=== PATIENT | male | born 1935 | race Caucasian/White ===

== ENCOUNTER 2016-06-04 17:20 | Inpatient (IN) ==
[2016-06-04] MEDS ORDERED: POTASSIUM CHLORIDE 40 MEQ in DEXTROSE 5% IN WATER 500 ML IV PRN (19:14)
[2016-06-04] MEDS ORDERED: MAGNESIUM SULFATE 2 GM/50 ML BAG IV PRN (19:14)
[2016-06-04] MEDS ORDERED: ONDANSETRON 4 MG/2 ML VIAL IV PRN (19:14)
[2016-06-04] MEDS ORDERED: POTASSIUM CHLORIDE 20 MEQ PACKET PO PRN (19:14)
[2016-06-04] MEDS ORDERED: NOREPINEPHRINE BITARTRATE 16 MG in 0.9 % SODIUM CHLORIDE 234 ML IV SCH (19:15)
[2016-06-04] MEDS ORDERED: 0.9 % SODIUM CHLORIDE 1,000 ML IV SCH ×5 (19:15→21:49)
[2016-06-04] MEDS ORDERED: PIPERACILLIN SODIUM/TAZOBACTAM 3.375 GM in DEXTROSE 5% IN WATER 50 ML IV SCH (19:15)
[2016-06-04] MEDS ORDERED: LEVOFLOXACIN 750 MG/150 ML BAG IV SCH (19:15)
[2016-06-04] MEDS ORDERED: METOPROLOL TARTRATE 5 MG/5 ML VIAL IV ONE (20:07)
[2016-06-04] MEDS ORDERED: PIPERACILLIN SODIUM/TAZOBACTAM 2.25 GM in DEXTROSE 5% IN WATER 50 ML IV SCH (20:15)
[2016-06-04] MEDS ORDERED: PIPERACILLIN SODIUM/TAZOBACTAM 2.25 GM VIAL IV ONE (21:00)
[2016-06-04] MEDS ORDERED: LEVOFLOXACIN 750 MG/150 ML BAG IV ONE (21:00)
[2016-06-04] MEDS ORDERED: FUROSEMIDE 100 MG/10 ML VIAL IV ONE ×2 (21:08→21:27)
[2016-06-04] MEDS ORDERED: WATER IV SCH ×2 (21:15→21:50)
[2016-06-04] MEDS ORDERED: DEXTROSE 5% IV SCH ×2 (21:15→21:50)
[2016-06-04] MEDS ORDERED: SODIUM BICARBONATE ADULT IV SCH ×2 (21:15→21:50)
[2016-06-04 21:16] LABS: Mean Cell Volume 87.6 fL (80.0-100.0); Mean Corpuscular HGB Conc 33.4 g/dL (31.0-36.0); Mean Corpuscular Hemoglobin 29.3 pg (26.0-34.0); Platelet Count 128 K/mcL (140-440); RBC 3.59 M/mcL (4.50-5.90); Red Cell Distribution Width 15.9 % (11.5-14.5)
[2016-06-04] MEDS ORDERED: PHYTONADIONE 10 MG/ML AMPUL ONE (21:18)
[2016-06-04] MEDS ORDERED: PHYTONADIONE 10 MG/ML AMPUL SQ ONE (21:19)
[2016-06-04] MEDS: SENNOSIDES/DOCUSATE SODIUM 1 TAB TABLET PO SCH (21:21)
[2016-06-04] MEDS: METOPROLOL TARTRATE 5 MG/5 ML VIAL IV SCH (21:21)
[2016-06-04 21:32] LABS: Appearance,Urine TURBID; Bacteria,Urine MANY /hpf (0); Bilirubin,Urine NEG (NEG); Color,Urine BROWN; Glucose,Urine (UA) 50 mg/dL (NEG); Leukocyte Esterase,Urine NEG /uL (NEG); Mucus,Urine MANY /hpf (0); Nitrate,Urine NEG (NEG); Protein,Urine 100 mg/dL (NEG); Specific Gravity,Urine 1.018 (1.000-1.035); Urine Amorphous Crystals MANY /hpf (0); Urine Blood >=1.0 mg/dL (<0.03); Urine RBC 125 /hpf (0-1); Urine Squamous Epithelial Cell 0 /hpf (0-4); Urine WBC 0 /hpf (0-4); Urobilinogen,Urine NEG (NEG)
--- NOTE | 2016-06-04 21:32 | Nephrology Consult Note ---
History of Present Illness - Reason for Consult Patient information: Note initiated : 06/04/16 at 9:26 pm Service Date, if different from initiated Date: [] Patient: Angel Garrett a 80 y/o M admitted on 06/04/16 for Sepsis, EDWIN. Chief Complaint: [] Consult date: 06/04/16 acute renal failure Requesting physician: Valdemar Peterson - Chief Complaint RHABDOMYOLYSIS - History of Present Illness Mr Garrett is a 80 y/o white male with PMH of Afib who is transferred here from [facility] in [place] for management of pneumonia, rhabdomyolysis and acute renal failure Patient was apparently found lying on the floor by his cousin who then called 911 Patient does not recollect what happened He last talked to his daughter Tuesday of this week, patient states that he was out playing golf, came back home, was feeling weak, does not remember what happened next, patient was likely on the floor for 2 days or more in the ED in [place] he was found to have left UL pneumonia, his CK was elevated to 35,000 and his BUN was 55 and s.creatinine was 6.0 and hence he was transferred to us for further management Patient is not able to provide much details he c/o SOB denies CP c/o LE swelling denies fever, chills denies nausea, vomiting was not taking any NSAIDS at home recently, yolanda marsh on and off Review of Systems All systems PM: reviewed and no additional remarkable complaints except as stated (as in HPI) Past History Past medical history: Afib on anticoagulation, recently diagnosed no h/o [place] Denies h/o HTN, DM type 2, states has chronically low BP Past surgical history: NOT OBTAINABLE Past family history: Not pertinent Past social history: lives alone, has a daughter and son who live in [place] and [place] quit drinking in Feb 2016 Exam - General Appearance General appearance: appears started age, obese EENT: mucous membranes dry Neck: no JVD Respiratory: wheezing, rales Cardiology: no rub, edema, irregular rhythm Gastrointestinal: no tenderness, no guarding Integumentary: no rash, warm and dry Neurologic: alert and oriented x3 Musculoskeletal: no erythema, no cyanosis Psychiatric: mood/affect appropriate Results - Lab Results 06/04/16 20:25 06/04/16 20:25 Assessment and Plan (1) Acute renal failure anuric renal failure from ATN from rhabdomyolysis Patient has received 3L IVF with no improvement in urine output, he clinically seems to be getting volume overloaded hence will cut back on sodium chloride at 50cc/hour will give lasix 60mg IV, and repeat the dose if needed will obtain CXR to ensure no pulmonary edema will also start him on bicarb gtt at 50cc/hour will monitor i/o, daily weights no emergent need for dialysis but if urine output does not improve will need to initiate dialysis PNA: ASPIRATION, on antibiotics Rhabdomyolysis on IVF Will follow along Thank you for giving me an opportunity to participate in Mr Garrett's medical care , appreciate it Status: Acute (2) Rhabdomyolysis Status: Acute (3) Pneumonia Status: Acute
[2016-06-04] MEDS: 0.9 % SODIUM CHLORIDE 10 ML SYRINGE IV SCH (21:34)
[2016-06-04] MEDS: DOCUSATE SODIUM 100 MG CAPSULE PO SCH (21:38)
[2016-06-04 21:44] LABS: ALT/SGPT 138 U/l (0-40); Albumin 2.7 gm/dL (3.2-5.2); Albumin/Globulin Ratio 0.8 (1.0-2.3); Alkaline Phosphatase 48 U/L (39-117); Bilirubin,Direct 0.5 mg/dL (0.0-0.3); Blood Urea Nitrogen 60 mg/dl (8-23); Gamma Glutamyl Transpeptidase 13 U/L (8-61); Magnesium 1.9 mg/dL (1.6-2.5); Uric Acid 12.6 mg/dL (2.5-8.0)
[2016-06-04] MEDS ORDERED: LEVOFLOXACIN 500 MG/100 ML BAG IV SCH (22:00)
[2016-06-04] MEDS ORDERED: SODIUM BICARBONATE 50 MEQ/50 ML VIAL ONE (22:05)
[2016-06-04 22:09] LABS: Band Neutrophils % 16 % (0-10); Dohle Bodies 1+ (NONE SEEN); Lymphocytes % 7 % (15-49); Monocytes % (Manual) 6 % (1-9); Ovalocytes FEW (NONE SEEN); Platelet Estimate DECREASED (NORMAL); RBC Morphology ABNORM (NORMAL); Segmented Neutrophils % 71 % (38-78)
[2016-06-04 22:11] LABS: Myoglobin 27762 ng/ml (28-72)
[2016-06-04 22:41] LABS: Creatine Kinase 32450 IU/L (24-195); Creatine Kinase MB 43.1 ng/ml (0-4.9)
--- NOTE | 2016-06-04 22:48 | History and Physical Report ---
DATE OF ADMISSION: 06/04/2016 DATE OF ADMISSION: 06/04/2016 PRIMARY CARE PHYSICIAN: Glo Kessler DO HISTORY OF CHIEF COMPLAINT: Mr. Garrett is an 80-year-old who was evaluated at [facility] after he was found down for unknown period of time likely since Tuesday. He was discovered by his cousin in the bathroom after he failed to respond to phone calls from family. Initial workup was significant for afib with RVR, low blood pressures in the 80s left upper lobe pneumonia and severe rhabdomyolysis with acute renal failure, creatinine 6. Patient was started on diltiazem drip. However, due to his dropping blood pressures, diltiazem was stopped. The patient received 1900 mL of crystalloids. ABG 7.42/36/71 on 5 liters of oxygen. The patient received first dose of antibiotics after blood cultures were drawn. The patient was critically ill, requiring transfer to intensive care unit for further management. Subsequently, [facility] hospitalist service was called by Dr. Tejada, ER physician in [place]. After verbal discussion on phone, the patient was accepted to [facility] with diagnosis of acute renal failure, rhabdomyolysis, afib with RVR, and right upper lobe pneumonia. On arrival, the patient is significantly dyspneic, requiring 5 liters of oxygen. His heart rate is around 120. Blood pressure is 110. The patient is confused and gibberish, unable to talk or provide any detailed history. Most of the history was obtained from review of medical records and from ER physician. A 10-point review of system was attempted. The patient denies diarrhea, dysuria, headache. He endorses generalized ache but appears fairly confused and disoriented. REVIEW OF SYSTEMS: Ten-point review of system was performed and negative except the ones discussed above. PAST MEDICAL HISTORY: No medical history could be obtained from review of medical records. SOCIAL AND FAMILY HISTORY: Again, unobtainable due to patient's mental status change. PHYSICAL EXAMINATION: GENERAL: The patient is disoriented, confused, gibberish and anxious. VITAL SIGNS: Blood pressure 123/90, respiration rate 22, temperature 98.6, pulse 122 irregular, sat is 96 percent on 4-5 liters of oxygen. HEENT: Pupils symmetric. Oral cavity is dry. No ear or nose discharge. Significant bruising and ecchymosis around the left side of forehead. . NECK: No lymphadenopathy. HEART: S1, S2, irregular rhythm. ESM, grade 1. LUNGS: Late inspiratory crackles along with bronchial breath sounds right posterior chest. Basilar crackles. ABDOMEN: Soft. SKIN: Significant necrotic skin lesion around the left chest surrounding the nipple along with skin necrosis. Also, extensive bruising and ecchymosis involving the left lower extremity around the thigh and knee and abrasion on the dorsum of the 1st, 2nd, and 3rd third toes. Skin cold, clammy. EXTREMITIES: No cyanosis or clubbing. No joint swelling. PSYCH: Disoriented, confused, gibberish speech. Higher function could not be performed. No agitation. NEURO: Could not be performed. The patient has obvious weakness, left upper and lower extremity. LABS AND IMAGING: CT head: No acute process except for scalp hematoma. X-ray chest: Left upper lobe infiltrate consistent with pneumonia. CT abdomen: No acute process. White count 7.9, hemoglobin 10.5, platelets 128. INR 12, APTT 84. Lactic acid 1.5, potassium 4, creatinine 6, BUN 60, bicarbonate 18. UA: Hematuria but no pyuria. ASSESSMENT AND PLAN: An 80-year-old found down, admitted with hypoxic respiratory failure, severe sepsis, atrial fibrillation with rapid ventricular response, and upper lobe pneumonia along with renal failure. 1. Left upper lobe pneumonia: Broad antibiotic coverage. Likely aspiration. Continue aspiration precautions. 2. Hypoxic respiratory failure: Continue supplemental oxygen. 3. Acute renal failure: Nephrology consulted secondary to rhabdomyolysis. 4. Rhabdomyolysis: Continue crystalloids and management per nephrology. The patient will be started on bicarbonate drip. 5. Atrial fibrillation with rapid ventricular response: Continue rate control measures using amiodarone/digoxin. Echocardiogram. Supratherapeutic INR. Five milligrams of vitamin K. The patient will require likely hemodialysis, and hence, dialysis catheter placement. Target INR less than 2. PLAN FOR TODAY: 1. Admit in ICU in light of SOBOBA score 22. High risk mortality. 2. Nephrology consultation. 3. Broad antibiotic coverage. 4. Hypoxic respiratory failure management. Intubate if indicated. Overall, a very high complexity admit requiring intensive care unit management with multiorgan dysfunction/rhabdomyolysis. The patient may require transfer to tertiary center if continues to deteriorate. Time spent over 85 minutes including 35 minutes critical care time on reviewing ABG, imaging, labs and stabilizing patient, management of hypoxic respiratory failure and discussions with multiple care provider. AA: Job ID: [id number] Doc ID: [id number] Valdemar Kessler DO [facility]
[2016-06-05] MEDS: VASOPRESSIN 20 UNIT in DEXTROSE 5% IN WATER 99 ML IV SCH ×2 (00:20→03:55)
[2016-06-05] MEDS ORDERED: METOPROLOL TARTRATE 5 MG/5 ML VIAL IV ONE (01:20)
[2016-06-05] MEDS: METOPROLOL TARTRATE 5 MG/5 ML VIAL IV SCH ×5 (01:22→16:30)
[2016-06-05 01:58] LABS: ALT/SGPT 128 U/l (0-40); Albumin 2.5 gm/dL (3.2-5.2); Albumin/Globulin Ratio 0.8 (1.0-2.3); Alkaline Phosphatase 44 U/L (39-117); Bilirubin,Direct 0.5 mg/dL (0.0-0.3); Blood Urea Nitrogen 61 mg/dl (8-23); Gamma Glutamyl Transpeptidase 11 U/L (8-61); Uric Acid 11.9 mg/dL (2.5-8.0)
[2016-06-05] MEDS ORDERED: FUROSEMIDE 100 MG/10 ML VIAL IV ONE ×2 (02:33→04:00)
[2016-06-05] MEDS: 0.9 % SODIUM CHLORIDE 10 ML SYRINGE IV SCH ×3 (06:00→21:24)
[2016-06-05 06:39] LABS: Mean Cell Volume 87.1 fL (80.0-100.0); Mean Corpuscular HGB Conc 33.5 g/dL (31.0-36.0); Mean Corpuscular Hemoglobin 29.2 pg (26.0-34.0); Platelet Count 121 K/mcL (140-440); RBC 3.38 M/mcL (4.50-5.90); Red Cell Distribution Width 15.8 % (11.5-14.5)
[2016-06-05 07:02] LABS: Creatine Kinase MB 29.2 ng/ml (0-4.9)
[2016-06-05] MEDS: DOCUSATE SODIUM 100 MG CAPSULE PO SCH ×2 (07:15→20:41)
[2016-06-05 07:20] LABS: ALT/SGPT 128 U/l (0-40); Albumin 2.4 gm/dL (3.2-5.2); Albumin/Globulin Ratio 0.8 (1.0-2.3); Alkaline Phosphatase 45 U/L (39-117); Bilirubin,Direct 0.5 mg/dL (0.0-0.3); Blood Urea Nitrogen 64 mg/dl (8-23); Gamma Glutamyl Transpeptidase 13 U/L (8-61); Magnesium 1.9 mg/dL (1.6-2.5); Uric Acid 12.2 mg/dL (2.5-8.0)
[2016-06-05] MEDS ORDERED: VASOPRESSIN 20 UNIT in DEXTROSE 5% IN WATER 99 ML IV PRN (07:26)
[2016-06-05] MEDS ORDERED: NOREPINEPHRINE BITARTRATE 16 MG in 0.9 % SODIUM CHLORIDE 234 ML IV PRN (07:26)
--- NOTE | 2016-06-05 07:29 | XRay Report ---
CLINICAL INFORMATION: Shortness of breath COMPARISON: None. FINDINGS: The heart is moderate enlarged. Mediastinum is unremarkable. Moderate sized consolidated infiltrate is seen in the left upper lobe. Small infiltrate noted in the right infrahilar region - likely the right lower lobe. Small bilateral pleural effusions are noted. IMPRESSION: 1. Moderate sized consolidated infiltrate left upper lobe - likely pneumonia. 2. Small infiltrate right infrahilar region. 3. Moderate cardiomegaly - no evidence of CHF Interpreted and Authenticated by: Santy Zelaya 06/05/16
--- NOTE | 2016-06-05 07:41 | Ultrasound Report ---
CLINICAL INFORMATION: Acute renal failure COMPARISON: None. FINDINGS: Both kidneys are normal in size, position and configuration: The right is 11 x 6.2 cm and the left is 13 x 6 cm. Echotexture in both kidneys is normal. A 3.5 cm, well-circumscribed hypoechoic solid mass in the superior pole of the left kidney. There are two cysts in the right kidney: 3.7 cm medially and 2.2 cm the superior pole. No hydronephrosis or stone. Arterial blood flow is grossly normal on color and spectral Doppler Mckeon catheter is in place bladder is decompressed - no gross bladder abnormality. No free fluid IMPRESSION: 3.5 cm centimeter well-circumscribed solid mass - superior pole of the left kidney. Suggest CT IVP to evaluate for renal cell carcinoma. If patient cannot tolerate iodinated contrast, an abdominal MRI may be performed as a substitute test. If the creatinine clearance exceeds 30 - gadolinium could be utilized safely. If creatinine clearance is under 30 in the MRI will have to be performed without gadolinium Interpreted and Authenticated by: Santy Zelaya 06/05/16
[2016-06-05 07:49] LABS: Band Neutrophils % 32 % (0-10); Basophils % (Manual) 1 % (0-2); Dohle Bodies 1+ (NONE SEEN); Lymphocytes % 4 % (15-49); Monocytes % (Manual) 2 % (1-9); Platelet Estimate DECREASED (NORMAL); RBC Morphology NORMAL (NORMAL); Segmented Neutrophils % 61 % (38-78)
[2016-06-05] MEDS: PIPERACILLIN SODIUM/TAZOBACTAM 2.25 GM in DEXTROSE 5% IN WATER 50 ML IV SCH ×2 (09:00→21:24)
[2016-06-05] MEDS ORDERED: METOPROLOL TARTRATE 25 MG TABLET PO SCH ×2 (09:00→21:00)
[2016-06-05] MEDS ORDERED: DIGOXIN 500 MCG/2 ML AMPUL IV ONE (09:06)
[2016-06-05] MEDS ORDERED: PHYTONADIONE 5 MG TABLET PO ONE (09:13)
--- NOTE | 2016-06-05 09:18 | XRay Report ---
CLINICAL INFORMATION: Follow left upper lobe pneumonia COMPARISON: 06/04/2016 FINDINGS: Large densely consolidated infiltrate in the left mid/upper lung has worsened slightly. Smaller infiltrate in the posterior medial right lower lobe also show slight progression. There appears to be a new small infiltrate developing in the left base. The heart is mildly enlarged, but unchanged. Mediastinum is accentuated by right lateral rotation with the normal limits. Pulmonary vessels are unremarkable IMPRESSION: 1. Large infiltrate in the left mid and upper lung has worsened from yesterday. Small infiltrate posterior medial right lower lobe also progressing. Probable new small left basilar infiltrate developing Interpreted and Authenticated by: Santy Zelaya 06/05/16
[2016-06-05] MEDS: PANTOPRAZOLE 40 MG VIAL IV SCH (09:26)
[2016-06-05] MEDS ORDERED: 0.9 % SODIUM CHLORIDE 250 ML IV SCH (09:45)
--- NOTE | 2016-06-05 10:02 | Internal Med Progress Note ---
Medical - PN: Subj Patient information: Note initiated : 06/05/16 at 9:57 am Service Date, if different from initiated Date: [] Patient: Angel Garrett 80 y/o M admitted on 06/04/16 for Sepsis, EDWIN. Chief Complaint: [] Interval history: 06[id number]-old admitted with severe rhabdomyolysis resulting inacute renal failure, left upper lobe aspiration pneumonia with hypoxic respiratory failure and A. fib with RVR. Admitted to ICU. Nephrology consulted. INR 12.3 status post 5 mg vitamin K and 1 unit FFP. on aggressive crystalloids/bicarbonate drip per nephrology. broad antibiotic coverage for aspiration pneumonia. Admitted to ICU. Critically ill. Mcalister score 22. Patient is full code. Intubate if worsening respiratory status. Imaging and blood gas reviewed. Patient however clinically responding to treatment and from Tuesday obtunded state on admission was able to provide some answers after initial crystalloids and improvement in blood pressures. CK 32,000. Myoglobin 27,000. 06/05-creatinine at 6.8. INR 7 receiving additional 5 mg vitamin K/2 units FFP. Surgery consulted for temporary dialysis catheter placement. Bandemia 32%. Worsening left-sided chest infiltrates. On 3 L oxygen with sats 97% however tachypneic. Start noninvasive ventilation to improve work of breathing. Anuric overnight. A. fib with RVR around 140s. Digoxin load 500 g IV. Use amiodarone if persistent RVR. cardiac enzymes down from 0.2-0.5. Elevated PTT at 100. CK 32,000. continues to be critically ill/ - Constitutional Vitals: Vital Signs Temp Pulse Resp BP Pulse Ox 99.3 F 110 H 27 H 110/79 97 06/05/16 08:00 06/05/16 09:00 06/05/16 09:00 06/05/16 09:00 06/05/16 09:00 Period Temp Pulse Resp BP Sys/Hinds Pulse Ox Last 24 Hr 98.9 F-99.8 F 109-119 22-36 98-145/63-119 93-97 Intake and Output 06/04/16 06/05/16 06/05/16 21:59 05:59 13:59 Intake Total 1018 / 1018 150 / 150 50 / 50 Output Total 75 / 75 Balance 1018 / 1018 75 / 75 50 / 50 Weight 214 lb 8 oz Intake & Output: Intake & Output 06/04/16 06/05/16 06/05/16 21:59 05:59 13:59 Intake Total 1018 / 1018 150 / 150 50 / 50 Output Total 75 / 75 Balance 1018 / 1018 75 / 75 50 / 50 Weight 214 lb 8 oz Intake: IV 1018 / 1018 150 / 150 50 / 50 Sodium Chloride 0.9% 1, 1018 / 1018 000 ml @ 50 mls/hr IV . Q20H [facility] Rx#:[id number] LEVAQUIN 750 mg In 150 ml 150 / 150 As IV .STK-[facility] ONE Rx#: [id number] Zosyn 2.25 gm In Dextrose 50 / 50 5% in Water 50 ml @ 100 mls/hr IV Q12H [facility] Rx#: [id number] Output: Urine Catheter Amount 75 / 75 General appearance: moderate distress, obese Exam: n 3 L oxygen nondistended abdomen Multiple bruises /macerated skin lesions involving right side of the body including chest upper and lower extremity minimal anxiety no urine output on Foleys catheter overnight Medical - PN: Obj Da - Labs CBC & Chem 7: 06/05/16 05:46 06/05/16 05:46 Labs: Abnormal Lab Results 06/05/16 06/05/16 06/05/16 07:55 05:46 05:46 RBC 3.38 L Hgb 9.9 L Hct 29.5 L RDW 15.8 H Plt Count 121 L Band Neutrophils % 32 H Lymphocytes % 4 L WBC Morphology Abnorm A Dohle Bodies 1+ A Platelet Estimate Decreased A RBC Morphology Ovalocytes ESR PT 63.6 H INR 7.0 H* APTT 100 H Carbon Dioxide 18 L Anion Gap 21.0 H BUN 64 H Creatinine 6.8 H* Glucose Uric Acid 12.2 H Calcium 6.4 L Phosphorus 6.6 H* Direct Bilirubin 0.5 H AST 675 H ALT 128 H Lactate Dehydrogenase 976 H Total Creatine Kinase CK-MB (CK-2) Myoglobin Troponin T C-Reactive Protein Total Protein 5.6 L Albumin 2.4 L Albumin/Globulin Ratio 0.8 L Triglycerides Urine Protein Urine Glucose (UA) Urine Occult Blood Urine RBC Amorphous Crystals Urine Bacteria Urine Mucus 06/05/16 06/05/16 06/05/16 05:25 05:25 01:03 RBC Hgb Hct RDW Plt Count Band Neutrophils % Lymphocytes % WBC Morphology Dohle Bodies Platelet Estimate RBC Morphology Ovalocytes ESR PT INR APTT Carbon Dioxide 21 L Anion Gap 18.0 H BUN 61 H Creatinine 6.1 H* Glucose 142 H Uric Acid 11.9 H Calcium 6.5 L Phosphorus 6.6 H* Direct Bilirubin 0.5 H AST 709 H ALT 128 H Lactate Dehydrogenase 971 H Total Creatine Kinase 90607 H CK-MB (CK-2) 29.2 H Myoglobin Troponin T 0.05 H* C-Reactive Protein Total Protein 5.7 L Albumin 2.5 L Albumin/Globulin Ratio 0.8 L Triglycerides Urine Protein Urine Glucose (UA) Urine Occult Blood Urine RBC Amorphous Crystals Urine Bacteria Urine Mucus 06/04/16 06/04/16 06/04/16 22:08 22:08 20:41 RBC Hgb Hct RDW Plt Count Band Neutrophils % Lymphocytes % WBC Morphology Dohle Bodies Platelet Estimate RBC Morphology Ovalocytes ESR PT INR APTT Carbon Dioxide Anion Gap BUN Creatinine Glucose Uric Acid Calcium Phosphorus Direct Bilirubin AST ALT Lactate Dehydrogenase Total Creatine Kinase 86422 H CK-MB (CK-2) 43.1 H Myoglobin Troponin T 0.05 H* C-Reactive Protein Total Protein Albumin Albumin/Globulin Ratio Triglycerides Urine Protein 100 A Urine Glucose (UA) 50 A Urine Occult Blood >=1.0 A Urine RBC 125 H Amorphous Crystals Many A Urine Bacteria Many A Urine Mucus Many A 06/04/16 06/04/16 06/04/16 20:25 20:25 20:25 RBC 3.59 L Hgb 10.5 L Hct 31.5 L RDW 15.9 H Plt Count 128 L Band Neutrophils % 16 H Lymphocytes % 7 L WBC Morphology Abnorm A Dohle Bodies 1+ A Platelet Estimate Decreased A RBC Morphology Abnorm A Ovalocytes Few A ESR PT INR APTT Carbon Dioxide 17 L Anion Gap 24.0 H BUN 60 H Creatinine 6.1 H* Glucose Uric Acid 12.6 H Calcium 6.8 L Phosphorus 6.6 H* Direct Bilirubin 0.5 H AST 755 H ALT 138 H Lactate Dehydrogenase 997 H Total Creatine Kinase 72754 H CK-MB (CK-2) Myoglobin 66726 H Troponin T C-Reactive Protein Total Protein Albumin 2.7 L Albumin/Globulin Ratio 0.8 L Triglycerides 155 H Urine Protein Urine Glucose (UA) Urine Occult Blood Urine RBC Amorphous Crystals Urine Bacteria Urine Mucus 06/04/16 06/04/16 20:25 20:25 RBC Hgb Hct RDW Plt Count Band Neutrophils % Lymphocytes % WBC Morphology Dohle Bodies Platelet Estimate RBC Morphology Ovalocytes ESR 101 H PT INR APTT Carbon Dioxide Anion Gap BUN Creatinine Glucose Uric Acid Calcium Phosphorus Direct Bilirubin AST ALT Lactate Dehydrogenase Total Creatine Kinase CK-MB (CK-2) Myoglobin Troponin T C-Reactive Protein 34.8 H Total Protein Albumin Albumin/Globulin Ratio Triglycerides Urine Protein Urine Glucose (UA) Urine Occult Blood Urine RBC Amorphous Crystals Urine Bacteria Urine Mucus Meds: Medications Acetaminophen (Tylenol) 650 mg PO Q4-6HP PRN PRN Reason: PAIN/FEVER > 101 Docusate Sodium (Colace) 100 mg PO BID [facility] Last Admin: 06/05/16 07:15 Dose: Not Given Potassium Chloride 40 meq/ (Dextrose) 520 mls @ 130 mls/hr IV UD PRN PRN Reason: K+ = or < 3.5 Magnesium Sulfate (Magnesium Sulfate) 2 gm in 50 mls @ 50 mls/hr IV UD PRN PRN Reason: MG = or < 1.7 Sodium Chloride (Sodium Chloride 0.9%) 1,000 mls @ 0 mls/hr IV BOLUS [facility] PRN Reason: Wide Open Last Infusion: 06/04/16 21:34 Dose: Infused Sodium Chloride (Sodium Chloride 0.9%) 1,000 mls @ 75 mls/hr IV .[id number] [facility] Stop: 06/07/16 03:08 Last Admin: 06/04/16 21:59 Dose: 75 mls/hr Sodium Bicarbonate 154 meq/ (Dextrose) 1,154 mls @ 25 mls/hr IV .Q24H [facility] Last Admin: 06/04/16 22:13 Dose: Not Given Piperacillin Sod/Tazobactam (Sod 2.25 gm/ Dextrose) 50 mls @ 100 mls/hr IV Q12H [facility] Last Infusion: 06/05/16 09:30 Dose: Infused Levofloxacin (Levaquin) 500 mg in 100 mls @ 100 mls/hr IV Q48H [facility] Norepinephrine Bitartrate 16 (mg/ Sodium Chloride) 250 mls @ 9.37 mls/hr IV Q24HP PRN; Protocol; 10 MCG/MIN PRN Reason: Hypotension Vasopressin 20 unit/ Dextrose 100 mls @ 12 mls/hr IV Q8HP PRN; Protocol; 0.04 UNIT/MIN PRN Reason: Hypotension Sodium Chloride (Sodium Chloride 0.9%) 250 mls @ 20 mls/hr IV .[id number] [facility] Stop: 06/05/16 22:14 Ondansetron HCl (Zofran) 4 mg IV Q4-6HP PRN PRN Reason: Nausea And Vomiting Pantoprazole Sodium (Protonix) 40 mg IV QAMAC [facility] Last Admin: 06/05/16 09:26 Dose: 40 mg Potassium Chloride (Klor-Con) 40 meq PO DAILYP PRN PRN Reason: K+ < 3.5 Senna/Docusate Sodium (Senna Plus Tablet) 1 tab PO HS [facility] Last Admin: 06/04/16 21:21 Dose: Not Given Sodium Chloride (Saline Flush) 10 ml IV Q8 [facility] Last Admin: 06/05/16 06:00 Dose: 10 ml Medical - PN: A/P - Time Spent With Patient Total time spent is greater than 50% in coordination of care (as documented) at patient's floor/unit and/or counseling patient: Greater than 35 minutes (critical care time) (1) Rhabdomyolysis Status: Acute Assessment and plan: * Rhabdomyolysis-on bicarbonate drip/crystalloids. Managed by nephrology. Myoglobin 27,000 CK 32,000 * Acute renal failure-anuric. Creatinine 6.8. Nephrology on board. Would require hemodialysis * Left upper lobe pneumonia-aspiration. Continue Zosynfor empiric coverage of gram-negative/anaerobes. High risk developing lung abscess * Hypoxic respiratory failure secondary to above-start noninvasive ventilation. Serial blood gas/chest imaging to evaluate for ALI/ARDS. Mechanical ventilation if continues to deteriorate * A. fib RVR-digoxin load. Use amiodarone if low systolics preclude use of beta ben/CCB. * Eevated INR/PTT-Status post 10 mg vitamin K. FFP to target INR around 2. Hemodialysis catheter placement today plan * [facility]CU care. Patient critically ill. Mcalister score 22 * Surgery nephrology consult * Digoxin load, FFP vitamin K * serial chest imaging/blood gas * Tertiary Center transfer if patient clinically deteriorates Current Visit: Yes Medical - PN: Qual - Stroke Symptom Onset Unknown: Yes - VTE Deep Vein Thrombosis/Pulmonary Embolism Present on Admission: No
--- NOTE | 2016-06-05 10:05 | Nephrology Progress Note ---
Subjective Patient information: Note initiated : 06/05/16 at 10:02 am Service Date, if different from initiated Date: [] Patient: Angel Garrett 80 y/o M admitted on 06/04/16 for Sepsis, [facility]WIN. Chief Complaint: [] Principal diagnosis: PNA, acute renal failure, rhabdomyolysis Interval history: Patient remains tachypneic, infiltrate in left upperlobe, developing infitrate in left lower lobe and infiltrate in right middle lobe no s/o CHF on CXR patient received more than 4L of fluid yesterday with no improvement in urine output concern of him getting fluid overloaded as he is anuric he also has coagulopathy INR still 7, aptt is elevated to 100 his BP is stable, no need of pressors he denies CP, any pain at all c/o LE edema he denies nausea, vomiting he has no other concerns Pertinent ROS: as above Objective - Vital Signs Vital signs: Vital Signs Temp Pulse Resp BP BP Pulse Ox 06/05/16 09:00 110 H 27 H 110/79 97 06/05/16 08:00 99.3 F 109 H 36 H 109/77 95 06/05/16 07:00 119 H 29 H 114/67 96 06/05/16 05:58 24 98/73 97 06/05/16 05:00 30 H 111/64 95 06/05/16 04:00 98.9 F 25 H 106/63 96 06/05/16 03:00 24 107/72 97 06/05/16 02:00 114 H 25 H 107/72 95 06/05/16 01:00 25 H 115/89 06/05/16 00:00 99.5 F 22 111/81 97 06/04/16 23:00 22 115/73 93 06/04/16 22:00 23 123/77 97 06/04/16 21:00 26 H 111/68 93 06/04/16 20:00 29 H 127/85 95 06/04/16 19:45 22 145/119 94 06/04/16 19:31 99.8 F H 24 127/85 95 Intake and Output 06/04/16 06/05/16 06/05/16 21:59 05:59 13:59 Intake Total 1018 / 1018 150 / 150 50 / 50 Output Total 75 / 75 Balance 1018 / 1018 75 / 75 50 / 50 Intake: IV 1018 / 1018 150 / 150 50 / 50 Sodium Chloride 0.9% 1, 1018 / 1018 000 ml @ 50 mls/hr IV . Q20H [facility] Rx#:[id number] LEVAQUIN 750 mg In 150 ml 150 / 150 As IV .[facility] ONE Rx#: [id number] Zosyn 2.25 gm In Dextrose 50 / 50 5% in Water 50 ml @ 100 mls/hr IV Q12H [facility] Rx#: [id number] Output: Urine Catheter Amount 75 / 75 Other: Weight 214 lb 8 oz Intake & Output: Intake & Output 06/04/16 06/05/16 06/05/16 21:59 05:59 13:59 Intake Total 1018 / 1018 150 / 150 50 / 50 Output Total 75 / 75 Balance 1018 / 1018 75 / 75 50 / 50 Weight 214 lb 8 oz Intake: IV 1018 / 1018 150 / 150 50 / 50 Sodium Chloride 0.9% 1, 1018 / 1018 000 ml @ 50 mls/hr IV . Q20H [facility] Rx#:[id number] LEVAQUIN 750 mg In 150 ml 150 / 150 As IV .[facility] ONE Rx#: [id number] Zosyn 2.25 gm In Dextrose 50 / 50 5% in Water 50 ml @ 100 mls/hr IV Q12H [facility] Rx#: [id number] Output: Urine Catheter Amount 75 / 75 - General Appearance General appearance: appears started age, obese EENT: mucous membranes moist Neck: JVD Respiratory: rales Cardiology: no rub, edema, irregular rhythm Gastrointestinal: no tenderness, no guarding Integumentary: warm and dry Neurologic: alert and oriented x3 Musculoskeletal: no cyanosis, no clubbing Psychiatric: mood/affect appropriate - Lab 06/05/16 05:46 06/05/16 05:46 Most recent lab results Calcium 6.4 mg/dl (8.6-10.4) L 06/05/16 05:46 Phosphorus 6.6 mg/dL (2.7-4.5) H* 06/05/16 05:46 Magnesium 1.9 mg/dL (1.6-2.5) 06/05/16 05:46 Assessment and Plan (1) Acute renal failure Patient with oligoanuric renal failure from pre renal state and rhabodmyolysis on IVF, fluid resuscitated with no improvement in renal function, also received IV lasix CKD still more than 30,000 no hyperkalemia, mild acidosis elevated phosphorus and mild hypocalcemia from rhabdomyolysis stable concern of anuric renal failure, doubt patient will turn around soon given persistently elevated CKD given this will initiate dialysis Dr Soto helping with placement of temp IJ dialysis cathetor Will do dialysis for 3 hrs using revaclear 300 dialyser, 3K/2.5 ca dialysate, UF goal 0.5-1L as tolerated as patient will get FFP for line placement will continue with IVF today, change to normal saline will monitor I/O, recheck labs later in evening today Pneumonia bilateral, more extensive in left upper lobe patient persistently tacypneic consider ABG, consider atleast bipap support as patient ia awake and oriented on antibiotics dose to dialysis please repeat zosyn after HD Rhabdomyolysis: persistently elevated to more than [id number] no urine output phos elevated will initiate HD will continue with cautious fluid resuscitation Abnormal liver enzymes with coagulopathy overall poor prognosis given patient;s age with multiorgan involvement Patient's niece Yvonne was updated about patient;'s medical condition High mortality Thank you for giving me an opportunity to participate in Mr Garrett's medical care , appreciate it Status: Acute (2) Rhabdomyolysis Status: Acute (3) Pneumonia Status: Acute
[2016-06-05] MEDS ORDERED: 0.9 % SODIUM CHLORIDE 1,000 ML IV SCH (10:15)
--- NOTE | 2016-06-05 10:46 | XRay Report ---
CLINICAL INFORMATION: Dialysis catheter placement COMPARISON: 06/05/2016 0800 hours FINDINGS: Right IJ dialysis catheter tip overlies the SVC/ right atrial junction. Mild cardiomegaly is stable. Mediastinum is unremarkable. Large infiltrate left upper lobe is unchanged. Small infiltrate in the right lower lobe also unchanged. IMPRESSION: No change in large left upper lobe and smaller right lower lobe infiltrate. Right IJ dialysis catheter tip overlies the SVC azygos junction. No complication from catheter placement. Interpreted and Authenticated by: Santy Zelaya 06/05/16
--- NOTE | 2016-06-05 12:21 | Echocardiogram Report ---
ECHOCARDIOGRAM: 2-D and M-mode echocardiography with cardiac Doppler and color flow imaging were performed with a [employer] MX. Indication is hypoxic respiratory failure. Both atria appeared moderately enlarged. The RV appeared mildly enlarged. LV cavity size appeared normal. Wall thickness appeared high normal. Systolic performance appeared normal to vigorous. Estimated ejection fraction is 65-70%. Aortic root diameter appeared normal. The aortic valve appeared trileaflet and normal. There was no evidence for aortic stenosis or aortic regurgitation by Doppler interrogation. The mitral and tricuspid valves appeared unremarkable. Doppler interrogation of LV inflow disclosed a monophasic spectral dispersion pattern related to absent AV synchrony. Mitral regurgitation, probably moderate (2+), was demonstrated. Color flow imaging disclosed the regurgitant jet to be directed anteriorly. Pulmonary venous interrogation disclosed ''D'' wave dominance indicating elevated pulmonary wedge pressure. The pulmonic valve was not visualized. Pulmonary artery acceleration time appeared normal. There was no evidence for pulmonic stenosis or pulmonic regurgitation. Tricuspid regurgitation, probably mild (1+), was noted. No intracardiac shunting was appreciated. There was no evidence of pericardial effusion. The IVC was dilated and did not vary with respiratory cycle indicating raise CVP. Calculated estimated of PA systolic pressure is mildly elevated at 45 mmHg. Atrial fibrillation with a moderate to rapid response was present. CONCLUSION: Normal to vigorous LV systolic performance. Mitral regurgitation, probably moderate (2+) with moderate LA enlargement and elevated pulmonary wedge pressure. Mild pulmonary hypertension with mild RV enlargement, moderate RA enlargement, and raised CVP. (See accompanying M-mode and Doppler reports for quantitation.) ECHOCARDIOGRAPHY M-MODE CALCULATIONS: HT: 65'' WT: 214 BSA: 2.04 m2 NORMALS AORTA: AORTIC ROOT 3.6 2.0-3.7 cm LEFT ATRIUM 3.4 1.9-4.0 cm MITRAL VALVE: EXCURSION 2.1 1.9-2.7 cm EPSS -- <0.5 cm LT VENTRICLE: LVID (ED) 4.3 3.5-5.7 cm LVID (ES) 3.0 SEPTAL THICKNESS 1.1 0.6-1.1 cm SEPTAL EXCURSION 0.4 0.3-0.8 cm LVPW THICKNESS 1.1 0.6-1.1 cm LVPW EXCURSION 1.0 0.9-1.4 cm MINOR AXIS FS 30 25%-40% RT VENTRICLE: RVID (ED) 1.2 0.9-2.6 cm(up to 3cm if LLD) QUALITATIVE DOPPLER FLOW STUDIES MITRAL VALVE MR, probably moderate (2+). AORTIC VALVE -- TRICUSPID VALVE TR, probably mild (1+). PULMONIC VALVE -- QUANTITATIVE DOPPLER FLOW STUDIES SAMPLE SITES VELOCITIES PEAK PRESSURE VALVE AREA and/or VALVE WINDOW (PEAK,M/SEC) DROP (GRADIENT) PRESSURE HALF-TIME MV (Diastole) 1.2 (E) - (A) MV (Systole) 3.5 AO (Diastole) -- AO (Systole) 1.4 TV (Systole) 2.5 PV (Systole) 1.5 PV (Diastole) -- LWG:cali Job ID: [id number] Doc ID: [id number] Nicolas Corea MD
--- NOTE | 2016-06-05 13:19 | General Surgery Progress Note ---
Surgical - Auxillary Note - Subjective Patient Information: Note initiated : 06/05/16 at 1:17 pm Service Date, if different from initiated Date: [] Patient: Angel Garrett 80 y/o M admitted on 06/04/16 for Sepsis, [facility]WIN. Chief Complaint: Post procedure visit Patient sitting up in bed receiving dialysis. Dialysis nurse reports good flows through catheter. Examination of catheter site shows catheter secure in place w/ suture. Some sanguinous drainage on dressing but no hematoma at site or active bleeding from insertion site noted.
[2016-06-05] MEDS ORDERED: IPRATROPIUM/ALBUTEROL 3 ML AMPUL.NEB NEB SCH (15:30)
[2016-06-05 16:09] LABS: Mean Cell Volume 87.4 fL (80.0-100.0); Mean Corpuscular HGB Conc 33.3 g/dL (31.0-36.0); Mean Corpuscular Hemoglobin 29.1 pg (26.0-34.0); Platelet Count 121 K/mcL (140-440); RBC 3.54 M/mcL (4.50-5.90); Red Cell Distribution Width 15.7 % (11.5-14.5)
[2016-06-05] MEDS: IPRATROPIUM/ALBUTEROL 3 ML AMPUL.NEB NEB SCH ×3 (16:10→23:08)
[2016-06-05] MEDS: ACETAMINOPHEN 325 MG TABLET PO PRN ×2 (16:16→20:12)
[2016-06-05 16:32] LABS: ALT/SGPT 134 U/l (0-40); Albumin 2.9 gm/dL (3.2-5.2); Albumin/Globulin Ratio 0.8 (1.0-2.3); Alkaline Phosphatase 58 U/L (39-117); Bilirubin,Direct 0.7 mg/dL (0.0-0.3); Blood Urea Nitrogen 35 mg/dl (8-23); Gamma Glutamyl Transpeptidase 19 U/L (8-61); Magnesium 1.8 mg/dL (1.6-2.5); Uric Acid 5.3 mg/dL (2.5-8.0)
[2016-06-05 17:18] LABS: Creatine Kinase 28360 IU/L (24-195)
[2016-06-05] MEDS ORDERED: METOPROLOL TARTRATE 25 MG TABLET PO ONE (18:56)
[2016-06-05] MEDS: SENNOSIDES/DOCUSATE SODIUM 1 TAB TABLET PO SCH (20:42)
[2016-06-06] MEDS: METOPROLOL TARTRATE 50 MG TABLET PO SCH ×3 (00:24→20:42)
[2016-06-06 05:08] LABS: Mean Cell Volume 87.5 fL (80.0-100.0); Mean Corpuscular HGB Conc 33.4 g/dL (31.0-36.0); Mean Corpuscular Hemoglobin 29.2 pg (26.0-34.0); Platelet Count 112 K/mcL (140-440); RBC 3.26 M/mcL (4.50-5.90); Red Cell Distribution Width 15.1 % (11.5-14.5)
[2016-06-06 05:32] LABS: ALT/SGPT 126 U/l (0-40); Albumin 2.5 gm/dL (3.2-5.2); Albumin/Globulin Ratio 0.8 (1.0-2.3); Alkaline Phosphatase 57 U/L (39-117); Bilirubin,Direct 1.1 mg/dL (0.0-0.3); Blood Urea Nitrogen 51 mg/dl (8-23); Gamma Glutamyl Transpeptidase 17 U/L (8-61); Magnesium 1.9 mg/dL (1.6-2.5); Uric Acid 7.4 mg/dL (2.5-8.0)
[2016-06-06] MEDS: 0.9 % SODIUM CHLORIDE 10 ML SYRINGE IV SCH ×3 (05:40→22:04)
[2016-06-06 07:18] LABS: Band Neutrophils % 16 % (0-10); Dohle Bodies 1+ (NONE SEEN); Lymphocytes % 8 % (15-49); Monocytes % (Manual) 2 % (1-9); Platelet Estimate DECREASED (NORMAL); RBC Morphology NORMAL (NORMAL); Segmented Neutrophils % 74 % (38-78)
[2016-06-06] MEDS: IPRATROPIUM/ALBUTEROL 3 ML AMPUL.NEB NEB SCH ×5 (07:38→22:12)
[2016-06-06] MEDS: DOCUSATE SODIUM 100 MG CAPSULE PO SCH ×2 (07:54→19:27)
[2016-06-06] MEDS: PANTOPRAZOLE 40 MG VIAL IV SCH (07:54)
[2016-06-06] MEDS: ACETAMINOPHEN 325 MG TABLET PO PRN ×2 (08:40→15:07)
[2016-06-06 08:48] LABS: Creatine Kinase 19324 IU/L (24-195)
[2016-06-06] MEDS ORDERED: LEVOFLOXACIN 500 MG/100 ML BAG IV SCH (10:00)
--- NOTE | 2016-06-06 10:31 | Nephrology Progress Note ---
Subjective Patient information: Note initiated : 06/06/16 at 10:26 am Service Date, if different from initiated Date: [] Patient: Angel Garrett 80 y/o M admitted on 06/04/16 for Sepsis, EDWIN. Chief Complaint: [] Principal diagnosis: PNA, acute renal failure, rhabdomyolysis Interval history: Patient started on dialysis yesterday, tolerated the procedure with no issues feeling much better today no SOB, CP, dizziness no edema no GI symptoms still anuric CK trending down Pertinent ROS: as above Objective - Vital Signs Vital signs: Vital Signs Temp Pulse Pulse Resp BP BP BP 06/06/16 08:00 99.4 F 109 H 29 H 124/74 06/06/16 07:00 99.5 F 110 H 28 H 107/76 06/06/16 06:00 28 H 120/65 06/06/16 05:00 22 102/59 06/06/16 04:00 98.7 F 23 96/78 06/06/16 03:00 21 100/65 06/06/16 02:00 120 H 28 H 111/67 06/06/16 01:00 19 97/50 06/06/16 00:00 98.7 F 26 H 93/59 06/05/16 23:17 100 H 21 06/05/16 23:00 22 99/53 06/05/16 22:00 99.3 F 22 95/55 06/05/16 21:00 27 H 88/45 06/05/16 20:00 100.9 F H 125 H 24 94/61 06/05/16 19:29 108 H 24 06/05/16 19:24 06/05/16 19:00 102.0 F H 30 H 90/55 06/05/16 18:32 102.2 F H 27 H 99/51 06/05/16 18:00 106 H 24 107/73 06/05/16 17:00 100.9 F H 110 H 24 115/68 06/05/16 16:11 118 H 26 H 06/05/16 16:00 99.9 F H 120 H 23 107/70 06/05/16 15:00 97.4 F L 135 H 129 H 22 133/88 133/88 06/05/16 14:29 115 H 124/84 06/05/16 14:00 121 H 126 H 24 140/93 140/93 06/05/16 13:33 133 H 132/77 06/05/16 13:00 120 H 24 119/87 06/05/16 12:59 128 H 119/87 06/05/16 12:30 123 H 128/94 06/05/16 12:00 100.0 F H 109 H 21 107/77 128/99 06/05/16 11:00 31 H 139/62 Pulse Ox 06/06/16 08:00 96 06/06/16 07:00 95 06/06/16 06:00 95 06/06/16 05:00 96 06/06/16 04:00 97 06/06/16 03:00 96 06/06/16 02:00 96 06/06/16 01:00 95 06/06/16 00:00 95 06/05/16 23:17 06/05/16 23:00 95 06/05/16 22:00 94 06/05/16 21:00 95 06/05/16 20:00 95 06/05/16 19:29 06/05/16 19:24 93 06/05/16 19:00 96 06/05/16 18:32 92 06/05/16 18:00 94 06/05/16 17:00 96 06/05/16 16:11 06/05/16 16:00 96 06/05/16 15:00 95 06/05/16 14:29 06/05/16 14:00 95 06/05/16 13:33 06/05/16 13:00 95 06/05/16 12:59 06/05/16 12:30 06/05/16 12:00 96 06/05/16 11:00 96 Intake and Output 06/05/16 06/06/16 06/06/16 21:59 05:59 13:59 Intake Total 390 / 390 150 / 150 Output Total 5766 / 5766 Balance -5376 / -5376 135 / 135 Intake: IV 50 / 50 Zosyn 2.25 gm In Dextrose 50 / 50 5% in Water 50 ml @ 100 mls/hr IV Q12H [facility] Rx#: [id number] Oral 390 / 390 100 / 100 Output: Urine Catheter Amount 15 Hemodialysis UF 5756 / 5756 Other: # of times incontinent of 1 1 Bowels Weight 218 lb 1 oz Intake & Output: Intake & Output 06/05/16 06/06/16 06/06/16 21:59 05:59 13:59 Intake Total 390 / 390 150 / 150 Output Total 5766 / 5766 Balance -5376 / -5376 135 / 135 Weight 218 lb 1 oz Intake: IV 50 / 50 Zosyn 2.25 gm In Dextrose 50 / 50 5% in Water 50 ml @ 100 mls/hr IV Q12H [facility] Rx#: [id number] Oral 390 / 390 100 / 100 Output: Urine Catheter Amount Hemodialysis UF 5756 / 5756 Other: # of times incontinent of 1 1 Bowels - General Appearance General appearance: appears started age, obese EENT: mucous membranes moist Neck: no JVD Respiratory: rales (much improved ) Cardiology: no rub, no edema, irregular rhythm Gastrointestinal: no tenderness, no guarding Integumentary: warm and dry Neurologic: alert and oriented x3 Musculoskeletal: no erythema, no cyanosis Psychiatric: mood/affect appropriate - Lab 06/06/16 03:40 06/06/16 03:40 Most recent lab results Calcium 6.9 mg/dl (8.6-10.4) L 06/06/16 03:40 Phosphorus 6.2 mg/dL (2.7-4.5) H* 06/06/16 03:40 Magnesium 1.9 mg/dL (1.6-2.5) 06/06/16 03:40 Assessment and Plan (1) Acute renal failure Patient with oligoanuric renal failure from pre renal state and rhabodmyolysis Patient remains anuric CKD trending down calcium low and phos elevated due to renal issues and rhabdomyolysis no hyperkalemia acidosis resolved after initiating dialysis Will continue HD today for 3.5hrs using revaclear 300 dialyser, [id number]/MIN , QD 700ML/MIN, 3K/2.5Ca dialysate, UF goal of 0.5L NO S/O FLUID OVERLOAD AND PATIENT NOT GETTING MUCH FLUID Please dose meds to HD follow I/O. vital signs [facility] to see if any underlying CKD pna: ASPIRATION an antibiotics slowly improving [place] [id number] will monitor Status: Acute (2) Rhabdomyolysis Status: Acute (3) Pneumonia Status: Acute
--- NOTE | 2016-06-06 12:11 | Internal Med Progress Note ---
Medical - PN: Subj Patient information: Note initiated : 06/06/16 at 12:10 pm Service Date, if different from initiated Date: [] Patient: Angel Garrett 80 y/o M admitted on 06/04/16 for Sepsis, EDWIN. Chief Complaint: [] Interval history: [id number]-old admitted with severe rhabdomyolysis resulting inacute renal failure, left upper lobe aspiration pneumonia with hypoxic respiratory failure and A. fib with RVR. Admitted to ICU. Nephrology consulted. INR 12.3 status post 5 mg vitamin K and 1 unit FFP. on aggressive crystalloids/bicarbonate drip per nephrology. broad antibiotic coverage for aspiration pneumonia. Admitted to ICU. Critically ill. Luce score 22. Patient is full code. Intubate if worsening respiratory status. Imaging and blood gas reviewed. Patient however clinically responding to treatment and from Tuesday obtunded state on admission was able to provide some answers after initial crystalloids and improvement in blood pressures. CK 32,000. Myoglobin 27,000. 06/05-creatinine at 6.8. INR 7 receiving additional 5 mg vitamin K/2 units FFP. Surgery consulted for temporary dialysis catheter placement. Bandemia 32%. Worsening left-sided chest infiltrates. On 3 L oxygen with sats 97% however tachypneic. Start noninvasive ventilation to improve work of breathing. Anuric overnight. A. fib with RVR around 140s. Digoxin load 500 g IV. Use amiodarone if persistent RVR. cardiac enzymes down from 0.2-0.5. Elevated PTT at 100. CK 32,000. continues to be critically ill/ 4/2 Pt doing much better after HD, breathing better. 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 Pt had high grade fever, repeat cultures sent, no fever this AM. Rhabdo improving.PT still not having any urine output. He denies any acute concerns. He was wheezing yesterday and was started on duonebs q 4 hrs. This am no wheeze. still needs oxygen, Pertinent ROS: Denies headache, dizziness Denies chest pain, palpitations Denies cough or shortness of breath Denies abdominal pain, nausea or vomiting. - Constitutional Vitals: Vital Signs Temp Pulse Resp BP Pulse Ox 99.4 F 109 H 29 H 124/74 96 06/06/16 08:00 06/06/16 08:00 06/06/16 08:00 06/06/16 08:00 06/06/16 08:00 Period Temp Pulse Resp BP Sys/Hinds Pulse Ox Last 24 Hr 97.4 F-102.2 F 100-135 19-30 88-140/45-94 92-97 Intake and Output 06/05/16 06/06/16 06/06/16 21:59 05:59 13:59 Intake Total 390 / 390 150 / 150 Output Total 5766 / 5766 Balance -5376 / -5376 135 / 135 Weight 218 lb 1 oz Intake & Output: Intake & Output 06/05/16 06/06/16 06/06/16 21:59 05:59 13:59 Intake Total 390 / 390 150 / 150 Output Total 5766 / 5766 Balance -5376 / -5376 135 / 135 Weight 218 lb 1 oz Intake: IV 50 / 50 Zosyn 2.25 gm In Dextrose 50 / 50 5% in Water 50 ml @ 100 mls/hr IV Q12H [facility] Rx#: [id number] Oral 390 / 390 100 / 100 Output: Urine Catheter Amount Hemodialysis UF 5756 / 5756 Other: # of times incontinent of 1 1 Bowels Exam: Constitutional; Afebrile, cooperative, alert, not in distress. Eyes- No icterus, Pupils equal, reactive, No periorbital swelling Ears- Ext ear normal, hearing normal to conversation. Neck- Midline trachea, supple Respiratory system: Air Entry equal on both sides,No or wheezing, conducted breath sounds left upper and mid lobe. CVS- Rate rhythm regular, S1,S2 heard, no gallop, no rub. Abdomen- Soft nontender abdomen, no organomegaly, no tenderness, no guarding or rigidity, [employer]IST- AOOx3, moving all extremities, no focal deficit noted. Medical - PN: Obj Da - Labs CBC & Chem 7: 06/06/16 03:40 06/06/16 03:40 Labs: Abnormal Lab Results 06/06/16 06/06/16 06/06/16 03:40 03:40 03:40 RBC Hgb Hct RDW Plt Count Band Neutrophils % Lymphocytes % WBC Morphology Dohle Bodies Platelet Estimate RBC Morphology Ovalocytes ESR PT 19.3 H INR 1.6 H APTT Carbon Dioxide 21 L Anion Gap 20.0 H BUN 51 H Creatinine 6.2 H* Glucose Uric Acid Calcium 6.9 L Phosphorus 6.2 H* Total Bilirubin 1.7 H Direct Bilirubin 1.1 H AST 619 H ALT 126 H Lactate Dehydrogenase 933 H Total Creatine Kinase 22137 H CK-MB (CK-2) Myoglobin Troponin T C-Reactive Protein Total Protein 5.7 L Albumin 2.5 L Albumin/Globulin Ratio 0.8 L Triglycerides 158 H Urine Protein Urine Glucose (UA) Urine Occult Blood Urine RBC Amorphous Crystals Urine Bacteria Urine Mucus 06/06/16 06/05/16 06/05/16 03:40 15:35 15:35 RBC 3.26 L Hgb 9.5 L Hct 28.5 L RDW 15.1 H Plt Count 112 L Band Neutrophils % 16 H Lymphocytes % 8 L WBC Morphology Abnorm A Dohle Bodies 1+ A Platelet Estimate Decreased A RBC Morphology Ovalocytes ESR PT INR APTT Carbon Dioxide 21 L Anion Gap 22.0 H BUN 35 H Creatinine 4.0 H Glucose 68 L Uric Acid Calcium 7.5 L Phosphorus Total Bilirubin 1.4 H Direct Bilirubin 0.7 H AST 687 H ALT 134 H Lactate Dehydrogenase 1057 H Total Creatine Kinase 78606 H CK-MB (CK-2) Myoglobin Troponin T C-Reactive Protein Total Protein Albumin 2.9 L Albumin/Globulin Ratio 0.8 L Triglycerides 170 H Urine Protein Urine Glucose (UA) Urine Occult Blood Urine RBC Amorphous Crystals Urine Bacteria Urine Mucus 06/05/16 06/05/16 06/05/16 15:35 07:55 05:46 RBC 3.54 L Hgb 10.3 L Hct 30.9 L RDW 15.7 H Plt Count 121 L Band Neutrophils % Lymphocytes % WBC Morphology Dohle Bodies Platelet Estimate RBC Morphology Ovalocytes ESR PT 63.6 H INR 7.0 H* APTT 100 H Carbon Dioxide 18 L Anion Gap 21.0 H BUN 64 H Creatinine 6.8 H* Glucose Uric Acid 12.2 H Calcium 6.4 L Phosphorus 6.6 H* Total Bilirubin Direct Bilirubin 0.5 H AST 675 H ALT 128 H Lactate Dehydrogenase 976 H Total Creatine Kinase CK-MB (CK-2) Myoglobin Troponin T C-Reactive Protein Total Protein 5.6 L Albumin 2.4 L Albumin/Globulin Ratio 0.8 L Triglycerides Urine Protein Urine Glucose (UA) Urine Occult Blood Urine RBC Amorphous Crystals Urine Bacteria Urine Mucus 06/05/16 06/05/16 06/05/16 05:46 05:25 05:25 RBC 3.38 L Hgb 9.9 L Hct 29.5 L RDW 15.8 H Plt Count 121 L Band Neutrophils % 32 H Lymphocytes % 4 L WBC Morphology Abnorm A Dohle Bodies 1+ A Platelet Estimate Decreased A RBC Morphology Ovalocytes ESR PT INR APTT Carbon Dioxide Anion Gap BUN Creatinine Glucose Uric Acid Calcium Phosphorus Total Bilirubin Direct Bilirubin AST ALT Lactate Dehydrogenase Total Creatine Kinase 49757 H CK-MB (CK-2) 29.2 H Myoglobin Troponin T 0.05 H* C-Reactive Protein Total Protein Albumin Albumin/Globulin Ratio Triglycerides Urine Protein Urine Glucose (UA) Urine Occult Blood Urine RBC Amorphous Crystals Urine Bacteria Urine Mucus 06/05/16 06/04/16 06/04/16 01:03 22:08 22:08 RBC Hgb Hct RDW Plt Count Band Neutrophils % Lymphocytes % WBC Morphology Dohle Bodies Platelet Estimate RBC Morphology Ovalocytes ESR PT INR APTT Carbon Dioxide 21 L Anion Gap 18.0 H BUN 61 H Creatinine 6.1 H* Glucose 142 H Uric Acid 11.9 H Calcium 6.5 L Phosphorus 6.6 H* Total Bilirubin Direct Bilirubin 0.5 H AST 709 H ALT 128 H Lactate Dehydrogenase 971 H Total Creatine Kinase 70050 H CK-MB (CK-2) 43.1 H Myoglobin Troponin T 0.05 H* C-Reactive Protein Total Protein 5.7 L Albumin 2.5 L Albumin/Globulin Ratio 0.8 L Triglycerides Urine Protein Urine Glucose (UA) Urine Occult Blood Urine RBC Amorphous Crystals Urine Bacteria Urine Mucus 06/04/16 06/04/16 06/04/16 20:41 20:25 20:25 RBC Hgb Hct RDW Plt Count Band Neutrophils % Lymphocytes % WBC Morphology Dohle Bodies Platelet Estimate RBC Morphology Ovalocytes ESR PT INR APTT Carbon Dioxide 17 L Anion Gap 24.0 H BUN 60 H Creatinine 6.1 H* Glucose Uric Acid 12.6 H Calcium 6.8 L Phosphorus 6.6 H* Total Bilirubin Direct Bilirubin 0.5 H AST 755 H ALT 138 H Lactate Dehydrogenase 997 H Total Creatine Kinase 54629 H CK-MB (CK-2) Myoglobin 86865 H Troponin T C-Reactive Protein Total Protein Albumin 2.7 L Albumin/Globulin Ratio 0.8 L Triglycerides 155 H Urine Protein 100 A Urine Glucose (UA) 50 A Urine Occult Blood >=1.0 A Urine RBC 125 H Amorphous Crystals Many A Urine Bacteria Many A Urine Mucus Many A 06/04/16 06/04/16 06/04/16 20:25 20:25 20:25 RBC 3.59 L Hgb 10.5 L Hct 31.5 L RDW 15.9 H Plt Count 128 L Band Neutrophils % 16 H Lymphocytes % 7 L WBC Morphology Abnorm A Dohle Bodies 1+ A Platelet Estimate Decreased A RBC Morphology Abnorm A Ovalocytes Few A ESR 101 H PT INR APTT Carbon Dioxide Anion Gap BUN Creatinine Glucose Uric Acid Calcium Phosphorus Total Bilirubin Direct Bilirubin AST ALT Lactate Dehydrogenase Total Creatine Kinase CK-MB (CK-2) Myoglobin Troponin T C-Reactive Protein 34.8 H Total Protein Albumin Albumin/Globulin Ratio Triglycerides Urine Protein Urine Glucose (UA) Urine Occult Blood Urine RBC Amorphous Crystals Urine Bacteria Urine Mucus Meds: Medications Acetaminophen (Tylenol) 650 mg PO Q4-6HP PRN PRN Reason: PAIN/FEVER > 101 Last Admin: 06/06/16 08:40 Dose: 650 mg Albuterol/Ipratropium (Duoneb) 3 ml NEB [id number] [facility] Last Admin: 06/06/16 11:15 Dose: Not Given Docusate Sodium (Colace) 100 mg PO BID [facility] Last Admin: 06/06/16 07:54 Dose: Not Given Magnesium Sulfate (Magnesium Sulfate) 2 gm in 50 mls @ 50 mls/hr IV UD PRN PRN Reason: MG = or < 1.7 Piperacillin Sod/Tazobactam (Sod 2.25 gm/ Dextrose) 50 mls @ 100 mls/hr IV Q12H [facility] Last Infusion: 06/05/16 22:00 Dose: Infused Levofloxacin (Levaquin) 500 mg in 100 mls @ 100 mls/hr IV Q48H [facility] Norepinephrine Bitartrate 16 (mg/ Sodium Chloride) 250 mls @ 9.37 mls/hr IV Q24HP PRN; Protocol; 10 MCG/MIN PRN Reason: Hypotension Vasopressin 20 unit/ Dextrose 100 mls @ 12 mls/hr IV Q8HP PRN; Protocol; 0.04 UNIT/MIN PRN Reason: Hypotension Metoprolol Tartrate (Lopressor) 50 mg PO BID [facility] Last Admin: 06/06/16 08:39 Dose: 50 mg Ondansetron HCl (Zofran) 4 mg IV Q4-6HP PRN PRN Reason: Nausea And Vomiting Pantoprazole Sodium (Protonix) 40 mg IV QAMAC [facility] Last Admin: 06/06/16 07:54 Dose: 40 mg Potassium Chloride (Klor-Con) 40 meq PO DAILYP PRN PRN Reason: K+ < 3.5 Senna/Docusate Sodium (Senna Plus Tablet) 1 tab PO HS [facility] Last Admin: 06/05/16 20:42 Dose: Not Given Sodium Chloride (Saline Flush) 10 ml IV Q8 [facility] Last Admin: 06/06/16 05:40 Dose: 10 ml Medical - PN: A/P - Time Spent With Patient Total time spent is greater than 50% in coordination of care (as documented) at patient's floor/unit and/or counseling patient: - Narrative A/P Narrative: Rhabdomyolysis-CK trending down, patient still anuric, On HD. Acute renal failure-still anuric Nephrology on board. started on HD yesterday, will likely repeat session today. Left upper lobe pneumonia-aspiration. Continue Zosyn for empiric coverage of gram-negative/anaerobes. d/c levofloxacin. cultures neg so far sepsis improving. Hypoxic respiratory failure secondary to above- Improved breathing, on oxygen via nasal canula A. fib RVR-digoxin load, but pt still tachycardic, after HD, pt bp was stable , home dose of metoprolol resumed with good response. Will continue same. Consider amiodarone if become hypotensive. Elevated INR/PTT-INR back to baseline. Resume dose of coumadin as per pharmacy. Pt doing better today, ok to transfer to [facility] status Resume diet if able to pass bed side swallow eval, with renal diet Full Code. Medical - PN: Qual - Stroke Symptom Onset Unknown: Yes - VTE Deep Vein Thrombosis/Pulmonary Embolism Present on Admission: No
[2016-06-06] MEDS ORDERED: VASOPRESSIN 20 UNIT in DEXTROSE 5% IN WATER 99 ML IV PRN (13:15)
[2016-06-06] MEDS ORDERED: MAGNESIUM SULFATE 2 GM/50 ML BAG IV PRN (13:15)
[2016-06-06] MEDS ORDERED: NOREPINEPHRINE BITARTRATE 16 MG in 0.9 % SODIUM CHLORIDE 234 ML IV PRN (13:15)
[2016-06-06] MEDS ORDERED: ONDANSETRON 4 MG/2 ML VIAL IV PRN (13:15)
[2016-06-06] MEDS ORDERED: POTASSIUM CHLORIDE 20 MEQ PACKET PO PRN (13:15)
[2016-06-06] MEDS: PIPERACILLIN SODIUM/TAZOBACTAM 2.25 GM in DEXTROSE 5% IN WATER 50 ML IV SCH ×2 (15:08→17:31)
[2016-06-06] MEDS: LEVOFLOXACIN 500 MG/100 ML BAG IV SCH (17:31)
[2016-06-06] MEDS: SENNOSIDES/DOCUSATE SODIUM 1 TAB TABLET PO SCH (19:27)
[2016-06-07] MEDS: 0.9 % SODIUM CHLORIDE 10 ML SYRINGE IV SCH ×3 (04:06→23:04)
[2016-06-07 05:30] LABS: Mean Cell Volume 88.1 fL (80.0-100.0); Mean Corpuscular HGB Conc 33.2 g/dL (31.0-36.0); Mean Corpuscular Hemoglobin 29.3 pg (26.0-34.0); Platelet Count 125 K/mcL (140-440); RBC 3.43 M/mcL (4.50-5.90); Red Cell Distribution Width 15.9 % (11.5-14.5)
[2016-06-07 05:53] LABS: ALT/SGPT 157 U/l (0-40); Albumin 2.4 gm/dL (3.2-5.2); Albumin/Globulin Ratio 0.7 (1.0-2.3); Alkaline Phosphatase 97 U/L (39-117); Bilirubin,Direct 1.3 mg/dL (0.0-0.3); Blood Urea Nitrogen 48 mg/dl (8-23); Gamma Glutamyl Transpeptidase 35 U/L (8-61); Magnesium 1.8 mg/dL (1.6-2.5); Uric Acid 5.5 mg/dL (2.5-8.0)
[2016-06-07 06:49] LABS: Anisocytosis 1+ (NONE SEEN); Band Neutrophils % 6 % (0-10); Lymphocytes % 9 % (15-49); Monocytes % (Manual) 6 % (1-9); Platelet Estimate DECREASED (NORMAL); RBC Morphology ABNORM (NORMAL); Rouleaux PRESENT (NONE SEEN); Segmented Neutrophils % 79 % (38-78); Toxic Granulation 1+ (NONE SEEN)
[2016-06-07] MEDS: PANTOPRAZOLE 40 MG VIAL IV SCH (07:05)
--- NOTE | 2016-06-07 07:05 | Operative Note ---
DATE OF OPERATION: 06/05/2016 PREOPERATIVE DIAGNOSIS: Acute renal failure in the setting of rhabdomyolysis with need for hemodialysis. POSTOPERATIVE DIAGNOSIS: Acute renal failure in the setting of rhabdomyolysis with need for hemodialysis. PROCEDURE PERFORMED: Temporary hemodialysis catheter placement into the right IJ. SURGEON: Andreia Soto MD ANESTHETIC: Local anesthesia. INDICATIONS FOR PROCEDURE: The patient is an 80-year-old man who was admitted last night to the hospital after being found down for 4 days. Admit diagnoses include rhabdomyolysis and acute renal failure as well as left upper lobe pneumonia and atrial fibrillation with rapid ventricular response. The patient is in need of hemodialysis and has no access for this. The catheter is to be placed for hemodialysis access. DESCRIPTION OF PROCEDURE: After obtaining informed consent, the patient was placed in the supine position. The neck and chest were prepped and draped in a sterile fashion. The ultrasound probe was sterilely draped and the ultrasound was used to visualize the right internal jugular vein. A local injection of 1% lidocaine was instilled into the skin and subcutaneous tissues overlying the area with the needle was to be inserted. Next, using the ultrasound for visualization, the right internal jugular vein was cannulated with a large bore needle with the kit. The guidewire was inserted into the right internal jugular vein. With advancement of the wire, some ectopy was stimulated and the wire was withdrawn until ectopy stopped. The wire was left in place while removing the needle from the insertion site at the neck. An incision was made at the guidewire insertion site in the neck using a scalpel. Next, using the dilators provided with the kit of the opening through the soft tissues into the vein was dilated sequentially. The preflushed dialysis catheter was then inserted over the guidewire into the vein. The guidewire was removed. The catheter was sutured in place with a silk suture. Sterile dressing was placed after confirming functioning ports by flushing and withdrawal. The ports were flushed finally with sterile saline. Post-procedure chest x-ray was obtained showing no evidence of pneumo or hemothorax with catheter tip in the distal SVC. RC:[email or web address] Job ID: [id number] Doc ID: [id number] Andreia Soto MD
[2016-06-07] MEDS: IPRATROPIUM/ALBUTEROL 3 ML AMPUL.NEB NEB SCH ×5 (07:17→22:57)
[2016-06-07] MEDS ORDERED: 0.9 % SODIUM CHLORIDE 250 ML IV ONE (08:25)
[2016-06-07] MEDS: METOPROLOL TARTRATE 50 MG TABLET PO SCH ×2 (09:57→20:04)
[2016-06-07] MEDS: DOCUSATE SODIUM 100 MG CAPSULE PO SCH ×2 (09:57→22:21)
[2016-06-07] MEDS ORDERED: POTASSIUM CHLORIDE 10 MEQ TABLET PO ONE (10:07)
[2016-06-07] MEDS: PIPERACILLIN SODIUM/TAZOBACTAM 2.25 GM in DEXTROSE 5% IN WATER 50 ML IV SCH (10:52)
--- NOTE | 2016-06-07 12:51 | Internal Med Progress Note ---
Medical - PN: Subj Patient information: Note initiated : 06/07/16 at 12:45 pm Service Date, if different from initiated Date: [] Patient: Angel Garrett 80 y/o M admitted on 06/04/16 for Sepsis, EDWIN. Chief Complaint: [] Interval history: [id number] admitted with severe rhabdomyolysis resulting inacute renal failure, left upper lobe aspiration pneumonia with hypoxic respiratory failure and A. fib with RVR. Admitted to ICU. Nephrology consulted. INR 12.3 status post 5 mg vitamin K and 1 unit FFP. on aggressive crystalloids/bicarbonate drip per nephrology. broad antibiotic coverage for aspiration pneumonia. Admitted to ICU. Critically ill. [place] score 22. Patient is full code. Intubate if worsening respiratory status. Imaging and blood gas reviewed. Patient however clinically responding to treatment and from Tuesday obtunded state on admission was able to provide some answers after initial crystalloids and improvement in blood pressures. CK 32,000. Myoglobin 27,000. 06/05-creatinine at 6.8. INR 7 receiving additional 5 mg vitamin K/2 units FFP. Surgery consulted for temporary dialysis catheter placement. Bandemia 32%. Worsening left-sided chest infiltrates. On 3 L oxygen with sats 97% however tachypneic. Start noninvasive ventilation to improve work of breathing. Anuric overnight. A. fib with RVR around 140s. Digoxin load 500 g IV. Use amiodarone if persistent RVR. cardiac enzymes down from 0.2-0.5. Elevated PTT at 100. CK 32,000. continues to be critically ill/ /2 Pt doing much better after HD, breathing better. labs reviewed, case reviewed with the deaf and hard of hearing teacher. Pt had high grade fever, repeat cultures sent, no fever this AM. Rhabdo improving.PT still not having any urine output. He denies any acute concerns. He was wheezing yesterday and was started on duonebs q 4 hrs. This am no wheeze. still needs oxygen, 06/06: Pt seen examined, doing well, no acute overnight events. His labs reviewed with him, Family updated on his condition and plan of care Microbiology from outside hospital reviewed, blood culture positive for mssa. On levofloxacin which the patient is sensitive to. Pt ck is trending down, he will not get HD today, but he has no urine output yet , will give trial of 250cc IV bolus to see if this helps with urine output. Pertinent ROS: Denies headache, dizziness Denies chest pain, palpitations Denies cough or shortness of breath Denies abdominal pain, nausea or vomiting. - Constitutional Vitals: Vital Signs Temp Pulse Resp BP Pulse Ox 98.1 F 111 H 20 108/79 97 06/07/16 11:24 06/07/16 08:49 06/07/16 11:24 06/07/16 11:24 06/07/16 11:24 Period Temp Pulse Resp BP Sys/Hinds Pulse Ox Last 24 Hr 97.2 F-99.3 F 92-118 16-27 107-135/63-107 90-97 Intake and Output 06/06/16 06/07/16 06/07/16 21:59 05:59 13:59 Intake Total 510 / 510 760 / 760 250 / 250 Output Total 3557 / 3557 5 / 5 Balance -3047 / -3047 755 / 755 250 / 250 Weight 217 lb 2 oz Intake & Output: Intake & Output 06/06/16 06/07/16 06/07/16 21:59 05:59 13:59 Intake Total 510 / 510 760 / 760 250 / 250 Output Total 3557 / 3557 5 / 5 Balance -3047 / -3047 755 / 755 250 / 250 Weight 217 lb 2 oz Intake: IV 150 / 150 250 / 250 Sodium Chloride 0.9% 250 250 / 250 ml @ Wide Open IV [facility] Rx#:[id number] Zosyn 2.25 gm In Dextrose 50 / 50 5% in Water 50 ml @ 100 mls/hr IV Q12H [facility] Rx#: [id number] Oral 360 / 360 760 / 760 Output: Urine Catheter Amount 0 / 0 5 / 5 Hemodialysis UF 3557 / 3557 Other: Meal Dinner Percent of Meal Consumed 50% Feeding Ability Assist with Tray Set Up # Bowel Movements 1 # of times incontinent of 1 1 Bowels Exam: Constitutional; Afebrile, cooperative, alert, not in distress. Eyes- No icterus, Pupils equal, reactive, No periorbital swelling Ears- Ext ear normal, hearing hard to conversation. Neck- Midline trachea, supple Respiratory system: Air Entry equal on both sides, No crackles or wheezing, no rhonchi. CVS- Rate rhythm regular, S1,S2 heard, no gallop, no rub. Abdomen- Soft nontender abdomen, no organomegaly, no tenderness, no guarding or rigidity, BARREL RAISER- AOOx3, moving all extremities, no focal deficit noted. Medical - PN: Obj Da - Labs CBC & Chem 7: 06/07/16 03:50 06/07/16 03:50 Labs: Abnormal Lab Results 06/07/16 06/07/16 06/07/16 03:50 03:50 03:50 RBC Hgb Hct RDW Plt Count Seg Neutrophils % Band Neutrophils % Lymphocytes % WBC Morphology Toxic Granulation Dohle Bodies Platelet Estimate RBC Morphology Anisocytosis Ovalocytes Rouleaux RBC Fragments ESR PT 17.5 H INR 1.4 H APTT Potassium 3.2 L Chloride 94 L Carbon Dioxide Anion Gap 19.0 H BUN 48 H Creatinine 5.9 H* Glucose Uric Acid Calcium 7.2 L Phosphorus 4.7 H Total Bilirubin 1.7 H Direct Bilirubin 1.3 H AST 657 H ALT 157 H Lactate Dehydrogenase 951 H Total Creatine Kinase 54418 H CK-MB (CK-2) Myoglobin Troponin T C-Reactive Protein Total Protein 5.8 L Albumin 2.4 L Albumin/Globulin Ratio 0.7 L Triglycerides 161 H Urine Protein Urine Glucose (UA) Urine Occult Blood Urine RBC Amorphous Crystals Urine Bacteria Urine Mucus 06/07/16 06/06/16 06/06/16 03:50 03:40 03:40 RBC 3.43 L Hgb 10.1 L Hct 30.2 L RDW 15.9 H Plt Count 125 L Seg Neutrophils % 79 H Band Neutrophils % Lymphocytes % 9 L WBC Morphology Abnorm A Toxic Granulation 1+ A Dohle Bodies Platelet Estimate Decreased A RBC Morphology Abnorm A Anisocytosis 1+ A Ovalocytes Rouleaux Present A RBC Fragments Few A ESR PT 19.3 H INR 1.6 H APTT Potassium Chloride Carbon Dioxide Anion Gap BUN Creatinine Glucose Uric Acid Calcium Phosphorus Total Bilirubin Direct Bilirubin AST ALT Lactate Dehydrogenase Total Creatine Kinase 73020 H CK-MB (CK-2) Myoglobin Troponin T C-Reactive Protein Total Protein Albumin Albumin/Globulin Ratio Triglycerides Urine Protein Urine Glucose (UA) Urine Occult Blood Urine RBC Amorphous Crystals Urine Bacteria Urine Mucus 06/06/16 06/06/16 06/05/16 03:40 03:40 15:35 RBC 3.26 L Hgb 9.5 L Hct 28.5 L RDW 15.1 H Plt Count 112 L Seg Neutrophils % Band Neutrophils % 16 H Lymphocytes % 8 L WBC Morphology Abnorm A Toxic Granulation Dohle Bodies 1+ A Platelet Estimate Decreased A RBC Morphology Anisocytosis Ovalocytes Rouleaux RBC Fragments ESR PT INR APTT Potassium Chloride Carbon Dioxide 21 L Anion Gap 20.0 H BUN 51 H Creatinine 6.2 H* Glucose Uric Acid Calcium 6.9 L Phosphorus 6.2 H* Total Bilirubin 1.7 H Direct Bilirubin 1.1 H AST 619 H ALT 126 H Lactate Dehydrogenase 933 H Total Creatine Kinase 94203 H CK-MB (CK-2) Myoglobin Troponin T C-Reactive Protein Total Protein 5.7 L Albumin 2.5 L Albumin/Globulin Ratio 0.8 L Triglycerides 158 H Urine Protein Urine Glucose (UA) Urine Occult Blood Urine RBC Amorphous Crystals Urine Bacteria Urine Mucus 06/05/16 06/05/16 06/05/16 15:35 15:35 07:55 RBC 3.54 L Hgb 10.3 L Hct 30.9 L RDW 15.7 H Plt Count 121 L Seg Neutrophils % Band Neutrophils % Lymphocytes % WBC Morphology Toxic Granulation Dohle Bodies Platelet Estimate RBC Morphology Anisocytosis Ovalocytes Rouleaux RBC Fragments ESR PT 63.6 H INR 7.0 H* APTT 100 H Potassium Chloride Carbon Dioxide 21 L Anion Gap 22.0 H BUN 35 H Creatinine 4.0 H Glucose 68 L Uric Acid Calcium 7.5 L Phosphorus Total Bilirubin 1.4 H Direct Bilirubin 0.7 H AST 687 H ALT 134 H Lactate Dehydrogenase 1057 H Total Creatine Kinase CK-MB (CK-2) Myoglobin Troponin T C-Reactive Protein Total Protein Albumin 2.9 L Albumin/Globulin Ratio 0.8 L Triglycerides 170 H Urine Protein Urine Glucose (UA) Urine Occult Blood Urine RBC Amorphous Crystals Urine Bacteria Urine Mucus 06/05/16 06/05/16 06/05/16 05:46 05:46 05:25 RBC 3.38 L Hgb 9.9 L Hct 29.5 L RDW 15.8 H Plt Count 121 L Seg Neutrophils % Band Neutrophils % 32 H Lymphocytes % 4 L WBC Morphology Abnorm A Toxic Granulation Dohle Bodies 1+ A Platelet Estimate Decreased A RBC Morphology Anisocytosis Ovalocytes Rouleaux RBC Fragments ESR PT INR APTT Potassium Chloride Carbon Dioxide 18 L Anion Gap 21.0 H BUN 64 H Creatinine 6.8 H* Glucose Uric Acid 12.2 H Calcium 6.4 L Phosphorus 6.6 H* Total Bilirubin Direct Bilirubin 0.5 H AST 675 H ALT 128 H Lactate Dehydrogenase 976 H Total Creatine Kinase CK-MB (CK-2) Myoglobin Troponin T 0.05 H* C-Reactive Protein Total Protein 5.6 L Albumin 2.4 L Albumin/Globulin Ratio 0.8 L Triglycerides Urine Protein Urine Glucose (UA) Urine Occult Blood Urine RBC Amorphous Crystals Urine Bacteria Urine Mucus 06/05/16 06/05/16 06/04/16 05:25 01:03 22:08 RBC Hgb Hct RDW Plt Count Seg Neutrophils % Band Neutrophils % Lymphocytes % WBC Morphology Toxic Granulation Dohle Bodies Platelet Estimate RBC Morphology Anisocytosis Ovalocytes Rouleaux RBC Fragments ESR PT INR APTT Potassium Chloride Carbon Dioxide 21 L Anion Gap 18.0 H BUN 61 H Creatinine 6.1 H* Glucose 142 H Uric Acid 11.9 H Calcium 6.5 L Phosphorus 6.6 H* Total Bilirubin Direct Bilirubin 0.5 H AST 709 H ALT 128 H Lactate Dehydrogenase 971 H Total Creatine Kinase 48865 H CK-MB (CK-2) 29.2 H Myoglobin Troponin T 0.05 H* C-Reactive Protein Total Protein 5.7 L Albumin 2.5 L Albumin/Globulin Ratio 0.8 L Triglycerides Urine Protein Urine Glucose (UA) Urine Occult Blood Urine RBC Amorphous Crystals Urine Bacteria Urine Mucus 06/04/16 06/04/16 06/04/16 22:08 20:41 20:25 RBC Hgb Hct RDW Plt Count Seg Neutrophils % Band Neutrophils % Lymphocytes % WBC Morphology Toxic Granulation Dohle Bodies Platelet Estimate RBC Morphology Anisocytosis Ovalocytes Rouleaux RBC Fragments ESR PT INR APTT Potassium Chloride Carbon Dioxide Anion Gap BUN Creatinine Glucose Uric Acid Calcium Phosphorus Total Bilirubin Direct Bilirubin AST ALT Lactate Dehydrogenase Total Creatine Kinase 16774 H 69554 H CK-MB (CK-2) 43.1 H Myoglobin Troponin T C-Reactive Protein Total Protein Albumin Albumin/Globulin Ratio Triglycerides Urine Protein 100 A Urine Glucose (UA) 50 A Urine Occult Blood >=1.0 A Urine RBC 125 H Amorphous Crystals Many A Urine Bacteria Many A Urine Mucus Many A 06/04/16 06/04/16 06/04/16 20:25 20:25 20:25 RBC 3.59 L Hgb 10.5 L Hct 31.5 L RDW 15.9 H Plt Count 128 L Seg Neutrophils % Band Neutrophils % 16 H Lymphocytes % 7 L WBC Morphology Abnorm A Toxic Granulation Dohle Bodies 1+ A Platelet Estimate Decreased A RBC Morphology Abnorm A Anisocytosis Ovalocytes Few A Rouleaux RBC Fragments ESR PT INR APTT Potassium Chloride Carbon Dioxide 17 L Anion Gap 24.0 H BUN 60 H Creatinine 6.1 H* Glucose Uric Acid 12.6 H Calcium 6.8 L Phosphorus 6.6 H* Total Bilirubin Direct Bilirubin 0.5 H AST 755 H ALT 138 H Lactate Dehydrogenase 997 H Total Creatine Kinase CK-MB (CK-2) Myoglobin 17225 H Troponin T C-Reactive Protein 34.8 H Total Protein Albumin 2.7 L Albumin/Globulin Ratio 0.8 L Triglycerides 155 H Urine Protein Urine Glucose (UA) Urine Occult Blood Urine RBC Amorphous Crystals Urine Bacteria Urine Mucus 06/04/16 20:25 RBC Hgb Hct RDW Plt Count Seg Neutrophils % Band Neutrophils % Lymphocytes % WBC Morphology Toxic Granulation Dohle Bodies Platelet Estimate RBC Morphology Anisocytosis Ovalocytes Rouleaux RBC Fragments ESR 101 H PT INR APTT Potassium Chloride Carbon Dioxide Anion Gap BUN Creatinine Glucose Uric Acid Calcium Phosphorus Total Bilirubin Direct Bilirubin AST ALT Lactate Dehydrogenase Total Creatine Kinase CK-MB (CK-2) Myoglobin Troponin T C-Reactive Protein Total Protein Albumin Albumin/Globulin Ratio Triglycerides Urine Protein Urine Glucose (UA) Urine Occult Blood Urine RBC Amorphous Crystals Urine Bacteria Urine Mucus Meds: Medications Acetaminophen (Tylenol) 650 mg PO Q4-6HP PRN PRN Reason: PAIN/FEVER > 101 Last Admin: 06/06/16 15:07 Dose: 650 mg Albuterol/Ipratropium (Duoneb) 3 ml NEB [id number] [facility] Last Admin: 06/07/16 11:04 Dose: Not Given Docusate Sodium (Colace) 100 mg PO BID [facility] Last Admin: 06/07/16 09:57 Dose: Not Given Levofloxacin (Levaquin) 500 mg in 100 mls @ 100 mls/hr IV Q48H [facility] Last Infusion: 06/06/16 19:29 Dose: Infused Magnesium Sulfate (Magnesium Sulfate) 2 gm in 50 mls @ 50 mls/hr IV UD PRN PRN Reason: MG = or < 1.7 Norepinephrine Bitartrate 16 (mg/ Sodium Chloride) 250 mls @ 9.37 mls/hr IV Q24HP PRN; Protocol; 10 MCG/MIN PRN Reason: Hypotension Vasopressin 20 unit/ Dextrose 100 mls @ 12 mls/hr IV Q8HP PRN; Protocol; 0.04 UNIT/MIN PRN Reason: Hypotension Metoprolol Tartrate (Lopressor) 50 mg PO BID [facility] Last Admin: 06/07/16 09:57 Dose: 50 mg Ondansetron HCl (Zofran) 4 mg IV Q4-6HP PRN PRN Reason: Nausea And Vomiting Pantoprazole Sodium (Protonix) 40 mg IV QAMAC [facility] Last Admin: 06/07/16 07:05 Dose: 40 mg Potassium Chloride (Klor-Con) 40 meq PO DAILYP PRN PRN Reason: K+ < 3.5 Senna/Docusate Sodium (Senna Plus Tablet) 1 tab PO HS [facility] Last Admin: 06/06/16 19:27 Dose: Not Given Sodium Chloride (Saline Flush) 10 ml IV Q8 [facility] Last Admin: 06/07/16 04:06 Dose: 10 ml Warfarin Sodium (Coumadin) 5 mg PO DAILY@1400 [facility] Medical - PN: A/P - Time Spent With Patient Total time spent is greater than 50% in coordination of care (as documented) at patient's floor/unit and/or counseling patient: - Narrative A/P Narrative: Rhabdomyolysis-CK trending down, patient still anuric, On HD. Abnl LFt Due to rhabdo, monitor for now. Acute renal failure-still anuric Nephrology on board. HD yesterday, no need for HD today, IV bolus today to see if pt makes any urine. Left upper lobe pneumonia-aspiration. Pt blood cultures is positive for MSSA , echo neg, repeat blood cultures neg, pt has mssa pneumonia? On levofloxacin, will continue same, d/c zosyn sepsis improving. Hypoxic respiratory failure secondary to above- Improved breathing, on oxygen via nasal canula 2 L A. fib RVR-digoxin load, but pt still tachycardic, after HD, pt bp was stable , home dose of metoprolol resumed with good response. Will continue same. Consider amiodarone if become hypotensive. Elevated INR/PTT-INR back to baseline. Resume dose of coumadin as per pharmacy. Resume diet if able to pass bed side swallow eval, with renal diet Full Code. Medical - PN: Qual - Stroke Symptom Onset Unknown: Yes - VTE Deep Vein Thrombosis/Pulmonary Embolism Present on Admission: No
--- NOTE | 2016-06-07 13:59 | Nephrology Progress Note ---
Subjective Patient information: Note initiated : 06/07/16 at 1:57 pm Service Date, if different from initiated Date: [] Patient: Angel Garrett 80 y/o M admitted on 06/04/16 for Sepsis, EDWIN. Chief Complaint: [] Principal diagnosis: PNA, acute renal failure, rhabdomyolysis Interval history: no overnight events patient tolerated dialysis well last night, no concerns he is awake and oriented but seems to forget what his current medical issues are family, son and daughter here today, discussed medical issues, including renal issues at length Patient denies pain, SOB, CP Pertinent ROS: as above Objective - Vital Signs Vital signs: Vital Signs Temp Pulse Pulse Resp BP BP BP 06/07/16 11:24 98.1 F 20 108/79 06/07/16 08:49 111 H 20 06/07/16 08:00 98.4 F 104 H 16 112/78 06/07/16 03:59 98.4 F 20 107/69 06/07/16 00:00 99.3 F 27 H 117/72 06/06/16 21:06 94 H 21 06/06/16 21:01 06/06/16 20:00 98.9 F 25 H 109/63 06/06/16 19:09 103 H 22 06/06/16 17:00 98 F 109 H 133/105 06/06/16 16:28 112 H 113/94 06/06/16 16:01 100 H 118/68 06/06/16 16:00 99.0 F 110 H 24 125/71 06/06/16 15:28 118 H 135/96 06/06/16 15:12 118 H 21 06/06/16 15:00 97.3 F L 116 H 117/107 06/06/16 14:29 97 H 123/88 06/06/16 14:11 96 H 22 06/06/16 14:00 92 H 130/76 Pulse Ox 06/07/16 11:24 97 06/07/16 08:49 95 06/07/16 08:00 94 06/07/16 03:59 95 06/07/16 00:00 95 06/06/16 21:06 06/06/16 21:01 90 06/06/16 20:00 96 06/06/16 19:09 96 06/06/16 17:00 06/06/16 16:28 06/06/16 16:01 06/06/16 16:00 95 06/06/16 15:28 06/06/16 15:12 06/06/16 15:00 06/06/16 14:29 06/06/16 14:11 93 06/06/16 14:00 Intake and Output 06/06/16 06/07/16 06/07/16 21:59 05:59 13:59 Intake Total 510 / 510 760 / 760 250 / 250 Output Total 3557 / 3557 5 / 5 Balance -3047 / -3047 755 / 755 250 / 250 Intake: IV 150 / 150 250 / 250 Sodium Chloride 0.9% 250 250 / 250 ml @ Wide Open IV BOLUS ONE Rx#:[id number] Zosyn 2.25 gm In Dextrose 50 / 50 5% in Water 50 ml @ 100 mls/hr IV Q12H [facility] Rx#: [id number] Oral 360 / 360 760 / 760 Output: Urine Catheter Amount 0 / 0 5 / 5 Hemodialysis UF 3557 / 3557 Other: Meal Dinner Percent of Meal Consumed 50% Feeding Ability Assist with Tray Set Up # Bowel Movements 1 # of times incontinent of 1 1 Bowels Weight 217 lb 2 oz Intake & Output: Intake & Output 06/06/16 06/07/16 06/07/16 21:59 05:59 13:59 Intake Total 510 / 510 760 / 760 250 / 250 Output Total 3557 / 3557 5 / 5 Balance -3047 / -3047 755 / 755 250 / 250 Weight 217 lb 2 oz Intake: IV 150 / 150 250 / 250 Sodium Chloride 0.9% 250 250 / 250 ml @ Wide Open IV [facility] Rx#:[id number] Zosyn 2.25 gm In Dextrose 50 / 50 5% in Water 50 ml @ 100 mls/hr IV Q12H [facility] Rx#: [id number] Oral 360 / 360 760 / 760 Output: Urine Catheter Amount 0 / 0 5 / 5 Hemodialysis UF 3557 / 3557 Other: Meal Dinner Percent of Meal Consumed 50% Feeding Ability Assist with Tray Set Up # Bowel Movements 1 # of times incontinent of 1 1 Bowels - General Appearance General appearance: appears started age, obese EENT: mucous membranes moist Neck: no JVD Respiratory: rales Cardiology: no edema, irregular rhythm Gastrointestinal: no tenderness, no guarding Integumentary: no rash, warm and dry Neurologic: alert and oriented x3 Musculoskeletal: no erythema, no cyanosis Psychiatric: mood/affect appropriate - Lab 06/07/16 03:50 06/07/16 03:50 Most recent lab results Calcium 7.2 mg/dl (8.6-10.4) L 06/07/16 03:50 Phosphorus 4.7 mg/dL (2.7-4.5) H 06/07/16 03:50 Magnesium 1.8 mg/dL (1.6-2.5) 06/07/16 03:50 Assessment and Plan (1) Acute renal failure patient remains anuric CK down to 13,000 mild hypokalemia phos and calcium stable no s/o fluid excess will hold off on HD advised to drink plenty of fluids orally, also received 250cc bolus will monitor for renal recovery will plan dialysis based on his labs and fluid status PNA: blood culture positive for MSSA at outside hospital blood culture negative here, pending final result on levofloxacin, please dose to dialysis rhabdomyolysis: CK trending down will monitor coagulopathy: improved malnutrition: restarted on diet/food, stable will follow along Thank you for giving me an opportunity to participate in Mr Garrett's medical care , appreciate it Status: Acute (2) Rhabdomyolysis Status: Acute (3) Pneumonia Status: Acute
[2016-06-07] MEDS: WARFARIN 5 MG TABLET PO SCH (14:00)
--- NOTE | 2016-06-07 17:26 | General Surgery Consult Note ---
History of Present Illness Patient information: Note initiated : 06/07/16 at 5:23 pm Service Date, if different from initiated Date: [] Patient: Angel Garrett 80 y/o M admitted on 06/04/16 for Sepsis, EDWIN. Chief Complaint: [] Consult date: 06/07/16 (Wound care consult) Requesting physician: Sheldon Barclay History of present illness: I saw this patient along with JESSICA GOMEZ Inpatient Wound Care Nurse for evaluation and management of wounds of scalp, skin and sub cutaneous tissues of Left torso, LLE and UE. I reviewed the EHR notes from Hospitalist Physicians and Dr. Cordero form maker plaster. 80/WM. H/O PNA, AF with RVR, Fall and down time of over 2 days with subsequent rhabdomyolysis. H e was noted to have bruising of scap and skin and sub cutaneous contusions LEFT UE/ LE and torso chest wall. Medications and Allergies Home Medications Medication Instructions Recorded Confirmed Type Acetaminophen [Tylenol] 1,000 mg PO Q4HP PRN 06/05/16 06/05/16 History Aspirin [Aspirin EC] 81 mg PO DAILY 06/05/16 06/05/16 History Atorvastatin [Lipitor] 40 mg PO HS 06/05/16 06/05/16 History Furosemide [Lasix] 20 mg PO DAILY PRN 06/05/16 06/05/16 History Gluc Floyd/Chondro Floyd A/Vit C/Mn 1 each PO DAILY 06/05/16 06/05/16 History [Glucosamine 1,500 Complex Cp] Ibuprofen [Advil] 200 mg PO BIDP PRN 06/05/16 06/05/16 History Lisinopril [Zestril] 40 mg PO DAILY 06/05/16 06/05/16 History Melatonin [Melatin] 3 mg PO HS 06/05/16 06/05/16 History Metoprolol Tartrate [Lopressor] 50 mg PO BID 06/05/16 06/05/16 History Multivitamin [Multi-Day Vitamins] 1 each PO DAILY 06/05/16 06/05/16 History [place]-3 Fatty Acids/Fish Oil 1 cap PO DAILY 06/05/16 06/05/16 History [[place] 3 Fish Oil Softgel] Omeprazole 20 mg PO BID 06/05/16 06/05/16 History Sennosides [Ex-Lax] 15 mg PO DAILY 06/05/16 06/05/16 History Terazosin [Hytrin] 1 cap PO HS 06/05/16 06/05/16 History Triamterene/Hydrochlorothiazid 0.5 each PO DAILY 06/05/16 06/05/16 History [Triamterene-Hctz 75-50 mg Tab] Warfarin [Coumadin] 5 mg PO DAILY 06/05/16 06/05/16 History Allergies Allergy/AdvReac Type Severity Reaction Status Date / Time codeine Allergy Verified 06/07/16 17:06 codeine Allergy Unknown Uncoded 06/07/16 17:06 Exam Temp Pulse Resp BP Pulse Ox 97.3 F L 80 14 109/78 94 06/07/16 16:00 06/07/16 16:00 06/07/16 16:00 06/07/16 16:00 06/07/16 16:00 - General physical appearance well developed, well nourished, no distress, no pain - Eyes PERRL, normal ocular movement - ENT normal pinna, normal nares, normal mucosa - Head Head exam IM: Present: atraumatic, normal inspection, normocephalic - Neck no masses, no bruits, trachea midline, no lymphadectomy, no venous distension - Cardiovascular Cardiovascular exam IM: Present: irregular rhythm - Respiratory normal expansion, normal respiratory effort, other (TERESO pneumonia.Resolving changes. EKG shows NSR , sinus tach 112 . O2 sats > 90 %) - Abdomen Abdomen: Present: soft, non tender, bowel sounds - Genitourinary Present: normal penis with no external lesions, other (Mckeon Catheter draining clear urine. ) - Integumentary Present: other (Bruises Left anteriior forhead Resolving. Superficial bruise and purulence left posterior occipital scalp. Other scattered bruises / ecchymoses Left torso, UE LE) - Neurologic Present: normal coordination, normal sensation, other (Confused at times with retrograde amnesia. ) - Musculoskeletal Present: other (BOWLING. No tendernes of calves) - Psychiatric Present: speech is normal, other (Variable attention span. But answers simple questions, Moves all extremities, NO neck tenderness. ) Results - Labs 06/08/16 04:05 06/08/16 04:05 Abnormal lab results 06/07/16 06/07/16 06/07/16 Range/Units 03:50 03:50 03:50 RBC 3.43 L (4.50-5.90) M/mcL Hgb 10.1 L (13.5-16.5) g/dL Hct 30.2 L (41.0-55.0) % RDW 15.9 H (11.5-14.5) % Plt Count 125 L (140-440) K/mcL Seg Neutrophils % 79 H (38-78) % Lymphocytes % 9 L (15-49) % WBC Morphology Abnorm A (NORMAL) Toxic Granulation 1+ A (NONE SEEN) Platelet Estimate Decreased A (NORMAL) RBC Morphology Abnorm A (NORMAL) Anisocytosis 1+ A (NONE SEEN) Rouleaux Present A (NONE SEEN) RBC Fragments Few A (NONE SEEN) PT 17.5 H (11.9-14.5) sec INR 1.4 H (0.9-1.1) Potassium 3.2 L (3.3-5.1) mmol/L Chloride 94 L (96-108) mmol/L Anion Gap 19.0 H (8-16) BUN 48 H (8-23) mg/dl Creatinine 5.9 H* (0.7-1.2) mg/dl Calcium 7.2 L (8.6-10.4) mg/dl Phosphorus 4.7 H (2.7-4.5) mg/dL Total Bilirubin 1.7 H (0.0-1.0) mg/dL Direct Bilirubin 1.3 H (0.0-0.3) mg/dL AST 657 H (0-37) U/l ALT 157 H (0-40) U/l Lactate Dehydrogenase 951 H (94-250) U/L Total Creatine Kinase (24-195) IU/L Total Protein 5.8 L (5.9-8.4) gm/dL Albumin 2.4 L (3.2-5.2) gm/dL Albumin/Globulin Ratio 0.7 L (1.0-2.3) Triglycerides 161 H (<150) mg/dl 06/07/16 Range/Units 03:50 RBC (4.50-5.90) M/mcL Hgb (13.5-16.5) g/dL Hct (41.0-55.0) % RDW (11.5-14.5) % Plt Count (140-440) K/mcL Seg Neutrophils % (38-78) % Lymphocytes % (15-49) % WBC Morphology (NORMAL) Toxic Granulation (NONE SEEN) Platelet Estimate (NORMAL) RBC Morphology (NORMAL) Anisocytosis (NONE SEEN) Rouleaux (NONE SEEN) RBC Fragments (NONE SEEN) PT (11.9-14.5) sec INR (0.9-1.1) Potassium (3.3-5.1) mmol/L Chloride (96-108) mmol/L Anion Gap (8-16) BUN (8-23) mg/dl Creatinine (0.7-1.2) mg/dl Calcium (8.6-10.4) mg/dl Phosphorus (2.7-4.5) mg/dL Total Bilirubin (0.0-1.0) mg/dL Direct Bilirubin (0.0-0.3) mg/dL AST (0-37) U/l ALT (0-40) U/l Lactate Dehydrogenase (94-250) U/L Total Creatine Kinase 76201 H (24-195) IU/L Total Protein (5.9-8.4) gm/dL Albumin (3.2-5.2) gm/dL Albumin/Globulin Ratio (1.0-2.3) Triglycerides (<150) mg/dl Diabetes panel 06/07/16 Range/Units 03:50 Sodium 136 (133-145) mmol/L Potassium 3.2 L (3.3-5.1) mmol/L Chloride 94 L (96-108) mmol/L Carbon Dioxide 23 (22-30) mmol/L BUN 48 H (8-23) mg/dl Creatinine 5.9 H* (0.7-1.2) mg/dl Glucose 98 (70-105) mg/dL Calcium 7.2 L (8.6-10.4) mg/dl AST 657 H (0-37) U/l ALT 157 H (0-40) U/l Alkaline Phosphatase 97 (39-117) U/L Total Protein 5.8 L (5.9-8.4) gm/dL Albumin 2.4 L (3.2-5.2) gm/dL Triglycerides 161 H (<150) mg/dl Calcium panel 06/07/16 Range/Units 03:50 Calcium 7.2 L (8.6-10.4) mg/dl Phosphorus 4.7 H (2.7-4.5) mg/dL Albumin 2.4 L (3.2-5.2) gm/dL Pituitary panel 06/07/16 Range/Units 03:50 Sodium 136 (133-145) mmol/L Potassium 3.2 L (3.3-5.1) mmol/L Chloride 94 L (96-108) mmol/L Carbon Dioxide 23 (22-30) mmol/L BUN 48 H (8-23) mg/dl Creatinine 5.9 H* (0.7-1.2) mg/dl Glucose 98 (70-105) mg/dL Calcium 7.2 L (8.6-10.4) mg/dl Adrenal panel 06/07/16 Range/Units 03:50 Sodium 136 (133-145) mmol/L Potassium 3.2 L (3.3-5.1) mmol/L Chloride 94 L (96-108) mmol/L Carbon Dioxide 23 (22-30) mmol/L BUN 48 H (8-23) mg/dl Creatinine 5.9 H* (0.7-1.2) mg/dl Glucose 98 (70-105) mg/dL Calcium 7.2 L (8.6-10.4) mg/dl Total Bilirubin 1.7 H (0.0-1.0) mg/dL AST 657 H (0-37) U/l ALT 157 H (0-40) U/l Alkaline Phosphatase 97 (39-117) U/L Total Protein 5.8 L (5.9-8.4) gm/dL Albumin 2.4 L (3.2-5.2) gm/dL All other labs normal. Assessment and Plan (1) Multiple bruises Skin lesion of occipital scalp. Wound swab Enterococcus. CONTAINMENT. No active inflammatory changes. Other skin lesions are stable and improving. PLAN : Conservative wound care and dressing changes as ordered by Loren LOPEZresident care supervisor RN. NO Debridement needed at this time. Will follow this patient whilst he is in hospital. Status: Acute Priority: Low
[2016-06-07] MEDS: SENNOSIDES/DOCUSATE SODIUM 1 TAB TABLET PO SCH (22:21)
[2016-06-08] MEDS: 0.9 % SODIUM CHLORIDE 10 ML SYRINGE IV SCH ×5 (05:32→22:03)
[2016-06-08 05:39] LABS: Mean Cell Volume 87.3 fL (80.0-100.0); Mean Corpuscular HGB Conc 33.5 g/dL (31.0-36.0); Mean Corpuscular Hemoglobin 29.3 pg (26.0-34.0); Platelet Count 156 K/mcL (140-440); RBC 3.53 M/mcL (4.50-5.90); Red Cell Distribution Width 15.6 % (11.5-14.5)
[2016-06-08 06:39] LABS: Anisocytosis 1+ (NONE SEEN); Band Neutrophils % 6 % (0-10); Lymphocytes % 15 % (15-49); Monocytes % (Manual) 4 % (1-12); Ovalocytes 1+ (NONE SEEN); Platelet Estimate NORMAL (NORMAL); RBC Morphology ABNORM (NORMAL); Segmented Neutrophils % 75 % (38-78)
[2016-06-08 06:47] LABS: ALT/SGPT 140 U/l (0-40); Albumin 2.1 gm/dL (3.2-5.2); Albumin/Globulin Ratio 0.6 (1.0-2.3); Alkaline Phosphatase 90 U/L (39-117); Bilirubin,Direct 0.6 mg/dL (0.0-0.3); Blood Urea Nitrogen 77 mg/dl (8-23); Gamma Glutamyl Transpeptidase 32 U/L (8-61); Uric Acid 7.2 mg/dL (2.5-8.0)
[2016-06-08] MEDS: IPRATROPIUM/ALBUTEROL 3 ML AMPUL.NEB NEB SCH ×5 (07:06→23:08)
[2016-06-08] MEDS: PANTOPRAZOLE 40 MG VIAL IV SCH (07:31)
[2016-06-08] MEDS: ACETAMINOPHEN 325 MG TABLET PO PRN (07:32)
[2016-06-08] MEDS ORDERED: POTASSIUM CHLORIDE 20 MEQ/15 ML ML PO ONE (07:34)
[2016-06-08] MEDS ORDERED: 0.9 % SODIUM CHLORIDE 250 ML IV ONE ×2 (08:18→13:36)
[2016-06-08] MEDS: DOCUSATE SODIUM 100 MG CAPSULE PO SCH ×2 (09:19→20:42)
[2016-06-08] MEDS: METOPROLOL TARTRATE 50 MG TABLET PO SCH ×2 (09:19→20:42)
[2016-06-08] MEDS: LEVOFLOXACIN 500 MG/100 ML BAG IV SCH (09:58)
--- NOTE | 2016-06-08 10:48 | Cat Scan Report ---
History: Difficulty controlling the left arm Findings: The brain was imaged without contrast at 2.5 mm intervals. Age-related degenerative changes are present with mild generalized cerebral atrophy. There is moderate generalized white matter disease with confluent areas of decreased attenuation in the centrum semiovale throughout the frontal and parietal lobes. This has no mass effect. There is no evidence of an infarct, hemorrhage or mass effect. The ventricles are prominent but proportionate to the atrophy. No abnormal extra-axial fluid collection is present. Impression: Moderate generalized white matter ischemia or degeneration above the tentorium with mild cerebral atrophy. No acute abnormality is identified. Interpreted and Authenticated by: Lazaro Barroso 06/08/16
[2016-06-08] MEDS: BACITRACIN TOPICAL OINT 15 GM TUBE TOPICAL SCH ×2 (12:04→20:45)
--- NOTE | 2016-06-08 13:34 | Internal Med Progress Note ---
Medical - PN: Subj Patient information: Note initiated : 06/08/16 at 1:20 pm Service Date, if different from initiated Date: [] Patient: Angel Garrett 80 y/o M admitted on 06/04/16 for Sepsis, EDWIN. Chief Complaint: [] Interval history: [id number] admitted with severe rhabdomyolysis resulting inacute renal failure, left upper lobe aspiration pneumonia with hypoxic respiratory failure and A. fib with RVR. Admitted to ICU. Nephrology consulted. INR 12.3 status post 5 mg vitamin K and 1 unit FFP. on aggressive crystalloids/bicarbonate drip per nephrology. broad antibiotic coverage for aspiration pneumonia. Admitted to ICU. Critically ill. Juab score 22. Patient is full code. Intubate if worsening respiratory status. Imaging and blood gas reviewed. Patient however clinically responding to treatment and from Tuesday obtunded state on admission was able to provide some answers after initial crystalloids and improvement in blood pressures. CK 32,000. Myoglobin 27,000. 06/05-creatinine at 6.8. INR 7 receiving additional 5 mg vitamin K/2 units FFP. Surgery consulted for temporary dialysis catheter placement. Bandemia 32%. Worsening left-sided chest infiltrates. On 3 L oxygen with sats 97% however tachypneic. Start noninvasive ventilation to improve work of breathing. Anuric overnight. A. fib with RVR around 140s. Digoxin load 500 g IV. Use amiodarone if persistent RVR. cardiac enzymes down from 0.2-0.5. Elevated PTT at 100. CK 32,000. continues to be critically ill/ /2 Pt doing much better after HD, breathing better. labs reviewed, case reviewed with the loan funder. Pt had high grade fever, repeat cultures sent, no fever this AM. Rhabdo improving.PT still not having any urine output. He denies any acute concerns. He was wheezing yesterday and was started on duonebs q 4 hrs. This am no wheeze. still needs oxygen, 06/06: Pt seen examined, doing well, no acute overnight events. His labs reviewed with him, Family updated on his condition and plan of care Microbiology from outside hospital reviewed, blood culture positive for mssa. On levofloxacin which the patient is sensitive to. Pt ck is trending down, he will not get HD today, but he has no urine output yet , will give trial of 250cc IV bolus to see if this helps with urine output. 4/3 Pt seen examined, no acute overnight events, pt doing well, notes numbness in the left leg, and weakness on the left side. No other complaints. On exam he does not have any sensory deficit, but his left arm does seem to be internally rotated and wrist flexed, Brachial plexus injury? Strength is grossly normal and CN was intact, CT head obtained which is negative for CVA. Pt CK is trending down, and he is still not making urine Bed side USG to evaluate for IVC volume showed IVC diameter of 1.4 cms along with near complete collapse with inspiration. Plan to give 500cc bolus to see if he is able to make some urine. Continue IV abx, Microbiolgoy outside [place] sensitive mssa Wound culture positive staph aures Pertinent ROS: Denies headache, dizziness Denies chest pain, palpitations Denies cough or shortness of breath Denies abdominal pain, nausea or vomiting. - Constitutional Vitals: Vital Signs Temp Pulse Resp BP Pulse Ox 97.8 F 102 H 20 119/77 96 06/08/16 11:25 06/08/16 11:16 06/08/16 11:25 06/08/16 11:25 06/08/16 11:25 Period Temp Pulse Resp BP Sys/Hinds Pulse Ox Last 24 Hr 97.3 F-98.7 F 80-105 14-22 109-159/71-99 92-96 Intake and Output 06/07/16 06/08/16 06/08/16 21:59 05:59 13:59 Intake Total 1100 / 1100 360 / 360 590 / 590 Output Total 60 / 60 Balance 1040 / 1040 347 / 347 575 / 575 Weight 217 lb 4.8 oz Intake & Output: Intake & Output 06/07/16 06/08/16 06/08/16 21:59 05:59 13:59 Intake Total 1100 / 1100 360 / 360 590 / 590 Output Total 60 / 60 Balance 1040 / 1040 347 / 347 575 / 575 Weight 217 lb 4.8 oz Intake: IV 350 / 350 Sodium Chloride 0.9% 250 250 / 250 ml @ Wide Open IV BOLUS ONE Rx#:[id number] Oral 1100 / 1100 360 / 360 240 / 240 Output: Urine Catheter Amount 60 / 60 Other: Meal Nourishment/Supplement Breakfast Percent of Meal Consumed 50% 0% Feeding Ability Assist with Tray Set Up # of times incontinent of 1 2 1 Bowels Exam: Constitutional; Afebrile, cooperative, alert, not in distress. Eyes- No icterus, Pupils equal, reactive, No periorbital swelling Ears- Ext ear normal, hearing normal to conversation. Neck- Midline trachea, supple Respiratory system: Air Entry equal on both sides, left base, mid lobe crackles , no wheezing noted. CVS- Rate rhythm regular, S1,S2 heard, no gallop, no rub. Abdomen- Soft nontender abdomen, no organomegaly, no tenderness, no guarding or rigidity, INSURANCE UNDERWRITING ASSISTANT- AOOx3, moving all extremities, no focal deficit noted. Right upper extremity int rotated mildly iwth wrist flexion. Pt overall motor strength 4/5, sensory system yemi same, and no CN deficits noted. Medical - PN: Obj Da - Labs CBC & Chem 7: 06/08/16 04:05 06/08/16 04:05 Labs: Abnormal Lab Results 06/08/16 06/08/16 06/08/16 04:05 04:05 04:05 RBC Hgb Hct RDW Plt Count Seg Neutrophils % Band Neutrophils % Lymphocytes % WBC Morphology Toxic Granulation Dohle Bodies Platelet Estimate RBC Morphology Anisocytosis Ovalocytes Rouleaux RBC Fragments PT 16.0 H INR 1.2 H Potassium 3.1 L Chloride 92 L Carbon Dioxide 19 L Anion Gap 24.0 H BUN 77 H Creatinine 8.1 H* Glucose Calcium 7.0 L Phosphorus 7.1 H* Total Bilirubin Direct Bilirubin 0.6 H AST 468 H ALT 140 H Lactate Dehydrogenase 799 H Total Creatine Kinase 7799 H Total Protein 5.8 L Albumin 2.1 L Albumin/Globulin Ratio 0.6 L Triglycerides 218 H 06/08/16 06/07/16 06/07/16 04:05 03:50 03:50 RBC 3.53 L Hgb 10.3 L Hct 30.8 L RDW 15.6 H Plt Count Seg Neutrophils % Band Neutrophils % Lymphocytes % WBC Morphology Toxic Granulation Dohle Bodies Platelet Estimate RBC Morphology Abnorm A Anisocytosis 1+ A Ovalocytes 1+ A Rouleaux RBC Fragments PT 17.5 H INR 1.4 H Potassium Chloride Carbon Dioxide Anion Gap BUN Creatinine Glucose Calcium Phosphorus Total Bilirubin Direct Bilirubin AST ALT Lactate Dehydrogenase Total Creatine Kinase 58937 H Total Protein Albumin Albumin/Globulin Ratio Triglycerides 06/07/16 06/07/16 06/06/16 03:50 03:50 03:40 RBC 3.43 L Hgb 10.1 L Hct 30.2 L RDW 15.9 H Plt Count 125 L Seg Neutrophils % 79 H Band Neutrophils % Lymphocytes % 9 L WBC Morphology Abnorm A Toxic Granulation 1+ A Dohle Bodies Platelet Estimate Decreased A RBC Morphology Abnorm A Anisocytosis 1+ A Ovalocytes Rouleaux Present A RBC Fragments Few A PT INR Potassium 3.2 L Chloride 94 L Carbon Dioxide Anion Gap 19.0 H BUN 48 H Creatinine 5.9 H* Glucose Calcium 7.2 L Phosphorus 4.7 H Total Bilirubin 1.7 H Direct Bilirubin 1.3 H AST 657 H ALT 157 H Lactate Dehydrogenase 951 H Total Creatine Kinase 80245 H Total Protein 5.8 L Albumin 2.4 L Albumin/Globulin Ratio 0.7 L Triglycerides 161 H 06/06/16 06/06/16 06/06/16 03:40 03:40 03:40 RBC 3.26 L Hgb 9.5 L Hct 28.5 L RDW 15.1 H Plt Count 112 L Seg Neutrophils % Band Neutrophils % 16 H Lymphocytes % 8 L WBC Morphology Abnorm A Toxic Granulation Dohle Bodies 1+ A Platelet Estimate Decreased A RBC Morphology Anisocytosis Ovalocytes Rouleaux RBC Fragments PT 19.3 H INR 1.6 H Potassium Chloride Carbon Dioxide 21 L Anion Gap 20.0 H BUN 51 H Creatinine 6.2 H* Glucose Calcium 6.9 L Phosphorus 6.2 H* Total Bilirubin 1.7 H Direct Bilirubin 1.1 H AST 619 H ALT 126 H Lactate Dehydrogenase 933 H Total Creatine Kinase Total Protein 5.7 L Albumin 2.5 L Albumin/Globulin Ratio 0.8 L Triglycerides 158 H 06/05/16 06/05/16 06/05/16 15:35 15:35 15:35 RBC 3.54 L Hgb 10.3 L Hct 30.9 L RDW 15.7 H Plt Count 121 L Seg Neutrophils % Band Neutrophils % Lymphocytes % WBC Morphology Toxic Granulation Dohle Bodies Platelet Estimate RBC Morphology Anisocytosis Ovalocytes Rouleaux RBC Fragments PT INR Potassium Chloride Carbon Dioxide 21 L Anion Gap 22.0 H BUN 35 H Creatinine 4.0 H Glucose 68 L Calcium 7.5 L Phosphorus Total Bilirubin 1.4 H Direct Bilirubin 0.7 H AST 687 H ALT 134 H Lactate Dehydrogenase 1057 H Total Creatine Kinase 84737 H Total Protein Albumin 2.9 L Albumin/Globulin Ratio 0.8 L Triglycerides 170 H Meds: Medications Acetaminophen (Tylenol) 650 mg PO Q4-6HP PRN PRN Reason: PAIN/FEVER > 101 Last Admin: 06/08/16 07:32 Dose: 650 mg Albuterol/Ipratropium (Duoneb) 3 ml NEB [id number] [facility] Last Admin: 06/08/16 11:13 Dose: 3 ml Bacitracin (Bacitracin Topical Oint) 1 dose TOPICAL BID [facility] Last Admin: 06/08/16 12:04 Dose: 1 dose Docusate Sodium (Colace) 100 mg PO BID [facility] Last Admin: 06/08/16 09:19 Dose: Not Given Levofloxacin (Levaquin) 500 mg in 100 mls @ 100 mls/hr IV Q48H [facility] Last Infusion: 06/08/16 11:00 Dose: Infused Magnesium Sulfate (Magnesium Sulfate) 2 gm in 50 mls @ 50 mls/hr IV UD PRN PRN Reason: MG = or < 1.7 Norepinephrine Bitartrate 16 (mg/ Sodium Chloride) 250 mls @ 9.37 mls/hr IV Q24HP PRN; Protocol; 10 MCG/MIN PRN Reason: Hypotension Vasopressin 20 unit/ Dextrose 100 mls @ 12 mls/hr IV Q8HP PRN; Protocol; 0.04 UNIT/MIN PRN Reason: Hypotension Metoprolol Tartrate (Lopressor) 50 mg PO BID [facility] Last Admin: 06/08/16 09:19 Dose: 50 mg Ondansetron HCl (Zofran) 4 mg IV Q4-6HP PRN PRN Reason: Nausea And Vomiting Pantoprazole Sodium (Protonix) 40 mg IV QAMAC [facility] Last Admin: 06/08/16 07:31 Dose: 40 mg Potassium Chloride (Klor-Con) 40 meq PO DAILYP PRN PRN Reason: K+ < 3.5 Last Admin: 06/08/16 07:30 Dose: 40 meq Senna/Docusate Sodium (Senna Plus Tablet) 1 tab PO HS [facility] Last Admin: 06/07/16 22:21 Dose: Not Given Sodium Chloride (Saline Flush) 10 ml IV Q8 [facility] Last Admin: 06/08/16 11:00 Dose: 10 ml Warfarin Sodium (Coumadin) 5 mg PO DAILY@1400 [facility] Last Admin: 06/07/16 14:00 Dose: 5 mg Medical - PN: A/P - Time Spent With Patient Total time spent is greater than 50% in coordination of care (as documented) at patient's floor/unit and/or counseling patient: - Narrative A/P Narrative: Rhabdomyolysis-CK trending down, patient still anuric, On HD. give 500cc IV bolus. Abnl LFt Due to rhabdo, monitor for now. Improving. Acute renal failure-still anuric Nephrology on board. HD yesterday, no need for HD today, IV fluids today, HD likely tomorrow. Left upper lobe pneumonia-aspiration. Pt blood cultures is positive for MSSA , echo neg, repeat blood cultures neg, pt has mssa pneumonia? On levofloxacin, will continue same, sepsis resolved. Hypoxic respiratory failure secondary to above- Improved breathing, on oxygen via nasal canula 2 L A. fib RVR-digoxin load, but pt still tachycardic, after HD, pt bp was stable , home dose of metoprolol resumed with good response. Will continue same. Consider amiodarone if become hypotensive.IV fluids will help. Elevated INR/PTT-INR back to baseline. Resume dose of coumadin as per pharmacy. Resume diet if able to pass bed side swallow eval, with renal diet Full Code. Medical - PN: Qual - Stroke Symptom Onset Unknown: Yes - VTE Deep Vein Thrombosis/Pulmonary Embolism Present on Admission: No
[2016-06-08] MEDS: WARFARIN 5 MG TABLET PO SCH (14:03)
--- NOTE | 2016-06-08 16:51 | XRay Report ---
HISTORY: Reason for Exam:Diminished chest rise L side and no breath sounds and follow-up pulmonary infiltrates FINDINGS: There is dense consolidation of the left lower lobe with moderate opacification of the lingula. There is also mild consolidation in the left upper lobe. There is been significant improvement in the left upper lobe but deterioration in the lingula and left lower lobe since 06/05/16. There is a small infiltrate at the right lung base which has improved. Tiny right-sided pleural effusion is present. The heart is mildly enlarged. Right internal jugular catheter is well-positioned. IMPRESSION: Worsening consolidation in the lingula and left lower lobe which may be a combination of atelectasis and pneumonia Interpreted and Authenticated by: Lazaro Barroso 06/08/16
--- NOTE | 2016-06-08 17:54 | Nephrology Progress Note ---
Subjective Patient information: Note initiated : 06/08/16 at 5:51 pm Service Date, if different from initiated Date: [] Patient: Angel Garrett 80 y/o M admitted on 06/04/16 for Sepsis, EDWIN. Chief Complaint: [] Principal diagnosis: PNA, acute renal failure, rhabdomyolysis Interval history: remains anuric poor po intake also very weak,started on PT today no worsening SOB, CP, dizziness no significant events reported Pertinent ROS: as above Objective - Vital Signs Vital signs: Vital Signs Temp Pulse Pulse Resp BP BP Pulse Ox 06/08/16 16:00 96.9 F L 20 126/89 93 06/08/16 14:57 84 16 06/08/16 11:25 97.8 F 20 119/77 96 06/08/16 11:16 102 H 16 06/08/16 07:30 97.8 F 16 159/99 93 06/08/16 07:09 104 H 19 06/08/16 07:08 104 H 19 94 06/08/16 07:00 93 06/08/16 04:00 97.7 F 95 H 22 129/79 95 06/08/16 00:00 98.1 F 95 H 18 128/82 95 06/07/16 20:00 98.7 F 105 H 14 119/71 92 06/07/16 19:13 96 H 22 06/07/16 19:05 94 Intake and Output 06/08/16 06/08/16 06/08/16 05:59 13:59 21:59 Intake Total 360 / 360 710 / 710 200 / 200 Output Total Balance 347 / 347 690 / 690 192 / 192 Intake: IV 350 / 350 Sodium Chloride 0.9% 250 250 / 250 ml @ Wide Open IV BOLUS ONE Rx#:[id number] Oral 360 / 360 360 / 360 200 / 200 Output: Urine Catheter Amount Other: Meal Lunch Percent of Meal Consumed 0% Feeding Ability Assist with Tray Set Up # of times incontinent of 2 1 Bowels Intake & Output: Intake & Output 06/08/16 06/08/16 06/08/16 05:59 13:59 21:59 Intake Total 360 / 360 710 / 710 200 / 200 Output Total Balance 347 / 347 690 / 690 192 / 192 Intake: IV 350 / 350 Sodium Chloride 0.9% 250 250 / 250 ml @ Wide Open IV BOLUS ONE Rx#:[id number] Oral 360 / 360 360 / 360 200 / 200 Output: Urine Catheter Amount Other: Meal Lunch Percent of Meal Consumed 0% Feeding Ability Assist with Tray Set Up # of times incontinent of 2 1 Bowels - General Appearance General appearance: appears started age, obese EENT: mucous membranes moist Neck: no JVD Respiratory: rales Cardiology: no rub, no edema, irregular rhythm Gastrointestinal: no tenderness, no guarding Integumentary: no rash Neurologic: alert and oriented x3 Musculoskeletal: no cyanosis, no clubbing Psychiatric: mood/affect appropriate - Lab 06/08/16 04:05 06/08/16 04:05 Most recent lab results Calcium 7.0 mg/dl (8.6-10.4) L 06/08/16 04:05 Phosphorus 7.1 mg/dL (2.7-4.5) H* 06/08/16 04:05 Magnesium 2.0 mg/dL (1.6-2.5) 06/08/16 04:05 Assessment and Plan (1) Acute renal failure patient remains anuric CK trending down no s/o fluid excess or hyperkalemia will hold off on dialysis today if no improvement in renal function will need to dialyse tomorrow patient will receive small fluid boluses today to see if this helps CK trending down please dose meds to dialysis monitor I/O daily weights PNA: on antibiotics, stable rhabdomyolysis:CK trending down Anemia etiology multifactorial, stable labs coagulopathy: improved malnutrition: poor po intake not helping on protein supplements, nepro will follow along Thank you for giving me an opportunity to participate in Mr Garrett's medical care , appreciate it Status: Acute (2) Rhabdomyolysis Status: Acute (3) Pneumonia Status: Acute
--- NOTE | 2016-06-08 19:35 | General Surgery Progress Note ---
Subjective Patient reports: no new complaints Narrative: Note initiated : 06/08/16 at 7:32 pm Service Date, if different from initiated Date: [] Patient: Angel Garrett 80 y/o M admitted on 06/04/16 for Sepsis, EDWIN. Chief Complaint: [] Overall slow progress. OOB to chair today. BOWLING. CT scan of head today Negative. US abdomen performed. Report pending. Objective Temp Pulse Resp BP Pulse Ox 96.9 F L 84 20 126/89 93 06/08/16 16:00 06/08/16 14:57 06/08/16 16:00 06/08/16 16:00 06/08/16 19:23 AVSS. NSR. No acute changes BRYON. Progress reviewed with [facility]. CK levels trending down. K is normal Creatinine elevated .> 8. Reviewed Dr. Cordero's note and possible HD plans for tomorrow. Agree with current management. - Additional Data Intake & Output - Last 24 hours: Intake & Output 06/06/16 06/07/16 06/08/16 06/09/16 05:59 05:59 05:59 05:59 Intake Total 3007 / 3007 1510 / 1510 1710 / 1710 1010 / 1010 Output Total 7767 / 7767 3562 / 3562 73 / 73 / Balance -4760 / -4760 -2051 / -2051 1637 / 1637 982 / 982 Weight 218 lb 1 oz 217 lb 2 oz 217 lb 4.8 oz - Labs 06/08/16 04:05 06/08/16 04:05 Diabetes panel 06/08/16 Range/Units 04:05 Sodium 135 (133-145) mmol/L Potassium 3.1 L (3.3-5.1) mmol/L Chloride 92 L (96-108) mmol/L Carbon Dioxide 19 L (22-30) mmol/L BUN 77 H (8-23) mg/dl Creatinine 8.1 H* (0.7-1.2) mg/dl Glucose 92 (70-105) mg/dL Calcium 7.0 L (8.6-10.4) mg/dl AST 468 H (0-37) U/l ALT 140 H (0-40) U/l Alkaline Phosphatase 90 (39-117) U/L Total Protein 5.8 L (5.9-8.4) gm/dL Albumin 2.1 L (3.2-5.2) gm/dL Triglycerides 218 H (<150) mg/dl Calcium panel 06/08/16 Range/Units 04:05 Calcium 7.0 L (8.6-10.4) mg/dl Phosphorus 7.1 H* (2.7-4.5) mg/dL Albumin 2.1 L (3.2-5.2) gm/dL Pituitary panel 06/08/16 Range/Units 04:05 Sodium 135 (133-145) mmol/L Potassium 3.1 L (3.3-5.1) mmol/L Chloride 92 L (96-108) mmol/L Carbon Dioxide 19 L (22-30) mmol/L BUN 77 H (8-23) mg/dl Creatinine 8.1 H* (0.7-1.2) mg/dl Glucose 92 (70-105) mg/dL Calcium 7.0 L (8.6-10.4) mg/dl Adrenal panel 06/08/16 Range/Units 04:05 Sodium 135 (133-145) mmol/L Potassium 3.1 L (3.3-5.1) mmol/L Chloride 92 L (96-108) mmol/L Carbon Dioxide 19 L (22-30) mmol/L BUN 77 H (8-23) mg/dl Creatinine 8.1 H* (0.7-1.2) mg/dl Glucose 92 (70-105) mg/dL Calcium 7.0 L (8.6-10.4) mg/dl Total Bilirubin 1.0 (0.0-1.0) mg/dL AST 468 H (0-37) U/l ALT 140 H (0-40) U/l Alkaline Phosphatase 90 (39-117) U/L Total Protein 5.8 L (5.9-8.4) gm/dL Albumin 2.1 L (3.2-5.2) gm/dL Medical - PN: A/P - Time Spent With Patient Total time spent is greater than 50% in coordination of care (as documented) at patient's floor/unit and/or counseling patient: (1) Multiple bruises Status: Acute Current Visit: Yes
[2016-06-08] MEDS: SENNOSIDES/DOCUSATE SODIUM 1 TAB TABLET PO SCH (20:42)
[2016-06-08] MEDS ORDERED: ZOLPIDEM 5 MG TABLET PO ONE (22:27)
[2016-06-08] MEDS ORDERED: ZOLPIDEM 5 MG TABLET ONE (22:31)
[2016-06-09] MEDS: 0.9 % SODIUM CHLORIDE 10 ML SYRINGE IV SCH ×4 (05:37→21:22)
[2016-06-09 05:47] LABS: Mean Cell Volume 87.9 fL (80.0-100.0); Mean Corpuscular HGB Conc 32.9 g/dL (31.0-36.0); Mean Corpuscular Hemoglobin 28.9 pg (26.0-34.0); Platelet Count 202 K/mcL (140-440); RBC 3.64 M/mcL (4.50-5.90)
[2016-06-09 06:01] LABS: ALT/SGPT 122 U/l (0-40); Albumin 2.3 gm/dL (3.2-5.2); Albumin/Globulin Ratio 0.7 (1.0-2.3); Alkaline Phosphatase 90 U/L (39-117); Bilirubin,Direct 0.5 mg/dL (0.0-0.3); Blood Urea Nitrogen 100 mg/dl (8-23); Gamma Glutamyl Transpeptidase 31 U/L (8-61); Magnesium 2.1 mg/dL (1.6-2.5); Uric Acid 8.3 mg/dL (2.5-8.0)
[2016-06-09] MEDS: IPRATROPIUM/ALBUTEROL 3 ML AMPUL.NEB NEB SCH ×5 (07:04→23:27)
[2016-06-09] MEDS: PANTOPRAZOLE 40 MG PACKET PO SCH (07:22)
[2016-06-09 07:24] LABS: Band Neutrophils % 6 % (0-10); Burr Cells 2+ (NONE SEEN); Eosinophils % (Manual) 2 % (0-7); Lymphocytes % 11 % (15-49); Monocytes % (Manual) 3 % (1-12); Platelet Estimate NORMAL (NORMAL); RBC Morphology ABNORM (NORMAL); Segmented Neutrophils % 77 % (38-78)
--- NOTE | 2016-06-09 08:26 | Internal Med Progress Note ---
Medical - PN: Subj Patient information: Note initiated : 06/09/16 at 8:23 am Service Date, if different from initiated Date: [] Patient: Angel Garrett 80 y/o M admitted on 06/04/16 for Sepsis, EDWIN. Chief Complaint: [] Interval history: 06[id number]-old admitted with severe rhabdomyolysis resulting inacute renal failure, left upper lobe aspiration pneumonia with hypoxic respiratory failure and A. fib with RVR. Admitted to ICU. Nephrology consulted. INR 12.3 status post 5 mg vitamin K and 1 unit FFP. on aggressive crystalloids/bicarbonate drip per nephrology. broad antibiotic coverage for aspiration pneumonia. Admitted to ICU. Critically ill. Sheridan score 22. Patient is full code. Intubate if worsening respiratory status. Imaging and blood gas reviewed. Patient however clinically responding to treatment and from Tuesday obtunded state on admission was able to provide some answers after initial crystalloids and improvement in blood pressures. CK 32,000. Myoglobin 27,000. 06/05-creatinine at 6.8. INR 7 receiving additional 5 mg vitamin K/2 units FFP. Surgery consulted for temporary dialysis catheter placement. Bandemia 32%. Worsening left-sided chest infiltrates. On 3 L oxygen with sats 97% however tachypneic. Start noninvasive ventilation to improve work of breathing. Anuric overnight. A. fib with RVR around 140s. Digoxin load 500 g IV. Use amiodarone if persistent RVR. cardiac enzymes down from 0.2-0.5. Elevated PTT at 100. CK 32,000. continues to be critically ill/ /2 Pt doing much better after HD, breathing better. labs reviewed, case reviewed with the legal counsel. Pt had high grade fever, repeat cultures sent, no fever this AM. Rhabdo improving.PT still not having any urine output. He denies any acute concerns. He was wheezing yesterday and was started on duonebs q 4 hrs. This am no wheeze. still needs oxygen, 06/07: Pt seen examined, doing well, no acute overnight events. His labs reviewed with him, Family updated on his condition and plan of care Microbiology from outside hospital reviewed, blood culture positive for mssa. On levofloxacin which the patient is sensitive to. Pt ck is trending down, he will not get HD today, but he has no urine output yet , will give trial of 250cc IV bolus to see if this helps with urine output. 4/4 Pt seen examined, no acute overnight events, pt doing well, notes numbness in the left leg, and weakness on the left side. No other complaints. On exam he does not have any sensory deficit, but his left arm does seem to be internally rotated and wrist flexed, Brachial plexus injury? Strength is grossly normal and CN was intact, CT head obtained which is negative for CVA. Pt CK is trending down, and he is still not making urine Bed side USG to evaluate for IVC volume showed IVC diameter of 1.4 cms along with near complete collapse with inspiration. Plan to give 500cc bolus to see if he is able to make some urine. Continue IV abx, Microbiolgoy outside [place] sensitive mssa Wound culture positive staph aures 4/ Pt seen examined, no acute overnight events. CT head is negative for CVA, pt doing well, but notes distention of the abdomen in the ruq and epigastric region, tympanic sounds. had diarrhea, cdiff is negative. Hyperactive bs, Will get X ray abdomen. Pt on rhabdo is improving, his renal function worsened, but he is today making urine, since this AM 4, he is making around 25 cc / hr His HR is still elevated on Telemetery He denies any acute complaints. Wound care consult appreciated, Renal consult appreciated. Pertinent ROS: Denies headache, dizziness Denies chest pain, palpitations Denies cough or shortness of breath Denies abdominal pain, nausea or vomiting. abdomen distended. - Constitutional Vitals: Vital Signs Temp Pulse Resp BP Pulse Ox 97.8 F 102 H 18 142/96 94 06/09/16 03:18 06/09/16 07:07 06/09/16 07:07 06/09/16 03:18 06/09/16 07:07 Period Temp Pulse Resp BP Sys/Hinds Pulse Ox Last 24 Hr 96.9 F-98.2 F 84-113 16-22 119-142/77-96 93-96 Intake and Output 06/08/16 06/09/16 06/09/16 21:59 05:59 13:59 Intake Total 300 / 300 100 / 100 Output Total 8 / 8 45 / 45 Balance 292 / 292 55 / 55 Weight 219 lb 8 oz Intake & Output: Intake & Output 06/08/16 06/09/16 06/09/16 21:59 05:59 13:59 Intake Total 300 / 300 100 / 100 Output Total Balance 292 / 292 55 / 55 Weight 219 lb 8 oz Intake: Oral 300 / 300 100 / 100 Output: Urine Catheter Amount Other: Meal Dinner Percent of Meal Consumed 50% Feeding Ability Assist with Tray Set Up # of times incontinent of 1 Bowels Exam: Constitutional; Afebrile, cooperative, alert, not in distress. Eyes- No icterus, , No periorbital swelling Ears- Ext ear normal, hearing normal to conversation. Neck- Midline trachea, supple Respiratory system: Air Entry decreased on the left base, conducted breath sounds, no wheezing this AM, CVS- rate rhythm irregular, tachycardic, s1,s2 heard, no gallop Abdomen- Soft nontender abdomen, no organomegaly, no tenderness, no guarding or rigidity, distention noted on the epigastric ruq region, tympanic node to percussion. PARTY HOST- AOOx3, moving all extremities, no gross focal deficit noted. Medical - PN: Obj Da - Labs CBC & Chem 7: 06/09/16 04:18 06/09/16 04:18 Labs: Abnormal Lab Results 06/09/16 06/09/16 06/09/16 05:54 04:18 04:18 RBC 3.64 L Hgb 10.5 L Hct 31.9 L RDW 16.0 H Plt Count Seg Neutrophils % Lymphocytes % 11 L WBC Morphology Toxic Granulation Platelet Estimate RBC Morphology Abnorm A Anisocytosis Ovalocytes [place] Cells 2+ A Rouleaux RBC Fragments PT 22.5 H INR 1.9 H Potassium Chloride 90 L Carbon Dioxide 18 L Anion Gap 25.0 H BUN 100 H Creatinine 9.8 H* Uric Acid 8.3 H Calcium 7.0 L Phosphorus 7.6 H* Total Bilirubin Direct Bilirubin 0.5 H AST 318 H ALT 122 H Lactate Dehydrogenase 609 H Total Creatine Kinase Total Protein 5.6 L Albumin 2.3 L Albumin/Globulin Ratio 0.7 L Triglycerides 257 H 06/09/16 06/08/16 06/08/16 04:17 04:05 04:05 RBC Hgb Hct RDW Plt Count Seg Neutrophils % Lymphocytes % WBC Morphology Toxic Granulation Platelet Estimate RBC Morphology Anisocytosis Ovalocytes [place] Cells Rouleaux RBC Fragments PT 16.0 H INR 1.2 H Potassium Chloride Carbon Dioxide Anion Gap BUN Creatinine Uric Acid Calcium Phosphorus Total Bilirubin Direct Bilirubin AST ALT Lactate Dehydrogenase Total Creatine Kinase 4637 H 7799 H Total Protein Albumin Albumin/Globulin Ratio Triglycerides 06/08/16 06/08/16 06/07/16 04:05 04:05 03:50 RBC 3.53 L Hgb 10.3 L Hct 30.8 L RDW 15.6 H Plt Count Seg Neutrophils % Lymphocytes % WBC Morphology Toxic Granulation Platelet Estimate RBC Morphology Abnorm A Anisocytosis 1+ A Ovalocytes 1+ A [place] Cells Rouleaux RBC Fragments PT INR Potassium 3.1 L Chloride 92 L Carbon Dioxide 19 L Anion Gap 24.0 H BUN 77 H Creatinine 8.1 H* Uric Acid Calcium 7.0 L Phosphorus 7.1 H* Total Bilirubin Direct Bilirubin 0.6 H AST 468 H ALT 140 H Lactate Dehydrogenase 799 H Total Creatine Kinase 11558 H Total Protein 5.8 L Albumin 2.1 L Albumin/Globulin Ratio 0.6 L Triglycerides 218 H 06/07/16 06/07/16 06/07/16 03:50 03:50 03:50 RBC 3.43 L Hgb 10.1 L Hct 30.2 L RDW 15.9 H Plt Count 125 L Seg Neutrophils % 79 H Lymphocytes % 9 L WBC Morphology Abnorm A Toxic Granulation 1+ A Platelet Estimate Decreased A RBC Morphology Abnorm A Anisocytosis 1+ A Ovalocytes [place] Cells Rouleaux Present A RBC Fragments Few A PT 17.5 H INR 1.4 H Potassium 3.2 L Chloride 94 L Carbon Dioxide Anion Gap 19.0 H BUN 48 H Creatinine 5.9 H* Uric Acid Calcium 7.2 L Phosphorus 4.7 H Total Bilirubin 1.7 H Direct Bilirubin 1.3 H AST 657 H ALT 157 H Lactate Dehydrogenase 951 H Total Creatine Kinase Total Protein 5.8 L Albumin 2.4 L Albumin/Globulin Ratio 0.7 L Triglycerides 161 H 06/06/16 03:40 RBC Hgb Hct RDW Plt Count Seg Neutrophils % Lymphocytes % WBC Morphology Toxic Granulation Platelet Estimate RBC Morphology Anisocytosis Ovalocytes [place] Cells Rouleaux RBC Fragments PT INR Potassium Chloride Carbon Dioxide Anion Gap BUN Creatinine Uric Acid Calcium Phosphorus Total Bilirubin Direct Bilirubin AST ALT Lactate Dehydrogenase Total Creatine Kinase 71334 H Total Protein Albumin Albumin/Globulin Ratio Triglycerides Meds: Medications Acetaminophen (Tylenol) 650 mg PO Q4-6HP PRN PRN Reason: PAIN/FEVER > 101 Last Admin: 06/08/16 07:32 Dose: 650 mg Albuterol/Ipratropium (Duoneb) 3 ml NEB [id number] COUNTS INCLUDE 234 BEDS AT THE [facility] Last Admin: 06/09/16 07:04 Dose: 3 ml Bacitracin (Bacitracin Topical Oint) 1 dose TOPICAL BID COUNTS INCLUDE 234 BEDS AT THE [facility] Last Admin: 06/08/16 20:45 Dose: 1 dose Docusate Sodium (Colace) 100 mg PO BID COUNTS INCLUDE 234 BEDS AT THE [facility] Last Admin: 06/08/16 20:42 Dose: Not Given Levofloxacin (Levaquin) 500 mg in 100 mls @ 100 mls/hr IV Q48H COUNTS INCLUDE 234 BEDS AT THE [facility] Last Infusion: 06/08/16 11:00 Dose: Infused Norepinephrine Bitartrate 16 (mg/ Sodium Chloride) 250 mls @ 9.37 mls/hr IV Q24HP PRN; Protocol; 10 MCG/MIN PRN Reason: Hypotension Vasopressin 20 unit/ Dextrose 100 mls @ 12 mls/hr IV Q8HP PRN; Protocol; 0.04 UNIT/MIN PRN Reason: Hypotension Metoprolol Tartrate (Lopressor) 75 mg PO BID COUNTS INCLUDE 234 BEDS AT THE [facility] Ondansetron HCl (Zofran) 4 mg IV Q4-6HP PRN PRN Reason: Nausea And Vomiting Pantoprazole Sodium (Protonix) 40 mg PO QAMAC COUNTS INCLUDE 234 BEDS AT THE [facility] Last Admin: 06/09/16 07:22 Dose: 40 mg Senna/Docusate Sodium (Senna Plus Tablet) 1 tab PO HS COUNTS INCLUDE 234 BEDS AT THE [facility] Last Admin: 06/08/16 20:42 Dose: Not Given Sodium Chloride (Saline Flush) 10 ml IV Q8 COUNTS INCLUDE 234 BEDS AT THE [facility] Last Admin: 06/09/16 05:37 Dose: 10 ml Warfarin Sodium (Coumadin) 5 mg PO DAILY@1400 COUNTS INCLUDE 234 BEDS AT THE [facility] Last Admin: 06/08/16 14:03 Dose: 5 mg Medical - PN: A/P - Time Spent With Patient Total time spent is greater than 50% in coordination of care (as documented) at patient's floor/unit and/or counseling patient: - Narrative A/P Narrative: Rhabdomyolysis-CK trending down, < 10K now. Abnl LFt Due to rhabdo, monitor for now. Improving. Acute renal failure-Pt started to make urine, however renal function worsened , with BUN 100's, HD session planned for today by nephrology, plan to likely not remove much fluid given that he is making urine. Left upper lobe pneumonia-aspiration. Pt blood cultures is positive for MSSA , echo neg, repeat blood cultures neg, pt has mssa pneumonia? On levofloxacin, will continue same, Hypoxic respiratory failure secondary to above- Improved breathing, on oxygen via nasal canula 2 L A. fib RVR-On metoprolol 50mg bid home dose, increase to 75mg bid and monitor. Elevated INR/PTT-INR back to baseline. Resume dose of coumadin as per pharmacy. Abdominal Distention.: G et X ray, hold stool softners, monitor, likely gas in colon. Resume diet if able to pass bed side swallow eval, with renal diet Full Code. Medical - PN: Qual - Stroke Symptom Onset Unknown: Yes - VTE Deep Vein Thrombosis/Pulmonary Embolism Present on Admission: No
[2016-06-09] MEDS: METOPROLOL TARTRATE 50 MG TABLET PO SCH ×2 (08:57→21:22)
[2016-06-09] MEDS: DOCUSATE SODIUM 100 MG CAPSULE PO SCH ×2 (09:00→21:22)
--- NOTE | 2016-06-09 09:09 | XRay Report ---
HISTORY: Reason for Exam:distended abdomen. , Sepsis and acute kidney injury FINDINGS: There is a moderate amount of gas in the colon. There is a mobile cecum which is oriented transversely in the mid abdomen. Is also air in a few loops of nondilated small intestine. All of the images were acquired in a portable supine position. Without upright films I cannot detect free intra-abdominal air or air-fluid levels. There is consolidation left lower lobe behind left heart border. The right lung bases clear. There are degenerative changes in the thoracic and lumbar spine. No abnormal soft tissue calcification is seen. IMPRESSION: Mildly distended colon. This is a nonspecific finding. Pneumonia or atelectasis in left lower lobe Interpreted and Authenticated by: Lazaro Barroso 06/09/16
[2016-06-09] MEDS: BACITRACIN TOPICAL OINT 15 GM TUBE TOPICAL SCH ×2 (09:40→21:23)
--- NOTE | 2016-06-09 14:18 | Nephrology Progress Note ---
Subjective Patient information: Note initiated : 06/09/16 at 2:16 pm Service Date, if different from initiated Date: [] Patient: Angel Garrett 80 y/o M admitted on 06/04/16 for Sepsis, EDWIN. Chief Complaint: [] Principal diagnosis: PNA, acute renal failure, rhabdomyolysis Interval history: Patient has no new issues He is making a little more urine today, 20-30 cc hour no worsening SOB, CP still poor appetite also has abdominal distension with loose stools (very low volume) no nausea, vomiting remains very weak Pertinent ROS: as above Objective - Vital Signs Vital signs: Vital Signs Temp Pulse Pulse Resp BP BP Pulse Ox 06/09/16 13:56 108 H 114/82 06/09/16 13:28 95 H 104/79 06/09/16 12:58 100 H 108/74 06/09/16 12:28 95 H 108/77 06/09/16 12:00 96.1 F L 93 H 97/80 06/09/16 11:40 96.1 F L 92 H 106/81 06/09/16 11:32 97.7 F 20 100/68 97 06/09/16 11:19 79 18 06/09/16 08:00 97.7 F 117 H 16 146/97 95 06/09/16 07:07 102 H 18 94 06/09/16 03:18 97.8 F 113 H 16 142/96 94 06/09/16 00:00 98.2 F 84 16 127/87 95 06/08/16 20:00 96 06/08/16 19:35 97.8 F 20 124/86 93 06/08/16 19:32 102 H 22 06/08/16 19:23 93 06/08/16 16:00 96.9 F L 20 126/89 93 06/08/16 14:57 84 16 Intake and Output 06/09/16 06/09/16 06/09/16 05:59 13:59 21:59 Intake Total 100 / 100 Output Total 45 / 45 481 / 481 Balance 55 / 55 -481 / -481 Intake: Oral 100 / 100 Output: Urine Catheter Amount 45 / 45 Hemodialysis UF 481 / 481 Other: # of times incontinent of 1 Bowels Intake & Output: Intake & Output 06/09/16 06/09/16 06/09/16 05:59 13:59 21:59 Intake Total 100 / 100 Output Total 45 / 45 481 / 481 Balance 55 / 55 -481 / -481 Intake: Oral 100 / 100 Output: Urine Catheter Amount 45 / 45 Hemodialysis UF 481 / 481 Other: # of times incontinent of 1 Bowels - General Appearance General appearance: appears started age, frail EENT: mucous membranes moist Neck: no JVD Respiratory: rales Cardiology: no rub, no edema, irregular rhythm Gastrointestinal: no tenderness (distended), no guarding Integumentary: warm and dry Neurologic: alert and oriented x3 Musculoskeletal: no erythema, no cyanosis Psychiatric: mood/affect appropriate - Lab 06/09/16 04:18 06/09/16 04:18 Most recent lab results Calcium 7.0 mg/dl (8.6-10.4) L 06/09/16 04:18 Phosphorus 7.6 mg/dL (2.7-4.5) H* 06/09/16 04:18 Magnesium 2.1 mg/dL (1.6-2.5) 06/09/16 04:18 Assessment and Plan (1) Acute renal failure urine output remains poor BUN is 100, S.Creatinine is 9.8, mild acidosis no hyperkalemia urine output still poor though somewhat better today will do HD today for 4 hrs using revaclear 300 dialyser, 3K/2.5 CA DIALYSATE, no UF removal will continue to monitor for renal recovery PNA with blood culture positive for MSSA at outside hospital on levofloxacin rhabdomyolysis CK now below 5000, will ct to monitor coagulopathy resolved deconditioning on PT Anemia: Hb is stable, etiology multifactorial given sepsis.infection, renal failure will follow along Thank you for giving me an opportunity to participate in Mr Garrett's medical care , appreciate it Status: Acute (2) Rhabdomyolysis Status: Acute (3) Pneumonia Status: Acute
[2016-06-09] MEDS: WARFARIN 2 MG TABLET PO SCH (17:04)
--- NOTE | 2016-06-09 18:55 | General Surgery Progress Note ---
Subjective Patient reports: other (Wound Care follow up) Narrative: Note initiated : 06/09/16 at 6:52 pm Service Date, if different from initiated Date: [] Patient: Angel Garrett 80 y/o M admitted on 06/04/16 for Sepsis, EDWIN. Chief Complaint: []Wound care f/u . Patient seen and progress reviewed with RN. Objective Temp Pulse Resp BP Pulse Ox 97.1 F L 108 H 18 122/90 90 06/09/16 16:00 06/09/16 16:37 06/09/16 16:37 06/09/16 16:00 06/09/16 16:37 - Additional Data Intake & Output - Last 24 hours: Intake & Output 06/07/16 06/08/16 06/09/16 06/10/16 05:59 05:59 05:59 05:59 Intake Total 1510 / 1510 1710 / 1710 1110 / 1110 Output Total 3562 / 3562 73 / 73 73 / 73 1311 / 1311 Balance -2051 / -2051 1637 / 1637 1037 / 1037 -1311 / -1311 Weight 217 lb 2 oz 217 lb 4.8 oz 219 lb 8 oz 06/09/16 18:55 AVSS. HD stable. Completed HD today for elevated creatinine of 9.8 Labs reviewed K 3.3 CK is trending down. Skin wounds are healing well. Dressings are clean and dry . To continue current wound care. - Integumentary other (Scap skin wound is dry and healing well. Other skin and subcutneous wounds LEFT side are clean, dry and covered with soft foam dressings. ) - Labs 06/09/16 04:18 06/09/16 04:18 Diabetes panel 06/09/16 Range/Units 04:18 Sodium 133 (133-145) mmol/L Potassium 3.3 (3.3-5.1) mmol/L Chloride 90 L (96-108) mmol/L Carbon Dioxide 18 L (22-30) mmol/L BUN 100 H (8-23) mg/dl Creatinine 9.8 H* (0.7-1.2) mg/dl Glucose 95 (70-105) mg/dL Calcium 7.0 L (8.6-10.4) mg/dl AST 318 H (0-37) U/l ALT 122 H (0-40) U/l Alkaline Phosphatase 90 (39-117) U/L Total Protein 5.6 L (5.9-8.4) gm/dL Albumin 2.3 L (3.2-5.2) gm/dL Triglycerides 257 H (<150) mg/dl Calcium panel 06/09/16 Range/Units 04:18 Calcium 7.0 L (8.6-10.4) mg/dl Phosphorus 7.6 H* (2.7-4.5) mg/dL Albumin 2.3 L (3.2-5.2) gm/dL Pituitary panel 06/09/16 Range/Units 04:18 Sodium 133 (133-145) mmol/L Potassium 3.3 (3.3-5.1) mmol/L Chloride 90 L (96-108) mmol/L Carbon Dioxide 18 L (22-30) mmol/L BUN 100 H (8-23) mg/dl Creatinine 9.8 H* (0.7-1.2) mg/dl Glucose 95 (70-105) mg/dL Calcium 7.0 L (8.6-10.4) mg/dl Adrenal panel 06/09/16 Range/Units 04:18 Sodium 133 (133-145) mmol/L Potassium 3.3 (3.3-5.1) mmol/L Chloride 90 L (96-108) mmol/L Carbon Dioxide 18 L (22-30) mmol/L BUN 100 H (8-23) mg/dl Creatinine 9.8 H* (0.7-1.2) mg/dl Glucose 95 (70-105) mg/dL Calcium 7.0 L (8.6-10.4) mg/dl Total Bilirubin 0.9 (0.0-1.0) mg/dL AST 318 H (0-37) U/l ALT 122 H (0-40) U/l Alkaline Phosphatase 90 (39-117) U/L Total Protein 5.6 L (5.9-8.4) gm/dL Albumin 2.3 L (3.2-5.2) gm/dL Medical - PN: A/P - Time Spent With Patient Total time spent is greater than 50% in coordination of care (as documented) at patient's floor/unit and/or counseling patient: less than 15 minutes (1) Multiple bruises Status: Acute Current Visit: Yes - Narrative A/P Narrative: Satisfactory progress. Pneumonia improving. ARF Tolerated HD uneventfully. Repeat labs awaited. Skin wounds are clean and dry .Dressings CDI. Plan: Continue current treatment.
[2016-06-09] MEDS: SENNOSIDES/DOCUSATE SODIUM 1 TAB TABLET PO SCH (21:22)
[2016-06-10] MEDS: 0.9 % SODIUM CHLORIDE 10 ML SYRINGE IV SCH ×3 (05:28→21:00)
[2016-06-10] MEDS: IPRATROPIUM/ALBUTEROL 3 ML AMPUL.NEB NEB SCH ×6 (07:06→23:56)
[2016-06-10] MEDS: PANTOPRAZOLE 40 MG PACKET PO SCH (07:13)
[2016-06-10] MEDS: DOCUSATE SODIUM 100 MG CAPSULE PO SCH ×2 (08:11→20:55)
[2016-06-10 08:25] LABS: Basophils # (Auto) 0 K/mcL (0.0-0.3); Basophils % (Auto) 0.1 % (0.0-2.0); Eosinophils # (Auto) 0.1 K/mcL (0.0-0.7); Eosinophils % (Auto) 1.9 % (0.0-7.0); Granulocytes % (Auto) 85.2 % (38.0-78.0); Lymphocytes # (Auto) 0.4 K/mcL (1.5-4.8); Lymphocytes % (Auto) 7.4 % (15.5-49.0); Mean Cell Volume 86.7 fL (80.0-100.0); Mean Corpuscular HGB Conc 33.3 g/dL (31.0-36.0); Mean Corpuscular Hemoglobin 28.9 pg (26.0-34.0); Monocytes # (Auto) 0.3 K/mcL (0.1-0.9); Monocytes % (Auto) 5.4 % (1.0-12.0); Platelet Count 236 K/mcL (140-440); RBC 3.43 M/mcL (4.50-5.90); Red Cell Distribution Width 15.7 % (11.5-14.5)
--- NOTE | 2016-06-10 08:31 | Internal Med Progress Note ---
Medical - PN: Subj Patient information: Note initiated : 06/10/16 at 8:27 am Service Date, if different from initiated Date: [] Patient: Angel Garrett 80 y/o M admitted on 06/04/16 for Sepsis, EDWIN. Chief Complaint: [] Interval history: [id number]-old admitted with severe rhabdomyolysis resulting inacute renal failure, left upper lobe aspiration pneumonia with hypoxic respiratory failure and A. fib with RVR. Admitted to ICU. Nephrology consulted. INR 12.3 status post 5 mg vitamin K and 1 unit FFP. on aggressive crystalloids/bicarbonate drip per nephrology. broad antibiotic coverage for aspiration pneumonia. Admitted to ICU. Critically ill. Dauphin score 22. Patient is full code. Intubate if worsening respiratory status. Imaging and blood gas reviewed. Patient however clinically responding to treatment and from Tuesday obtunded state on admission was able to provide some answers after initial crystalloids and improvement in blood pressures. CK 32,000. Myoglobin 27,000. 06/05-creatinine at 6.8. INR 7 receiving additional 5 mg vitamin K/2 units FFP. Surgery consulted for temporary dialysis catheter placement. Bandemia 32%. Worsening left-sided chest infiltrates. On 3 L oxygen with sats 97% however tachypneic. Start noninvasive ventilation to improve work of breathing. Anuric overnight. A. fib with RVR around 140s. Digoxin load 500 g IV. Use amiodarone if persistent RVR. cardiac enzymes down from 0.2-0.5. Elevated PTT at 100. CK 32,000. continues to be critically ill/ /2 Pt doing much better after HD, breathing better. labs reviewed, case reviewed with the associate professor of sociology. Pt had high grade fever, repeat cultures sent, no fever this AM. Rhabdo improving.PT still not having any urine output. He denies any acute concerns. He was wheezing yesterday and was started on duonebs q 4 hrs. This am no wheeze. still needs oxygen, 06/07: Pt seen examined, doing well, no acute overnight events. His labs reviewed with him, Family updated on his condition and plan of care Microbiology from outside hospital reviewed, blood culture positive for mssa. On levofloxacin which the patient is sensitive to. Pt ck is trending down, he will not get HD today, but he has no urine output yet , will give trial of 250cc IV bolus to see if this helps with urine output. 4/4 Pt seen examined, no acute overnight events, pt doing well, notes numbness in the left leg, and weakness on the left side. No other complaints. On exam he does not have any sensory deficit, but his left arm does seem to be internally rotated and wrist flexed, Brachial plexus injury? Strength is grossly normal and CN was intact, CT head obtained which is negative for CVA. Pt CK is trending down, and he is still not making urine Bed side USG to evaluate for IVC volume showed IVC diameter of 1.4 cms along with near complete collapse with inspiration. Plan to give 500cc bolus to see if he is able to make some urine. Continue IV abx, Microbiolgoy outside [place] sensitive mssa Wound culture positive staph aures 4/ Pt seen examined, no acute overnight events. CT head is negative for CVA, pt doing well, but notes distention of the abdomen in the ruq and epigastric region, tympanic sounds. had diarrhea, cdiff is negative. Hyperactive bs, Will get X ray abdomen. Pt on rhabdo is improving, his renal function worsened, but he is today making urine, since this AM 4, he is making around 25 cc / hr His HR is still elevated on Telemetery He denies any acute complaints. Wound care consult appreciated, Renal consult appreciated. /6 Pt seen examined, no acute overnight events tolerated HD ok unable to do much activity due to severe weakness. Continue PT overnight not much urine today, he had HD yesterday approx 1100cc neg. will discuss with nephrology on IV fluids to see if this helps. CK much better, Pertinent ROS: Denies headache, dizziness Denies chest pain, palpitations Denies cough or shortness of breath Denies abdominal pain, nausea or vomiting. - Constitutional Vitals: Vital Signs Temp Pulse Resp BP Pulse Ox 97.7 F 102 H 20 118/80 93 06/10/16 07:46 06/10/16 07:46 06/10/16 07:46 06/10/16 07:46 06/10/16 07:46 Period Temp Pulse Resp BP Sys/Hinds Pulse Ox Last 24 Hr 96.1 F-97.7 F 79-118 11-20 95-132/58-98 90-97 Intake and Output 06/09/16 06/10/16 06/10/16 21:59 05:59 13:59 Intake Total 250 / 250 Output Total 830 / 830 Balance -830 / -830 230 / 230 Weight 217 lb 8 oz Intake & Output: Intake & Output 06/09/16 06/10/16 06/10/16 21:59 05:59 13:59 Intake Total 250 / 250 Output Total 830 / 830 Balance -830 / -830 230 / 230 Weight 217 lb 8 oz Intake: Oral 250 / 250 Output: Urine Catheter Amount 125 / 125 Hemodialysis UF 705 / 705 Other: # of times incontinent of 1 1 Bowels Exam: Constitutional; Afebrile, cooperative, alert, not in distress. Eyes- No icterus, , No periorbital swelling Ears- Ext ear normal, hearing normal to conversation. Neck- Midline trachea, supple Respiratory system: Air Entry dimished on left base, yemi exp mild wheezing noted , prolonged exp phase, CVS- Rate rhythm irregular, S1,S2 heard, no gallop, no rub. Abdomen- Soft nontender abdomen, no organomegaly, no tenderness, no guarding or rigidity, SCANNING CLERK- AOOx3, moving all extremities, no gross focal deficit noted. Medical - PN: Obj Da - Labs CBC & Chem 7: 06/10/16 07:41 06/09/16 04:18 Labs: Abnormal Lab Results 06/10/16 06/10/16 06/10/16 07:41 04:09 04:09 RBC 3.43 L Hgb 9.9 L Hct 29.7 L RDW 15.7 H Gran % 85.2 H Lymph % (Auto) 7.4 L Lymph # 0.4 L Lymphocytes % RBC Morphology Anisocytosis Ovalocytes [place] Cells PT 22.4 H INR 1.9 H Potassium Chloride Carbon Dioxide Anion Gap BUN Creatinine Uric Acid Calcium Phosphorus Direct Bilirubin AST ALT Lactate Dehydrogenase Total Creatine Kinase 2201 H Total Protein Albumin Albumin/Globulin Ratio Triglycerides 06/09/16 06/09/16 06/09/16 05:54 04:18 04:18 RBC 3.64 L Hgb 10.5 L Hct 31.9 L RDW 16.0 H Gran % Lymph % (Auto) Lymph # Lymphocytes % 11 L RBC Morphology Abnorm A Anisocytosis Ovalocytes Carole Cells 2+ A PT 22.5 H INR 1.9 H Potassium Chloride 90 L Carbon Dioxide 18 L Anion Gap 25.0 H BUN 100 H Creatinine 9.8 H* Uric Acid 8.3 H Calcium 7.0 L Phosphorus 7.6 H* Direct Bilirubin 0.5 H AST 318 H ALT 122 H Lactate Dehydrogenase 609 H Total Creatine Kinase Total Protein 5.6 L Albumin 2.3 L Albumin/Globulin Ratio 0.7 L Triglycerides 257 H 06/09/16 06/08/16 06/08/16 04:17 04:05 04:05 RBC Hgb Hct RDW Gran % Lymph % (Auto) Lymph # Lymphocytes % RBC Morphology Anisocytosis Ovalocytes [place] Cells PT 16.0 H INR 1.2 H Potassium Chloride Carbon Dioxide Anion Gap BUN Creatinine Uric Acid Calcium Phosphorus Direct Bilirubin AST ALT Lactate Dehydrogenase Total Creatine Kinase 4637 H 7799 H Total Protein Albumin Albumin/Globulin Ratio Triglycerides 06/08/16 06/08/16 04:05 04:05 RBC 3.53 L Hgb 10.3 L Hct 30.8 L RDW 15.6 H Gran % Lymph % (Auto) Lymph # Lymphocytes % RBC Morphology Abnorm A Anisocytosis 1+ A Ovalocytes 1+ A [place] Cells PT INR Potassium 3.1 L Chloride 92 L Carbon Dioxide 19 L Anion Gap 24.0 H BUN 77 H Creatinine 8.1 H* Uric Acid Calcium 7.0 L Phosphorus 7.1 H* Direct Bilirubin 0.6 H AST 468 H ALT 140 H Lactate Dehydrogenase 799 H Total Creatine Kinase Total Protein 5.8 L Albumin 2.1 L Albumin/Globulin Ratio 0.6 L Triglycerides 218 H Meds: Medications Acetaminophen (Tylenol) 650 mg PO Q4-6HP PRN PRN Reason: PAIN/FEVER > 101 Last Admin: 06/08/16 07:32 Dose: 650 mg Albuterol/Ipratropium (Duoneb) 3 ml NEB [id number] [facility] Last Admin: 06/10/16 07:06 Dose: 3 ml Bacitracin (Bacitracin Topical Oint) 1 dose TOPICAL BID [facility] Last Admin: 06/09/16 21:23 Dose: 1 dose Docusate Sodium (Colace) 100 mg PO BID [facility] Last Admin: 06/10/16 08:11 Dose: Not Given Levofloxacin (Levaquin) 500 mg in 100 mls @ 100 mls/hr IV Q48H [facility] Last Infusion: 06/08/16 11:00 Dose: Infused Norepinephrine Bitartrate 16 (mg/ Sodium Chloride) 250 mls @ 9.37 mls/hr IV Q24HP PRN; Protocol; 10 MCG/MIN PRN Reason: Hypotension Vasopressin 20 unit/ Dextrose 100 mls @ 12 mls/hr IV Q8HP PRN; Protocol; 0.04 UNIT/MIN PRN Reason: Hypotension Metoprolol Tartrate (Lopressor) 100 mg PO BID [facility] Ondansetron HCl (Zofran) 4 mg IV Q4-6HP PRN PRN Reason: Nausea And Vomiting Last Admin: 06/09/16 09:09 Dose: 4 mg Pantoprazole Sodium (Protonix) 40 mg PO [facility] Last Admin: 06/10/16 07:13 Dose: 40 mg Prednisone (Prednisone) 40 mg PO [facility] Stop: 06/15/16 07:59 Senna/Docusate Sodium (Senna Plus Tablet) 1 tab PO HS [facility] Last Admin: 06/09/16 21:22 Dose: 1 tab Sodium Chloride (Saline Flush) 10 ml IV Q8 [facility] Last Admin: 06/10/16 05:28 Dose: 10 ml Warfarin Sodium (Coumadin) 2 mg PO DAILY@1400 [facility] Last Admin: 06/09/16 17:04 Dose: 2 mg Zolpidem Tartrate (Ambien) 5 mg PO HSP PRN PRN Reason: Insomnia Medical - PN: A/P - Time Spent With Patient Total time spent is greater than 50% in coordination of care (as documented) at patient's floor/unit and/or counseling patient: - Narrative A/P Narrative: Rhabdomyolysis-CK trending down, < 10K now. Abnl LFt Due to rhabdo, monitor for now. Improving. CK 2200 Acute renal failure-Urine output dropped again, discuss with nephrology regarding IV fluids vs lasix use may be both to help increase urine output. Encourage good hydration. Left upper lobe pneumonia-aspiration. Pt blood cultures is positive for MSSA, echo neg, repeat blood cultures neg, pt has mssa pneumonia? On levofloxacin, will continue same, Hypoxic respiratory failure secondary to above- Improved breathing, on oxygen via nasal canula 2 L A. fib RVR-On metoprolol 50mg bid home dose, increase to 100mg bid. Reactive airway disease: Yemi exp wheezing noted, on duonebs, but the patients wheezing is persistant, add prednisone for now. Elevated INR/PTT-INR back to baseline. Resume dose of coumadin as per pharmacy. Abdominal Distention.: xray shows non specific bowel distention due to gas. Diet : Renal diet. Wound care as per Wound care consult. Full Code. Medical - PN: Qual - Stroke Symptom Onset Unknown: Yes - VTE Deep Vein Thrombosis/Pulmonary Embolism Present on Admission: No
[2016-06-10] MEDS: METOPROLOL TARTRATE 50 MG TABLET PO SCH ×2 (08:45→20:55)
[2016-06-10] MEDS: predniSONE 20 MG TABLET PO SCH (08:45)
[2016-06-10] MEDS: LEVOFLOXACIN 500 MG/100 ML BAG IV SCH (08:46)
[2016-06-10 08:48] LABS: ALT/SGPT 97 U/l (0-40); Albumin 2.1 gm/dL (3.2-5.2); Albumin/Globulin Ratio 0.6 (1.0-2.3); Alkaline Phosphatase 78 U/L (39-117); Bilirubin,Direct 0.5 mg/dL (0.0-0.3); Blood Urea Nitrogen 56 mg/dl (8-23); Gamma Glutamyl Transpeptidase 33 U/L (8-61); Magnesium 2.1 mg/dL (1.6-2.5); Uric Acid 5.4 mg/dL (2.5-8.0)
[2016-06-10] MEDS ORDERED: FUROSEMIDE 100 MG/10 ML VIAL IV ONE (08:54)
[2016-06-10] MEDS ORDERED: 0.9 % SODIUM CHLORIDE 250 ML IV ONE (08:54)
[2016-06-10] MEDS: BACITRACIN TOPICAL OINT 15 GM TUBE TOPICAL SCH ×2 (10:16→20:56)
[2016-06-10] MEDS: WARFARIN 2 MG TABLET PO SCH (14:00)
[2016-06-10] MEDS: SENNOSIDES/DOCUSATE SODIUM 1 TAB TABLET PO SCH (20:55)
[2016-06-10] MEDS ORDERED: ZOLPIDEM 5 MG TABLET PO PRN (21:00)
[2016-06-11] MEDS: 0.9 % SODIUM CHLORIDE 10 ML SYRINGE IV SCH ×3 (05:06→21:36)
[2016-06-11 05:51] LABS: Basophils # (Auto) 0 K/mcL (0.0-0.3); Basophils % (Auto) 0 % (0.0-2.0); Eosinophils # (Auto) 0.1 K/mcL (0.0-0.7); Eosinophils % (Auto) 1.1 % (0.0-7.0); Granulocytes % (Auto) 85.4 % (38.0-78.0); Lymphocytes # (Auto) 0.4 K/mcL (1.5-4.8); Lymphocytes % (Auto) 5.9 % (15.5-49.0); Mean Cell Volume 87.2 fL (80.0-100.0); Mean Corpuscular HGB Conc 33.3 g/dL (31.0-36.0); Monocytes # (Auto) 0.5 K/mcL (0.1-0.9); Monocytes % (Auto) 7.6 % (1.0-12.0); Platelet Count 265 K/mcL (140-440); RBC 3.17 M/mcL (4.50-5.90); Red Cell Distribution Width 15.4 % (11.5-14.5)
[2016-06-11 06:22] LABS: ALT/SGPT 93 U/l (0-40); Albumin 2.2 gm/dL (3.2-5.2); Albumin/Globulin Ratio 0.7 (1.0-2.3); Alkaline Phosphatase 84 U/L (39-117); Bilirubin,Direct 0.4 mg/dL (0.0-0.3); Blood Urea Nitrogen 79 mg/dl (8-23); Creatine Kinase 1414 IU/L (24-195); Gamma Glutamyl Transpeptidase 32 U/L (8-61); Uric Acid 7.3 mg/dL (2.5-8.0)
[2016-06-11] MEDS: IPRATROPIUM/ALBUTEROL 3 ML AMPUL.NEB NEB SCH ×5 (07:10→22:51)
[2016-06-11] MEDS ORDERED: FUROSEMIDE 100 MG/10 ML VIAL IV ONE ×2 (08:02→08:22)
[2016-06-11] MEDS ORDERED: ACETAMINOPHEN 325 MG TABLET PO PRN (08:22)
[2016-06-11] MEDS ORDERED: VASOPRESSIN 20 UNIT in DEXTROSE 5% IN WATER 99 ML IV PRN (08:22)
[2016-06-11] MEDS ORDERED: ONDANSETRON 4 MG/2 ML VIAL IV PRN (08:22)
[2016-06-11] MEDS: PANTOPRAZOLE 40 MG PACKET PO SCH (08:22)
[2016-06-11] MEDS ORDERED: ZOLPIDEM 5 MG TABLET PO PRN (08:22)
[2016-06-11] MEDS ORDERED: NOREPINEPHRINE BITARTRATE 16 MG in 0.9 % SODIUM CHLORIDE 234 ML IV PRN (08:22)
[2016-06-11] MEDS: METOPROLOL TARTRATE 50 MG TABLET PO SCH ×2 (09:02→21:35)
[2016-06-11] MEDS: DOCUSATE SODIUM 100 MG CAPSULE PO SCH ×2 (09:02→21:35)
[2016-06-11] MEDS: BACITRACIN TOPICAL OINT 15 GM TUBE TOPICAL SCH ×2 (09:02→21:40)
--- NOTE | 2016-06-11 09:03 | General Surgery Progress Note ---
Subjective Narrative: Note initiated : 06/11/16 at 9:00 am Service Date, if different from initiated Date: [] Patient: Angel Garrett 80 y/o M admitted on 06/04/16 for Sepsis, EDWIN. Chief Complaint: [] Wound Care f/u. Patient seen on rounds with Loren LOPEZproperty manager nurse. Progress reviewed. No specific wound care related symptoms. Scalp wound has dried and improved significantly. Other wounds are responding to MIST treatments. Will continue same at this time. Was hemodialyzed . Creatinine still elevated. Nephrology notes reviewed. Objective Temp Pulse Resp BP Pulse Ox 97.3 F L 84 16 128/84 95 06/11/16 08:00 06/11/16 08:00 06/11/16 08:00 06/11/16 08:00 06/11/16 08:00 VSS. NSR. Hemodynamically stable. Scalp wound dry and clean. Epithelializing well. Other wounds to be treated with MIST and protective FOAM dressing. - Additional Data Intake & Output - Last 24 hours: Intake & Output 06/09/16 06/10/16 06/11/16 06/12/16 05:59 05:59 05:59 05:59 Intake Total 1110 / 1110 250 / 250 1348 / 1348 Output Total 73 / 73 1331 / 1331 292 / 292 Balance 1037 / 1037 -1081 / -1081 1056 / 1056 Weight 219 lb 8 oz 217 lb 8 oz 221 lb 1.6 oz - Labs 06/11/16 04:15 06/11/16 04:15 Diabetes panel 06/11/16 Range/Units 04:15 Sodium 131 L (133-145) mmol/L Potassium 3.3 (3.3-5.1) mmol/L Chloride 89 L (96-108) mmol/L Carbon Dioxide 22 (22-30) mmol/L BUN 79 H (8-23) mg/dl Creatinine 7.8 H* (0.7-1.2) mg/dl Glucose 114 H (70-105) mg/dL Calcium 7.0 L (8.6-10.4) mg/dl AST 144 H (0-37) U/l ALT 93 H (0-40) U/l Alkaline Phosphatase 84 (39-117) U/L Total Protein 5.5 L (5.9-8.4) gm/dL Albumin 2.2 L (3.2-5.2) gm/dL Triglycerides 162 H (<150) mg/dl Calcium panel 06/11/16 Range/Units 04:15 Calcium 7.0 L (8.6-10.4) mg/dl Phosphorus 6.3 H* (2.7-4.5) mg/dL Albumin 2.2 L (3.2-5.2) gm/dL Pituitary panel 06/11/16 Range/Units 04:15 Sodium 131 L (133-145) mmol/L Potassium 3.3 (3.3-5.1) mmol/L Chloride 89 L (96-108) mmol/L Carbon Dioxide 22 (22-30) mmol/L BUN 79 H (8-23) mg/dl Creatinine 7.8 H* (0.7-1.2) mg/dl Glucose 114 H (70-105) mg/dL Calcium 7.0 L (8.6-10.4) mg/dl Adrenal panel 06/11/16 Range/Units 04:15 Sodium 131 L (133-145) mmol/L Potassium 3.3 (3.3-5.1) mmol/L Chloride 89 L (96-108) mmol/L Carbon Dioxide 22 (22-30) mmol/L BUN 79 H (8-23) mg/dl Creatinine 7.8 H* (0.7-1.2) mg/dl Glucose 114 H (70-105) mg/dL Calcium 7.0 L (8.6-10.4) mg/dl Total Bilirubin 0.9 (0.0-1.0) mg/dL AST 144 H (0-37) U/l ALT 93 H (0-40) U/l Alkaline Phosphatase 84 (39-117) U/L Total Protein 5.5 L (5.9-8.4) gm/dL Albumin 2.2 L (3.2-5.2) gm/dL Assessment and Plan (1) Multiple bruises Status: Acute Assessment and plan: Satisfactory progress from wound care point of view. Continue present treatment. IF discharged, F/U at the wound clinic in ONE week. Current Visit: Yes - Time Spent With Patient Total time spent is greater than 50% in coordination of care (as documented) at patient's floor/unit and/or counseling patient: less than 15 minutes
--- NOTE | 2016-06-11 11:55 | Internal Med Progress Note ---
Medical - PN: Subj Patient information: Note initiated : 06/11/16 at 11:53 am Service Date, if different from initiated Date: [] Patient: Angel Garrett 80 y/o M admitted on 06/04/16 for Sepsis, EDWIN. Chief Complaint: [] Interval history: 06/0417-40-jjol-old admitted with severe rhabdomyolysis resulting inacute renal failure, left upper lobe aspiration pneumonia with hypoxic respiratory failure and A. fib with RVR. Admitted to ICU. Nephrology consulted. INR 12.3 status post 5 mg vitamin K and 1 unit FFP. on aggressive crystalloids/bicarbonate drip per nephrology. broad antibiotic coverage for aspiration pneumonia. Admitted to ICU. Critically ill. Kidder score 22. Patient is full code. Intubate if worsening respiratory status. Imaging and blood gas reviewed. Patient however clinically responding to treatment and from Tuesday obtunded state on admission was able to provide some answers after initial crystalloids and improvement in blood pressures. CK 32,000. Myoglobin 27,000. 06/05-creatinine at 6.8. INR 7 receiving additional 5 mg vitamin K/2 units FFP. Surgery consulted for temporary dialysis catheter placement. Bandemia 32%. Worsening left-sided chest infiltrates. On 3 L oxygen with sats 97% however tachypneic. Start noninvasive ventilation to improve work of breathing. Anuric overnight. A. fib with RVR around 140s. Digoxin load 500 g IV. Use amiodarone if persistent RVR. cardiac enzymes down from 0.2-0.5. Elevated PTT at 100. CK 32,000. continues to be critically ill/ /2 Pt doing much better after HD, breathing better. labs reviewed, case reviewed with the plaster die maker. Pt had high grade fever, repeat cultures sent, no fever this AM. Rhabdo improving.PT still not having any urine output. He denies any acute concerns. He was wheezing yesterday and was started on duonebs q 4 hrs. This am no wheeze. still needs oxygen, /: Pt seen examined, doing well, no acute overnight events. His labs reviewed with him, Family updated on his condition and plan of care Microbiology from outside hospital reviewed, blood culture positive for mssa. On levofloxacin which the patient is sensitive to. Pt ck is trending down, he will not get HD today, but he has no urine output yet , will give trial of 250cc IV bolus to see if this helps with urine output. 4/ Pt seen examined, no acute overnight events, pt doing well, notes numbness in the left leg, and weakness on the left side. No other complaints. On exam he does not have any sensory deficit, but his left arm does seem to be internally rotated and wrist flexed, Brachial plexus injury? Strength is grossly normal and CN was intact, CT head obtained which is negative for CVA. Pt CK is trending down, and he is still not making urine Bed side USG to evaluate for IVC volume showed IVC diameter of 1.4 cms along with near complete collapse with inspiration. Plan to give 500cc bolus to see if he is able to make some urine. Continue IV abx, Microbiolgoy outside [place] sensitive mssa Wound culture positive staph aures 4/ Pt seen examined, no acute overnight events. CT head is negative for CVA, pt doing well, but notes distention of the abdomen in the ruq and epigastric region, tympanic sounds. had diarrhea, cdiff is negative. Hyperactive bs, Will get X ray abdomen. Pt on rhabdo is improving, his renal function worsened, but he is today making urine, since this AM 4, he is making around 25 cc / hr His HR is still elevated on Telemetery He denies any acute complaints. Wound care consult appreciated, Renal consult appreciated. 06/10 Pt seen examined, no acute overnight events tolerated HD ok unable to do much activity due to severe weakness. Continue PT overnight not much urine today, he had HD yesterday approx 1100cc neg. will discuss with nephrology on IV fluids to see if this helps. CK much better, / Pt seen examined, doing much better, strengh improving, CK in 1000's. Pt mental status much better. He did respond to lasix yesterday, Plan to give another dose today and monitor response. Pt likely to have HD today, UF only. conitue levofloxacin for mssa pna. continue wound care Initial plan to get tunneled cath today will be kept on hold and we will monitor pts reponse to lasix and see if his kidney function recovers. May need to change him to swing bed status next week. Pertinent ROS: Denies headache, dizziness Denies chest pain, palpitations Denies cough or shortness of breath Denies abdominal pain, nausea or vomiting. - Constitutional Vitals: Vital Signs Temp Pulse Resp BP Pulse Ox 96.5 F L 98 H 16 113/79 95 06/11/16 10:22 06/11/16 11:17 06/11/16 08:00 06/11/16 11:17 06/11/16 08:00 Period Temp Pulse Resp BP Sys/Hinds Pulse Ox Last 24 Hr 96.5 F-97.6 F 78-110 10-22 96-134/59-87 90-95 Intake and Output 06/10/16 06/11/16 06/11/16 21:59 05:59 13:59 Intake Total 950 / 950 Output Total 100 / 100 176 / 176 152 / 152 Balance 850 / 850 -176 / -176 -152 / -152 Weight 221 lb 1.6 oz Intake & Output: Intake & Output 06/10/16 06/11/16 06/11/16 21:59 05:59 13:59 Intake Total 950 / 950 Output Total 100 / 100 176 / 176 152 / 152 Balance 850 / 850 -176 / -176 -152 / -152 Weight 221 lb 1.6 oz Intake: IV 100 / 100 Oral 850 / 850 Output: Urine Catheter Amount 100 / 100 175 / 175 # of times incontinent of 1 / 1 urine Hemodialysis UF 152 / 152 Other: Meal Dinner Percent of Meal Consumed 75% # Bowel Movements 1 # of times incontinent of 1 1 Bowels Exam: Constitutional; Afebrile, cooperative, alert, not in distress. Eyes- No icterus, , No periorbital swelling Ears- Ext ear normal, hearing normal to conversation. Neck- Midline trachea, supple Respiratory system: Air Entry equal on both sides, No crackles or wheezing, no rhonchi. conducted sounds left base. CVS- Rate intermittently tachycardic, rhythm irregular, S1,S2 heard, no gallop , no rub. Abdomen- Soft nontender abdomen, no organomegaly, no tenderness, no guarding or rigidity, MAINTENANCE PLANNING CLERK- AOOx3, moving all extremities, no gross focal deficit noted. Medical - PN: Obj Da - Labs CBC & Chem 7: 06/11/16 04:15 06/11/16 04:15 Labs: Abnormal Lab Results 06/11/16 06/11/16 06/11/16 04:15 04:15 04:15 RBC 3.17 L Hgb 9.2 L Hct 27.6 L RDW 15.4 H Gran % 85.4 H Lymph % (Auto) 5.9 L Lymph # 0.4 L Lymphocytes % RBC Morphology [place] Cells PT 24.6 H INR 2.1 H Sodium 131 L Chloride 89 L Carbon Dioxide Anion Gap 20.0 H BUN 79 H Creatinine 7.8 H* Glucose 114 H Uric Acid Calcium 7.0 L Phosphorus 6.3 H* Total Bilirubin Direct Bilirubin 0.4 H AST 144 H ALT 93 H Lactate Dehydrogenase 556 H Total Creatine Kinase 1414 H Total Protein 5.5 L Albumin 2.2 L Albumin/Globulin Ratio 0.7 L Triglycerides 162 H 06/10/16 06/10/16 06/10/16 07:41 07:41 04:09 RBC 3.43 L Hgb 9.9 L Hct 29.7 L RDW 15.7 H Gran % 85.2 H Lymph % (Auto) 7.4 L Lymph # 0.4 L Lymphocytes % RBC Morphology Carole Cells PT INR Sodium Chloride 91 L Carbon Dioxide Anion Gap 19.0 H BUN 56 H Creatinine 6.5 H* Glucose Uric Acid Calcium 7.0 L Phosphorus 5.2 H Total Bilirubin 1.1 H Direct Bilirubin 0.5 H AST 194 H ALT 97 H Lactate Dehydrogenase 497 H Total Creatine Kinase 2201 H Total Protein 5.4 L Albumin 2.1 L Albumin/Globulin Ratio 0.6 L Triglycerides 241 H 06/10/16 06/09/16 06/09/16 04:09 05:54 04:18 RBC Hgb Hct RDW Gran % Lymph % (Auto) Lymph # Lymphocytes % RBC Morphology [place] Cells PT 22.4 H 22.5 H INR 1.9 H 1.9 H Sodium Chloride 90 L Carbon Dioxide 18 L Anion Gap 25.0 H BUN 100 H Creatinine 9.8 H* Glucose Uric Acid 8.3 H Calcium 7.0 L Phosphorus 7.6 H* Total Bilirubin Direct Bilirubin 0.5 H AST 318 H ALT 122 H Lactate Dehydrogenase 609 H Total Creatine Kinase Total Protein 5.6 L Albumin 2.3 L Albumin/Globulin Ratio 0.7 L Triglycerides 257 H 06/09/16 06/09/16 04:18 04:17 RBC 3.64 L Hgb 10.5 L Hct 31.9 L RDW 16.0 H Gran % Lymph % (Auto) Lymph # Lymphocytes % 11 L RBC Morphology Abnorm A [place] Cells 2+ A PT INR Sodium Chloride Carbon Dioxide Anion Gap BUN Creatinine Glucose Uric Acid Calcium Phosphorus Total Bilirubin Direct Bilirubin AST ALT Lactate Dehydrogenase Total Creatine Kinase 4637 H Total Protein Albumin Albumin/Globulin Ratio Triglycerides Meds: Medications Acetaminophen (Tylenol) 650 mg PO Q4-6HP PRN PRN Reason: PAIN/FEVER > 101 Albuterol/Ipratropium (Duoneb) 3 ml NEB [id number] [facility] Last Admin: 06/11/16 11:13 Dose: Not Given Bacitracin (Bacitracin Topical Oint) 1 dose TOPICAL BID [facility] Last Admin: 06/11/16 09:02 Dose: 1 dose Docusate Sodium (Colace) 100 mg PO BID [facility] Last Admin: 06/11/16 09:02 Dose: Not Given Levofloxacin (Levaquin) 500 mg in 100 mls @ 100 mls/hr IV Q48H [facility] Norepinephrine Bitartrate 16 (mg/ Sodium Chloride) 250 mls @ 9.37 mls/hr IV Q24HP PRN; Protocol; 10 MCG/MIN PRN Reason: Hypotension Vasopressin 20 unit/ Dextrose 100 mls @ 12 mls/hr IV Q8HP PRN; Protocol; 0.04 UNIT/MIN PRN Reason: Hypotension Metoprolol Tartrate (Lopressor) 100 mg PO BID [facility] Last Admin: 06/11/16 09:02 Dose: 100 mg Ondansetron HCl (Zofran) 4 mg IV Q4-6HP PRN PRN Reason: Nausea And Vomiting Pantoprazole Sodium (Protonix) 40 mg PO [facility] Prednisone (Prednisone) 40 mg PO [facility] Stop: 06/15/16 07:59 Senna/Docusate Sodium (Senna Plus Tablet) 1 tab PO HS [facility] Sodium Chloride (Saline Flush) 10 ml IV Q8 [facility] Warfarin Sodium (Coumadin) 2 mg PO DAILY@1400 [facility] Zolpidem Tartrate (Ambien) 5 mg PO HSP PRN PRN Reason: Insomnia Medical - PN: A/P - Time Spent With Patient Total time spent is greater than 50% in coordination of care (as documented) at patient's floor/unit and/or counseling patient: - Narrative A/P Narrative: Rhabdomyolysis-CK trending down, much improved since admission. Abnl LFt Due to rhabdo,improving. Acute renal failure- on HD, but now making some urine in response to diuresis. additional dose of lasix and monitor output. HD likely today. Left upper lobe pneumonia-aspiration. Pt blood cultures is positive for MSSA, echo neg, repeat blood cultures neg, pt has mssa pneumonia? On levofloxacin, will continue same, Hypoxic respiratory failure secondary to above- Improved breathing, on oxygen via nasal canula 2 L A. fib RVR-On metoprolol 50mg bid home dose, increase to 100mg bid. Reactive airway disease: Raciel exp wheezing noted, on duonebs, but the patients wheezing is persistant, add prednisone for now. no wheezing today. Elevated INR/PTT-INR back to baseline. Resume dose of coumadin as per pharmacy. Abdominal Distention.: xray shows non specific bowel distention due to gas. Diet : Renal diet. Wound care as per Wound care consult. Full Code. Pt stable to be xfer to med surg status. Medical - PN: Qual - Stroke Symptom Onset Unknown: Yes - VTE Deep Vein Thrombosis/Pulmonary Embolism Present on Admission: No
--- NOTE | 2016-06-11 13:39 | Nephrology Progress Note ---
Subjective Patient information: Note initiated : 06/11/16 at 1:38 pm Service Date, if different from initiated Date: [] Patient: Angel Garrett 80 y/o M admitted on 06/04/16 for Sepsis, EDWIN. Chief Complaint: [] Principal diagnosis: PNA, acute renal failure, rhabdomyolysis Interval history: no significant overnight events U/O around 200cc, still oliguric no SOB, CP, dizziness No edema renal function continues to trend up, s.creatinine more than 7 today Pertinent ROS: as above Objective - Vital Signs Vital signs: Vital Signs Temp Pulse Pulse Pulse Pulse Pulse Resp 06/11/16 13:17 86 06/11/16 12:48 96 H 06/11/16 12:19 90 06/11/16 11:53 90 06/11/16 11:17 98 H 06/11/16 10:47 80 06/11/16 10:22 96.5 F L 78 06/11/16 08:00 97.3 F L 84 16 06/11/16 07:11 91 H 10 L 06/11/16 07:10 90 06/11/16 04:00 97.2 F L 83 16 06/10/16 23:56 88 18 06/10/16 23:48 97.1 F L 91 H 18 06/10/16 19:50 97.5 F L 105 H 18 06/10/16 19:35 99 H 18 06/10/16 19:18 100 H 110 H 100 H 106 H 20 06/10/16 16:00 97.4 F L 101 H 16 06/10/16 15:34 99 H 16 BP BP BP Pulse Ox 06/11/16 13:17 136/86 06/11/16 12:48 135/85 06/11/16 12:19 132/94 06/11/16 11:53 126/88 06/11/16 11:17 113/79 06/11/16 10:47 102/70 06/11/16 10:22 106/62 06/11/16 08:00 128/84 95 06/11/16 07:11 06/11/16 07:10 06/11/16 04:00 134/82 92 06/10/16 23:56 06/10/16 23:48 117/87 93 06/10/16 19:50 133/80 92 06/10/16 19:35 04/06/17 19:18 94 06/10/16 16:00 96/59 90 06/10/16 15:34 Intake and Output 06/10/16 06/11/16 06/11/16 21:59 05:59 13:59 Intake Total 950 / 950 Output Total 100 / 100 176 / 176 1046 / 1046 Balance 850 / 850 -176 / -176 -1046 / -1046 Intake: IV 100 / 100 Oral 850 / 850 Output: Urine Catheter Amount 100 / 100 175 / 175 # of times incontinent of 1 / 1 urine Hemodialysis UF 1046 / 1046 Other: Meal Dinner Percent of Meal Consumed 75% # Bowel Movements 1 # of times incontinent of 1 1 Bowels Weight 221 lb 1.6 oz Intake & Output: Intake & Output 06/10/16 06/11/16 06/11/16 21:59 05:59 13:59 Intake Total 950 / 950 Output Total 100 / 100 176 / 176 1046 / 1046 Balance 850 / 850 -176 / -176 -1046 / -1046 Weight 221 lb 1.6 oz Intake: IV 100 / 100 Oral 850 / 850 Output: Urine Catheter Amount 100 / 100 175 / 175 # of times incontinent of 1 / 1 urine Hemodialysis UF 1046 / 1046 Other: Meal Dinner Percent of Meal Consumed 75% # Bowel Movements 1 # of times incontinent of 1 1 Bowels - General Appearance General appearance: appears started age, frail EENT: mucous membranes moist Neck: no JVD Respiratory: clear Cardiology: no rub, no edema, irregular rhythm Gastrointestinal: no tenderness, no guarding Integumentary: warm and dry Neurologic: alert and oriented x3 Musculoskeletal: no erythema, no cyanosis Psychiatric: mood/affect appropriate - Lab 06/11/16 04:15 06/11/16 04:15 Most recent lab results Calcium 7.0 mg/dl (8.6-10.4) L 06/11/16 04:15 Phosphorus 6.3 mg/dL (2.7-4.5) H* 06/11/16 04:15 Magnesium 2.0 mg/dL (1.6-2.5) 06/11/16 04:15 Assessment and Plan (1) Acute renal failure urine output remains poor will do HD today for 4 hrs using revaclear 300 dialyser, 3K/2.5 CA DIALYSATE, no UF removal will continue to monitor for renal recovery agree with using lasix dose meds to HD Will follow along PNA with blood culture positive for MSSA at outside hospital on levofloxacin rhabdomyolysis CK now below 5000, will ct to monitor coagulopathy resolved deconditioning on PT Anemia: Hb is stable, etiology multifactorial given sepsis.infection, renal failure will follow along Thank you for giving me an opportunity to participate in Mr Garrett's medical care , appreciate it Status: Acute (2) Rhabdomyolysis Status: Acute (3) Pneumonia Status: Acute
[2016-06-11] MEDS: WARFARIN 2 MG TABLET PO SCH (14:44)
[2016-06-11] MEDS: predniSONE 20 MG TABLET PO SCH (15:08)
--- NOTE | 2016-06-11 18:37 | Internal Med Progress Note ---
Medical - PN: Subj Patient information: Note initiated : 06/11/16 at 6:28 pm Service Date, if different from initiated Date: [] Patient: Angel Garrett 80 y/o M admitted on 06/04/16 for Sepsis, EDWIN. Chief Complaint: [] Interval history: [id number] admitted with severe rhabdomyolysis resulting inacute renal failure, left upper lobe aspiration pneumonia with hypoxic respiratory failure and A. fib with RVR. Admitted to ICU. Nephrology consulted. INR 12.3 status post 5 mg vitamin K and 1 unit FFP. on aggressive crystalloids/bicarbonate drip per nephrology. broad antibiotic coverage for aspiration pneumonia. Admitted to ICU. Critically ill. [place] score 22. Patient is full code. Intubate if worsening respiratory status. Imaging and blood gas reviewed. Patient however clinically responding to treatment and from Tuesday obtunded state on admission was able to provide some answers after initial crystalloids and improvement in blood pressures. CK 32,000. Myoglobin 27,000. 06/05-creatinine at 6.8. INR 7 receiving additional 5 mg vitamin K/2 units FFP. Surgery consulted for temporary dialysis catheter placement. Bandemia 32%. Worsening left-sided chest infiltrates. On 3 L oxygen with sats 97% however tachypneic. Start noninvasive ventilation to improve work of breathing. Anuric overnight. A. fib with RVR around 140s. Digoxin load 500 g IV. Use amiodarone if persistent RVR. cardiac enzymes down from 0.2-0.5. Elevated PTT at 100. CK 32,000. continues to be critically ill/ critical care note: on service note: This patient was transferred here on June 04, 2016, after being found down at home. He presented to the hospital with atrial fibrillation with RVR, hypotension, left upper lobe pneumonia, severe rhabdomyolysis and acute renal failure, as well as altered mental status. Over the last 6 days, the patient has responded to IV fluids hemodialysis, IV antibiotics. Mental status has improved. He has continued to have weakness of the left arm, which is thought to be a possible brachial plexus injury. He is working with physical therapy, and this seems to be slowly improving. He has continued to require oxygen to maintain oxygen saturations. history from earlier today: 4/7 Pt seen examined, doing much better, strengh improving, CK in 1000's. Pt mental status much better. He did respond to lasix yesterday, Plan to give another dose today and monitor response. Pt likely to have HD today, UF only. conitue levofloxacin for mssa pna. continue wound care Initial plan to get tunneled cath today will be kept on hold and we will monitor pts reponse to lasix and see if his kidney function recovers. May need to change him to swing bed status next week. Urgent care:I was called to the bedside today, to see this patient, for a rapid response call. The patient was in the middle of being transferred from the intensive care unit out to [facility]. The aide noted that when she got into his room, his head rolled back in his eyes seem to roll back, he lost consciousness , and she felt that his hands were shaking consistent with possible seizure activity. The symptoms resolved quickly, and he aroused without us doing much. He does report thathe seemed like he was seeing different colors in his vision just prior to the event. He denies any fever or chills, headaches or dizziness. He does not report blurry vision, sore throat, chest pain or palpitations, changes in his breathing or significant abdominal pain. He did report that his right upper quadrant area is a bit sore at times, since his fall. of note, the patient has chronic atrial fibrillation, for which she is maintained on Coumadin. When he was admitted about one week ago, his INR was quite elevated, and he was found down at home. He did have a hematoma on his forehead, from his fall. Head CT at that time did not show signs of bleeding. initial workup at an outside hospital did show pneumonia, and blood cultures grew MSSA, which was pansensitive. He was originally treated with Levaquin and Zosyn, but the Zosyn was discontinued after the cultures were back. also of note, the patient recently returned back from a road trip to [place]. He believes he had a fall sometime during his trip, landing on his knee, and says the left leg has been swollen since then. However he is quite fuzzy on the details, and it is not clear if he fell while he was on history, or if he is just recalling the fall he had at home, that landed him up here, about one week ago. His Coumadin was initially held, and his INR did drop down to a level of 1.1, prior to his tunneled catheter placement. Today is therapeutic at 2.2. past [facility]:Include [facility] fibrillation, chronic anticoagulation treatment, prostate cancerand BPH, cervical arthritis GERD and colon polyps, heart murmur, obesity hyperlipidemia, hypertension, past tobacco use. - Constitutional Vitals: Vital Signs Temp Pulse Resp BP Pulse Ox 96.5 F L 82 24 116/72 92 06/11/16 17:40 06/11/16 17:40 06/11/16 17:40 06/11/16 17:40 06/11/16 17:40 Period Temp Pulse Resp BP Sys/Hinds Pulse Ox Last 24 Hr 96.5 F-97.5 F 66-110 10-24 102-141/62-94 92-95 Intake and Output 06/11/16 06/11/16 06/11/16 05:59 13:59 21:59 Intake Total 120 / 120 Output Total 176 / 176 1387 / 1387 400 / 400 Balance -176 / -176 -1387 / -1387 -280 / -280 Intake & Output: Intake & Output 06/11/16 06/11/16 06/11/16 05:59 13:59 21:59 Intake Total 120 / 120 Output Total 176 / 176 1387 / 1387 400 / 400 Balance -176 / -176 -1387 / -1387 -280 / -280 Intake: Oral 120 / 120 Output: Urine Catheter Amount 175 / 175 # of times incontinent of 1 / 1 urine Hemodialysis UF 1387 / 1387 400 / 400 Other: Meal Lunch Percent of Meal Consumed 75% # of times incontinent of 1 Bowels Exam: on exam, the patient appears a bit hard of hearing, but is able to give a reasonably good history. After it was clear thathe was back to his recent baseline, the nurses were able to stand him up from his wheelchair, and pivot him, he could lie down in bed. He did not seem to have much difficulty with back, other than generalized weakness.Head is normocephalic and atraumatic. Neck appears supple. Cardiac exam shows an irregularly irregular rhythm with controlled response. Lungs are fairly clear to auscultation. Abdomen is a bit protuberant, but appears soft and nontender, without obvious bruits. Extremities: He has 1+ pitting edema of the right lower leg, and about 3+ pitting edema of the left lower leg. neurologic exam: The patient appears alert and oriented, although he may be a bit forgetful about recent medical events. cranial nerves appear grossly intact He is moving all extremities grossly symmetrically, although there is reported ongoing mild left upper extremity weakness. Medical - PN: Obj Da - Labs CBC & Chem 7: 06/12/16 04:57 06/12/16 04:57 Labs: Abnormal Lab Results 06/11/16 06/11/16 06/11/16 04:15 04:15 04:15 RBC 3.17 L Hgb 9.2 L Hct 27.6 L RDW 15.4 H Gran % 85.4 H Lymph % (Auto) 5.9 L Lymph # 0.4 L Lymphocytes % RBC Morphology [place] Cells PT 24.6 H INR 2.1 H Sodium 131 L Chloride 89 L Carbon Dioxide Anion Gap 20.0 H BUN 79 H Creatinine 7.8 H* Glucose 114 H Uric Acid Calcium 7.0 L Phosphorus 6.3 H* Total Bilirubin Direct Bilirubin 0.4 H AST 144 H ALT 93 H Lactate Dehydrogenase 556 H Total Creatine Kinase 1414 H Total Protein 5.5 L Albumin 2.2 L Albumin/Globulin Ratio 0.7 L Triglycerides 162 H 06/10/16 06/10/16 06/10/16 07:41 07:41 04:09 RBC 3.43 L Hgb 9.9 L Hct 29.7 L RDW 15.7 H Gran % 85.2 H Lymph % (Auto) 7.4 L Lymph # 0.4 L Lymphocytes % RBC Morphology [place] Cells PT INR Sodium Chloride 91 L Carbon Dioxide Anion Gap 19.0 H BUN 56 H Creatinine 6.5 H* Glucose Uric Acid Calcium 7.0 L Phosphorus 5.2 H Total Bilirubin 1.1 H Direct Bilirubin 0.5 H AST 194 H ALT 97 H Lactate Dehydrogenase 497 H Total Creatine Kinase 2201 H Total Protein 5.4 L Albumin 2.1 L Albumin/Globulin Ratio 0.6 L Triglycerides 241 H 06/10/16 06/09/16 06/09/16 04:09 05:54 04:18 RBC Hgb Hct RDW Gran % Lymph % (Auto) Lymph # Lymphocytes % RBC Morphology [place] Cells PT 22.4 H 22.5 H INR 1.9 H 1.9 H Sodium Chloride 90 L Carbon Dioxide 18 L Anion Gap 25.0 H BUN 100 H Creatinine 9.8 H* Glucose Uric Acid 8.3 H Calcium 7.0 L Phosphorus 7.6 H* Total Bilirubin Direct Bilirubin 0.5 H AST 318 H ALT 122 H Lactate Dehydrogenase 609 H Total Creatine Kinase Total Protein 5.6 L Albumin 2.3 L Albumin/Globulin Ratio 0.7 L Triglycerides 257 H 06/09/16 06/09/16 04:18 04:17 RBC 3.64 L Hgb 10.5 L Hct 31.9 L RDW 16.0 H Gran % Lymph % (Auto) Lymph # Lymphocytes % 11 L RBC Morphology Abnorm A [place] Cells 2+ A PT INR Sodium Chloride Carbon Dioxide Anion Gap BUN Creatinine Glucose Uric Acid Calcium Phosphorus Total Bilirubin Direct Bilirubin AST ALT Lactate Dehydrogenase Total Creatine Kinase 4637 H Total Protein Albumin Albumin/Globulin Ratio Triglycerides Meds: Medications Acetaminophen (Tylenol) 650 mg PO Q4-6HP PRN PRN Reason: PAIN/FEVER > 101 Albuterol/Ipratropium (Duoneb) 3 ml NEB [id number] [facility] Last Admin: 06/11/16 16:30 Dose: 3 ml Bacitracin (Bacitracin Topical Oint) 1 dose TOPICAL BID [facility] Last Admin: 06/11/16 09:02 Dose: 1 dose Docusate Sodium (Colace) 100 mg PO BID [facility] Last Admin: 06/11/16 09:02 Dose: Not Given Levofloxacin (Levaquin) 500 mg in 100 mls @ 100 mls/hr IV Q48H [facility] Norepinephrine Bitartrate 16 (mg/ Sodium Chloride) 250 mls @ 9.37 mls/hr IV Q24HP PRN; Protocol; 10 MCG/MIN PRN Reason: Hypotension Vasopressin 20 unit/ Dextrose 100 mls @ 12 mls/hr IV Q8HP PRN; Protocol; 0.04 UNIT/MIN PRN Reason: Hypotension Metoprolol Tartrate (Lopressor) 100 mg PO BID [facility] Last Admin: 06/11/16 09:02 Dose: 100 mg Ondansetron HCl (Zofran) 4 mg IV Q4-6HP PRN PRN Reason: Nausea And Vomiting Pantoprazole Sodium (Protonix) 40 mg PO [facility] Prednisone (Prednisone) 40 mg PO [facility] Stop: 06/15/16 07:59 Senna/Docusate Sodium (Senna Plus Tablet) 1 tab PO HS [facility] Sodium Chloride (Saline Flush) 10 ml IV Q8 [facility] Last Admin: 06/11/16 14:45 Dose: 10 ml Warfarin Sodium (Coumadin) 2 mg PO DAILY@1400 [facility] Last Admin: 06/11/16 14:44 Dose: 2 mg Zolpidem Tartrate (Ambien) 5 mg PO HSP PRN PRN Reason: Insomnia Medical - PN: A/P - Time Spent With Patient Total time spent is greater than 50% in coordination of care (as documented) at patient's floor/unit and/or counseling patient: 25 - 35 minutes - Narrative A/P Narrative: #1. Rapid response. his patient had some type of event, which involved impaired level of consciousness, versus loss of consciousness. The aide reports that his eyes rolled to the right and stayed there, and that he had some shaking. He could therefore certainly have had a small seizure He also had dialysis earlier today , with electrolyte shifts, and may be a bit on the dry side. Nursing staff has reported that his by mouth intake has been poor. Vital signs at the time look reasonable, but he also recently had a bowel movement, and could also have had some vasovagal component to his symptoms. He also recently had a fall with head trauma, and had an elevated INR at that time. He also is on Levaquin recently, which can also cause seizures and other neurologic sequelae. EKG today also suggest mildly prolonged QT interval. The patient is also at risk for acute cardiopulmonary events, given numerous cardiac risk factors, as well as recent road trip which increases his risk for PE and has had a variable INR lately. -At this point, I'm most concerned about possible reaction to Levaquin as his symptoms sound most consistent with a seizure. We will discontinue Levaquin at this time. We will continue to do neuro checks. If he has any more neurologic symptoms, he should have a follow-up head CTor MRI. If we do this, I would like to do it with contrast, which might require scheduling it just prior to dialysis , given his current acute renal failure. -He is no longer on digoxin, so don't think he has dig toxicity. He does have cardiac risk factors,but EKG does not show signs of acute cardiac ischemia. Troponin has been ordered. -He should be low risk, but not zero risk, for PE. I will order a lower extremity Doppler of his swollen left leg at this time. D-dimer was also ordered. he will continue on Coumadin for now He may well be a bit on the dry side volume sullivan, but vital signs are otherwise stable at this time. -for his pneumonia with bacteremia,I will change him over to Rocephin. further workup and treatment will depend on his response to these initial measures. approximately 40 minutes has been spent so far this evening,interviewing and examining the patient, ordering test and reviewing results,and reviewing his chart including [facility]. this visit was separate from the routine visit done earlier today by Dr. Barclay , as this situation was urgent, and required immediate attention, regarding the patient's acute change in neurologic status.. Medical - PN: Qual - Stroke Symptom Onset Unknown: Yes - VTE Deep Vein Thrombosis/Pulmonary Embolism Present on Admission: No
[2016-06-11] MEDS ORDERED: cefTRIAXone 1 GM VIAL ONE (19:37)
[2016-06-11] MEDS: cefTRIAXone 1 GM in DEXTROSE 5% IN WATER 50 ML IV SCH (19:40)
[2016-06-11] MEDS: SENNOSIDES/DOCUSATE SODIUM 1 TAB TABLET PO SCH (21:35)
[2016-06-12] MEDS: 0.9 % SODIUM CHLORIDE 10 ML SYRINGE IV SCH ×3 (05:42→20:51)
[2016-06-12 06:34] LABS: Basophils # (Auto) 0 K/mcL (0.0-0.3); Basophils % (Auto) 0 % (0.0-2.0); Eosinophils # (Auto) 0.1 K/mcL (0.0-0.7); Eosinophils % (Auto) 1.5 % (0.0-7.0); Granulocytes % (Auto) 82.7 % (38.0-78.0); Lymphocytes # (Auto) 0.7 K/mcL (1.5-4.8); Lymphocytes % (Auto) 8.2 % (15.5-49.0); Mean Cell Volume 87.3 fL (80.0-100.0); Mean Corpuscular HGB Conc 33.4 g/dL (31.0-36.0); Mean Corpuscular Hemoglobin 29.2 pg (26.0-34.0); Monocytes # (Auto) 0.6 K/mcL (0.1-0.9); Monocytes % (Auto) 7.6 % (1.0-12.0); Platelet Count 313 K/mcL (140-440); RBC 3.47 M/mcL (4.50-5.90); Red Cell Distribution Width 15.4 % (11.5-14.5)
[2016-06-12 06:54] LABS: ALT/SGPT 116 U/l (0-40); Albumin 2.2 gm/dL (3.2-5.2); Albumin/Globulin Ratio 0.6 (1.0-2.3); Alkaline Phosphatase 71 U/L (39-117); Bilirubin,Direct 0.4 mg/dL (0.0-0.3); Blood Urea Nitrogen 43 mg/dl (8-23); Creatine Kinase 1039 IU/L (24-195); Gamma Glutamyl Transpeptidase 37 U/L (8-61); Magnesium 1.8 mg/dL (1.6-2.5); Uric Acid 4.7 mg/dL (2.5-8.0)
[2016-06-12] MEDS: IPRATROPIUM/ALBUTEROL 3 ML AMPUL.NEB NEB SCH ×5 (07:03→22:09)
--- NOTE | 2016-06-12 08:00 | Ultrasound Report ---
History: Left leg edema and syncopal episode There is normal augmentation and compressibility of the deep veins in left leg from the groin through the calf. Doppler shows normal waveform patterns. Impression: Normal exam without evidence of deep venous thrombosis Interpreted and Authenticated by: Lazaro Barroso 06/12/16
[2016-06-12] MEDS ORDERED: LEVOFLOXACIN 500 MG/100 ML BAG IV SCH (09:00)
--- NOTE | 2016-06-12 10:21 | Internal Med Progress Note ---
Medical - PN: Subj Patient information: Note initiated : 06/12/16 at 10:21 am Service Date, if different from initiated Date: [] Patient: Angel Garrett 80 y/o M admitted on 06/04/16 for Sepsis, EDWIN. Chief Complaint: [] Interval history: June 11, 2016: on service note: This patient was transferred here on June 04, 2016, after being found down at home. He presented to the hospital with atrial fibrillation with RVR, hypotension, left upper lobe pneumonia, severe rhabdomyolysis and acute renal failure, as well as altered mental status. Over the last 6 days, the patient has responded to IV fluids hemodialysis, IV antibiotics. Mental status has improved. He has continued to have weakness of the left arm, which is thought to be a possible brachial plexus injury. He is working with physical therapy, and this seems to be slowly improving. He has continued to require oxygen to maintain oxygen saturations. June 11, 2016: Urgent care:I was called to the bedside today, to see this patient, for a rapid response call. The patient was in the middle of being transferred from the intensive care unit out to [facility]. The aide noted that when she got into his room, his head rolled back in his eyes seem to roll back, he lost consciousness, and she felt that his hands were shaking consistent with possible seizure activity. The symptoms resolved quickly, and he aroused without us doing much. He does report thathe seemed like he was seeing different colors in his vision just prior to the event. He denies any fever or chills, headaches or dizziness. He does not report blurry vision, sore throat, chest pain or palpitations, changes in his breathing or significant abdominal pain. He did report that his right upper quadrant area is a bit sore at times, since his fall. of note, the patient has chronic atrial fibrillation, for which she is maintained on Coumadin. When he was admitted about one week ago, his INR was quite elevated, and he was found down at home. He did have a hematoma on his forehead, from his fall. Head CT at that time did not show signs of bleeding. initial workup at an outside hospital did show pneumonia, and blood cultures grew MSSA, which was pansensitive. He was originally treated with Levaquin and Zosyn, but the Zosyn was discontinued after the cultures were back. also of note, the patient recently returned back from a road trip to [place]. He believes he had a fall sometime during his trip, landing on his knee, and says the left leg has been swollen since then. However he is quite fuzzy on the details, and it is not clear if he fell while he was on history, or if he is just recalling the fall he had at home, that landed him up here, about one week ago. His Coumadin was initially held, and his INR did drop down to a level of 1.1, prior to his tunneled catheter placement. Today is therapeutic at 2.2. June 12, 2016: today,patient says he is feeling reasonably well. He is having some mild dyspnea upon return from [facility]. Physical therapy says the patient said he was just too tired to work on physical therapy today. He does continue to have some left upper extremity weakness, although he thinks it's better since admission. He also has a foot drop noted on the left foot since admission. It is thought that these symptoms were due to his fall and prolonged stay on the bathroom floor at home. Otherwise, the patient says she has not had any syncopal or near syncopal episodes today. nursing staff also has not noted recurrent symptoms. The patient denies fever or chills, sore throat. He has occasional cough. He continues to have mild dyspnea with exertion. He denies chest pain or palpitations abdominal pain, nausea or vomiting, diarrhea dysuria. [facility]:Include [facility] fibrillation, chronic anticoagulation treatment, prostate cancer and BPH, cervical arthritis GERD and colon polyps, heart murmur, obesity hyperlipidemia, hypertension, past tobacco use. - Constitutional Vitals: Vital Signs Temp Pulse Resp BP Pulse Ox 97.4 F L 92 H 20 152/90 93 06/12/16 07:21 06/12/16 07:06 06/12/16 07:21 06/12/16 07:21 06/12/16 07:21 Period Temp Pulse Resp BP Sys/Hinds Pulse Ox Last 24 Hr 96.5 F-98.2 F 66-101 18-24 102-152/62-94 92-94 Intake and Output 06/11/16 06/12/16 06/12/16 21:59 05:59 13:59 Intake Total 120 / 120 240 / 240 Output Total 600 / 600 200 / 200 Balance -480 / -480 40 / 40 Weight 224 lb 1.6 oz Intake & Output: Intake & Output 06/11/16 06/12/16 06/12/16 21:59 05:59 13:59 Intake Total 120 / 120 240 / 240 Output Total 600 / 600 200 / 200 Balance -480 / -480 40 / 40 Weight 224 lb 1.6 oz Intake: Oral 120 / 120 240 / 240 Output: Urine Catheter Amount 200 / 200 200 / 200 Hemodialysis UF 400 / 400 Other: Meal Lunch Percent of Meal Consumed 75% # Bowel Movements 1 1 Exam: on exam, he is lying in bed. He appears mildly dyspneic, but otherwise is in no acute distress. He does not recall meeting me last night. Neck is supple without obvious lymphadenopathy or JVD. Cardiac exam shows an irregularly irregular rhythm. Lungsare clear to auscultation. Abdomen is soft and nontender. Extremities:He continues have mild pitting edema of the lower extremities, more noticeable on the left side Neurologic exam: The patient is awake and alert, but does seem forgetful. cranial nerves are grossly intact. on motor exam he continues to exhibit weakness of his left arm and hand, and mild foot drop of the left foot. Medical - PN: Obj Da - Labs CBC & Chem 7: 06/12/16 04:57 06/12/16 04:57 Labs: Abnormal Lab Results 06/12/16 06/12/16 06/12/16 04:57 04:57 04:57 RBC 3.47 L Hgb 10.1 L Hct 30.3 L RDW 15.4 H MPV 7.3 L Gran % 82.7 H Lymph % (Auto) 8.2 L Lymph # 0.7 L PT 23.6 H INR 2.0 H D-Dimer Sodium 131 L Chloride 89 L Anion Gap BUN 43 H Creatinine 5.1 H* Glucose Calcium 7.3 L Phosphorus Total Bilirubin Direct Bilirubin 0.4 H AST 178 H ALT 116 H Lactate Dehydrogenase 515 H Total Creatine Kinase 1039 H Total Protein 5.7 L Albumin 2.2 L Albumin/Globulin Ratio 0.6 L Triglycerides 213 H 06/11/16 06/11/16 06/11/16 18:37 04:15 04:15 RBC 3.17 L Hgb 9.2 L Hct 27.6 L RDW 15.4 H MPV Gran % 85.4 H Lymph % (Auto) 5.9 L Lymph # 0.4 L PT 24.6 H INR 2.1 H D-Dimer 2.87 H Sodium Chloride Anion Gap BUN Creatinine Glucose Calcium Phosphorus Total Bilirubin Direct Bilirubin AST ALT Lactate Dehydrogenase Total Creatine Kinase Total Protein Albumin Albumin/Globulin Ratio Triglycerides 06/11/16 06/10/16 06/10/16 04:15 07:41 07:41 RBC 3.43 L Hgb 9.9 L Hct 29.7 L RDW 15.7 H MPV Gran % 85.2 H Lymph % (Auto) 7.4 L Lymph # 0.4 L PT INR D-Dimer Sodium 131 L Chloride 89 L 91 L Anion Gap 20.0 H 19.0 H BUN 79 H 56 H Creatinine 7.8 H* 6.5 H* Glucose 114 H Calcium 7.0 L 7.0 L Phosphorus 6.3 H* 5.2 H Total Bilirubin 1.1 H Direct Bilirubin 0.4 H 0.5 H AST 144 H 194 H ALT 93 H 97 H Lactate Dehydrogenase 556 H 497 H Total Creatine Kinase 1414 H Total Protein 5.5 L 5.4 L Albumin 2.2 L 2.1 L Albumin/Globulin Ratio 0.7 L 0.6 L Triglycerides 162 H 241 H 06/10/16 06/10/16 04:09 04:09 RBC Hgb Hct RDW MPV Gran % Lymph % (Auto) Lymph # PT 22.4 H INR 1.9 H D-Dimer Sodium Chloride Anion Gap BUN Creatinine Glucose Calcium Phosphorus Total Bilirubin Direct Bilirubin AST ALT Lactate Dehydrogenase Total Creatine Kinase 2201 H Total Protein Albumin Albumin/Globulin Ratio Triglycerides June 12: MRI of the abdomen: Shows some stranding of the renal fat along the lateral border which may be scar tissue. No masses are seen in the kidney. There are 3 simple cysts noted in the right kidney. Liver and gallbladder appeared normal. ultrasound of the left lower extremity showed no evidence of DVT. june 11: Wound culture from his scalp wound is growing a pansensitive staph aureus. c. difficile screen was negative. Blood cultures are negative so far. Urine cultures were negative. MRSA screen is negative. Meds: Medications Acetaminophen (Tylenol) 650 mg PO Q4-6HP PRN PRN Reason: PAIN/FEVER > 101 Albuterol/Ipratropium (Duoneb) 3 ml NEB [id number] KAYLEE Last Admin: 06/12/16 07:03 Dose: 3 ml Bacitracin (Bacitracin Topical Oint) 1 dose TOPICAL BID [facility] Last Admin: 06/11/16 21:40 Dose: 1 dose Docusate Sodium (Colace) 100 mg PO BID [facility] Last Admin: 06/11/16 21:35 Dose: 100 mg Norepinephrine Bitartrate 16 (mg/ Sodium Chloride) 250 mls @ 9.37 mls/hr IV Q24HP PRN; Protocol; 10 MCG/MIN PRN Reason: Hypotension Vasopressin 20 unit/ Dextrose 100 mls @ 12 mls/hr IV Q8HP PRN; Protocol; 0.04 UNIT/MIN PRN Reason: Hypotension Ceftriaxone Sodium 1 gm/ (Dextrose) 50 mls @ 100 mls/hr IV DAILY [facility] Last Admin: 06/11/16 19:40 Dose: 100 mls/hr Metoprolol Tartrate (Lopressor) 100 mg PO BID [facility] Last Admin: 06/11/16 21:35 Dose: 100 mg Ondansetron HCl (Zofran) 4 mg IV Q4-6HP PRN PRN Reason: Nausea And Vomiting Pantoprazole Sodium (Protonix) 40 mg PO [facility] Prednisone (Prednisone) 40 mg PO [facility] Stop: 06/15/16 07:59 Senna/Docusate Sodium (Senna Plus Tablet) 1 tab PO HS [facility] Last Admin: 06/11/16 21:35 Dose: 1 tab Sodium Chloride (Saline Flush) 10 ml IV Q8 [facility] Last Admin: 06/12/16 05:42 Dose: 10 ml Warfarin Sodium (Coumadin) 2 mg PO DAILY@1400 [facility] Last Admin: 06/11/16 14:44 Dose: 2 mg Zolpidem Tartrate (Ambien) 5 mg PO [facility] PRN PRN Reason: Insomnia Medical - PN: A/P - Time Spent With Patient Total time spent is greater than 50% in coordination of care (as documented) at patient's floor/unit and/or counseling patient: - Narrative A/P Narrative: #1. Neurologic. -The patient had a brief period of loss of consciousness last night, suspicious for seizure activity. This has not recurred. Levaquin was discontinued in case this was the cause.. the patient continues to be a bit confused, and it sounds like this is probably not his baseline. he may still be suffering from some degree of ICU psychosis. #2. Left lower extremity swelling. Doppler was negative for DVT. The patient is therapeutic on his Coumadin at this time. d-dimer was elevated last night, but that may be more of an acute phase reactant. He has not been hypoxic. #3. infectious disease. Pneumonia , with an MSSA bacteremia. This was pansensitive, so antibiotics were changed over to Rocephin. Continue a full 10-14 days of antibiotics. -Sepsis appears resolved. #4. Renal.acute renal failure. -continue dialysis, per Dr. Cordero. -Rhabdomyolysis is resolving, and CPK is approaching normal. #5. Cardiac. History of chronic atrial fibrillation with controlled rate. He is maintained on Coumadin therapy, and Coumadin is therapeutic today. -roponin was normal last night. #6. GI. -The patient has fluctuating LFTs, of uncertain cause. Continue to monitor. MRI of the abdomen today did not really show any worrisome changes. And there is no evidence of renal mass. approximately 35 minutes was spent today, reviewing the patient's chart and test results, interviewing and examining him, reviewing his case with nursing staff, and writing orders. Medical - PN: Qual - Stroke Symptom Onset Unknown: Yes - VTE Deep Vein Thrombosis/Pulmonary Embolism Present on Admission: No
[2016-06-12] MEDS: cefTRIAXone 1 GM in DEXTROSE 5% IN WATER 50 ML IV SCH (10:45)
[2016-06-12] MEDS: PANTOPRAZOLE 40 MG PACKET PO SCH (11:18)
[2016-06-12] MEDS: DOCUSATE SODIUM 100 MG CAPSULE PO SCH ×2 (11:19→20:42)
[2016-06-12] MEDS: METOPROLOL TARTRATE 50 MG TABLET PO SCH ×2 (11:19→20:42)
[2016-06-12] MEDS: predniSONE 20 MG TABLET PO SCH (11:19)
[2016-06-12] MEDS: BACITRACIN TOPICAL OINT 15 GM TUBE TOPICAL SCH ×2 (11:20→20:41)
--- NOTE | 2016-06-12 14:49 | Magnetic Resonance Report ---
History: 3.5 cm mass in the upper pole of left kidney seen on recent ultrasound Technique: Multiplanar imaging was performed using multiple pulse sequences Findings: The left kidney is normal in size shape and contour. There is stranding of the perirenal fat along the lateral border. This appears to be scar tissue. There is no evidence of a renal mass. The prior ultrasound done on 06/04/16 suggested the presence of a mass located medially in the upper portion of the left kidney. Normal renal tissue is seen at this site on today's MRI. This was probably an artifact seen on the ultrasound related to the patient's large abdominal girth which made penetration by ultrasound difficult. In the right kidney there are three simple cysts. The largest is located laterally in the middle one third and measures 4.4 cm. Centrally in the parapelvic region there is an 11 mm cyst in the upper pole there is 11 mm cyst. The liver, spleen, gallbladder, pancreas and adrenals are normal. The aorta is normal in caliber. There is no ascites or adenopathy. Impression: Normal left kidney, without evidence of a mass Three simple cysts in the right kidney Interpreted and Authenticated by: Lazaro Barroso 06/12/16
[2016-06-12] MEDS: WARFARIN 2 MG TABLET PO SCH (16:46)
[2016-06-12] MEDS: FUROSEMIDE 100 MG/10 ML VIAL IV SCH (17:20)
[2016-06-12] MEDS: SENNOSIDES/DOCUSATE SODIUM 1 TAB TABLET PO SCH (20:41)
[2016-06-13] MEDS: 0.9 % SODIUM CHLORIDE 10 ML SYRINGE IV SCH ×3 (05:53→20:28)
[2016-06-13 06:20] LABS: Basophils # (Auto) 0 K/mcL (0.0-0.3); Basophils % (Auto) 0.1 % (0.0-2.0); Eosinophils # (Auto) 0.1 K/mcL (0.0-0.7); Eosinophils % (Auto) 1.1 % (0.0-7.0); Granulocytes % (Auto) 81.6 % (38.0-78.0); Lymphocytes # (Auto) 0.7 K/mcL (1.5-4.8); Lymphocytes % (Auto) 8.1 % (15.5-49.0); Mean Cell Volume 87.3 fL (80.0-100.0); Mean Corpuscular HGB Conc 32.9 g/dL (31.0-36.0); Mean Corpuscular Hemoglobin 28.7 pg (26.0-34.0); Monocytes # (Auto) 0.8 K/mcL (0.1-0.9); Monocytes % (Auto) 9.1 % (1.0-12.0); Platelet Count 303 K/mcL (140-440); RBC 3.19 M/mcL (4.50-5.90); Red Cell Distribution Width 15.4 % (11.5-14.5)
[2016-06-13 06:47] LABS: ALT/SGPT 85 U/l (0-40); Albumin 2.4 gm/dL (3.2-5.2); Albumin/Globulin Ratio 0.9 (1.0-2.3); Alkaline Phosphatase 64 U/L (39-117); Bilirubin,Direct 0.4 mg/dL (0.0-0.3); Blood Urea Nitrogen 62 mg/dl (8-23); Creatine Kinase 764 IU/L (24-195); Gamma Glutamyl Transpeptidase 33 U/L (8-61); Magnesium 1.9 mg/dL (1.6-2.5); Uric Acid 6.9 mg/dL (2.5-8.0)
[2016-06-13] MEDS: IPRATROPIUM/ALBUTEROL 3 ML AMPUL.NEB NEB SCH ×6 (07:47→23:38)
[2016-06-13] MEDS: cefTRIAXone 1 GM in DEXTROSE 5% IN WATER 50 ML IV SCH (09:11)
[2016-06-13] MEDS: FUROSEMIDE 100 MG/10 ML VIAL IV SCH ×2 (09:12→15:44)
[2016-06-13] MEDS: CALCIUM ACETATE 667 MG CAPSULE PO SCH ×3 (09:12→17:30)
[2016-06-13] MEDS: METOPROLOL TARTRATE 50 MG TABLET PO SCH ×2 (09:12→20:27)
[2016-06-13] MEDS: predniSONE 20 MG TABLET PO SCH (09:12)
[2016-06-13] MEDS: DOCUSATE SODIUM 100 MG CAPSULE PO SCH ×2 (09:13→20:27)
[2016-06-13] MEDS: PANTOPRAZOLE 40 MG PACKET PO SCH (09:13)
[2016-06-13] MEDS: BACITRACIN TOPICAL OINT 15 GM TUBE TOPICAL SCH ×2 (09:13→20:27)
--- NOTE | 2016-06-13 10:48 | Internal Med Progress Note ---
Medical - PN: Subj Patient information: Note initiated : 06/13/16 at 10:48 am Service Date, if different from initiated Date: [] Patient: Angel Garrett 80 y/o M admitted on 06/04/16 for Sepsis, EDWIN. Chief Complaint: [] Interval history: June 11, 2016: on service note: This patient was transferred here on June 04, 2016, after being found down at home. He presented to the hospital with atrial fibrillation with RVR, hypotension, left upper lobe pneumonia, severe rhabdomyolysis and acute renal failure, as well as altered mental status. Over the last 6 days, the patient has responded to IV fluids hemodialysis, IV antibiotics. Mental status has improved. He has continued to have weakness of the left arm, which is thought to be a possible brachial plexus injury. He is working with physical therapy, and this seems to be slowly improving. He has continued to require oxygen to maintain oxygen saturations. June 11, 2016: Urgent care:I was called to the bedside today, to see this patient, for a rapid response call. The patient was in the middle of being transferred from the intensive care unit out to [facility]. The aide noted that when she got into his room, his head rolled back in his eyes seem to roll back, he lost consciousness, and she felt that his hands were shaking consistent with possible seizure activity. The symptoms resolved quickly, and he aroused without us doing much. He does report thathe seemed like he was seeing different colors in his vision just prior to the event. He denies any fever or chills, headaches or dizziness. He does not report blurry vision, sore throat, chest pain or palpitations, changes in his breathing or significant abdominal pain. He did report that his right upper quadrant area is a bit sore at times, since his fall. of note, the patient has chronic atrial fibrillation, for which she is maintained on Coumadin. When he was admitted about one week ago, his INR was quite elevated, and he was found down at home. He did have a hematoma on his forehead, from his fall. Head CT at that time did not show signs of bleeding. initial workup at an outside hospital did show pneumonia, and blood cultures grew MSSA, which was pansensitive. He was originally treated with Levaquin and Zosyn, but the Zosyn was discontinued after the cultures were back. also of note, the patient recently returned back from a road trip to [place]. He believes he had a fall sometime during his trip, landing on his knee, and says the left leg has been swollen since then. However he is quite fuzzy on the details, and it is not clear if he fell while he was on history, or if he is just recalling the fall he had at home, that landed him up here, about one week ago. His Coumadin was initially held, and his INR did drop down to a level of 1.1, prior to his tunneled catheter placement. Today is therapeutic at 2.2. June 12, 2016: today,patient says he is feeling reasonably well. He is having some mild dyspnea upon return from [facility]. Physical therapy says the patient said he was just too tired to work on physical therapy today. He does continue to have some left upper extremity weakness, although he thinks it's better since admission. He also has a foot drop noted on the left foot since admission. It is thought that these symptoms were due to his fall and prolonged stay on the bathroom floor at home. Otherwise, the patient says she has not had any syncopal or near syncopal episodes today. nursing staff also has not noted recurrent symptoms. The patient denies fever or chills, sore throat. He has occasional cough. He continues to have mild dyspnea with exertion. He denies chest pain or palpitations abdominal pain, nausea or vomiting, diarrhea dysuria. June 13: the patient does seem more awake and alert today He reports that he did get up with physical therapy and seemed to move his left leg a little bit better today.he continues to have weakness of the left arm. He otherwise denies fever or chills, chest pain or significant cough or shortness of breath. He denies abdominal pain, nausea or vomiting. unfortunately, renal function does look worse today. Phosphorus level is climbing LFTs look a bit better. CPK continues to decline. he argued a bit with respiratory therapy today, not wanting to work on his incentive spirometry He does seem to have episodes of irritability. [facility]:Include [facility] fibrillation, chronic anticoagulation treatment, prostate cancer and BPH, cervical arthritis GERD and colon polyps, heart murmur, obesity hyperlipidemia, hypertension, past tobacco use. - Constitutional Vitals: Vital Signs Temp Pulse Resp BP Pulse Ox 98.5 F 78 16 147/77 94 06/13/16 03:30 06/13/16 07:46 06/13/16 07:46 06/13/16 03:30 06/13/16 07:51 Period Temp Pulse Resp BP Sys/Hinds Pulse Ox Last 24 Hr 96.8 F-98.5 F 78-114 16-24 129-158/77-97 92-95 Intake and Output 06/12/16 06/13/16 06/13/16 21:59 05:59 13:59 Intake Total 920 / 920 0 / 0 Output Total 175 / 175 240 / 240 Balance 745 / 745 -240 / -240 Weight 221 lb 8 oz Intake & Output: Intake & Output 06/12/16 06/13/16 06/13/16 21:59 05:59 13:59 Intake Total 920 / 920 0 / 0 Output Total 175 / 175 240 / 240 Balance 745 / 745 -240 / -240 Weight 221 lb 8 oz Intake: Oral 920 / 920 0 / 0 Output: Urine Catheter Amount 175 / 175 240 / 240 Other: Meal Dinner Percent of Meal Consumed 80 Feeding Ability Independent # Bowel Movements 1 1 1 Exam: on exam, he is lying nearly flat in bed. He is in no acute distress. He tells me that he hopes to never have another MRI again in his life, as that was extremely upsetting yesterday. Neck is supple without obvious JVD. Cardiac exam shows an irregularly irregular rhythm. Lungs are clear to auscultation. Abdomen is protuberant, but otherwise soft and nontender. Extremities: Show minimal edema, worse on the left side. Neurologic exam: The patient is alert and oriented and calm for the most part. 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 Medical - PN: Obj Da - Labs CBC & Chem 7: 06/13/16 05:05 06/13/16 05:05 Labs: Abnormal Lab Results 06/13/16 06/13/16 06/13/16 05:05 05:05 05:05 RBC 3.19 L Hgb 9.2 L Hct 27.8 L RDW 15.4 H MPV 7.1 L Gran % 81.6 H Lymph % (Auto) 8.1 L Lymph # 0.7 L PT 22.8 H INR 1.9 H D-Dimer Sodium 131 L Chloride 88 L Anion Gap 19.0 H BUN 62 H Creatinine 6.8 H* Glucose Calcium 7.2 L Phosphorus 6.7 H* Direct Bilirubin 0.4 H AST 94 H ALT 85 H Lactate Dehydrogenase 457 H Total Creatine Kinase 764 H Total Protein 5.0 L Albumin 2.4 L Albumin/Globulin Ratio 0.9 L Triglycerides 157 H 06/12/16 06/12/16 06/12/16 04:57 04:57 04:57 RBC 3.47 L Hgb 10.1 L Hct 30.3 L RDW 15.4 H MPV 7.3 L Gran % 82.7 H Lymph % (Auto) 8.2 L Lymph # 0.7 L PT 23.6 H INR 2.0 H D-Dimer Sodium 131 L Chloride 89 L Anion Gap BUN 43 H Creatinine 5.1 H* Glucose Calcium 7.3 L Phosphorus Direct Bilirubin 0.4 H AST 178 H ALT 116 H Lactate Dehydrogenase 515 H Total Creatine Kinase 1039 H Total Protein 5.7 L Albumin 2.2 L Albumin/Globulin Ratio 0.6 L Triglycerides 213 H 06/11/16 06/11/16 06/11/16 18:37 04:15 04:15 RBC 3.17 L Hgb 9.2 L Hct 27.6 L RDW 15.4 H MPV Gran % 85.4 H Lymph % (Auto) 5.9 L Lymph # 0.4 L PT 24.6 H INR 2.1 H D-Dimer 2.87 H Sodium Chloride Anion Gap BUN Creatinine Glucose Calcium Phosphorus Direct Bilirubin AST ALT Lactate Dehydrogenase Total Creatine Kinase Total Protein Albumin Albumin/Globulin Ratio Triglycerides 06/11/16 04:15 RBC Hgb Hct RDW MPV Gran % Lymph % (Auto) Lymph # PT INR D-Dimer Sodium 131 L Chloride 89 L Anion Gap 20.0 H BUN 79 H Creatinine 7.8 H* Glucose 114 H Calcium 7.0 L Phosphorus 6.3 H* Direct Bilirubin 0.4 H AST 144 H ALT 93 H Lactate Dehydrogenase 556 H Total Creatine Kinase 1414 H Total Protein 5.5 L Albumin 2.2 L Albumin/Globulin Ratio 0.7 L Triglycerides 162 H June 8: MRI of the abdomen: Shows some stranding of the renal fat along the lateral border which may be scar tissue. No masses are seen in the kidney. There are 3 simple cysts noted in the right kidney. Liver and gallbladder appeared normal. ultrasound of the left lower extremity showed no evidence of DVT. june 11: Wound culture from his scalp wound is growing a pansensitive staph aureus. c. difficile screen was negative. Blood cultures are negative so far. Urine cultures were negative. MRSA screen is negative. Meds: Medications Acetaminophen (Tylenol) 650 mg PO Q4-6HP PRN PRN Reason: PAIN/FEVER > 101 Albuterol/Ipratropium (Duoneb) 3 ml NEB [id number] [facility] Last Admin: 06/13/16 07:47 Dose: 3 ml Bacitracin (Bacitracin Topical Oint) 1 dose TOPICAL BID [facility] Last Admin: 06/13/16 09:13 Dose: 1 dose Calcium Acetate (Phoslo) 667 mg PO TIDCC [facility] Last Admin: 06/13/16 09:12 Dose: 667 mg Docusate Sodium (Colace) 100 mg PO BID [facility] Last Admin: 06/13/16 09:13 Dose: Not Given Furosemide (Lasix) 80 mg IV BIDD [facility] Last Admin: 06/13/16 09:12 Dose: 80 mg Norepinephrine Bitartrate 16 (mg/ Sodium Chloride) 250 mls @ 9.37 mls/hr IV Q24HP PRN; Protocol; 10 MCG/MIN PRN Reason: Hypotension Vasopressin 20 unit/ Dextrose 100 mls @ 12 mls/hr IV Q8HP PRN; Protocol; 0.04 UNIT/MIN PRN Reason: Hypotension Ceftriaxone Sodium 1 gm/ (Dextrose) 50 mls @ 100 mls/hr IV DAILY [facility] Last Admin: 06/13/16 09:11 Dose: 100 mls/hr Metoprolol Tartrate (Lopressor) 100 mg PO BID [facility] Last Admin: 06/13/16 09:12 Dose: 100 mg Ondansetron HCl (Zofran) 4 mg IV Q4-6HP PRN PRN Reason: Nausea And Vomiting Pantoprazole Sodium (Protonix) 40 mg PO QAMAC [facility] Last Admin: 06/13/16 09:13 Dose: 40 mg Prednisone (Prednisone) 40 mg PO QAC [facility] Stop: 06/15/16 07:59 Last Admin: 06/13/16 09:12 Dose: 40 mg Senna/Docusate Sodium (Senna Plus Tablet) 1 tab PO HS [facility] Last Admin: 06/12/16 20:41 Dose: 1 tab Sodium Chloride (Saline Flush) 10 ml IV Q8 [facility] Last Admin: 06/13/16 05:53 Dose: 10 ml Warfarin Sodium (Coumadin) 2 mg PO DAILY@1400 [facility] Last Admin: 06/12/16 16:46 Dose: 2 mg Zolpidem Tartrate (Ambien) 5 mg PO HSP PRN PRN Reason: Insomnia Medical - PN: A/P - Time Spent With Patient Total time spent is greater than 50% in coordination of care (as documented) at patient's floor/unit and/or counseling patient: - Narrative A/P Narrative: #1. Neurologic. -The patient had a brief period of loss of consciousness Tuesday night, suspicious for seizure activity. This has not recurred. Levaquin was discontinued in case this was the cause.. the patient has had some spells of confusion, but does seem clearer today.he continues to have left-sided weakness, and I am concerned that perhaps we missed an early stroke on his initial head CT. I would like to do a follow-up CT or MRI with contrast, but we'll need to check with nephrology to see how risky that would be for the kidneys. #2. Left lower extremity swelling. Doppler was negative for DVT. The patient is therapeutic on his Coumadin at this time. d-dimer was elevated, but that may be more of an acute phase reactant. He has not been hypoxic. #3. infectious disease. Pneumonia , with an MSSA bacteremia. This was pansensitive, so antibiotics were changed over to Rocephin. Continue a full 10-14 days of antibiotics. -Sepsis appears resolved. #4. Renal.acute renal failure. -continue dialysis, per Dr. Cordero. -Rhabdomyolysis is resolving, and CPK is approaching normal. -phosphate binders were added today by Dr. Cordero. He will need dialysis again tomorrow. #5. Cardiac. History of chronic atrial fibrillation with controlled rate. He is maintained on Coumadin therapy, and Coumadin is therapeutic today. -Troponin was normal . #6. GI. -The patient has fluctuating LFTs, of uncertain cause.LFTs are gradually trending down. . MRI of the abdomen did not really show any worrisome changes. And there is no evidence of renal mass. approximately 35 minutes was spent today, reviewing the patient's chart and test results, interviewing and examining him, reviewing his case with nursing staff, and writing orders. Medical - PN: Qual - Stroke Symptom Onset Unknown: Yes - VTE Deep Vein Thrombosis/Pulmonary Embolism Present on Admission: No
[2016-06-13] MEDS: WARFARIN 2 MG TABLET PO SCH (15:44)
[2016-06-13] MEDS: SENNOSIDES/DOCUSATE SODIUM 1 TAB TABLET PO SCH (20:27)
[2016-06-14] MEDS: 0.9 % SODIUM CHLORIDE 10 ML SYRINGE IV SCH ×3 (05:03→20:59)
[2016-06-14 06:12] LABS: Basophils # (Auto) 0 K/mcL (0.0-0.3); Basophils % (Auto) 0 % (0.0-2.0); Eosinophils # (Auto) 0.1 K/mcL (0.0-0.7); Eosinophils % (Auto) 1.3 % (0.0-7.0); Granulocytes % (Auto) 82.6 % (38.0-78.0); Lymphocytes # (Auto) 0.7 K/mcL (1.5-4.8); Lymphocytes % (Auto) 7.9 % (15.5-49.0); Mean Cell Volume 87.1 fL (80.0-100.0); Mean Corpuscular HGB Conc 33.2 g/dL (31.0-36.0); Mean Corpuscular Hemoglobin 28.9 pg (26.0-34.0); Monocytes # (Auto) 0.7 K/mcL (0.1-0.9); Monocytes % (Auto) 8.2 % (1.0-12.0); Platelet Count 299 K/mcL (140-440); RBC 3.11 M/mcL (4.50-5.90); Red Cell Distribution Width 15.4 % (11.5-14.5)
[2016-06-14 06:54] LABS: ALT/SGPT 72 U/l (0-40); Albumin 2.4 gm/dL (3.2-5.2); Albumin/Globulin Ratio 0.8 (1.0-2.3); Alkaline Phosphatase 58 U/L (39-117); Bilirubin,Direct 0.2 mg/dL (0.0-0.3); Blood Urea Nitrogen 87 mg/dl (8-23); Gamma Glutamyl Transpeptidase 31 U/L (8-61); Magnesium 1.8 mg/dL (1.6-2.5); Uric Acid 8.6 mg/dL (2.5-8.0)
[2016-06-14] MEDS: IPRATROPIUM/ALBUTEROL 3 ML AMPUL.NEB NEB SCH ×5 (07:35→23:13)
[2016-06-14] MEDS: predniSONE 20 MG TABLET PO SCH (08:29)
[2016-06-14] MEDS: PANTOPRAZOLE 40 MG PACKET PO SCH (08:29)
[2016-06-14] MEDS: CALCIUM ACETATE 667 MG CAPSULE PO SCH ×3 (08:29→17:14)
[2016-06-14] MEDS: FUROSEMIDE 100 MG/10 ML VIAL IV SCH ×2 (08:30→16:20)
[2016-06-14] MEDS: cefTRIAXone 1 GM in DEXTROSE 5% IN WATER 50 ML IV SCH (08:41)
[2016-06-14] MEDS: METOPROLOL TARTRATE 50 MG TABLET PO SCH ×2 (10:35→20:58)
[2016-06-14] MEDS: BACITRACIN TOPICAL OINT 15 GM TUBE TOPICAL SCH ×2 (10:36→20:59)
[2016-06-14] MEDS: DOCUSATE SODIUM 100 MG CAPSULE PO SCH ×2 (10:36→20:59)
--- NOTE | 2016-06-14 10:58 | Internal Med Progress Note ---
Medical - PN: Subj Patient information: Note initiated : 06/14/16 at 10:58 am Service Date, if different from initiated Date: [] Patient: Angel Garrett 80 y/o M admitted on 06/04/16 for Sepsis, EDWIN. Chief Complaint: [] Interval history: June 11, 2016: on service note: This patient was transferred here on June 04, 2016, after being found down at home. He presented to the hospital with atrial fibrillation with RVR, hypotension, left upper lobe pneumonia, severe rhabdomyolysis and acute renal failure, as well as altered mental status. Over the last 6 days, the patient has responded to IV fluids hemodialysis, IV antibiotics. Mental status has improved. He has continued to have weakness of the left arm, which is thought to be a possible brachial plexus injury. He is working with physical therapy, and this seems to be slowly improving. He has continued to require oxygen to maintain oxygen saturations. June 11, 2016: Urgent care:I was called to the bedside today, to see this patient, for a rapid response call. The patient was in the middle of being transferred from the intensive care unit out to [facility]. The aide noted that when she got into his room, his head rolled back in his eyes seem to roll back, he lost consciousness, and she felt that his hands were shaking consistent with possible seizure activity. The symptoms resolved quickly, and he aroused without us doing much. He does report that he seemed like he was seeing different colors in his vision just prior to the event. He denies any fever or chills, headaches or dizziness. He does not report blurry vision, sore throat, chest pain or palpitations, changes in his breathing or significant abdominal pain. He did report that his right upper quadrant area is a bit sore at times, since his fall. of note, the patient has chronic atrial fibrillation, for which she is maintained on Coumadin. When he was admitted about one week ago, his INR was quite elevated, and he was found down at home. He did have a hematoma on his forehead, from his fall. Head CT at that time did not show signs of bleeding. initial workup at an outside hospital did show pneumonia, and blood cultures grew MSSA, which was pansensitive. He was originally treated with Levaquin and Zosyn, but the Zosyn was discontinued after the cultures were back. also of note, the patient recently returned back from a road trip to [place]. He believes he had a fall sometime during his trip, landing on his knee, and says the left leg has been swollen since then. However he is quite fuzzy on the details, and it is not clear if he fell while he was on history, or if he is just recalling the fall he had at home, that landed him up here, about one week ago. His Coumadin was initially held, and his INR did drop down to a level of 1.1, prior to his tunneled catheter placement. Today is therapeutic at 2.2. June 12, 2016: today,patient says he is feeling reasonably well. He is having some mild dyspnea upon return from MRI. Physical therapy says the patient said he was just too tired to work on physical therapy today. He does continue to have some left upper extremity weakness, although he thinks it's better since admission. He also has a foot drop noted on the left foot since admission. It is thought that these symptoms were due to his fall and prolonged stay on the bathroom floor at home. Otherwise, the patient says she has not had any syncopal or near syncopal episodes today. nursing staff also has not noted recurrent symptoms. The patient denies fever or chills, sore throat. He has occasional cough. He continues to have mild dyspnea with exertion. He denies chest pain or palpitations abdominal pain, nausea or vomiting, diarrhea dysuria. June 13: the patient does seem more awake and alert today He reports that he did get up with physical therapy and seemed to move his left leg a little bit better today.he continues to have weakness of the left arm. He otherwise denies fever or chills, chest pain or significant cough or shortness of breath. He denies abdominal pain, nausea or vomiting. unfortunately, renal function does look worse today. Phosphorus level is climbing LFTs look a bit better. CPK continues to decline. he argued a bit with respiratory therapy today, not wanting to work on his incentive spirometry He does seem to have episodes of irritability. June 14: we did finally convinced the patient to undergo an MRI of his brain today, but he was given Ativan and morphine ahead of time, for complaints of anxiety and back pain from laying on the table. This evening he is calm, but he is a little bit drifting when I interview him. He has no particular complaints. He thinks the left arm weakness is about the same today. He did get up and do some transfers to and from the chair today, according to his nurse. otherwise, he denies fever or chills, headaches or dizziness, sore throat or cough, chest pain or palpitations, shortness of breath, abdominal pain, nausea or vomiting. He continues with a Mckeon catheter to help monitor accurate urine output. He is making more urine today, so Dr. Cordero held off on dialysis, to see if he will keep improving spontaneously. past medical history, per records from the [place]:Include atrial fibrillation, chronic anticoagulation treatment, prostate cancer and BPH, cervical arthritis GERD and colon polyps, heart murmur, obesity hyperlipidemia, hypertension, past tobacco use. - Constitutional Vitals: Vital Signs Temp Pulse Resp BP Pulse Ox 97.3 F L 90 16 135/65 93 06/14/16 07:35 06/14/16 08:33 06/14/16 08:33 06/14/16 07:35 06/14/16 08:33 Period Temp Pulse Resp BP Sys/Hinds Pulse Ox Last 24 Hr 97.2 F-98.0 F 78-104 16-20 135-160/65-97 91-95 Intake and Output 06/13/16 06/14/16 06/14/16 21:59 05:59 13:59 Intake Total 200 / 200 200 / 200 20 / 20 Output Total 275 / 275 525 / 525 Balance -75 / -75 -325 / -325 20 / 20 Weight 222 lb Intake & Output: Intake & Output 06/13/16 06/14/16 06/14/16 21:59 05:59 13:59 Intake Total 200 / 200 200 / 200 20 / 20 Output Total 275 / 275 525 / 525 Balance -75 / -75 -325 / -325 20 / 20 Weight 222 lb Intake: Oral 200 / 200 200 / 200 20 / 20 Output: Urine Catheter Amount 525 / 525 Void Amount 275 / 275 Other: Meal Dinner Breakfast Percent of Meal Consumed 80% 100% Feeding Ability Independent Exam: he patient is awake, but a little bit drifty. Neck is supple without obvious JVD. Cardiac exam shows an irregularly irregular rhythm. Lungs are airly clear to auscultation, with just a few scattered crackles noted.. Abdomen is protuberant, but otherwise soft and nontender. Extremities: Show minimal edema, worse on the left side. Neurologic exam: The patient is alert and oriented and calm for the most part. 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 Medical - PN: Obj Da - Labs CBC & Chem 7: 06/14/16 04:40 06/14/16 04:40 Labs: Abnormal Lab Results 06/14/16 06/14/16 06/14/16 07:05 04:40 04:40 RBC 3.11 L Hgb 9.0 L Hct 27.1 L RDW 15.4 H MPV 7.1 L Gran % 82.6 H Lymph % (Auto) 7.9 L Lymph # 0.7 L PT 22.8 H INR 1.9 H D-Dimer Sodium 130 L Chloride 86 L Anion Gap 22.0 H BUN 87 H Creatinine 8.1 H* Uric Acid 8.6 H Calcium 7.4 L Phosphorus 8.5 H* Direct Bilirubin AST 67 H ALT 72 H Lactate Dehydrogenase 447 H Total Creatine Kinase Total Protein 5.6 L Albumin 2.4 L Albumin/Globulin Ratio 0.8 L Triglycerides 159 H 06/13/16 06/13/16 06/13/16 05:05 05:05 05:05 RBC 3.19 L Hgb 9.2 L Hct 27.8 L RDW 15.4 H MPV 7.1 L Gran % 81.6 H Lymph % (Auto) 8.1 L Lymph # 0.7 L PT 22.8 H INR 1.9 H D-Dimer Sodium 131 L Chloride 88 L Anion Gap 19.0 H BUN 62 H Creatinine 6.8 H* Uric Acid Calcium 7.2 L Phosphorus 6.7 H* Direct Bilirubin 0.4 H AST 94 H ALT 85 H Lactate Dehydrogenase 457 H Total Creatine Kinase 764 H Total Protein 5.0 L Albumin 2.4 L Albumin/Globulin Ratio 0.9 L Triglycerides 157 H 06/12/16 06/12/16 06/12/16 04:57 04:57 04:57 RBC 3.47 L Hgb 10.1 L Hct 30.3 L RDW 15.4 H MPV 7.3 L Gran % 82.7 H Lymph % (Auto) 8.2 L Lymph # 0.7 L PT 23.6 H INR 2.0 H D-Dimer Sodium 131 L Chloride 89 L Anion Gap BUN 43 H Creatinine 5.1 H* Uric Acid Calcium 7.3 L Phosphorus Direct Bilirubin 0.4 H AST 178 H ALT 116 H Lactate Dehydrogenase 515 H Total Creatine Kinase 1039 H Total Protein 5.7 L Albumin 2.2 L Albumin/Globulin Ratio 0.6 L Triglycerides 213 H 06/11/16 18:37 RBC Hgb Hct RDW MPV Gran % Lymph % (Auto) Lymph # PT INR D-Dimer 2.87 H Sodium Chloride Anion Gap BUN Creatinine Uric Acid Calcium Phosphorus Direct Bilirubin AST ALT Lactate Dehydrogenase Total Creatine Kinase Total Protein Albumin Albumin/Globulin Ratio Triglycerides June 14: MRI of the brain shows mild atrophia he and patchy chronic ischemic changes in the deep white matter, but no acute infarct. June 12: MRI of the abdomen: Shows some stranding of the renal fat along the lateral border which may be scar tissue. No masses are seen in the kidney. There are 3 simple cysts noted in the right kidney. Liver and gallbladder appeared normal. ultrasound of the left lower extremity showed no evidence of DVT. june 11: Wound culture from his scalp wound is growing a pansensitive staph aureus. c. difficile screen was negative. Blood cultures are negative so far. Urine cultures were negative. MRSA screen is negative. June 08: chest x-ray: Shows worsening consolidation in the lingula and left lower lobe which may be a combination of atelectasis and pneumonia. Meds: Medications Acetaminophen (Tylenol) 650 mg PO Q4-6HP PRN PRN Reason: PAIN/FEVER > 101 Albuterol/Ipratropium (Duoneb) 3 ml NEB [id number] [facility] Last Admin: 06/14/16 07:35 Dose: 3 ml Bacitracin (Bacitracin Topical Oint) 1 dose TOPICAL BID [facility] Last Admin: 06/14/16 10:36 Dose: 1 dose Calcium Acetate (Phoslo) 667 mg PO TIDCC [facility] Last Admin: 06/14/16 08:29 Dose: 667 mg Docusate Sodium (Colace) 100 mg PO BID [facility] Last Admin: 06/14/16 10:36 Dose: Not Given Furosemide (Lasix) 80 mg IV BIDD [facility] Last Admin: 06/14/16 08:30 Dose: 80 mg Norepinephrine Bitartrate 16 (mg/ Sodium Chloride) 250 mls @ 9.37 mls/hr IV Q24HP PRN; Protocol; 10 MCG/MIN PRN Reason: Hypotension Vasopressin 20 unit/ Dextrose 100 mls @ 12 mls/hr IV Q8HP PRN; Protocol; 0.04 UNIT/MIN PRN Reason: Hypotension Ceftriaxone Sodium 1 gm/ (Dextrose) 50 mls @ 100 mls/hr IV DAILY [facility] Last Admin: 06/14/16 08:41 Dose: 100 mls/hr Metoprolol Tartrate (Lopressor) 100 mg PO BID [facility] Last Admin: 06/14/16 10:35 Dose: 100 mg Ondansetron HCl (Zofran) 4 mg IV Q4-6HP PRN PRN Reason: Nausea And Vomiting Pantoprazole Sodium (Protonix) 40 mg PO [facility] Last Admin: 06/14/16 08:29 Dose: 40 mg Prednisone (Prednisone) 40 mg PO [facility] Stop: 06/15/16 07:59 Last Admin: 06/14/16 08:29 Dose: 40 mg Senna/Docusate Sodium (Senna Plus Tablet) [address] [facility] Last Admin: 06/13/16 20:27 Dose: Not Given Sodium Chloride (Saline Flush) 10 ml IV Q8 [facility] Last Admin: 06/14/16 05:03 Dose: 10 ml Warfarin Sodium (Coumadin) 2 mg PO DAILY@1400 [facility] Last Admin: 06/13/16 15:44 Dose: 2 mg Zolpidem Tartrate (Ambien) 5 mg PO [facility] PRN PRN Reason: Insomnia Medical - PN: A/P - Time Spent With Patient Total time spent is greater than 50% in coordination of care (as documented) at patient's floor/unit and/or counseling patient: - Narrative A/P Narrative: #1. Neurologic. -The patient had a brief period of loss of consciousness Tuesday night, suspicious for seizure activity. This has not recurred. Levaquin was discontinued in case this was the cause.. he continues to have ongoing left- sided weakness, so he did undergo an MRI of his brain today. This did not show evidence of any recent strokes. -continue physical therapy. Our working diagnosis for the left arm is still possible brachial plexus injury, which according to orthopedics, would require several months to resolve. #2. Left lower extremity swelling. Doppler was negative for DVT. The patient is therapeutic on his Coumadin at this time. d-dimer was elevated, but that may be more of an acute phase reactant. He has not been hypoxic. #3. infectious disease. Pneumonia , with an MSSA bacteremia. This was pansensitive, so antibiotics were changed over to Rocephin. Continue a full 10-14 days of antibiotics. -Sepsis appears resolved. -order follow-up chest x-ray. #4. Renal.acute renal failure. -continue management per Dr. Cordero. -Rhabdomyolysis is resolving, and CPK is approaching normal. -phosphate binders were added by Dr. Cordero. urinalysis has been improving, so dialysis was postponed today. #5. Cardiac. History of chronic atrial fibrillation with controlled rate. He is maintained on Coumadin therapy, and Coumadin is therapeutic today. -Troponin was normal . #6. GI. -The patient has fluctuating LFTs, of uncertain cause.LFTs are gradually trending down. . MRI of the abdomen did not really show any worrisome changes. And there is no evidence of renal mass. approximately 30 minutes was spent today, reviewing the patient's chart and test results, interviewing and examining him, reviewing his case with nursing staff, and writing orders. Medical - PN: Qual - Stroke Symptom Onset Unknown: Yes - VTE Deep Vein Thrombosis/Pulmonary Embolism Present on Admission: No
[2016-06-14] MEDS ORDERED: LORazepam 2 MG/ML VIAL IV ONE (11:48)
--- NOTE | 2016-06-14 14:08 | Nephrology Progress Note ---
Subjective Patient information: Note initiated : 06/14/16 at 2:01 pm Service Date, if different from initiated Date: [] Patient: Angel Garrett 80 y/o M admitted on 06/04/16 for Sepsis, EDWIN. Chief Complaint: [] Principal diagnosis: PNA, acute renal failure, rhabdomyolysis Interval history: Patient has had no new issues he denies SOB, CP, dizziness no nausea, vomiting getting evaluated for persistent left UE weakness, ? from local nerve injury as CT scan head x 2 negative MRI abdomen negative for renal tumor urine output improved to 800 cc Pertinent ROS: as above Objective - Vital Signs Vital signs: Vital Signs Temp Pulse Pulse Resp BP BP BP 06/14/16 11:51 94 H 06/14/16 11:48 96 H 16 06/14/16 08:33 90 16 06/14/16 08:31 92 H 16 06/14/16 07:35 97.3 F L 104 H 18 135/65 06/14/16 03:40 97.3 F L 88 16 143/66 06/13/16 23:42 97.4 F L 95 H 20 157/97 06/13/16 19:10 97.5 F L 85 20 152/90 06/13/16 18:52 84 18 06/13/16 15:30 98.0 F 18 156/95 06/13/16 15:22 78 20 Pulse Ox 06/14/16 11:51 98 06/14/16 11:48 06/14/16 08:33 93 06/14/16 08:31 06/14/16 07:35 91 06/14/16 03:40 93 06/13/16 23:42 93 06/13/16 19:10 95 06/13/16 18:52 06/13/16 15:30 94 06/13/16 15:22 Intake and Output 06/14/16 06/14/16 06/14/16 05:59 13:59 21:59 Intake Total 200 / 200 20 / 20 Output Total 525 / 525 Balance -325 / -325 20 / 20 Intake: Oral 200 / 200 20 / 20 Output: Urine Catheter Amount 525 / 525 Other: Meal Breakfast Percent of Meal Consumed 100% Feeding Ability Independent Intake & Output: Intake & Output 06/14/16 06/14/16 06/14/16 05:59 13:59 21:59 Intake Total 200 / 200 20 / 20 Output Total 525 / 525 Balance -325 / -325 Intake: Oral 200 / 200 / 20 Output: Urine Catheter Amount 525 / 525 Other: Meal Breakfast Percent of Meal Consumed 100% Feeding Ability Independent - General Appearance General appearance: appears started age, obese EENT: mucous membranes moist Neck: no JVD Respiratory: rales (much improved ) Cardiology: no rub, no edema, irregular rhythm Gastrointestinal: no tenderness, no guarding Integumentary: no rash, warm and dry Neurologic: no asterixis, alert and oriented x3 Musculoskeletal: no cyanosis, no clubbing Psychiatric: mood/affect appropriate - Lab 06/14/16 04:40 06/14/16 04:40 Most recent lab results Calcium 7.4 mg/dl (8.6-10.4) L 06/14/16 04:40 Phosphorus 8.5 mg/dL (2.7-4.5) H* 06/14/16 04:40 Magnesium 1.8 mg/dL (1.6-2.5) 06/14/16 04:40 Assessment and Plan (1) Acute renal failure urine output remains poor given improving urine output and no urgent/emergent need will hold off on dialysis today will closely monitor and hope for renal recovery given improving urine output please dose meds to egfr less than 10 at present still given his s.creatinine monitor i/o, renal function daily weights renal osteodystrophy: corrected calcium at goal, has hyperphophatemia from EDWIN, will ct phosphate binders Anemia etiology multifactorial including EDWIN Will monitor for now PNA: on ceftriaxone now given concern of seizure Rhabdomyolysis : improving CK Hyponatremia mild, stable for now malnutrition: appetite much improved as compared to last week, also on nepro will follow along Thank you for giving me an opportunity to participate in Mr Garrett's medical care , appreciate it Status: Acute (2) Rhabdomyolysis Status: Acute (3) Pneumonia Status: Acute
[2016-06-14] MEDS: WARFARIN 2 MG TABLET PO SCH (16:20)
--- NOTE | 2016-06-14 16:56 | Magnetic Resonance Report ---
CLINICAL INFORMATION: Acute left-sided weakness evaluate for CVA COMPARISON: None. TECHNIQUE:Sagittal T1 FLAIR, axial T1 FLAIR, T2 FLAIR propeller, T2 propeller, gradient, diffusion, ADC and coronal T2 weighted images were acquired. FINDINGS: Exam is mildly compromised by motion artifact. The ventricles, sulci, fissures and cisterns are symmetrically enlarged compatible with mild age-related atrophy - no extra-axial fluid collections or masses appreciated. Moderate patchy chronic ischemic changes in the cerebral white matter are typical for age. There is no restricted diffusion to suggest acute infarct. There is no intracerebral hemorrhage, edema, mass effect hemorrhage or other acute ASSISTANT CENTER MANAGER finding. Signal void in intracerebral arteries, extra-axial cranial nerves, pituitary, orbits and paranasal sinuses are all normal. IMPRESSION: Mild atrophy and patchy chronic ischemic changes in the deep cerebral white matter - both expected for age. No evidence of acute infarct or other acute ASSISTANT CENTER MANAGER abnormality Interpreted and Authenticated by: Santy Zelaya 06/14/16
[2016-06-14] MEDS: SENNOSIDES/DOCUSATE SODIUM 1 TAB TABLET PO SCH (20:59)
[2016-06-15] MEDS: IPRATROPIUM/ALBUTEROL 3 ML AMPUL.NEB NEB SCH ×6 (00:25→23:19)
[2016-06-15 06:08] LABS: Basophils # (Auto) 0 K/mcL (0.0-0.3); Basophils % (Auto) 0.1 % (0.0-2.0); Eosinophils # (Auto) 0.1 K/mcL (0.0-0.7); Eosinophils % (Auto) 1.4 % (0.0-7.0); Granulocytes % (Auto) 83.7 % (38.0-78.0); Lymphocytes # (Auto) 0.8 K/mcL (1.5-4.8); Lymphocytes % (Auto) 8.1 % (15.5-49.0); Mean Cell Volume 86.7 fL (80.0-100.0); Mean Corpuscular HGB Conc 33.4 g/dL (31.0-36.0); Monocytes # (Auto) 0.7 K/mcL (0.1-0.9); Monocytes % (Auto) 6.7 % (1.0-12.0); Platelet Count 291 K/mcL (140-440); RBC 3.06 M/mcL (4.50-5.90); Red Cell Distribution Width 15.5 % (11.5-14.5)
[2016-06-15 06:48] LABS: ALT/SGPT 60 U/l (0-40); Albumin 2.6 gm/dL (3.2-5.2); Albumin/Globulin Ratio 0.8 (1.0-2.3); Alkaline Phosphatase 59 U/L (39-117); Bilirubin,Direct 0.2 mg/dL (0.0-0.3); Blood Urea Nitrogen 107 mg/dl (8-23); Gamma Glutamyl Transpeptidase 31 U/L (8-61); Magnesium 1.9 mg/dL (1.6-2.5); Uric Acid 10.3 mg/dL (2.5-8.0)
--- NOTE | 2016-06-15 08:01 | XRay Report ---
CLINICAL INFORMATION: Follow-up left lung infiltrate/atelectasis COMPARISON: Portable chest from 06/08/2016. FINDINGS: Moderate cardiomegaly is unchanged. Large hiatal hernia has been stable over many previous studies. Mediastinum is slightly widened, but stable. Pulmonary vessels are normal. Left lung infiltrate is much better aerated since the study one week ago. A moderate size region of consolidated atelectasis or infiltrate remains in the left lower lobe with minimal patchy infiltrate in the left upper lobe/lingula. IMPRESSION: Marked improvement in left lung infiltrate with moderate size residual consolidated atelectasis or less infiltrate left lower lobe and minimal residual infiltrate left upper lobe/lingula Interpreted and Authenticated by: Santy Zelaya 06/15/16
[2016-06-15] MEDS: CALCIUM ACETATE 667 MG CAPSULE PO SCH ×3 (08:39→18:03)
[2016-06-15] MEDS: cefTRIAXone 1 GM in DEXTROSE 5% IN WATER 50 ML IV SCH (08:39)
[2016-06-15] MEDS: PANTOPRAZOLE 40 MG PACKET PO SCH (08:39)
[2016-06-15] MEDS: FUROSEMIDE 100 MG/10 ML VIAL IV SCH ×2 (08:40→18:02)
[2016-06-15] MEDS: 0.9 % SODIUM CHLORIDE 10 ML SYRINGE IV SCH ×3 (08:41→21:48)
[2016-06-15] MEDS: METOPROLOL TARTRATE 50 MG TABLET PO SCH ×2 (08:41→21:48)
[2016-06-15] MEDS: DOCUSATE SODIUM 100 MG CAPSULE PO SCH ×2 (08:42→21:48)
[2016-06-15] MEDS: BACITRACIN TOPICAL OINT 15 GM TUBE TOPICAL SCH ×2 (08:54→21:48)
[2016-06-15] MEDS ORDERED: CALCIUM ACETATE 667 MG CAPSULE PO SCH (09:06)
--- NOTE | 2016-06-15 09:12 | Nephrology Progress Note ---
Subjective Patient information: Note initiated : 06/15/16 at 9:06 am Service Date, if different from initiated Date: [] Patient: Angel Garrett 80 y/o M admitted on 06/04/16 for Sepsis, EDWIN. Chief Complaint: [] Principal diagnosis: PNA, acute renal failure, rhabdomyolysis Pertinent ROS: no significant overnight events reported no SOB, CP, dizziness Denies nausea, vomiting ongoing physical therapy patient's urine output has improved to 800cc but he still has no renal clearance , BUN and S.Creatinine, phos more than 10 also patient upset about dietary restriction Objective - Vital Signs Vital signs: Vital Signs Temp Pulse Pulse Pulse Resp BP BP 06/15/16 07:39 95 H 06/15/16 07:37 92 H 16 06/15/16 03:45 97.4 F L 88 16 146/80 06/15/16 00:00 97.8 F 98 H 16 146/87 06/14/16 20:00 98.2 F 106 H 16 06/14/16 16:00 86 86 16 116/78 06/14/16 15:53 87 06/14/16 15:51 88 12 06/14/16 11:51 94 H 06/14/16 11:48 96 H 16 BP Pulse Ox 06/15/16 07:39 94 06/15/16 07:37 06/15/16 03:45 96 06/15/16 00:00 94 06/14/16 20:00 143/88 97 06/14/16 16:00 94 06/14/16 15:53 97 06/14/16 15:51 06/14/16 11:51 98 06/14/16 11:48 Intake and Output 06/14/16 06/15/16 06/15/16 21:59 05:59 13:59 Intake Total 440 / 440 0 / 0 Output Total 575 / 575 825 / 825 Balance -135 / -135 -825 / -825 Intake: Oral 440 / 440 0 / 0 Output: Urine Catheter Amount 575 / 575 825 / 825 Other: # Bowel Movements 1 Weight 223 lb Intake & Output: Intake & Output 06/14/16 06/15/16 06/15/16 21:59 05:59 13:59 Intake Total 440 / 440 0 / 0 Output Total 575 / 575 825 / 825 Balance -135 / -135 -825 / -825 Weight 223 lb Intake: Oral 440 / 440 0 / 0 Output: Urine Catheter Amount 575 / 575 825 / 825 Other: # Bowel Movements 1 - General Appearance General appearance: appears started age, obese EENT: mucous membranes moist Neck: no JVD Respiratory: rales Cardiology: no rub, no edema, irregular rhythm Gastrointestinal: no tenderness, no guarding Integumentary: warm and dry Neurologic: alert and oriented x3 Musculoskeletal: no erythema, no cyanosis Psychiatric: mood/affect appropriate - Lab 06/15/16 04:45 06/15/16 04:45 Most recent lab results Calcium 7.3 mg/dl (8.6-10.4) L 06/15/16 04:45 Phosphorus 10.1 mg/dL (2.7-4.5) H* 06/15/16 04:45 Magnesium 1.9 mg/dL (1.6-2.5) 06/15/16 04:45 Assessment and Plan (1) Acute renal failure non oliguric with no renal clearance BUN 107, s.creatinine more than 9.0 corrected calcium is normal but phos more than 10 with elevated ca.phos product mild hyponatremia labs discussed with the patient will do dialysis today given worsening labs HD today for 3.5 hrs using revaclear 400 dialyser, QB 300ml/min, QD 700ml/min, 3K/2.5 ca dialysate, no UF removal will ct with IV lasix will continue to monitor for renal recovery avoid nephrotoxic meds dose meds per HD hyperphosphatemia from EDWIN, will increase calcium acetate dose also dialysis will help will monitor Anemia: Hb trending down will obtain anemia work up ensure no iron or b12 deficiency Will follow along Status: Acute (2) Rhabdomyolysis Status: Acute (3) Pneumonia Status: Acute
--- NOTE | 2016-06-15 12:09 | Internal Med Progress Note ---
Medical - PN: Subj Patient information: Note initiated : 06/15/16 at 12:09 pm Patient: Angel Garrett 80 y/o M admitted on 06/04/16 for Sepsis, EDWIN. Interval history: June 11, 2016: on service note: This patient was transferred here on June 04, 2016, after being found down at home. He presented to the hospital with atrial fibrillation with RVR, hypotension, left upper lobe pneumonia, severe rhabdomyolysis and acute renal failure, as well as altered mental status. Over the last 6 days, the patient has responded to IV fluids hemodialysis, IV antibiotics. Mental status has improved. He has continued to have weakness of the left arm, which is thought to be a possible brachial plexus injury. He is working with physical therapy, and this seems to be slowly improving. He has continued to require oxygen to maintain oxygen saturations. June 11, 2016: Urgent care:I was called to the bedside today, to see this patient, for a rapid response call. The patient was in the middle of being transferred from the intensive care unit out to [facility] [place]. The aide noted that when she got into his room, his head rolled back in his eyes seem to roll back, he lost consciousness, and she felt that his hands were shaking consistent with possible seizure activity. The symptoms resolved quickly, and he aroused without us doing much. He does report that he seemed like he was seeing different colors in his vision just prior to the event. He denies any fever or chills, headaches or dizziness. He does not report blurry vision, sore throat, chest pain or palpitations, changes in his breathing or significant abdominal pain. He did report that his right upper quadrant area is a bit sore at times, since his fall. of note, the patient has chronic atrial fibrillation, for which she is maintained on Coumadin. When he was admitted about one week ago, his INR was quite elevated, and he was found down at home. He did have a hematoma on his forehead, from his fall. Head CT at that time did not show signs of bleeding. initial workup at an outside hospital did show pneumonia, and blood cultures grew MSSA, which was pansensitive. He was originally treated with Levaquin and Zosyn, but the Zosyn was discontinued after the cultures were back. also of note, the patient recently returned back from a road trip to [place]. He believes he had a fall sometime during his trip, landing on his knee, and says the left leg has been swollen since then. However he is quite fuzzy on the details, and it is not clear if he fell while he was on history, or if he is just recalling the fall he had at home, that landed him up here, about one week ago. His Coumadin was initially held, and his INR did drop down to a level of 1.1, prior to his tunneled catheter placement. Today is therapeutic at 2.2. June 12, 2016: today,patient says he is feeling reasonably well. He is having some mild dyspnea upon return from MRI. Physical therapy says the patient said he was just too tired to work on physical therapy today. He does continue to have some left upper extremity weakness, although he thinks it's better since admission. He also has a foot drop noted on the left foot since admission. It is thought that these symptoms were due to his fall and prolonged stay on the bathroom floor at home. Otherwise, the patient says she has not had any syncopal or near syncopal episodes today. nursing staff also has not noted recurrent symptoms. The patient denies fever or chills, sore throat. He has occasional cough. He continues to have mild dyspnea with exertion. He denies chest pain or palpitations abdominal pain, nausea or vomiting, diarrhea dysuria. June 13: the patient does seem more awake and alert today He reports that he did get up with physical therapy and seemed to move his left leg a little bit better today.he continues to have weakness of the left arm. He otherwise denies fever or chills, chest pain or significant cough or shortness of breath. He denies abdominal pain, nausea or vomiting. unfortunately, renal function does look worse today. Phosphorus level is climbing LFTs look a bit better. CPK continues to decline. he argued a bit with respiratory therapy today, not wanting to work on his incentive spirometry He does seem to have episodes of irritability. June 14: we did finally convinced the patient to undergo an MRI of his brain today, but he was given Ativan and morphine ahead of time, for complaints of anxiety and back pain from laying on the table. This evening he is calm, but he is a little bit drifting when I interview him. He has no particular complaints. He thinks the left arm weakness is about the same today. He did get up and do some transfers to and from the chair today, according to his nurse. otherwise, he denies fever or chills, headaches or dizziness, sore throat or cough, chest pain or palpitations, shortness of breath, abdominal pain, nausea or vomiting. He continues with a Mckeon catheter to help monitor accurate urine output. He is making more urine today, so Dr. Cordero held off on dialysis, to see if he will keep improving spontaneously. June 15: the patient reports he is feeling better today. He seems in good spirits when I enter the room, but is arguing with the nurse about whether or not he can eat finley. Unfortunately, his renal function looks worse today, with climbing B UN, creatinine, phosphate. He was ableto walk some with physical therapy today, and feels that his left leg is stronger. He denies significant coughing or shortness of breath today, and also denies fever or chills, chest pain or palpitations, abdominal pain, nausea or vomiting. he continues with a Mckeon catheter to help measure accurate I's and O's. [facility]:Include atrial fibrillation, chronic anticoagulation treatment, prostate cancer and BPH, cervical arthritis GERD and colon polyps, heart murmur, obesity hyperlipidemia, hypertension, past tobacco use. - Constitutional Vitals: Vital Signs Temp Pulse Resp BP Pulse Ox 97.3 F L 62 16 149/108 94 06/15/16 10:30 06/15/16 12:01 06/15/16 11:52 06/15/16 12:01 06/15/16 08:00 Period Temp Pulse Resp BP Sys/Hinds Pulse Ox Last 24 Hr 97.2 F-98.2 F 62-106 12-16 116-152/78-108 94-97 Intake and Output 06/14/16 06/15/16 06/15/16 21:59 05:59 13:59 Intake Total 440 / 440 0 / 0 Output Total 575 / 575 825 / 825 339 / 339 Balance -135 / -135 -825 / -825 -339 / -339 Weight 223 lb Intake & Output: Intake & Output 06/14/16 06/15/16 06/15/16 21:59 05:59 13:59 Intake Total 440 / 440 0 / 0 Output Total 575 / 575 825 / 825 339 / 339 Balance -135 / -135 -825 / -825 -339 / -339 Weight 223 lb Intake: Oral 440 / 440 0 / 0 Output: Urine Catheter Amount 575 / 575 825 / 825 Hemodialysis UF 339 / 339 Other: # Bowel Movements 1 Exam: he patient is sitting up in a chair and is awake and alert, and seems in good spirits. Neck is supple without obvious JVD. Cardiac exam shows an irregularly irregular rhythm. Lungs are clear to auscultation, with just a few scattered crackles noted.. Abdomen is protuberant, but otherwise soft and nontender. Extremities: Show increased edema, worse on the left side. Neurologic exam: The patient is alert and oriented and calm for the most part. He continues to exhibit weakness of the left arm and left cna gna but reports that he did better controlling his left leg during physical therapy today. Medical - PN: Obj Da - Labs CBC & Chem 7: 06/15/16 04:45 06/15/16 04:45 Labs: Abnormal Lab Results 06/15/16 06/15/16 06/15/16 06:49 04:45 04:45 RBC 3.06 L Hgb 8.9 L Hct 26.5 L RDW 15.5 H MPV 7.0 L Gran % 83.7 H Lymph % (Auto) 8.1 L Gran # 8.4 H Lymph # 0.8 L PT 23.6 H INR 2.0 H Sodium 130 L Chloride 85 L Anion Gap 23.0 H BUN 107 H* Creatinine 9.3 H* Uric Acid 10.3 H Calcium 7.3 L Phosphorus 10.1 H* Direct Bilirubin AST 48 H ALT 60 H Lactate Dehydrogenase 459 H Total Creatine Kinase Total Protein 5.7 L Albumin 2.6 L Albumin/Globulin Ratio 0.8 L Triglycerides 154 H 06/14/16 06/14/16 06/14/16 07:05 04:40 04:40 RBC 3.11 L Hgb 9.0 L Hct 27.1 L RDW 15.4 H MPV 7.1 L Gran % 82.6 H Lymph % (Auto) 7.9 L Gran # Lymph # 0.7 L PT 22.8 H INR 1.9 H Sodium 130 L Chloride 86 L Anion Gap 22.0 H BUN 87 H Creatinine 8.1 H* Uric Acid 8.6 H Calcium 7.4 L Phosphorus 8.5 H* Direct Bilirubin AST 67 H ALT 72 H Lactate Dehydrogenase 447 H Total Creatine Kinase Total Protein 5.6 L Albumin 2.4 L Albumin/Globulin Ratio 0.8 L Triglycerides 159 H 06/13/16 06/13/16 06/13/16 05:05 05:05 05:05 RBC 3.19 L Hgb 9.2 L Hct 27.8 L RDW 15.4 H MPV 7.1 L Gran % 81.6 H Lymph % (Auto) 8.1 L Gran # Lymph # 0.7 L PT 22.8 H INR 1.9 H Sodium 131 L Chloride 88 L Anion Gap 19.0 H BUN 62 H Creatinine 6.8 H* Uric Acid Calcium 7.2 L Phosphorus 6.7 H* Direct Bilirubin 0.4 H AST 94 H ALT 85 H Lactate Dehydrogenase 457 H Total Creatine Kinase 764 H Total Protein 5.0 L Albumin 2.4 L Albumin/Globulin Ratio 0.9 L Triglycerides 157 H June 15: Chest x-ray shows markedly improvement in the left lung infiltrate with moderate size consolidative atelectasis of the left lower lobe, and minimal residual infiltrate in the left upper lobe. June 14: MRI of the brain shows mild atrophia he and patchy chronic ischemic changes in the deep white matter, but no acute infarct. June 12: MRI of the abdomen: Shows some stranding of the renal fat along the lateral border which may be scar tissue. No masses are seen in the kidney. There are 3 simple cysts noted in the right kidney. Liver and gallbladder appeared normal. ultrasound of the left lower extremity showed no evidence of DVT. june 11: Wound culture from his scalp wound is growing a pansensitive staph aureus. c. difficile screen was negative. Blood cultures are negative so far. Urine cultures were negative. MRSA screen is negative. June 08: chest x-ray: Shows worsening consolidation in the lingula and left lower lobe which may be a combination of atelectasis and pneumonia. Meds: Medications Acetaminophen (Tylenol) 650 mg PO Q4-6HP PRN PRN Reason: PAIN/FEVER > 101 Albuterol/Ipratropium (Duoneb) 3 ml NEB [id number] [facility] Last Admin: 06/15/16 11:51 Dose: 3 ml Bacitracin (Bacitracin Topical Oint) 1 dose TOPICAL BID [facility] Last Admin: 06/15/16 08:54 Dose: 1 dose Calcium Acetate (Phoslo) 1,334 mg PO TIDCC [facility] Docusate Sodium (Colace) 100 mg PO BID [facility] Last Admin: 06/15/16 08:42 Dose: Not Given Furosemide (Lasix) 80 mg IV BIDD [facility] Last Admin: 06/15/16 08:40 Dose: 80 mg Norepinephrine Bitartrate 16 (mg/ Sodium Chloride) 250 mls @ 9.37 mls/hr IV Q24HP PRN; Protocol; 10 MCG/MIN PRN Reason: Hypotension Vasopressin 20 unit/ Dextrose 100 mls @ 12 mls/hr IV Q8HP PRN; Protocol; 0.04 UNIT/MIN PRN Reason: Hypotension Ceftriaxone Sodium 1 gm/ (Dextrose) 50 mls @ 100 mls/hr IV DAILY [facility] Last Admin: 06/15/16 08:39 Dose: 100 mls/hr Metoprolol Tartrate (Lopressor) 100 mg PO BID [facility] Last Admin: 06/15/16 08:41 Dose: 100 mg Ondansetron HCl (Zofran) 4 mg IV Q4-6HP PRN PRN Reason: Nausea And Vomiting Pantoprazole Sodium (Protonix) 40 mg PO QAMAC [facility] Last Admin: 06/15/16 08:39 Dose: 40 mg Senna/Docusate Sodium (Senna Plus Tablet) 1 tab PO HS [facility] Last Admin: 06/14/16 20:59 Dose: Not Given Sodium Chloride (Saline Flush) 10 ml IV Q8 [facility] Last Admin: 06/15/16 08:41 Dose: 10 ml Warfarin Sodium (Coumadin) 2 mg PO DAILY@1400 [facility] Last Admin: 06/14/16 16:20 Dose: 2 mg Zolpidem Tartrate (Ambien) 5 mg PO HSP PRN PRN Reason: Insomnia Medical - PN: A/P - Time Spent With Patient Total time spent is greater than 50% in coordination of care (as documented) at patient's floor/unit and/or counseling patient: - Narrative A/P Narrative: #1. Neurologic. -The patient had a brief period of loss of consciousness Tuesday night, suspicious for seizure activity. This has not recurred. Levaquin was discontinued in case this was the cause.. he continues to have ongoing left- sided weakness, so he did undergo an MRI of his brain . This did not show evidence of any recent strokes. -continue physical therapy. Our working diagnosis for the left arm is still possible brachial plexus injury, which according to orthopedics, would require several months to resolve. #2. Left lower extremity swelling. Doppler was negative for DVT. The patient is therapeutic on his Coumadin at this time. d-dimer was elevated, but that may be more of an acute phase reactant. He has not been hypoxic. #3. infectious disease. Pneumonia , with an MSSA bacteremia. This was pansensitive, so antibiotics were changed over to Rocephin. Continue a full 10-14 days of antibiotics. -Sepsis appears resolved. #4. Renal.acute renal failure. -continue management per Dr. Cordero. -Rhabdomyolysis is resolving, and CPK is approaching normal. -phosphate binders were added by Dr. Cordero. patient will have dialysis again today. Urine output continues to improve. #5. Cardiac. History of chronic atrial fibrillation with controlled rate. He is maintained on Coumadin therapy, and Coumadin is therapeutic today. -Troponin was normal . #6. GI. -The patient has fluctuating LFTs, of uncertain cause.LFTs are gradually trending down. . MRI of the abdomen did not really show any worrisome changes. And there is no evidence of renal mass. approximately 25 minutes was spent today, reviewing the patient's chart and test results, interviewing and examining him, reviewing his case with nursing staff, and writing orders. Medical - PN: Qual - Stroke Symptom Onset Unknown: Yes - VTE Deep Vein Thrombosis/Pulmonary Embolism Present on Admission: No
[2016-06-15] MEDS: WARFARIN 2 MG TABLET PO SCH (15:26)
[2016-06-15] MEDS: SENNOSIDES/DOCUSATE SODIUM 1 TAB TABLET PO SCH (21:48)
[2016-06-16] MEDS: 0.9 % SODIUM CHLORIDE 10 ML SYRINGE IV SCH ×3 (05:27→21:50)
[2016-06-16 05:51] LABS: Basophils # (Auto) 0 K/mcL (0.0-0.3); Basophils % (Auto) 0.2 % (0.0-2.0); Eosinophils # (Auto) 0.2 K/mcL (0.0-0.7); Eosinophils % (Auto) 1.6 % (0.0-7.0); Granulocytes % (Auto) 80.9 % (38.0-78.0); Lymphocytes % (Auto) 9.8 % (15.5-49.0); Mean Cell Volume 88.1 fL (80.0-100.0); Mean Corpuscular HGB Conc 33.2 g/dL (31.0-36.0); Mean Corpuscular Hemoglobin 29.3 pg (26.0-34.0); Monocytes # (Auto) 0.7 K/mcL (0.1-0.9); Monocytes % (Auto) 7.5 % (1.0-12.0); Platelet Count 304 K/mcL (140-440); Red Cell Distribution Width 15.8 % (11.5-14.5)
[2016-06-16 06:28] LABS: Ferritin 600.8 ng/ml (30-400)
[2016-06-16 06:32] LABS: ALT/SGPT 52 U/l (0-40); Albumin 2.7 gm/dL (3.2-5.2); Albumin/Globulin Ratio 0.8 (1.0-2.3); Alkaline Phosphatase 64 U/L (39-117); Bilirubin,Direct 0.3 mg/dL (0.0-0.3); Blood Urea Nitrogen 60 mg/dl (8-23); Gamma Glutamyl Transpeptidase 36 U/L (8-61); Iron 62 mcg/dl (61-157); Magnesium 1.8 mg/dL (1.6-2.5); Transferrin % Saturation 27 % (20-50); Unsaturated Iron Binding 167 mcg/dL (112-346); Uric Acid 6.3 mg/dL (2.5-8.0)
[2016-06-16 06:35] LABS: Vitamin B12 267.8 pg/ml (243-894)
[2016-06-16] MEDS: IPRATROPIUM/ALBUTEROL 3 ML AMPUL.NEB NEB SCH ×4 (06:53→18:58)
[2016-06-16] MEDS: DOCUSATE SODIUM 100 MG CAPSULE PO SCH ×2 (08:56→21:06)
[2016-06-16] MEDS: CALCIUM ACETATE 667 MG CAPSULE PO SCH ×3 (08:56→17:06)
[2016-06-16] MEDS: METOPROLOL TARTRATE 50 MG TABLET PO SCH ×2 (08:56→21:05)
[2016-06-16] MEDS: FUROSEMIDE 100 MG/10 ML VIAL IV SCH ×2 (08:57→17:07)
[2016-06-16] MEDS: PANTOPRAZOLE 40 MG PACKET PO SCH (08:57)
[2016-06-16] MEDS: BACITRACIN TOPICAL OINT 15 GM TUBE TOPICAL SCH ×2 (09:38→21:06)
[2016-06-16] MEDS: cefTRIAXone 1 GM in DEXTROSE 5% IN WATER 50 ML IV SCH (09:38)
--- NOTE | 2016-06-16 10:35 | Internal Med Progress Note ---
Medical - PN: Subj Patient information: Note initiated : 06/16/16 at 10:35 am Service Date, if different from initiated Date: [] Patient: Angel Garrett 80 y/o M admitted on 06/04/16 for Sepsis, EDWIN. Chief Complaint: [] Interval history: June 11, 2016: on service note: This patient was transferred here on June 04, 2016, after being found down at home. He presented to the hospital with atrial fibrillation with RVR, hypotension, left upper lobe pneumonia, severe rhabdomyolysis and acute renal failure, as well as altered mental status. Over the last 6 days, the patient has responded to IV fluids hemodialysis, IV antibiotics. Mental status has improved. He has continued to have weakness of the left arm, which is thought to be a possible brachial plexus injury. He is working with physical therapy, and this seems to be slowly improving. He has continued to require oxygen to maintain oxygen saturations. June 11, 2016: Urgent care:I was called to the bedside today, to see this patient, for a rapid response call. The patient was in the middle of being transferred from the intensive care unit out to [facility]. The aide noted that when she got into his room, his head rolled back in his eyes seem to roll back, he lost consciousness, and she felt that his hands were shaking consistent with possible seizure activity. The symptoms resolved quickly, and he aroused without us doing much. He does report that he seemed like he was seeing different colors in his vision just prior to the event. He denies any fever or chills, headaches or dizziness. He does not report blurry vision, sore throat, chest pain or palpitations, changes in his breathing or significant abdominal pain. He did report that his right upper quadrant area is a bit sore at times, since his fall. of note, the patient has chronic atrial fibrillation, for which she is maintained on Coumadin. When he was admitted about one week ago, his INR was quite elevated, and he was found down at home. He did have a hematoma on his forehead, from his fall. Head CT at that time did not show signs of bleeding. initial workup at an outside hospital did show pneumonia, and blood cultures grew MSSA, which was pansensitive. He was originally treated with Levaquin and Zosyn, but the Zosyn was discontinued after the cultures were back. also of note, the patient recently returned back from a road trip to [place]. He believes he had a fall sometime during his trip, landing on his knee, and says the left leg has been swollen since then. However he is quite fuzzy on the details, and it is not clear if he fell while he was on history, or if he is just recalling the fall he had at home, that landed him up here, about one week ago. His Coumadin was initially held, and his INR did drop down to a level of 1.1, prior to his tunneled catheter placement. Today is therapeutic at 2.2. June 12, 2016: today,patient says he is feeling reasonably well. He is having some mild dyspnea upon return from MRI. Physical therapy says the patient said he was just too tired to work on physical therapy today. He does continue to have some left upper extremity weakness, although he thinks it's better since admission. He also has a foot drop noted on the left foot since admission. It is thought that these symptoms were due to his fall and prolonged stay on the bathroom floor at home. Otherwise, the patient says she has not had any syncopal or near syncopal episodes today. nursing staff also has not noted recurrent symptoms. The patient denies fever or chills, sore throat. He has occasional cough. He continues to have mild dyspnea with exertion. He denies chest pain or palpitations abdominal pain, nausea or vomiting, diarrhea dysuria. June 13: the patient does seem more awake and alert today He reports that he did get up with physical therapy and seemed to move his left leg a little bit better today.he continues to have weakness of the left arm. He otherwise denies fever or chills, chest pain or significant cough or shortness of breath. He denies abdominal pain, nausea or vomiting. unfortunately, renal function does look worse today. Phosphorus level is climbing LFTs look a bit better. CPK continues to decline. he argued a bit with respiratory therapy today, not wanting to work on his incentive spirometry He does seem to have episodes of irritability. June 14: we did finally convinced the patient to undergo an MRI of his brain today, but he was given Ativan and morphine ahead of time, for complaints of anxiety and back pain from laying on the table. This evening he is calm, but he is a little bit drifting when I interview him. He has no particular complaints. He thinks the left arm weakness is about the same today. He did get up and do some transfers to and from the chair today, according to his nurse. otherwise, he denies fever or chills, headaches or dizziness, sore throat or cough, chest pain or palpitations, shortness of breath, abdominal pain, nausea or vomiting. He continues with a Mckeon catheter to help monitor accurate urine output. He is making more urine today, so Dr. Cordero held off on dialysis, to see if he will keep improving spontaneously. June 15: the patient reports he is feeling better today. He seems in good spirits when I enter the room, but is arguing with the nurse about whether or not he can eat finley. Unfortunately, his renal function looks worse today, with climbing B UN, creatinine, phosphate. He was ableto walk some with physical therapy today, and feels that his left leg is stronger. He denies significant coughing or shortness of breath today, and also denies fever or chills, chest pain or palpitations, abdominal pain, nausea or vomiting. he continues with a Mckeon catheter to help measure accurate I's and O's. June 16: -the patient's urine output continues to improve, the BUN/creatinine continued to run very high. He did undergo dialysis yesterday. Dr. Cordero is following and will help us to decide whether or not the patient should have a permanent tunneled catheter placed, or whether he should continue with temporary dialysis , in the hopes that his renal function will recover. This decision needs to be made prior to discharge to [facility] for rehabilitation -The patient continues to have physical therapy for his left-sided weakness, which we suspect are nerve related injuries related to him being down on the floor for 1-2 days prior to arrival. Follow-up MRI of his brain did not show any evidence for recent stroke. -Today, the patient says he is feeling pretty good. He was able to ambulate around the room a few steps, and feels like he has decent strength in his left leg, although has persistent foot drop. The left arm and hand remain weak, but he is continuing to work on that with physical therapy as well. otherwise, he denies fever or chills, chest pain or palpitations, shortness of breath or cough, abdominal pain, nausea or vomiting or diarrhea. He continues with a Mckeon catheter for accurate urine output measurement. [facility]:Include atrial fibrillation, chronic anticoagulation treatment, prostate cancer and BPH, cervical arthritis GERD and colon polyps, heart murmur, obesity hyperlipidemia, hypertension, past tobacco use. - Constitutional Vitals: Vital Signs Temp Pulse Resp BP Pulse Ox 97.6 F 85 18 162/99 96 06/16/16 07:42 06/16/16 08:00 06/16/16 08:00 06/16/16 07:42 06/16/16 08:00 Period Temp Pulse Resp BP Sys/Hinds Pulse Ox Last 24 Hr 97.1 F-98.5 F 62-110 12-20 125-183/75-108 93-96 Intake and Output 06/15/16 06/16/16 06/16/16 21:59 05:59 13:59 Intake Total 620 / 620 50 / 50 410 / 410 Output Total 1300 / 1300 1000 / 1000 Balance -680 / -680 -950 / -950 410 / 410 Weight 217 lb Intake & Output: Intake & Output 06/15/16 06/16/16 06/16/16 21:59 05:59 13:59 Intake Total 620 / 620 50 / 50 410 / 410 Output Total 1300 / 1300 1000 / 1000 Balance -680 / -680 -950 / -950 410 / 410 Weight 217 lb Intake: IV 50 / 50 Rocephin 1 gm In Dextrose 50 / 50 5% in Water 50 ml @ 100 mls/hr IV DAILY [facility] Rx#: [id number] Oral 620 / 620 50 / 50 360 / 360 Output: Urine Catheter Amount 900 / 900 1000 / 1000 Hemodialysis UF 400 / 400 Other: Meal Pudding Breakfast Percent of Meal Consumed 100% 75% Feeding Ability Independent Independent # Bowel Movements 1 1 Exam: he patient is sitting up in a chair and is awake and alert, and seems in good spirits. Neck is supple without obvious JVD. Cardiac exam shows an irregularly irregular rhythm. Lungs are clear to auscultation, with just a few scattered crackles noted.. Abdomen is protuberant, but otherwise soft and nontender. Extremities: Show Somewhat decreased edema, which is worse on the left side. Neurologic exam: The patient is alert and oriented and calm for the most part. 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 Medical - PN: Obj Da - Labs CBC & Chem 7: 06/16/16 04:25 06/16/16 04:25 Labs: Abnormal Lab Results 06/16/16 06/16/16 06/15/16 04:25 04:25 06:49 RBC 3.30 L Hgb 9.7 L Hct 29.1 L RDW 15.8 H MPV 6.7 L Gran % 80.9 H Lymph % (Auto) 9.8 L Gran # Lymph # 1.0 L PT 23.6 H INR 2.0 H Sodium Chloride 91 L Anion Gap BUN 60 H Creatinine 6.6 H* Uric Acid Calcium 7.7 L Phosphorus 6.4 H* Ferritin 600.8 H AST 41 H ALT 52 H Lactate Dehydrogenase 400 H Total Protein Albumin 2.7 L Albumin/Globulin Ratio 0.8 L Triglycerides 06/15/16 06/15/16 06/14/16 04:45 04:45 07:05 RBC 3.06 L Hgb 8.9 L Hct 26.5 L RDW 15.5 H MPV 7.0 L Gran % 83.7 H Lymph % (Auto) 8.1 L Gran # 8.4 H Lymph # 0.8 L PT 22.8 H INR 1.9 H Sodium 130 L Chloride 85 L Anion Gap 23.0 H BUN 107 H* Creatinine 9.3 H* Uric Acid 10.3 H Calcium 7.3 L Phosphorus 10.1 H* Ferritin AST 48 H ALT 60 H Lactate Dehydrogenase 459 H Total Protein 5.7 L Albumin 2.6 L Albumin/Globulin Ratio 0.8 L Triglycerides 154 H 06/14/16 06/14/16 04:40 04:40 RBC 3.11 L Hgb 9.0 L Hct 27.1 L RDW 15.4 H MPV 7.1 L Gran % 82.6 H Lymph % (Auto) 7.9 L Gran # Lymph # 0.7 L PT INR Sodium 130 L Chloride 86 L Anion Gap 22.0 H BUN 87 H Creatinine 8.1 H* Uric Acid 8.6 H Calcium 7.4 L Phosphorus 8.5 H* Ferritin AST 67 H ALT 72 H Lactate Dehydrogenase 447 H Total Protein 5.6 L Albumin 2.4 L Albumin/Globulin Ratio 0.8 L Triglycerides 159 H June 15: Chest x-ray shows markedly improvement in the left lung infiltrate with moderate size consolidative atelectasis of the left lower lobe, and minimal residual infiltrate in the left upper lobe. June 14: MRI of the brain shows mild atrophy and patchy chronic ischemic changes in the deep white matter, but no acute infarct. June 12: MRI of the abdomen: Shows some stranding of the renal fat along the lateral border which may be scar tissue. No masses are seen in the kidney. There are 3 simple cysts noted in the right kidney. Liver and gallbladder appeared normal. ultrasound of the left lower extremity showed no evidence of DVT. june 11: Wound culture from his scalp wound is growing a pansensitive staph aureus. c. difficile screen was negative. Blood cultures are negative so far. Urine cultures were negative. MRSA screen is negative. June 08: chest x-ray: Shows worsening consolidation in the lingula and left lower lobe which may be a combination of atelectasis and pneumonia. Meds: Medications Acetaminophen (Tylenol) 650 mg PO Q4-6HP PRN PRN Reason: PAIN/FEVER > 101 Albuterol/Ipratropium (Duoneb) 3 ml NEB [id number] [facility] Last Admin: 06/16/16 06:53 Dose: 3 ml Bacitracin (Bacitracin Topical Oint) 1 dose TOPICAL BID [facility] Last Admin: 06/16/16 09:38 Dose: 1 dose Calcium Acetate (Phoslo) 1,334 mg PO TIDCC [facility] Last Admin: 06/16/16 08:56 Dose: 1,334 mg Docusate Sodium (Colace) 100 mg PO BID [facility] Last Admin: 06/16/16 08:56 Dose: Not Given Furosemide (Lasix) 80 mg IV BIDD [facility] Last Admin: 06/16/16 08:57 Dose: 80 mg Norepinephrine Bitartrate 16 (mg/ Sodium Chloride) 250 mls @ 9.37 mls/hr IV Q24HP PRN; Protocol; 10 MCG/MIN PRN Reason: Hypotension Vasopressin 20 unit/ Dextrose 100 mls @ 12 mls/hr IV Q8HP PRN; Protocol; 0.04 UNIT/MIN PRN Reason: Hypotension Ceftriaxone Sodium 1 gm/ (Dextrose) 50 mls @ 100 mls/hr IV DAILY [facility] Last Admin: 06/16/16 09:38 Dose: 100 mls/hr Metoprolol Tartrate (Lopressor) 100 mg PO BID [facility] Last Admin: 06/16/16 08:56 Dose: 100 mg Ondansetron HCl (Zofran) 4 mg IV Q4-6HP PRN PRN Reason: Nausea And Vomiting Pantoprazole Sodium (Protonix) 40 mg PO QAMAC [facility] Last Admin: 06/16/16 08:57 Dose: 40 mg Senna/Docusate Sodium (Senna Plus Tablet) 1 tab PO HS [facility] Last Admin: 06/15/16 21:48 Dose: 1 tab Sodium Chloride (Saline Flush) 10 ml IV Q8 [facility] Last Admin: 06/16/16 05:27 Dose: 10 ml Warfarin Sodium (Coumadin) 2 mg PO DAILY@1400 [facility] Last Admin: 06/15/16 15:26 Dose: 2 mg Zolpidem Tartrate (Ambien) 5 mg PO HSP PRN PRN Reason: Insomnia Medical - PN: A/P - Time Spent With Patient Total time spent is greater than 50% in coordination of care (as documented) at patient's floor/unit and/or counseling patient: - Narrative A/P Narrative: #1. Neurologic. -The patient had a brief period of loss of consciousness Tuesday night, suspicious for seizure activity. This has not recurred. Levaquin was discontinued in case this was the cause.. he continues to have ongoing left- sided weakness, so he did undergo an MRI of his brain . This did not show evidence of any recent strokes. -continue physical therapy. Our working diagnosis for the left arm is still possible brachial plexus injury, which according to orthopedics, would require several months to resolve. #2. Left lower extremity swelling. Doppler was negative for DVT. The patient is therapeutic on his Coumadin at this time. d-dimer was elevated, but that may be more of an acute phase reactant. He has not been hypoxic. #3. infectious disease. Pneumonia , with an MSSA bacteremia. This was pansensitive, so antibiotics were changed over to Rocephin. -today' is day 12 of antibiotics, so I think we can safely discontinue these. -Sepsis appears resolved. #4. Renal.acute renal failure. -continue management per Dr. Cordero. -Rhabdomyolysis is resolving, and CPK is approaching normal. -phosphate binders were added by Dr. Cordero. he patient did have dialysis again yesterday. Renal function labs are still quite abnormal.. Urine output continues to improve. we await Dr. Cordero's decision about whether or not the patient needs a permanent dialysis catheter. #4.5. . The patient continues with a Mckeon catheter going on 12 days. We should probably discontinue this and hope that he can use a urinal for continued accurate urine output measurements. #5. Cardiac. History of chronic atrial fibrillation with controlled rate. He is maintained on Coumadin therapy, and Coumadin is therapeutic today. -Troponin was normal . #6. GI. -The patient has fluctuating LFTs, of uncertain cause.LFTs are gradually trending down. . MRI of the abdomen did not really show any worrisome changes. And there is no evidence of renal mass. #7. Disposition: The plan is to transfer him to [facility] for ongoing rehabilitation, once his renal status is clarified regarding the need for long- term dialysis. approximately 25 minutes was spent today, reviewing the patient's chart and test results, interviewing and examining him, reviewing his case with nursing staff, and writing orders. Medical - PN: Qual - Stroke Symptom Onset Unknown: Yes - VTE Deep Vein Thrombosis/Pulmonary Embolism Present on Admission: No
[2016-06-16] MEDS: WARFARIN 2 MG TABLET PO SCH (14:26)
[2016-06-16] MEDS: SENNOSIDES/DOCUSATE SODIUM 1 TAB TABLET PO SCH (21:06)
[2016-06-17] MEDS: IPRATROPIUM/ALBUTEROL 3 ML AMPUL.NEB NEB SCH ×5 (03:34→20:01)
[2016-06-17] MEDS: 0.9 % SODIUM CHLORIDE 10 ML SYRINGE IV SCH ×3 (05:07→20:15)
[2016-06-17 06:15] LABS: Basophils # (Auto) 0 K/mcL (0.0-0.3); Basophils % (Auto) 0.3 % (0.0-2.0); Eosinophils # (Auto) 0.2 K/mcL (0.0-0.7); Eosinophils % (Auto) 1.8 % (0.0-7.0); Lymphocytes # (Auto) 0.9 K/mcL (1.5-4.8); Lymphocytes % (Auto) 9.4 % (15.5-49.0); Mean Cell Volume 87.8 fL (80.0-100.0); Mean Corpuscular HGB Conc 33.3 g/dL (31.0-36.0); Mean Corpuscular Hemoglobin 29.2 pg (26.0-34.0); Monocytes # (Auto) 0.7 K/mcL (0.1-0.9); Monocytes % (Auto) 7.5 % (1.0-12.0); Platelet Count 279 K/mcL (140-440); RBC 3.18 M/mcL (4.50-5.90); Red Cell Distribution Width 15.6 % (11.5-14.5)
[2016-06-17 06:35] LABS: ALT/SGPT 41 U/l (0-40); Albumin 2.7 gm/dL (3.2-5.2); Albumin/Globulin Ratio 0.9 (1.0-2.3); Alkaline Phosphatase 62 U/L (39-117); Bilirubin,Direct 0.3 mg/dL (0.0-0.3); Blood Urea Nitrogen 75 mg/dl (8-23); Gamma Glutamyl Transpeptidase 32 U/L (8-61); Magnesium 1.7 mg/dL (1.6-2.5); Uric Acid 8.1 mg/dL (2.5-8.0)
[2016-06-17] MEDS: CALCIUM ACETATE 667 MG CAPSULE PO SCH ×3 (08:21→16:49)
[2016-06-17] MEDS: PANTOPRAZOLE 40 MG PACKET PO SCH (08:22)
[2016-06-17] MEDS: FUROSEMIDE 100 MG/10 ML VIAL IV SCH ×2 (08:24→16:47)
--- NOTE | 2016-06-17 09:34 | Consultation ---
DATE OF CONSULTATION: 06/05/2016 CHIEF COMPLAINT: Mr. Garrett is seen in consultation at the request of Dr. Cordero for consideration of placement of hemodialysis catheter. HISTORY OF PRESENT ILLNESS: Mr. Garrett is an 80-year-old man who was admitted to [facility] last night with diagnosis of rhabdomyolysis, left upper lobe pneumonia and acute renal failure. The patient's history leading up to these problems involves the fact that he was found down in his home, presumably after a fall. He was 4 days down on the ground in his bathroom, until he was discovered by a family member. The patient was transferred from [facility] to [facility] for further evaluation and treatment. On admission, diagnoses as listed above were made. He was transferred to the ICU where he has remained overnight. On admission, labs showed a creatinine level of 6.1, BUN of 61, and creatinine kinase of 32,450. The patient was monitored overnight and treatment started, however, he has not improved with his creatinine increasing to 6.8 today and creatinine kinase remaining elevated at 31,158. The patient has not been making urine. He is in need of hemodialysis for treatment of his rhabdomyolysis in the setting of acute renal failure. Surgery consultation was requested for placement of hemodialysis catheter. It should be noted that the patient on admission had an elevated INR greater than 10. This morning, his INR is 7 after receiving vitamin K yesterday. REVIEW OF SYSTEMS: Currently. the patient denies any chest pain or pressure. He does report some shortness of breath. HOME MEDICATIONS: Coumadin 5 mg daily and atorvastatin. ALLERGIES: NO KNOWN DRUG ALLERGIES. PAST MEDICAL HISTORY: Hyperlipidemia. Atrial fibrillation. PHYSICAL EXAMINATION: VITAL SIGNS: Temperature is 99.3, pulse 110, respirations 36 to 27, blood pressure 110/79. He is saturating at 97 percent on 3 liters nasal cannula oxygen. GENERAL APPEARANCE: Mr. Garrett is an elderly man who appears his stated age. He appears moderately distressed and has a generalized tremor. NECK: No scars noted on either side of the neck. CHEST: Breath sounds are clear on the right, rales noted on the left. CARDIOVASCULAR: Irregularly irregular rhythm and tachycardic. LABS AND STUDIES: CBC shows white count of 6.4, hemoglobin of 9.9, hematocrit 29.5 and platelets of 121. Serum chemistries show sodium of 143, potassium 4.0, chloride 104, carbon dioxide 18, anion gap of 21, BUN 64, creatinine 6.8, glucose of 85, phosphorus 6.6, magnesium 1.9, total bilirubin 0.8, direct bilirubin 0.5, GGT 13, AST is elevated at 675, ALT at 128, alkaline phosphatase is 45. LDH 976. Total creatinine kinase 31,158. CK-MB 29.2. Troponin T 0.05. Total protein 5.6, albumin 2.4, globulin 3.2. Urinalysis shows 100 for urine protein, 50 for urine glucose, 125 RBCs, many bacteria also present. Negative for nitrites and leukocyte esterase. Coagulation studies from this morning show a PT of 63.6 with an INR of 7.0 and a APTT of 100. Venous lactic acid from admission last night is 1.5. Chest x-ray on admission shows a left upper lobe pneumonia. IMPRESSION: Acute renal failure in the setting of rhabdomyolysis with need for urgent hemodialysis. I discussed the procedure of catheter placement with the patient. Risks of the procedure were reviewed which include, but are not limited to bleeding, which can be life threatening, especially given his coagulopathy, injury to the lung, including pneumothorax, arrhythmia, infection, and risks of catheter malfunction. The patient verbalized understanding of the risks of the procedure and would like to proceed. I discussed the case with Dr. Peterson, who is the hospitalist who has admitted the patient, and Dr. Cordero from nephrology. His elevated INR makes his risk of bleeding significant. I suspect, given elevated liver enzymes, his liver function is not adequate such that even with supplemental vitamin K, it may take quite some time for correction of his INR. I have recommended that we start thawing at least a couple of units of fresh frozen plasma to hang, that once the catheter is in, this can offer some correction of his INR and dialysis can help with managing and removing the excess fluid that will come from these infusions. RC:cali Job ID: [id number] Doc ID: [id number] Andreia Soto MD
[2016-06-17] MEDS: METOPROLOL TARTRATE 50 MG TABLET PO SCH ×2 (09:36→20:15)
[2016-06-17] MEDS: DOCUSATE SODIUM 100 MG CAPSULE PO SCH ×2 (09:37→20:15)
[2016-06-17] MEDS: BACITRACIN TOPICAL OINT 15 GM TUBE TOPICAL SCH ×2 (11:04→20:15)
[2016-06-17] MEDS ORDERED: WARFARIN 2 MG TABLET PO ONE (14:00)
--- NOTE | 2016-06-17 14:05 | Internal Med Progress Note ---
Medical - PN: Subj Patient information: Note initiated : 06/17/16 at 2:05 pm Service Date, if different from initiated Date: [] Patient: Angel Garrett 80 y/o M admitted on 06/04/16 for Sepsis, EDWIN. Chief Complaint: [] Interval history: June 11, 2016: on service note: This patient was transferred here on June 04, 2016, after being found down at home. He presented to the hospital with atrial fibrillation with RVR, hypotension, left upper lobe pneumonia, severe rhabdomyolysis and acute renal failure, as well as altered mental status. Over the last 6 days, the patient has responded to IV fluids hemodialysis, IV antibiotics. Mental status has improved. He has continued to have weakness of the left arm, which is thought to be a possible brachial plexus injury. He is working with physical therapy, and this seems to be slowly improving. He has continued to require oxygen to maintain oxygen saturations. June 11, 2016: Urgent care:I was called to the bedside today, to see this patient, for a rapid response call. The patient was in the middle of being transferred from the intensive care unit out to [facility]. The aide noted that when she got into his room, his head rolled back in his eyes seem to roll back, he lost consciousness, and she felt that his hands were shaking consistent with possible seizure activity. The symptoms resolved quickly, and he aroused without us doing much. He does report that he seemed like he was seeing different colors in his vision just prior to the event. He denies any fever or chills, headaches or dizziness. He does not report blurry vision, sore throat, chest pain or palpitations, changes in his breathing or significant abdominal pain. He did report that his right upper quadrant area is a bit sore at times, since his fall. of note, the patient has chronic atrial fibrillation, for which she is maintained on Coumadin. When he was admitted about one week ago, his INR was quite elevated, and he was found down at home. He did have a hematoma on his forehead, from his fall. Head CT at that time did not show signs of bleeding. initial workup at an outside hospital did show pneumonia, and blood cultures grew MSSA, which was pansensitive. He was originally treated with Levaquin and Zosyn, but the Zosyn was discontinued after the cultures were back. also of note, the patient recently returned back from a road trip to [place]. He believes he had a fall sometime during his trip, landing on his knee, and says the left leg has been swollen since then. However he is quite fuzzy on the details, and it is not clear if he fell while he was on history, or if he is just recalling the fall he had at home, that landed him up here, about one week ago. His Coumadin was initially held, and his INR did drop down to a level of 1.1, prior to his tunneled catheter placement. Today is therapeutic at 2.2. June 12, 2016: today,patient says he is feeling reasonably well. He is having some mild dyspnea upon return from MRI. Physical therapy says the patient said he was just too tired to work on physical therapy today. He does continue to have some left upper extremity weakness, although he thinks it's better since admission. He also has a foot drop noted on the left foot since admission. It is thought that these symptoms were due to his fall and prolonged stay on the bathroom floor at home. Otherwise, the patient says she has not had any syncopal or near syncopal episodes today. nursing staff also has not noted recurrent symptoms. The patient denies fever or chills, sore throat. He has occasional cough. He continues to have mild dyspnea with exertion. He denies chest pain or palpitations abdominal pain, nausea or vomiting, diarrhea dysuria. June 13: the patient does seem more awake and alert today He reports that he did get up with physical therapy and seemed to move his left leg a little bit better today.he continues to have weakness of the left arm. He otherwise denies fever or chills, chest pain or significant cough or shortness of breath. He denies abdominal pain, nausea or vomiting. unfortunately, renal function does look worse today. Phosphorus level is climbing LFTs look a bit better. CPK continues to decline. he argued a bit with respiratory therapy today, not wanting to work on his incentive spirometry He does seem to have episodes of irritability. June 14: we did finally convinced the patient to undergo an MRI of his brain today, but he was given Ativan and morphine ahead of time, for complaints of anxiety and back pain from laying on the table. This evening he is calm, but he is a little bit drifting when I interview him. He has no particular complaints. He thinks the left arm weakness is about the same today. He did get up and do some transfers to and from the chair today, according to his nurse. otherwise, he denies fever or chills, headaches or dizziness, sore throat or cough, chest pain or palpitations, shortness of breath, abdominal pain, nausea or vomiting. He continues with a Mckeon catheter to help monitor accurate urine output. He is making more urine today, so Dr. Cordero held off on dialysis, to see if he will keep improving spontaneously. June 15: the patient reports he is feeling better today. He seems in good spirits when I enter the room, but is arguing with the nurse about whether or not he can eat finley. Unfortunately, his renal function looks worse today, with climbing B UN, creatinine, phosphate. He was ableto walk some with physical therapy today, and feels that his left leg is stronger. He denies significant coughing or shortness of breath today, and also denies fever or chills, chest pain or palpitations, abdominal pain, nausea or vomiting. he continues with a Mckeon catheter to help measure accurate I's and O's. June 16: -the patient's urine output continues to improve, the BUN/creatinine continued to run very high. He did undergo dialysis yesterday. Dr. Cordero is following and will help us to decide whether or not the patient should have a permanent tunneled catheter placed, or whether he should continue with temporary dialysis , in the hopes that his renal function will recover. This decision needs to be made prior to discharge to [facility] for rehabilitation -The patient continues to have physical therapy for his left-sided weakness, which we suspect are nerve related injuries related to him being down on the floor for 1-2 days prior to arrival. Follow-up MRI of his brain did not show any evidence for recent stroke. -Today, the patient says he is feeling pretty good. He was able to ambulate around the room a few steps, and feels like he has decent strength in his left leg, although has persistent foot drop. The left arm and hand remain weak, but he is continuing to work on that with physical therapy as well. otherwise, he denies fever or chills, chest pain or palpitations, shortness of breath or cough, abdominal pain, nausea or vomiting or diarrhea. He continues with a Mckeon catheter for accurate urine output measurement. 06/17-patient doing well. ongoing hemodialysis. Creatinine 8. Alert oriented. No changes since previous day. past medical history, per records from the [place]:Include atrial fibrillation, chronic anticoagulation treatment, prostate cancer and BPH, cervical arthritis GERD and colon polyps, heart murmur, obesity hyperlipidemia, hypertension, past tobacco use. - Constitutional Vitals: Vital Signs Temp Pulse Resp BP Pulse Ox 97.2 F L 92 H 19 131/88 97 06/17/16 12:00 06/17/16 12:00 06/17/16 12:00 06/17/16 12:00 06/17/16 12:00 Period Temp Pulse Resp BP Sys/Hinds Pulse Ox Last 24 Hr 97.2 F-97.9 F 85-110 12-19 118-150/73-94 90-97 Intake and Output 06/17/16 06/17/16 06/17/16 05:59 13:59 21:59 Intake Total 300 / 300 180 / 180 Output Total 1500 / 1500 Balance -1200 / -1200 180 / 180 Intake & Output: Intake & Output 06/17/16 06/17/16 06/17/16 05:59 13:59 21:59 Intake Total 300 / 300 180 / 180 Output Total 1500 / 1500 Balance -1200 / -1200 180 / 180 Intake: Oral 300 / 300 180 / 180 Output: Urine Catheter Amount 1500 / 1500 Other: Meal Breakfast Percent of Meal Consumed 75% Feeding Ability Independent General appearance: cooperative, no acute distress Exam: alert oriented nonlabored breathing hemodialysis catheter site no redness or bleeding nondistended abdomen Medical - PN: Obj Da - Labs CBC & Chem 7: 06/18/16 04:20 06/18/16 04:20 Labs: Abnormal Lab Results 06/17/16 06/17/16 06/17/16 04:50 04:50 04:05 RBC 3.18 L Hgb 9.3 L Hct 27.9 L RDW 15.6 H MPV 7.1 L Gran % 81.0 H Lymph % (Auto) 9.4 L Gran # Lymph # 0.9 L PT 21.8 H INR 1.8 H Sodium Chloride 91 L Anion Gap 18.0 H BUN 75 H Creatinine 8.2 H* Uric Acid 8.1 H Calcium 7.8 L Phosphorus 7.3 H* Ferritin AST ALT 41 H Lactate Dehydrogenase 367 H Total Protein 5.8 L Albumin 2.7 L Albumin/Globulin Ratio 0.9 L Triglycerides 06/16/16 06/16/16 06/16/16 11:52 04:25 04:25 RBC 3.30 L Hgb 9.7 L Hct 29.1 L RDW 15.8 H MPV 6.7 L Gran % 80.9 H Lymph % (Auto) 9.8 L Gran # Lymph # 1.0 L PT 21.8 H INR 1.8 H Sodium Chloride 91 L Anion Gap BUN 60 H Creatinine 6.6 H* Uric Acid Calcium 7.7 L Phosphorus 6.4 H* Ferritin 600.8 H AST 41 H ALT 52 H Lactate Dehydrogenase 400 H Total Protein Albumin 2.7 L Albumin/Globulin Ratio 0.8 L Triglycerides 06/15/16 06/15/16 06/15/16 06:49 04:45 04:45 RBC 3.06 L Hgb 8.9 L Hct 26.5 L RDW 15.5 H MPV 7.0 L Gran % 83.7 H Lymph % (Auto) 8.1 L Gran # 8.4 H Lymph # 0.8 L PT 23.6 H INR 2.0 H Sodium 130 L Chloride 85 L Anion Gap 23.0 H BUN 107 H* Creatinine 9.3 H* Uric Acid 10.3 H Calcium 7.3 L Phosphorus 10.1 H* Ferritin AST 48 H ALT 60 H Lactate Dehydrogenase 459 H Total Protein 5.7 L Albumin 2.6 L Albumin/Globulin Ratio 0.8 L Triglycerides 154 H Meds: Medications Acetaminophen (Tylenol) 650 mg PO Q4-6HP PRN PRN Reason: PAIN/FEVER > 101 Albuterol/Ipratropium (Duoneb) 3 ml NEB [id number] [facility] Last Admin: 06/17/16 11:00 Dose: 3 ml Bacitracin (Bacitracin Topical Oint) 1 dose TOPICAL BID [facility] Last Admin: 06/17/16 11:04 Dose: 1 dose Calcium Acetate (Phoslo) 1,334 mg PO TIDCC [facility] Last Admin: 06/17/16 12:35 Dose: 1,334 mg Docusate Sodium (Colace) 100 mg PO BID [facility] Last Admin: 06/17/16 09:37 Dose: 100 mg Furosemide (Lasix) 80 mg IV BIDD [facility] Last Admin: 06/17/16 08:24 Dose: 80 mg Metoprolol Tartrate (Lopressor) 100 mg PO BID [facility] Last Admin: 06/17/16 09:36 Dose: 100 mg Ondansetron HCl (Zofran) 4 mg IV Q4-6HP PRN PRN Reason: Nausea And Vomiting Pantoprazole Sodium (Protonix) 40 mg PO QAMAC [facility] Last Admin: 06/17/16 08:22 Dose: 40 mg Senna/Docusate Sodium (Senna Plus Tablet) 1 tab PO HS [facility] Last Admin: 06/16/16 21:06 Dose: Not Given Sodium Chloride (Saline Flush) 10 ml IV Q8 [facility] Last Admin: 06/17/16 05:07 Dose: 10 ml Zolpidem Tartrate (Ambien) 5 mg PO HSP PRN PRN Reason: Insomnia Medical - PN: A/P - Time Spent With Patient Total time spent is greater than 50% in coordination of care (as documented) at patient's floor/unit and/or counseling patient: 15 - 24 minutes (1) Rhabdomyolysis Status: Acute Assessment and plan: * Acute renal failure-anuric. ongoing hemodialysis managed by nephrology.DC Mckeon's catheter * Left arm weakness likely brachial plexus injury as per orthopedics. * Community acquired pneumonia with MSSA bacteremia-status post 14 days antibiotics. * brief seizure episode-resolved. Negative MRI brain * Rhabdomyolysis- fully resolved * Hypoxic respiratory failure -clinically resolved * A. fib RVR-now rate controlled * anticoagulation on Coumadin. INR therapeutic plan * DC Mckeon's catheter * DC antibiotics * Coumadin dosing * hemodialysis per nephrology Current Visit: Yes Medical - PN: Qual - Stroke Symptom Onset Unknown: Yes - VTE Deep Vein Thrombosis/Pulmonary Embolism Present on Admission: No
[2016-06-17 14:42] LABS: Blood Urea Nitrogen 76 mg/dl (8-23)
--- NOTE | 2016-06-17 15:12 | Nephrology Progress Note ---
Subjective Patient information: Note initiated : 06/17/16 at 3:09 pm Service Date, if different from initiated Date: [] Patient: Angel Garrett 80 y/o M admitted on 06/04/16 for Sepsis, EDWIN. Chief Complaint: [] Principal diagnosis: PNA, acute renal failure, rhabdomyolysis Interval history: No new complaints patient feels good denies SOB, CP, dizziness No nausea, vomiting urine output continues to improve no chemical improvement in renal function yet no other overnight events Pertinent ROS: as above Objective - Vital Signs Vital signs: Vital Signs Temp Pulse Pulse Pulse Pulse Resp BP 06/17/16 12:00 97.2 F L 92 H 19 06/17/16 11:14 95 H 06/17/16 11:13 92 H 12 06/17/16 07:49 97.4 F L 98 H 06/17/16 07:34 110 H 95 H 06/17/16 07:15 94 H 06/17/16 07:13 92 H 12 06/17/16 04:00 97.6 F 95 H 16 141/79 06/17/16 00:00 97.5 F L 85 16 119/78 06/16/16 19:21 97.9 F 96 H 16 118/73 06/16/16 16:00 97.7 F 105 H 18 BP Pulse Ox 06/17/16 12:00 131/88 97 06/17/16 11:14 94 06/17/16 11:13 06/17/16 07:49 148/88 96 06/17/16 07:34 06/17/16 07:15 90 06/17/16 07:13 06/17/16 04:00 94 06/17/16 00:00 93 06/16/16 19:21 95 06/16/16 16:00 140/77 94 Intake and Output 06/17/16 06/17/16 06/17/16 05:59 13:59 21:59 Intake Total 300 / 300 180 / 180 Output Total 1500 / 1500 Balance -1200 / -1200 180 / 180 Intake: Oral 300 / 300 180 / 180 Output: Urine Catheter Amount 1500 / 1500 Other: Meal Breakfast Percent of Meal Consumed 75% Feeding Ability Independent Intake & Output: Intake & Output 06/17/16 06/17/16 06/17/16 05:59 13:59 21:59 Intake Total 300 / 300 180 / 180 Output Total 1500 / 1500 Balance -1200 / -1200 180 / 180 Intake: Oral 300 / 300 180 / 180 Output: Urine Catheter Amount 1500 / 1500 Other: Meal Breakfast Percent of Meal Consumed 75% Feeding Ability Independent - General Appearance General appearance: appears started age, obese EENT: mucous membranes moist Neck: no JVD Respiratory: clear Cardiology: no rub, no edema, irregular rhythm Gastrointestinal: no tenderness, no guarding Integumentary: warm and dry Neurologic: alert and oriented x3 Musculoskeletal: no erythema, no cyanosis Psychiatric: mood/affect appropriate - Lab 06/17/16 04:05 06/17/16 13:49 Most recent lab results Calcium 7.8 mg/dl (8.6-10.4) L 06/17/16 13:49 Phosphorus 7.3 mg/dL (2.7-4.5) H* 06/17/16 04:50 Magnesium 1.7 mg/dL (1.6-2.5) 06/17/16 04:50 Assessment and Plan (1) Acute renal failure non oliguric with no renal clearance s.creatinine upto 8, but urine output improved to 2900 given this will hold off on HD today will do HD if renal function continues to get worse hyperphosphatemia from EDWIN, on phoslo corrected calcium is better will monitor Anemia: Hb stable, normal Tsat, b12 low normal, will start on oral replacement PNA: treated with ceftriaxone rhabdo: resolved Will follow along Status: Acute (2) Rhabdomyolysis Status: Acute (3) Pneumonia Status: Acute
[2016-06-17] MEDS: SENNOSIDES/DOCUSATE SODIUM 1 TAB TABLET PO SCH (20:15)
[2016-06-18] MEDS: IPRATROPIUM/ALBUTEROL 3 ML AMPUL.NEB NEB SCH ×6 (00:12→22:25)
[2016-06-18] MEDS: PANTOPRAZOLE 40 MG PACKET PO SCH (07:32)
[2016-06-18] MEDS: FUROSEMIDE 100 MG/10 ML VIAL IV SCH (08:09)
[2016-06-18 08:39] LABS: Mean Cell Volume 87.5 fL (80.0-100.0); Mean Corpuscular HGB Conc 33.3 g/dL (31.0-36.0); Mean Corpuscular Hemoglobin 29.1 pg (26.0-34.0); Platelet Count 259 K/mcL (140-440); RBC 3.15 M/mcL (4.50-5.90); Red Cell Distribution Width 15.6 % (11.5-14.5)
[2016-06-18] MEDS: CALCIUM ACETATE 667 MG CAPSULE PO SCH ×4 (08:39→17:27)
[2016-06-18] MEDS: METOPROLOL TARTRATE 50 MG TABLET PO SCH ×2 (08:40→20:27)
[2016-06-18] MEDS: DOCUSATE SODIUM 100 MG CAPSULE PO SCH ×3 (08:41→20:29)
--- NOTE | 2016-06-18 09:00 | Nephrology Progress Note ---
Subjective Patient information: Note initiated : 06/18/16 at 8:58 am Service Date, if different from initiated Date: [] Patient: Angle Garrett 80 y/o M admitted on 06/04/16 for Sepsis, EDWIN. Chief Complaint: [] Principal diagnosis: PNA, acute renal failure, rhabdomyolysis Interval history: No acute o/n events. Pts urine output continues to improve. AM labs were pending but back with Cr even further increased Objective - Vital Signs Vital signs: Vital Signs Temp Pulse Pulse Pulse Resp BP BP 06/18/16 07:54 06/18/16 07:53 84 16 06/18/16 07:18 97.8 F 97 H 19 126/89 06/18/16 04:00 97.8 F 91 H 18 146/83 06/18/16 00:00 98.0 F 112 H 18 115/75 06/17/16 19:27 98.9 F 101 H 16 144/76 06/17/16 15:59 97.4 F L 16 102/75 06/17/16 12:00 97.2 F L 92 H 19 131/88 06/17/16 11:14 95 H 06/17/16 11:13 92 H 12 Pulse Ox 06/18/16 07:54 95 06/18/16 07:53 95 06/18/16 07:18 93 06/18/16 04:00 95 06/18/16 00:00 90 06/17/16 19:27 94 06/17/16 15:59 93 06/17/16 12:00 97 06/17/16 11:14 94 06/17/16 11:13 Intake and Output 06/17/16 06/18/16 06/18/16 21:59 05:59 13:59 Intake Total 800 / 800 800 / 800 Output Total 2525 / 2525 1100 / 1100 Balance -1725 / -1725 -300 / -300 Intake: Oral 800 / 800 800 / 800 Output: Urine Catheter Amount 2525 / 2525 1100 / 1100 Other: # Bowel Movements 1 Weight 210 lb Intake & Output: Intake & Output 06/17/16 06/18/16 06/18/16 21:59 05:59 13:59 Intake Total 800 / 800 800 / 800 Output Total 2525 / 2525 1100 / 1100 Balance -1725 / -1725 -300 / -300 Weight 210 lb Intake: Oral 800 / 800 800 / 800 Output: Urine Catheter Amount 2525 / 2525 1100 / 1100 Other: # Bowel Movements 1 - General Appearance General appearance: well-developed, well-nourished, appears started age EENT: mucous membranes moist Neck: no JVD Respiratory: clear Cardiology: irregular rhythm, normal S1, normal S2 Gastrointestinal: normoactive bowel sounds, no tenderness Integumentary: warm and dry Neurologic: no focal deficit, no asterixis, alert and oriented x3 Musculoskeletal: no deformities Psychiatric: mood/affect appropriate - Lab 06/18/16 04:20 06/18/16 04:20 Most recent lab results Calcium 7.8 mg/dl (8.6-10.4) L 06/17/16 13:49 Phosphorus 7.3 mg/dL (2.7-4.5) H* 06/17/16 04:50 Magnesium 1.7 mg/dL (1.6-2.5) 06/17/16 04:50 Assessment and Plan (1) Acute renal failure EDWIN: 2/2 Rhabdo Pt has been non oliguric with no renal clearance Cr has been at 8.2 AM labs show further rise in Cr to 8.9 U/O continues to improve Next HD session today Hyperphosphatemia from EDWIN, is on phoslo on renal diet will monitor closely - will add phoslo to snacks corrected calcium is wnl will monitor Anemia: Hb stable at < 10, has normal Tsat, b12 low normal, ? started on oral replacement per previous notes (not ordered yet?) PNA: treated with ceftriaxone Status: Acute (2) Rhabdomyolysis resolved Status: Acute
[2016-06-18 09:06] LABS: ALT/SGPT 35 U/l (0-40); Albumin 2.9 gm/dL (3.2-5.2); Albumin/Globulin Ratio 0.9 (1.0-2.3); Alkaline Phosphatase 62 U/L (39-117); Bilirubin,Direct 0.3 mg/dL (0.0-0.3); Blood Urea Nitrogen 83 mg/dl (8-23); Gamma Glutamyl Transpeptidase 30 U/L (8-61); Magnesium 1.7 mg/dL (1.6-2.5); Uric Acid 9.7 mg/dL (2.5-8.0)
[2016-06-18 09:40] LABS: Eosinophils % (Manual) 3 % (0-7); Lymphocytes % 16 % (15-49); Monocytes % (Manual) 3 % (1-12); Platelet Estimate NORMAL (NORMAL); RBC Morphology NORMAL (NORMAL); Segmented Neutrophils % 78 % (38-78)
[2016-06-18] MEDS: 0.9 % SODIUM CHLORIDE 10 ML SYRINGE IV SCH ×3 (10:12→20:29)
[2016-06-18] MEDS: BACITRACIN TOPICAL OINT 15 GM TUBE TOPICAL SCH ×2 (10:13→22:24)
--- NOTE | 2016-06-18 11:19 | Internal Med Progress Note ---
Medical - PN: Subj Patient information: Note initiated : 06/18/16 at 11:18 am Service Date, if different from initiated Date: [] Patient: Angel Garrett 80 y/o M admitted on 06/04/16 for Sepsis, EDWIN. Chief Complaint: [] Interval history: June 11, 2016: on service note: This patient was transferred here on June 04, 2016, after being found down at home. He presented to the hospital with atrial fibrillation with RVR, hypotension, left upper lobe pneumonia, severe rhabdomyolysis and acute renal failure, as well as altered mental status. Over the last 6 days, the patient has responded to IV fluids hemodialysis, IV antibiotics. Mental status has improved. He has continued to have weakness of the left arm, which is thought to be a possible brachial plexus injury. He is working with physical therapy, and this seems to be slowly improving. He has continued to require oxygen to maintain oxygen saturations. June 11, 2016: Urgent care:I was called to the bedside today, to see this patient, for a rapid response call. The patient was in the middle of being transferred from the intensive care unit out to [facility]. The aide noted that when she got into his room, his head rolled back in his eyes seem to roll back, he lost consciousness, and she felt that his hands were shaking consistent with possible seizure activity. The symptoms resolved quickly, and he aroused without us doing much. He does report that he seemed like he was seeing different colors in his vision just prior to the event. He denies any fever or chills, headaches or dizziness. He does not report blurry vision, sore throat, chest pain or palpitations, changes in his breathing or significant abdominal pain. He did report that his right upper quadrant area is a bit sore at times, since his fall. of note, the patient has chronic atrial fibrillation, for which she is maintained on Coumadin. When he was admitted about one week ago, his INR was quite elevated, and he was found down at home. He did have a hematoma on his forehead, from his fall. Head CT at that time did not show signs of bleeding. initial workup at an outside hospital did show pneumonia, and blood cultures grew MSSA, which was pansensitive. He was originally treated with Levaquin and Zosyn, but the Zosyn was discontinued after the cultures were back. also of note, the patient recently returned back from a road trip to [place]. He believes he had a fall sometime during his trip, landing on his knee, and says the left leg has been swollen since then. However he is quite fuzzy on the details, and it is not clear if he fell while he was on history, or if he is just recalling the fall he had at home, that landed him up here, about one week ago. His Coumadin was initially held, and his INR did drop down to a level of 1.1, prior to his tunneled catheter placement. Today is therapeutic at 2.2. June 12, 2016: today,patient says he is feeling reasonably well. He is having some mild dyspnea upon return from MRI. Physical therapy says the patient said he was just too tired to work on physical therapy today. He does continue to have some left upper extremity weakness, although he thinks it's better since admission. He also has a foot drop noted on the left foot since admission. It is thought that these symptoms were due to his fall and prolonged stay on the bathroom floor at home. Otherwise, the patient says she has not had any syncopal or near syncopal episodes today. nursing staff also has not noted recurrent symptoms. The patient denies fever or chills, sore throat. He has occasional cough. He continues to have mild dyspnea with exertion. He denies chest pain or palpitations abdominal pain, nausea or vomiting, diarrhea dysuria. June 13: the patient does seem more awake and alert today He reports that he did get up with physical therapy and seemed to move his left leg a little bit better today.he continues to have weakness of the left arm. He otherwise denies fever or chills, chest pain or significant cough or shortness of breath. He denies abdominal pain, nausea or vomiting. unfortunately, renal function does look worse today. Phosphorus level is climbing LFTs look a bit better. CPK continues to decline. he argued a bit with respiratory therapy today, not wanting to work on his incentive spirometry He does seem to have episodes of irritability. June 14: we did finally convinced the patient to undergo an MRI of his brain today, but he was given Ativan and morphine ahead of time, for complaints of anxiety and back pain from laying on the table. This evening he is calm, but he is a little bit drifting when I interview him. He has no particular complaints. He thinks the left arm weakness is about the same today. He did get up and do some transfers to and from the chair today, according to his nurse. otherwise, he denies fever or chills, headaches or dizziness, sore throat or cough, chest pain or palpitations, shortness of breath, abdominal pain, nausea or vomiting. He continues with a Mckeon catheter to help monitor accurate urine output. He is making more urine today, so Dr. Cordero held off on dialysis, to see if he will keep improving spontaneously. June 15: the patient reports he is feeling better today. He seems in good spirits when I enter the room, but is arguing with the nurse about whether or not he can eat finley. Unfortunately, his renal function looks worse today, with climbing B UN, creatinine, phosphate. He was ableto walk some with physical therapy today, and feels that his left leg is stronger. He denies significant coughing or shortness of breath today, and also denies fever or chills, chest pain or palpitations, abdominal pain, nausea or vomiting. he continues with a Mckeon catheter to help measure accurate I's and O's. June 16: -the patient's urine output continues to improve, the BUN/creatinine continued to run very high. He did undergo dialysis yesterday. Dr. Cordero is following and will help us to decide whether or not the patient should have a permanent tunneled catheter placed, or whether he should continue with temporary dialysis , in the hopes that his renal function will recover. This decision needs to be made prior to discharge to [facility] for rehabilitation -The patient continues to have physical therapy for his left-sided weakness, which we suspect are nerve related injuries related to him being down on the floor for 1-2 days prior to arrival. Follow-up MRI of his brain did not show any evidence for recent stroke. -Today, the patient says he is feeling pretty good. He was able to ambulate around the room a few steps, and feels like he has decent strength in his left leg, although has persistent foot drop. The left arm and hand remain weak, but he is continuing to work on that with physical therapy as well. otherwise, he denies fever or chills, chest pain or palpitations, shortness of breath or cough, abdominal pain, nausea or vomiting or diarrhea. He continues with a Mckeon catheter for accurate urine output measurement. 06/17-patient doing well. ongoing hemodialysis. Creatinine 8. Alert oriented. No changes since previous day. 06/18- patient resting comfortably. Ongoing hemodialysis. No overnight fever chills nausea vomiting or concerns per staff. Tolerating diet and ambulating. Family at bedside past medical history, per records from the [facility]:Include atrial fibrillation, chronic anticoagulation treatment, prostate cancer and BPH, cervical arthritis GERD and colon polyps, heart murmur, obesity hyperlipidemia, hypertension, past tobacco use. - Constitutional Vitals: Vital Signs Temp Pulse Resp BP Pulse Ox 97.8 F 84 16 126/89 95 06/18/16 07:18 06/18/16 07:53 06/18/16 07:53 06/18/16 07:18 06/18/16 07:54 Period Temp Pulse Resp BP Sys/Hinds Pulse Ox Last 24 Hr 97.2 F-98.9 F 84-112 16-19 102-146/75-89 90-97 Intake and Output 06/17/16 06/18/16 06/18/16 21:59 05:59 13:59 Intake Total 800 / 800 800 / 800 100 / 100 Output Total 2525 / 2525 1100 / 1100 700 / 700 Balance -1725 / -1725 -300 / -300 -600 / -600 Weight 210 lb 210 lb Patient Weight 06/19/16 05:59 Weight 210 lb Intake & Output: Intake & Output 06/17/16 06/18/16 06/18/16 21:59 05:59 13:59 Intake Total 800 / 800 800 / 800 100 / 100 Output Total 2525 / 2525 1100 / 1100 700 / 700 Balance -1725 / -1725 -300 / -300 -600 / -600 Weight 210 lb 210 lb Intake: Oral 800 / 800 800 / 800 100 / 100 Output: Urine Catheter Amount 2525 / 2525 1100 / 1100 700 / 700 Other: Meal Breakfast Percent of Meal Consumed 50% Feeding Ability Independent # Bowel Movements 1 General appearance: cooperative, no acute distress Exam: alert oriented Nonlabored breathing no lymphedema Medical - PN: Obj Da - Labs CBC & Chem 7: 06/18/16 04:20 06/18/16 04:20 Labs: Abnormal Lab Results 06/18/16 06/18/16 06/18/16 04:20 04:20 04:20 RBC 3.15 L Hgb 9.2 L Hct 27.6 L RDW 15.6 H MPV Gran % Lymph % (Auto) Lymph # PT 23.4 H INR 2.0 H Chloride 86 L Anion Gap 21.0 H BUN 83 H Creatinine 8.9 H* Uric Acid 9.7 H Calcium 8.1 L Phosphorus 7.3 H* Ferritin AST ALT Lactate Dehydrogenase 372 H Total Protein Albumin 2.9 L Albumin/Globulin Ratio 0.9 L 06/17/16 06/17/16 06/17/16 13:49 04:50 04:50 RBC Hgb Hct RDW MPV Gran % Lymph % (Auto) Lymph # PT 21.8 H INR 1.8 H Chloride 87 L 91 L Anion Gap 21.0 H 18.0 H BUN 76 H 75 H Creatinine 8.2 H* 8.2 H* Uric Acid 8.1 H Calcium 7.8 L 7.8 L Phosphorus 7.3 H* Ferritin AST ALT 41 H Lactate Dehydrogenase 367 H Total Protein 5.8 L Albumin 2.7 L Albumin/Globulin Ratio 0.9 L 06/17/16 06/16/16 06/16/16 04:05 11:52 04:25 RBC 3.18 L Hgb 9.3 L Hct 27.9 L RDW 15.6 H MPV 7.1 L Gran % 81.0 H Lymph % (Auto) 9.4 L Lymph # 0.9 L PT 21.8 H INR 1.8 H Chloride 91 L Anion Gap BUN 60 H Creatinine 6.6 H* Uric Acid Calcium 7.7 L Phosphorus 6.4 H* Ferritin 600.8 H AST 41 H ALT 52 H Lactate Dehydrogenase 400 H Total Protein Albumin 2.7 L Albumin/Globulin Ratio 0.8 L 06/16/16 04:25 RBC 3.30 L Hgb 9.7 L Hct 29.1 L RDW 15.8 H MPV 6.7 L Gran % 80.9 H Lymph % (Auto) 9.8 L Lymph # 1.0 L PT INR Chloride Anion Gap BUN Creatinine Uric Acid Calcium Phosphorus Ferritin AST ALT Lactate Dehydrogenase Total Protein Albumin Albumin/Globulin Ratio Meds: Medications Acetaminophen (Tylenol) 650 mg PO Q4-6HP PRN PRN Reason: PAIN/FEVER > 101 Albuterol/Ipratropium (Duoneb) 3 ml NEB [id number] [facility] Last Admin: 06/18/16 11:14 Dose: Not Given Bacitracin (Bacitracin Topical Oint) 1 dose TOPICAL BID [facility] Last Admin: 06/18/16 10:13 Dose: 1 dose Calcium Acetate (Phoslo) 1,334 mg PO TIDCC [facility] Last Admin: 06/18/16 08:39 Dose: 1,334 mg Docusate Sodium (Colace) 100 mg PO BID [facility] Last Admin: 06/18/16 10:13 Dose: 100 mg Furosemide (Lasix) 80 mg IV BIDD [facility] Last Admin: 06/18/16 08:09 Dose: 80 mg Metoprolol Tartrate (Lopressor) 100 mg PO BID [facility] Last Admin: 06/18/16 08:40 Dose: 100 mg Ondansetron HCl (Zofran) 4 mg IV Q4-6HP PRN PRN Reason: Nausea And Vomiting Pantoprazole Sodium (Protonix) 40 mg PO QAMAC [facility] Last Admin: 06/18/16 07:32 Dose: 40 mg Senna/Docusate Sodium (Senna Plus Tablet) 1 tab PO HS [facility] Last Admin: 06/17/16 20:15 Dose: Not Given Sodium Chloride (Saline Flush) 10 ml IV Q8 [facility] Last Admin: 06/18/16 10:12 Dose: 10 ml Warfarin Sodium (Coumadin) 2.5 mg PO DAILY@1400 [facility] Zolpidem Tartrate (Ambien) 5 mg PO HSP PRN PRN Reason: Insomnia Medical - PN: A/P - Time Spent With Patient Total time spent is greater than 50% in coordination of care (as documented) at patient's floor/unit and/or counseling patient: 15 - 24 minutes (1) Rhabdomyolysis Status: Acute Assessment and plan: * Acute renal failure- Now polyuric. nephrology on board * Left arm weakness likely brachial plexus injury as per orthopedics. * Community acquired pneumonia with MSSA bacteremia-status post 14 days antibiotics. * brief seizure episode-resolved. Negative MRI brain * Rhabdomyolysis- fully resolved * Hypoxic respiratory failure -clinically resolved * A. fib RVR-now rate controlled * anticoagulation on Coumadin. INR therapeutic plan * Coumadin dosing * hemodialysis per nephrology Current Visit: Yes Medical - PN: Qual - Stroke Symptom Onset Unknown: Yes - VTE Deep Vein Thrombosis/Pulmonary Embolism Present on Admission: No
[2016-06-18] MEDS: WARFARIN 2.5 MG TABLET PO SCH (16:42)
[2016-06-18] MEDS: SENNOSIDES/DOCUSATE SODIUM 1 TAB TABLET PO SCH (20:29)
[2016-06-19] MEDS: 0.9 % SODIUM CHLORIDE 10 ML SYRINGE IV SCH ×3 (05:25→20:34)
[2016-06-19 05:36] LABS: Mean Cell Volume 88.3 fL (80.0-100.0); Mean Corpuscular HGB Conc 33.3 g/dL (31.0-36.0); Mean Corpuscular Hemoglobin 29.4 pg (26.0-34.0); Platelet Count 249 K/mcL (140-440); Red Cell Distribution Width 15.4 % (11.5-14.5)
[2016-06-19 06:04] LABS: ALT/SGPT 30 U/l (0-40); Albumin 2.9 gm/dL (3.2-5.2); Albumin/Globulin Ratio 0.9 (1.0-2.3); Alkaline Phosphatase 63 U/L (39-117); Bilirubin,Direct 0.3 mg/dL (0.0-0.3); Blood Urea Nitrogen 41 mg/dl (8-23); Gamma Glutamyl Transpeptidase 33 U/L (8-61); Magnesium 1.6 mg/dL (1.6-2.5); Uric Acid 5.8 mg/dL (2.5-8.0)
[2016-06-19 06:59] LABS: Anisocytosis 1+ (NONE SEEN); Band Neutrophils % 2 % (0-10); Basophils % (Manual) 1 % (0-2); Eosinophils % (Manual) 3 % (0-7); Howell-Jolly Bodies 1+ (NONE SEEN); Lymphocytes % 11 % (15-49); Monocytes % (Manual) 10 % (1-12); Platelet Estimate NORMAL (NORMAL); RBC Morphology ABNORM (NORMAL); Segmented Neutrophils % 73 % (38-78); Toxic Granulation 1+ (NONE SEEN)
[2016-06-19] MEDS: IPRATROPIUM/ALBUTEROL 3 ML AMPUL.NEB NEB SCH ×5 (08:24→23:04)
[2016-06-19] MEDS: PANTOPRAZOLE 40 MG PACKET PO SCH (08:31)
[2016-06-19] MEDS: METOPROLOL TARTRATE 50 MG TABLET PO SCH ×2 (08:31→20:33)
[2016-06-19] MEDS: DOCUSATE SODIUM 100 MG CAPSULE PO SCH ×2 (08:32→20:33)
[2016-06-19] MEDS: CALCIUM ACETATE 667 MG CAPSULE PO SCH ×5 (08:32→17:31)
[2016-06-19] MEDS: BACITRACIN TOPICAL OINT 15 GM TUBE TOPICAL SCH ×2 (08:34→20:33)
[2016-06-19] MEDS ORDERED: FUROSEMIDE 100 MG/10 ML VIAL IV SCH (09:00)
[2016-06-19] MEDS ORDERED: FUROSEMIDE 100 MG/10 ML VIAL IV PRN (10:31)
[2016-06-19] MEDS ORDERED: POTASSIUM CHLORIDE 20 MEQ in DEXTROSE 5% IN WATER 250 ML IV ONE (10:33)
[2016-06-19] MEDS ORDERED: MAGNESIUM SULFATE 8.12 MEQ in DEXTROSE 5% IN WATER 50 ML IV ONE (10:35)
--- NOTE | 2016-06-19 10:38 | Nephrology Progress Note ---
Subjective Patient information: Note initiated : 06/19/16 at 10:36 am Service Date, if different from initiated Date: [] Patient: Angel Garrett 80 y/o M admitted on 06/04/16 for Sepsis, EDWIN. Chief Complaint: [] Principal diagnosis: PNA, acute renal failure, rhabdomyolysis Interval history: No acute o/n events. Pt underwent HD yesterday with zero UF. He is in negative fluid balance so will d/c lasix ( had changed to once daily yesterday) Will also replete Mg and K Objective - Vital Signs Vital signs: Vital Signs Temp Pulse Pulse Pulse Resp BP BP 06/19/16 07:14 97.6 F 20 128/88 06/19/16 03:50 97.2 F L 78 18 06/19/16 00:00 97.9 F 70 16 111/68 06/18/16 19:49 97.8 F 106 H 16 06/18/16 18:29 64 20 06/18/16 15:42 97.5 F L 20 06/18/16 15:11 97.4 F L 64 126/98 06/18/16 14:27 98 H 125/78 06/18/16 13:56 100 H 142/84 06/18/16 13:27 88 108/96 06/18/16 13:00 72 127/88 06/18/16 12:28 98 H 113/75 06/18/16 12:01 80 137/68 06/18/16 12:00 98 F 97 H 18 06/18/16 11:30 96.2 F L 79 137/86 BP BP Pulse Ox 06/19/16 07:14 95 06/19/16 03:50 142/94 94 06/19/16 00:00 96 06/18/16 19:49 114/72 94 06/18/16 18:29 06/18/16 15:42 126/98 93 06/18/16 15:11 06/18/16 14:27 06/18/16 13:56 06/18/16 13:27 06/18/16 13:00 06/18/16 12:28 06/18/16 12:01 06/18/16 12:00 137/80 96 06/18/16 11:30 Intake and Output 06/18/16 06/19/16 06/19/16 21:59 05:59 13:59 Intake Total 390 / 390 240 / 240 Output Total 1728 / 1728 1125 / 1125 Balance -1338 / -1338 -1125 / -1125 240 / 240 Intake: Oral 390 / 390 240 / 240 Output: Urine Catheter Amount 1000 / 1000 1125 / 1125 Hemodialysis UF 728 / 728 Other: Meal Dinner Breakfast Percent of Meal Consumed 25% 75% Feeding Ability Independent Independent # Bowel Movements 1 1 Weight 201 lb 8 oz Intake & Output: Intake & Output 06/18/16 06/19/16 06/19/16 21:59 05:59 13:59 Intake Total 390 / 390 240 / 240 Output Total 1728 / 1728 1125 / 1125 Balance -1338 / -1338 -1125 / -1125 240 / 240 Weight 201 lb 8 oz Intake: Oral 390 / 390 240 / 240 Output: Urine Catheter Amount 1000 / 1000 1125 / 1125 Hemodialysis UF 728 / 728 Other: Meal Dinner Breakfast Percent of Meal Consumed 25% 75% Feeding Ability Independent Independent # Bowel Movements 1 1 - General Appearance General appearance: well-developed, well-nourished, appears started age EENT: mucous membranes moist Neck: no JVD Respiratory: clear Cardiology: no edema, irregular rhythm, normal S1, normal S2 Gastrointestinal: normoactive bowel sounds, no tenderness Integumentary: no rash, warm and dry Neurologic: no focal deficit, no asterixis, alert and oriented x3 Musculoskeletal: no deformities, no erythema Psychiatric: mood/affect appropriate - Lab 06/19/16 04:35 06/19/16 04:35 Most recent lab results Calcium 8.1 mg/dl (8.6-10.4) L 06/19/16 04:35 Phosphorus 5.2 mg/dL (2.7-4.5) H 06/19/16 04:35 Magnesium 1.6 mg/dL (1.6-2.5) 06/19/16 04:35 Assessment and Plan (1) Acute renal failure EDWIN: 2/2 Rhabdo Pt has been non oliguric with no renal clearance Cr had been trending up so was dailyzed yesterday has good u/o, has been in negative fluid balance, lasix was changed to once daily and is ow d/c will assess in AM for HD K and Mg low - will replete Hyperphosphatemia from EDWIN, is on phoslo on renal diet phoslo added to snacks Phos improved to 5.5 corrected calcium is wnl will monitor Anemia: Hb stable at < 10, has normal Tsat, b12 low normal, ? started on oral replacement per previous notes (not ordered yet?) PNA: treated with ceftriaxone Status: Acute (2) Rhabdomyolysis resolved Status: Acute
--- NOTE | 2016-06-19 11:11 | Internal Med Progress Note ---
Medical - PN: Subj Patient information: Note initiated : 06/19/16 at 11:10 am Service Date, if different from initiated Date: [] Patient: Angel Garrett 80 y/o M admitted on 06/04/16 for Sepsis, EDWIN. Chief Complaint: [] Interval history: June 11, 2016: on service note: This patient was transferred here on June 04, 2016, after being found down at home. He presented to the hospital with atrial fibrillation with RVR, hypotension, left upper lobe pneumonia, severe rhabdomyolysis and acute renal failure, as well as altered mental status. Over the last 6 days, the patient has responded to IV fluids hemodialysis, IV antibiotics. Mental status has improved. He has continued to have weakness of the left arm, which is thought to be a possible brachial plexus injury. He is working with physical therapy, and this seems to be slowly improving. He has continued to require oxygen to maintain oxygen saturations. June 11, 2016: Urgent care:I was called to the bedside today, to see this patient, for a rapid response call. The patient was in the middle of being transferred from the intensive care unit out to [facility]. The aide noted that when she got into his room, his head rolled back in his eyes seem to roll back, he lost consciousness, and she felt that his hands were shaking consistent with possible seizure activity. The symptoms resolved quickly, and he aroused without us doing much. He does report that he seemed like he was seeing different colors in his vision just prior to the event. He denies any fever or chills, headaches or dizziness. He does not report blurry vision, sore throat, chest pain or palpitations, changes in his breathing or significant abdominal pain. He did report that his right upper quadrant area is a bit sore at times, since his fall. of note, the patient has chronic atrial fibrillation, for which she is maintained on Coumadin. When he was admitted about one week ago, his INR was quite elevated, and he was found down at home. He did have a hematoma on his forehead, from his fall. Head CT at that time did not show signs of bleeding. initial workup at an outside hospital did show pneumonia, and blood cultures grew MSSA, which was pansensitive. He was originally treated with Levaquin and Zosyn, but the Zosyn was discontinued after the cultures were back. also of note, the patient recently returned back from a road trip to [place]. He believes he had a fall sometime during his trip, landing on his knee, and says the left leg has been swollen since then. However he is quite fuzzy on the details, and it is not clear if he fell while he was on history, or if he is just recalling the fall he had at home, that landed him up here, about one week ago. His Coumadin was initially held, and his INR did drop down to a level of 1.1, prior to his tunneled catheter placement. Today is therapeutic at 2.2. June 12, 2016: today,patient says he is feeling reasonably well. He is having some mild dyspnea upon return from MRI. Physical therapy says the patient said he was just too tired to work on physical therapy today. He does continue to have some left upper extremity weakness, although he thinks it's better since admission. He also has a foot drop noted on the left foot since admission. It is thought that these symptoms were due to his fall and prolonged stay on the bathroom floor at home. Otherwise, the patient says she has not had any syncopal or near syncopal episodes today. nursing staff also has not noted recurrent symptoms. The patient denies fever or chills, sore throat. He has occasional cough. He continues to have mild dyspnea with exertion. He denies chest pain or palpitations abdominal pain, nausea or vomiting, diarrhea dysuria. June 13: the patient does seem more awake and alert today He reports that he did get up with physical therapy and seemed to move his left leg a little bit better today.he continues to have weakness of the left arm. He otherwise denies fever or chills, chest pain or significant cough or shortness of breath. He denies abdominal pain, nausea or vomiting. unfortunately, renal function does look worse today. Phosphorus level is climbing LFTs look a bit better. CPK continues to decline. he argued a bit with respiratory therapy today, not wanting to work on his incentive spirometry He does seem to have episodes of irritability. June 14: we did finally convinced the patient to undergo an MRI of his brain today, but he was given Ativan and morphine ahead of time, for complaints of anxiety and back pain from laying on the table. This evening he is calm, but he is a little bit drifting when I interview him. He has no particular complaints. He thinks the left arm weakness is about the same today. He did get up and do some transfers to and from the chair today, according to his nurse. otherwise, he denies fever or chills, headaches or dizziness, sore throat or cough, chest pain or palpitations, shortness of breath, abdominal pain, nausea or vomiting. He continues with a Mckeon catheter to help monitor accurate urine output. He is making more urine today, so Dr. Cordero held off on dialysis, to see if he will keep improving spontaneously. June 15: the patient reports he is feeling better today. He seems in good spirits when I enter the room, but is arguing with the nurse about whether or not he can eat finley. Unfortunately, his renal function looks worse today, with climbing B UN, creatinine, phosphate. He was ableto walk some with physical therapy today, and feels that his left leg is stronger. He denies significant coughing or shortness of breath today, and also denies fever or chills, chest pain or palpitations, abdominal pain, nausea or vomiting. he continues with a Mckeon catheter to help measure accurate I's and O's. June 16: -the patient's urine output continues to improve, the BUN/creatinine continued to run very high. He did undergo dialysis yesterday. Dr. Cordero is following and will help us to decide whether or not the patient should have a permanent tunneled catheter placed, or whether he should continue with temporary dialysis , in the hopes that his renal function will recover. This decision needs to be made prior to discharge to [facility] -The patient continues to have physical therapy for his left-sided weakness, which we suspect are nerve related injuries related to him being down on the floor for 1-2 days prior to arrival. Follow-up MRI of his brain did not show any evidence for recent stroke. -Today, the patient says he is feeling pretty good. He was able to ambulate around the room a few steps, and feels like he has decent strength in his left leg, although has persistent foot drop. The left arm and hand remain weak, but he is continuing to work on that with physical therapy as well. otherwise, he denies fever or chills, chest pain or palpitations, shortness of breath or cough, abdominal pain, nausea or vomiting or diarrhea. He continues with a Mckeon catheter for accurate urine output measurement. 06/17-patient doing well. ongoing hemodialysis. Creatinine 8. Alert oriented. No changes since previous day. 06/18- patient resting comfortably. Ongoing hemodialysis. No overnight fever chills nausea vomiting or concerns per staff. Tolerating diet and ambulating. Family at bedside 06/19-patient doing well. Ongoing hemodialysis. No further recommendations from hospitalist service. past medical history, per records from the [facility]:Include atrial fibrillation, chronic anticoagulation treatment, prostate cancer and BPH, cervical arthritis GERD and colon polyps, heart murmur, obesity hyperlipidemia, hypertension, past tobacco use. - Constitutional Vitals: Vital Signs Temp Pulse Resp BP Pulse Ox 97.6 F 78 20 128/88 95 06/19/16 07:14 06/19/16 03:50 06/19/16 07:14 06/19/16 07:14 06/19/16 07:14 Period Temp Pulse Resp BP Sys/Hinds Pulse Ox Last 24 Hr 96.2 F-98 F 64-106 16-20 108-142/68-98 93-96 Intake and Output 06/18/16 06/19/16 06/19/16 21:59 05:59 13:59 Intake Total 390 / 390 240 / 240 Output Total 1728 / 1728 1125 / 1125 Balance -1338 / -1338 -1125 / -1125 240 / 240 Weight 201 lb 8 oz Intake & Output: Intake & Output 06/18/16 06/19/16 06/19/16 21:59 05:59 13:59 Intake Total 390 / 390 240 / 240 Output Total 1728 / 1728 1125 / 1125 Balance -1338 / -1338 -1125 / -1125 240 / 240 Weight 201 lb 8 oz Intake: Oral 390 / 390 240 / 240 Output: Urine Catheter Amount 1000 / 1000 1125 / 1125 Hemodialysis UF 728 / 728 Other: Meal Dinner Breakfast Percent of Meal Consumed 25% 75% Feeding Ability Independent Independent # Bowel Movements 1 1 Medical - PN: Obj Da - Labs CBC & Chem 7: 06/19/16 04:35 06/19/16 04:35 Labs: Abnormal Lab Results 06/19/16 06/19/16 06/19/16 04:35 04:35 04:35 RBC 3.10 L Hgb 9.1 L Hct 27.3 L RDW 15.4 H MPV 7.1 L Gran % Lymph % (Auto) Lymph # Lymphocytes % 11 L WBC Morphology Abnorm A Toxic Granulation 1+ A RBC Morphology Abnorm A Anisocytosis 1+ A [place] Bodies 1+ A PT 25.1 H INR 2.2 H Chloride 90 L Anion Gap BUN 41 H Creatinine 5.5 H* Uric Acid Calcium 8.1 L Phosphorus 5.2 H ALT Lactate Dehydrogenase 350 H Total Protein Albumin 2.9 L Albumin/Globulin Ratio 0.9 L 06/18/16 06/18/16 06/18/16 04:20 04:20 04:20 RBC 3.15 L Hgb 9.2 L Hct 27.6 L RDW 15.6 H MPV Gran % Lymph % (Auto) Lymph # Lymphocytes % WBC Morphology Toxic Granulation RBC Morphology Anisocytosis [place] Bodies PT 23.4 H INR 2.0 H Chloride 86 L Anion Gap 21.0 H BUN 83 H Creatinine 8.9 H* Uric Acid 9.7 H Calcium 8.1 L Phosphorus 7.3 H* ALT Lactate Dehydrogenase 372 H Total Protein Albumin 2.9 L Albumin/Globulin Ratio 0.9 L 06/17/16 06/17/16 06/17/16 13:49 04:50 04:50 RBC Hgb Hct RDW MPV Gran % Lymph % (Auto) Lymph # Lymphocytes % WBC Morphology Toxic Granulation RBC Morphology Anisocytosis [place] Bodies PT 21.8 H INR 1.8 H Chloride 87 L 91 L Anion Gap 21.0 H 18.0 H BUN 76 H 75 H Creatinine 8.2 H* 8.2 H* Uric Acid 8.1 H Calcium 7.8 L 7.8 L Phosphorus 7.3 H* ALT 41 H Lactate Dehydrogenase 367 H Total Protein 5.8 L Albumin 2.7 L Albumin/Globulin Ratio 0.9 L 06/17/16 06/16/16 04:05 11:52 RBC 3.18 L Hgb 9.3 L Hct 27.9 L RDW 15.6 H MPV 7.1 L Gran % 81.0 H Lymph % (Auto) 9.4 L Lymph # 0.9 L Lymphocytes % WBC Morphology Toxic Granulation RBC Morphology Anisocytosis [place] Bodies PT 21.8 H INR 1.8 H Chloride Anion Gap BUN Creatinine Uric Acid Calcium Phosphorus ALT Lactate Dehydrogenase Total Protein Albumin Albumin/Globulin Ratio Meds: Medications Acetaminophen (Tylenol) 650 mg PO Q4-6HP PRN PRN Reason: PAIN/FEVER > 101 Albuterol/Ipratropium (Duoneb) 3 ml NEB [id number] [facility] Last Admin: 06/19/16 08:24 Dose: Not Given Bacitracin (Bacitracin Topical Oint) 1 dose TOPICAL BID [facility] Last Admin: 06/19/16 08:34 Dose: 1 dose Calcium Acetate (Phoslo) 1,334 mg PO TIDCC [facility] Last Admin: 06/19/16 08:33 Dose: 1,334 mg Calcium Acetate (Phoslo) 667 mg PO BIDCC [facility] Last Admin: 06/19/16 08:32 Dose: 667 mg Docusate Sodium (Colace) 100 mg PO BID [facility] Last Admin: 06/19/16 08:32 Dose: Not Given Furosemide (Lasix) 80 mg IV DAILY PRN PRN Reason: Shortness Of Breath Potassium Chloride 20 meq/ (Dextrose) 260 mls @ 130 mls/hr IV ONCE ONE Stop: 06/19/16 12:32 Last Admin: 06/19/16 11:01 Dose: 130 mls/hr Metoprolol Tartrate (Lopressor) 100 mg PO BID [facility] Last Admin: 06/19/16 08:31 Dose: 100 mg Ondansetron HCl (Zofran) 4 mg IV Q4-6HP PRN PRN Reason: Nausea And Vomiting Pantoprazole Sodium (Protonix) 40 mg PO QAMAC [facility] Last Admin: 06/19/16 08:31 Dose: 40 mg Senna/Docusate Sodium (Senna Plus Tablet) 1 tab PO HS [facility] Last Admin: 06/18/16 20:29 Dose: Not Given Sodium Chloride (Saline Flush) 10 ml IV Q8 [facility] Last Admin: 06/19/16 05:25 Dose: 10 ml Warfarin Sodium (Coumadin) 2.5 mg PO DAILY@1400 [facility] Last Admin: 06/18/16 16:42 Dose: 2.5 mg Zolpidem Tartrate (Ambien) 5 mg PO HSP PRN PRN Reason: Insomnia Medical - PN: A/P - Time Spent With Patient Total time spent is greater than 50% in coordination of care (as documented) at patient's floor/unit and/or counseling patient: 15 - 24 minutes (1) Rhabdomyolysis Status: Acute Assessment and plan: * Acute renal failure- Now polyuric. nephrology managing. 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 Able to lift left arm and function. Unable to dorsiflex foot * Community acquired pneumonia with MSSA bacteremia-fully resolved. status post 14 days antibiotics. * MSSA bacteremia-Off antibiotics * brief seizure episode-resolved. Negative MRI brain. * Rhabdomyolysis- fully resolved * Hypoxic respiratory failure -clinically resolved * A. fib RVR-now rate controlled * anticoagulation on Coumadin. INR therapeutic plan * continue Coumadin dosing * hemodialysis per nephrology * hysical therapy Current Visit: Yes Medical - PN: Qual - Stroke Symptom Onset Unknown: Yes - VTE Deep Vein Thrombosis/Pulmonary Embolism Present on Admission: No
[2016-06-19] MEDS: WARFARIN 2.5 MG TABLET PO SCH (13:16)
[2016-06-19] MEDS: SENNOSIDES/DOCUSATE SODIUM 1 TAB TABLET PO SCH (20:34)
[2016-06-20] MEDS: 0.9 % SODIUM CHLORIDE 10 ML SYRINGE IV SCH ×3 (05:00→22:36)
[2016-06-20 05:48] LABS: Mean Cell Volume 88.2 fL (80.0-100.0); Mean Corpuscular HGB Conc 33.3 g/dL (31.0-36.0); Mean Corpuscular Hemoglobin 29.4 pg (26.0-34.0); Platelet Count 241 K/mcL (140-440); RBC 3.16 M/mcL (4.50-5.90); Red Cell Distribution Width 15.3 % (11.5-14.5)
[2016-06-20 06:31] LABS: ALT/SGPT 27 U/l (0-40); Albumin 2.9 gm/dL (3.2-5.2); Albumin/Globulin Ratio 0.8 (1.0-2.3); Alkaline Phosphatase 70 U/L (39-117); Bilirubin,Direct 0.3 mg/dL (0.0-0.3); Blood Urea Nitrogen 53 mg/dl (8-23); Gamma Glutamyl Transpeptidase 35 U/L (8-61); Magnesium 1.9 mg/dL (1.6-2.5); Uric Acid 8.4 mg/dL (2.5-8.0)
[2016-06-20 06:47] LABS: Anisocytosis 1+ (NONE SEEN); Eosinophils % (Manual) 3 % (0-7); Lymphocytes % 13 % (15-49); Monocytes % (Manual) 13 % (1-12); Platelet Estimate NORMAL (NORMAL); RBC Morphology ABNORM (NORMAL); Segmented Neutrophils % 71 % (38-78)
[2016-06-20] MEDS: PANTOPRAZOLE 40 MG PACKET PO SCH (07:29)
[2016-06-20] MEDS: IPRATROPIUM/ALBUTEROL 3 ML AMPUL.NEB NEB SCH (08:45)
[2016-06-20] MEDS: CALCIUM ACETATE 667 MG CAPSULE PO SCH ×5 (09:05→17:44)
[2016-06-20] MEDS: DOCUSATE SODIUM 100 MG CAPSULE PO SCH ×2 (09:05→20:43)
[2016-06-20] MEDS: METOPROLOL TARTRATE 50 MG TABLET PO SCH ×2 (09:05→20:43)
[2016-06-20] MEDS ORDERED: POTASSIUM CHLORIDE 20 MEQ in DEXTROSE 5% IN WATER 250 ML IV ONE (09:06)
[2016-06-20] MEDS: BACITRACIN TOPICAL OINT 15 GM TUBE TOPICAL SCH ×2 (09:06→20:44)
--- NOTE | 2016-06-20 09:07 | Nephrology Progress Note ---
Subjective Patient information: Note initiated : 06/20/16 at 9:07 am Service Date, if different from initiated Date: [] Patient: Angel Garrett 80 y/o M admitted on 06/04/16 for Sepsis, EDWIN. Chief Complaint: [] Principal diagnosis: PNA, acute renal failure, rhabdomyolysis Interval history: Pt was dialyzed yesterday with 0 UF. He was on bid lasix which was reduced to once daily and now d/c. He has no complaints this AM. Objective - Vital Signs Vital signs: Vital Signs Temp Pulse Resp BP BP BP BP 06/20/16 07:30 97.3 F L 88 16 127/75 06/20/16 04:00 98.4 F 94 H 16 120/78 06/20/16 00:00 98.2 F 104 H 16 121/79 06/19/16 20:00 97.5 F L 104 H 16 108/68 06/19/16 16:16 97.6 F 79 18 122/75 06/19/16 11:39 97.8 F 18 130/79 Pulse Ox 06/20/16 07:30 93 06/20/16 04:00 97 06/20/16 00:00 92 06/19/16 20:00 95 06/19/16 16:16 95 06/19/16 11:39 94 Intake and Output 06/19/16 06/20/16 06/20/16 21:59 05:59 13:59 Intake Total 640 / 640 300 / 300 Output Total 1600 / 1600 1100 / 1100 Balance -960 / -960 -800 / -800 Intake: Oral 640 / 640 300 / 300 Output: Urine Catheter Amount 1600 / 1600 1100 / 1100 Other: Meal Dinner Percent of Meal Consumed 75% Feeding Ability Assist with Tray Set Up Weight 199 lb Intake & Output: Intake & Output 06/19/16 06/20/16 06/20/16 21:59 05:59 13:59 Intake Total 640 / 640 300 / 300 Output Total 1600 / 1600 1100 / 1100 Balance -960 / -960 -800 / -800 Weight 199 lb Intake: Oral 640 / 640 300 / 300 Output: Urine Catheter Amount 1600 / 1600 1100 / 1100 Other: Meal Dinner Percent of Meal Consumed 75% Feeding Ability Assist with Tray Set Up - General Appearance General appearance: well-developed, well-nourished, appears started age EENT: mucous membranes moist Neck: no JVD (Chris cath in place) Respiratory: clear Gastrointestinal: normoactive bowel sounds, no tenderness, no guarding Integumentary: no rash (skin appears dry and slightly wrinkled) Neurologic: no focal deficit, no asterixis, alert and oriented x3 Musculoskeletal: no deformities Psychiatric: mood/affect appropriate - Lab 06/20/16 04:15 06/20/16 04:15 Most recent lab results Calcium 8.8 mg/dl (8.6-10.4) 06/20/16 04:15 Phosphorus 5.8 mg/dL (2.7-4.5) H 06/20/16 04:15 Magnesium 1.9 mg/dL (1.6-2.5) 06/20/16 04:15 Assessment and Plan (1) Acute renal failure EDWIN: 2/2 Rhabdo Pt has been non oliguric with no renal clearance was initiated on HD and received a session yesterday. K and Mg were low, so were repleted K was 3.5 thia AM, o 20 mEq will be ordered Pt will be assessed off lasix ( ? dehydration at this point 2/2 lasix ; pt in negative fluid balance) no need for HZD today will assess daily for HD need Hyperphosphatemia from EDWIN, is on phoslo on renal diet phoslo added to snacks Phos improved to 5.8 corrected calcium is wnl will monitor Anemia: Hb stable at < 10, has normal Tsat, b12 low normal, will order 1000 mcg po B12 PNA: treated with ceftriaxone Status: Acute (2) Rhabdomyolysis resolved Status: Acute
[2016-06-20] MEDS ORDERED: IPRATROPIUM/ALBUTEROL 3 ML AMPUL.NEB NEB PRN (10:12)
--- NOTE | 2016-06-20 11:11 | Internal Med Progress Note ---
Medical - PN: Subj Patient information: Note initiated : 06/20/16 at 11:09 am Service Date, if different from initiated Date: [] Patient: Angel Garrett 80 y/o M admitted on 06/04/16 for Sepsis, EDWIN. Chief Complaint: [] Interval history: June 11, 2016: on service note: This patient was transferred here on June 04, 2016, after being found down at home. He presented to the hospital with atrial fibrillation with RVR, hypotension, left upper lobe pneumonia, severe rhabdomyolysis and acute renal failure, as well as altered mental status. Over the last 6 days, the patient has responded to IV fluids hemodialysis, IV antibiotics. Mental status has improved. He has continued to have weakness of the left arm, which is thought to be a possible brachial plexus injury. He is working with physical therapy, and this seems to be slowly improving. He has continued to require oxygen to maintain oxygen saturations. June 11, 2016: Urgent care:I was called to the bedside today, to see this patient, for a rapid response call. The patient was in the middle of being transferred from the intensive care unit out to [facility]. The aide noted that when she got into his room, his head rolled back in his eyes seem to roll back, he lost consciousness, and she felt that his hands were shaking consistent with possible seizure activity. The symptoms resolved quickly, and he aroused without us doing much. He does report that he seemed like he was seeing different colors in his vision just prior to the event. He denies any fever or chills, headaches or dizziness. He does not report blurry vision, sore throat, chest pain or palpitations, changes in his breathing or significant abdominal pain. He did report that his right upper quadrant area is a bit sore at times, since his fall. of note, the patient has chronic atrial fibrillation, for which she is maintained on Coumadin. When he was admitted about one week ago, his INR was quite elevated, and he was found down at home. He did have a hematoma on his forehead, from his fall. Head CT at that time did not show signs of bleeding. initial workup at an outside hospital did show pneumonia, and blood cultures grew MSSA, which was pansensitive. He was originally treated with Levaquin and Zosyn, but the Zosyn was discontinued after the cultures were back. also of note, the patient recently returned back from a road trip to [place]. He believes he had a fall sometime during his trip, landing on his knee, and says the left leg has been swollen since then. However he is quite fuzzy on the details, and it is not clear if he fell while he was on history, or if he is just recalling the fall he had at home, that landed him up here, about one week ago. His Coumadin was initially held, and his INR did drop down to a level of 1.1, prior to his tunneled catheter placement. Today is therapeutic at 2.2. June 12, 2016: today,patient says he is feeling reasonably well. He is having some mild dyspnea upon return from MRI. Physical therapy says the patient said he was just too tired to work on physical therapy today. He does continue to have some left upper extremity weakness, although he thinks it's better since admission. He also has a foot drop noted on the left foot since admission. It is thought that these symptoms were due to his fall and prolonged stay on the bathroom floor at home. Otherwise, the patient says she has not had any syncopal or near syncopal episodes today. nursing staff also has not noted recurrent symptoms. The patient denies fever or chills, sore throat. He has occasional cough. He continues to have mild dyspnea with exertion. He denies chest pain or palpitations abdominal pain, nausea or vomiting, diarrhea dysuria. June 13: the patient does seem more awake and alert today He reports that he did get up with physical therapy and seemed to move his left leg a little bit better today.he continues to have weakness of the left arm. He otherwise denies fever or chills, chest pain or significant cough or shortness of breath. He denies abdominal pain, nausea or vomiting. unfortunately, renal function does look worse today. Phosphorus level is climbing LFTs look a bit better. CPK continues to decline. he argued a bit with respiratory therapy today, not wanting to work on his incentive spirometry He does seem to have episodes of irritability. June 14: we did finally convinced the patient to undergo an MRI of his brain today, but he was given Ativan and morphine ahead of time, for complaints of anxiety and back pain from laying on the table. This evening he is calm, but he is a little bit drifting when I interview him. He has no particular complaints. He thinks the left arm weakness is about the same today. He did get up and do some transfers to and from the chair today, according to his nurse. otherwise, he denies fever or chills, headaches or dizziness, sore throat or cough, chest pain or palpitations, shortness of breath, abdominal pain, nausea or vomiting. He continues with a Mckeon catheter to help monitor accurate urine output. He is making more urine today, so Dr. Cordero held off on dialysis, to see if he will keep improving spontaneously. June 15: the patient reports he is feeling better today. He seems in good spirits when I enter the room, but is arguing with the nurse about whether or not he can eat finley. Unfortunately, his renal function looks worse today, with climbing B UN, creatinine, phosphate. He was ableto walk some with physical therapy today, and feels that his left leg is stronger. He denies significant coughing or shortness of breath today, and also denies fever or chills, chest pain or palpitations, abdominal pain, nausea or vomiting. he continues with a Mckeon catheter to help measure accurate I's and O's. June 16: -the patient's urine output continues to improve, the BUN/creatinine continued to run very high. He did undergo dialysis yesterday. Dr. Cordero is following and will help us to decide whether or not the patient should have a permanent tunneled catheter placed, or whether he should continue with temporary dialysis , in the hopes that his renal function will recover. This decision needs to be made prior to discharge to [facility] for rehabilitation -The patient continues to have physical therapy for his left-sided weakness, which we suspect are nerve related injuries related to him being down on the floor for 1-2 days prior to arrival. Follow-up MRI of his brain did not show any evidence for recent stroke. -Today, the patient says he is feeling pretty good. He was able to ambulate around the room a few steps, and feels like he has decent strength in his left leg, although has persistent foot drop. The left arm and hand remain weak, but he is continuing to work on that with physical therapy as well. otherwise, he denies fever or chills, chest pain or palpitations, shortness of breath or cough, abdominal pain, nausea or vomiting or diarrhea. He continues with a Mckeon catheter for accurate urine output measurement. 06/17-patient doing well. ongoing hemodialysis. Creatinine 8. Alert oriented. No changes since previous day. 06/18- patient resting comfortably. Ongoing hemodialysis. No overnight fever chills nausea vomiting or concerns per staff. Tolerating diet and ambulating. Family at bedside 06/19-patient doing well. Ongoing hemodialysis. No further recommendations from hospitalist service except for Coumadin management. INR 2.2. 06/20- patient stable. Ongoing hemodialysis and renal issue/electrolytes management per nephrology. hospitalist service on standby. INR therapeutic 2.3 past medical history, per records from the [facility]:Include atrial fibrillation, chronic anticoagulation treatment, prostate cancer and BPH, cervical arthritis GERD and colon polyps, heart murmur, obesity hyperlipidemia, hypertension, past tobacco use. - Constitutional Vitals: Vital Signs Temp Pulse Resp BP Pulse Ox 97.3 F L 88 16 127/75 93 06/20/16 07:30 06/20/16 07:30 06/20/16 07:30 06/20/16 07:30 06/20/16 07:30 Period Temp Pulse Resp BP Sys/Hinds Pulse Ox Last 24 Hr 97.3 F-98.4 F 79-104 16-18 108-130/68-79 92-97 Intake and Output 06/19/16 06/20/16 06/20/16 21:59 05:59 13:59 Intake Total 640 / 640 300 / 300 240 / 240 Output Total 1600 / 1600 1100 / 1100 Balance -960 / -960 -800 / -800 240 / 240 Weight 199 lb Intake & Output: Intake & Output 06/19/16 06/20/16 06/20/16 21:59 05:59 13:59 Intake Total 640 / 640 300 / 300 240 / 240 Output Total 1600 / 1600 1100 / 1100 Balance -960 / -960 -800 / -800 240 / 240 Weight 199 lb Intake: Oral 640 / 640 300 / 300 240 / 240 Output: Urine Catheter Amount 1600 / 1600 1100 / 1100 Other: Meal Dinner Breakfast Percent of Meal Consumed 75% 75% Feeding Ability Assist with Tray Set Up Assist with Tray Set Up General appearance: cooperative, no acute distress Exam: resting comfortably Nonlabored breathing no lymphedema Medical - PN: Obj Da - Labs CBC & Chem 7: 06/20/16 04:15 06/20/16 04:15 Labs: Abnormal Lab Results 06/20/16 06/20/16 06/20/16 04:15 04:15 04:00 RBC 3.16 L Hgb 9.3 L Hct 27.9 L RDW 15.3 H MPV 7.3 L Lymphocytes % 13 L Monocytes % (Manual) 13 H WBC Morphology Toxic Granulation RBC Morphology Abnorm A Anisocytosis 1+ A [place] Bodies PT 25.9 H INR 2.3 H Chloride 90 L Anion Gap 19.0 H BUN 53 H Creatinine 6.8 H* Uric Acid 8.4 H Calcium Phosphorus 5.8 H Lactate Dehydrogenase 339 H Albumin 2.9 L Albumin/Globulin Ratio 0.8 L Triglycerides 153 H 06/19/16 06/19/16 06/19/16 04:35 04:35 04:35 RBC 3.10 L Hgb 9.1 L Hct 27.3 L RDW 15.4 H MPV 7.1 L Lymphocytes % 11 L Monocytes % (Manual) WBC Morphology Abnorm A Toxic Granulation 1+ A RBC Morphology Abnorm A Anisocytosis 1+ A [place] Bodies 1+ A PT 25.1 H INR 2.2 H Chloride 90 L Anion Gap BUN 41 H Creatinine 5.5 H* Uric Acid Calcium 8.1 L Phosphorus 5.2 H Lactate Dehydrogenase 350 H Albumin 2.9 L Albumin/Globulin Ratio 0.9 L Triglycerides 06/18/16 06/18/16 06/18/16 04:20 04:20 04:20 RBC 3.15 L Hgb 9.2 L Hct 27.6 L RDW 15.6 H MPV Lymphocytes % Monocytes % (Manual) WBC Morphology Toxic Granulation RBC Morphology Anisocytosis [place] Bodies PT 23.4 H INR 2.0 H Chloride 86 L Anion Gap 21.0 H BUN 83 H Creatinine 8.9 H* Uric Acid 9.7 H Calcium 8.1 L Phosphorus 7.3 H* Lactate Dehydrogenase 372 H Albumin 2.9 L Albumin/Globulin Ratio 0.9 L Triglycerides 06/17/16 13:49 RBC Hgb Hct RDW MPV Lymphocytes % Monocytes % (Manual) WBC Morphology Toxic Granulation RBC Morphology Anisocytosis [place] Bodies PT INR Chloride 87 L Anion Gap 21.0 H BUN 76 H Creatinine 8.2 H* Uric Acid Calcium 7.8 L Phosphorus Lactate Dehydrogenase Albumin Albumin/Globulin Ratio Triglycerides Meds: Medications Acetaminophen (Tylenol) 650 mg PO Q4-6HP PRN PRN Reason: PAIN/FEVER > 101 Albuterol/Ipratropium (Duoneb) 3 ml NEB Q4HP PRN PRN Reason: Shortness Of Breath Bacitracin (Bacitracin Topical Oint) 1 dose TOPICAL BID [facility] Last Admin: 06/20/16 09:06 Dose: 1 dose Calcium Acetate (Phoslo) 1,334 mg PO TIDCC [facility] Last Admin: 06/20/16 09:05 Dose: 1,334 mg Calcium Acetate (Phoslo) 667 mg PO BIDCC [facility] Last Admin: 06/20/16 09:05 Dose: 667 mg Docusate Sodium (Colace) 100 mg PO BID [facility] Last Admin: 06/20/16 09:05 Dose: Not Given Furosemide (Lasix) 80 mg IV DAILY PRN PRN Reason: Shortness Of Breath Metoprolol Tartrate (Lopressor) 100 mg PO BID [facility] Last Admin: 06/20/16 09:05 Dose: 100 mg Ondansetron HCl (Zofran) 4 mg IV Q4-6HP PRN PRN Reason: Nausea And Vomiting Pantoprazole Sodium (Protonix) 40 mg PO QAMAC [facility] Last Admin: 06/20/16 07:29 Dose: 40 mg Senna/Docusate Sodium (Senna Plus Tablet) 1 tab PO HS [facility] Last Admin: 06/19/16 20:34 Dose: Not Given Sodium Chloride (Saline Flush) 10 ml IV Q8 [facility] Last Admin: 06/20/16 05:00 Dose: 10 ml Warfarin Sodium (Coumadin) 2.5 mg PO DAILY@1400 [facility] Last Admin: 06/19/16 13:16 Dose: 2.5 mg Zolpidem Tartrate (Ambien) 5 mg PO HSP PRN PRN Reason: Insomnia Medical - PN: A/P - Time Spent With Patient Total time spent is greater than 50% in coordination of care (as documented) at patient's floor/unit and/or counseling patient: less than 15 minutes (1) Rhabdomyolysis Status: Acute Assessment and plan: * Acute renal failure- managed by nephrology. 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 Able to lift left arm and function. Unable to dorsiflex foot. * Community acquired pneumonia with MSSA bacteremia-fully resolved. status post 14 days antibiotics. * MSSA bacteremia-Off antibiotics * brief seizure episode-resolved. Negative MRI brain. * Rhabdomyolysis- fully resolved * Hypoxic respiratory failure -clinically resolved * A. fib RVR-now rate controlled * anticoagulation on Coumadin. INR therapeutic plan * continue Coumadin dosing * hemodialysis per nephrology * continue physical therapy Current Visit: Yes Medical - PN: Qual - Stroke Symptom Onset Unknown: Yes - VTE Deep Vein Thrombosis/Pulmonary Embolism Present on Admission: No
[2016-06-20] MEDS: WARFARIN 2.5 MG TABLET PO SCH (14:43)
[2016-06-20] MEDS: SENNOSIDES/DOCUSATE SODIUM 1 TAB TABLET PO SCH (20:43)
[2016-06-21] MEDS: 0.9 % SODIUM CHLORIDE 10 ML SYRINGE IV SCH ×3 (05:11→22:06)
[2016-06-21 05:54] LABS: Mean Cell Volume 87.9 fL (80.0-100.0); Mean Corpuscular HGB Conc 33.1 g/dL (31.0-36.0); Mean Corpuscular Hemoglobin 29.1 pg (26.0-34.0); Platelet Count 233 K/mcL (140-440); RBC 3.16 M/mcL (4.50-5.90); Red Cell Distribution Width 15.4 % (11.5-14.5)
[2016-06-21 06:29] LABS: ALT/SGPT 26 U/l (0-40); Albumin 3.2 gm/dL (3.2-5.2); Albumin/Globulin Ratio 0.9 (1.0-2.3); Alkaline Phosphatase 73 U/L (39-117); Bilirubin,Direct 0.3 mg/dL (0.0-0.3); Blood Urea Nitrogen 63 mg/dl (8-23); Gamma Glutamyl Transpeptidase 37 U/L (8-61); Magnesium 1.8 mg/dL (1.6-2.5)
[2016-06-21 07:31] LABS: Anisocytosis FEW (NONE SEEN); Band Neutrophils % 1 % (0-10); Eosinophils % (Manual) 2 % (0-7); Lymphocytes % 7 % (15-49); Monocytes % (Manual) 7 % (1-12); Platelet Estimate NORMAL (NORMAL); RBC Morphology ABNORM (NORMAL); Segmented Neutrophils % 83 % (38-78)
[2016-06-21] MEDS: PANTOPRAZOLE 40 MG PACKET PO SCH (07:56)
[2016-06-21] MEDS: CALCIUM ACETATE 667 MG CAPSULE PO SCH ×5 (08:12→17:16)
[2016-06-21] MEDS ORDERED: POTASSIUM CHLORIDE 20 MEQ in DEXTROSE 5% IN WATER 250 ML IV ONE (08:49)
--- NOTE | 2016-06-21 08:57 | Nephrology Progress Note ---
Subjective Patient information: Note initiated : 06/21/16 at 8:55 am Service Date, if different from initiated Date: [] Patient: Angel Garrett 80 y/o M admitted on 06/04/16 for Sepsis, EDWIN. Chief Complaint: [] Principal diagnosis: PNA, acute renal failure, rhabdomyolysis Interval history: Pt was last HD on Tuesday. Lasix d/c since yesterday; now being watched for renal recovery Objective - Vital Signs Vital signs: Vital Signs Temp Pulse Pulse Resp BP BP Pulse Ox 06/21/16 08:00 98.3 F 91 H 18 117/81 97 06/21/16 07:15 78 94 06/21/16 03:44 97.7 F 94 H 18 128/83 96 06/21/16 00:00 97.7 F 72 18 112/64 94 06/20/16 19:31 98.2 F 96 H 16 102/66 96 06/20/16 17:45 97.8 F 82 18 129/73 94 06/20/16 12:30 97.8 F 79 16 122/69 94 Intake and Output 06/20/16 06/21/16 06/21/16 21:59 05:59 13:59 Intake Total 440 / 440 500 / 500 Output Total 700 / 700 550 / 550 Balance -260 / -260 -50 / -50 Intake: Oral 440 / 440 500 / 500 Output: Urine Catheter Amount 700 / 700 550 / 550 Other: Meal Dinner Breakfast Percent of Meal Consumed 75% 50% Feeding Ability Assist with Tray Set Up Weight 198 lb Intake & Output: Intake & Output 06/20/16 06/21/16 06/21/16 21:59 05:59 13:59 Intake Total 440 / 440 500 / 500 Output Total 700 / 700 550 / 550 Balance -260 / -260 -50 / -50 Weight 198 lb Intake: Oral 440 / 440 500 / 500 Output: Urine Catheter Amount 700 / 700 550 / 550 Other: Meal Dinner Breakfast Percent of Meal Consumed 75% 50% Feeding Ability Assist with Tray Set Up - General Appearance General appearance: well-developed, well-nourished, appears started age EENT: mucous membranes moist Neck: no JVD Respiratory: clear Cardiology: irregular rhythm Gastrointestinal: normoactive bowel sounds, no tenderness Integumentary: no rash, warm and dry Neurologic: no focal deficit, no asterixis, alert and oriented x3 Musculoskeletal: no deformities, no erythema Psychiatric: mood/affect appropriate - Lab 06/21/16 04:47 06/21/16 04:47 Most recent lab results Calcium 8.9 mg/dl (8.6-10.4) 06/21/16 04:47 Phosphorus 6.0 mg/dL (2.7-4.5) H 06/21/16 04:47 Magnesium 1.8 mg/dL (1.6-2.5) 06/21/16 04:47 Assessment and Plan (1) Acute renal failure EDWIN: 2/ Rhabdo Pt has been non oliguric with no renal clearance was initiated on HD last hemodialyzed on tuesday lasix d/c - no acute need for dialysis today will assess daily volume status is good for now Hypokalemia K 3.5 will replete with 20 mEq KCL Hyperphosphatemia from EDWIN, is on phoslo on renal diet phoslo added to snacks Phos uptrended to 6.0 Calcium is wnl will monitor Anemia: Hb stable at < 10, has normal Tsat, b12 low normal, will order 1000 mcg po B12 PNA: treated with ceftriaxone Status: Acute (2) Rhabdomyolysis resolved Status: Acute
[2016-06-21] MEDS: CYANOCOBALAMIN (VITAMIN B-12) 500 MCG TABLET PO SCH (09:04)
[2016-06-21] MEDS: DOCUSATE SODIUM 100 MG CAPSULE PO SCH ×2 (09:04→21:24)
[2016-06-21] MEDS: BACITRACIN TOPICAL OINT 15 GM TUBE TOPICAL SCH ×2 (09:05→09:10)
[2016-06-21] MEDS: METOPROLOL TARTRATE 50 MG TABLET PO SCH ×3 (09:05→21:24)
[2016-06-21] MEDS ORDERED: BACITRACIN TOPICAL OINT 15 GM TUBE TOPICAL PRN (10:29)
--- NOTE | 2016-06-21 11:08 | Internal Med Progress Note ---
Medical - PN: Subj Patient information: Note initiated : 06/21/16 at 11:07 am Service Date, if different from initiated Date: [] Patient: Angel Garrett 80 y/o M admitted on 06/04/16 for Sepsis, EDWIN. Chief Complaint: [] Interval history: June 11, 2016: on service note: This patient was transferred here on June 04, 2016, after being found down at home. He presented to the hospital with atrial fibrillation with RVR, hypotension, left upper lobe pneumonia, severe rhabdomyolysis and acute renal failure, as well as altered mental status. Over the last 6 days, the patient has responded to IV fluids hemodialysis, IV antibiotics. Mental status has improved. He has continued to have weakness of the left arm, which is thought to be a possible brachial plexus injury. He is working with physical therapy, and this seems to be slowly improving. He has continued to require oxygen to maintain oxygen saturations. June 11, 2016: Urgent care:I was called to the bedside today, to see this patient, for a rapid response call. The patient was in the middle of being transferred from the intensive care unit out to [facility]. The aide noted that when she got into his room, his head rolled back in his eyes seem to roll back, he lost consciousness, and she felt that his hands were shaking consistent with possible seizure activity. The symptoms resolved quickly, and he aroused without us doing much. He does report that he seemed like he was seeing different colors in his vision just prior to the event. He denies any fever or chills, headaches or dizziness. He does not report blurry vision, sore throat, chest pain or palpitations, changes in his breathing or significant abdominal pain. He did report that his right upper quadrant area is a bit sore at times, since his fall. of note, the patient has chronic atrial fibrillation, for which she is maintained on Coumadin. When he was admitted about one week ago, his INR was quite elevated, and he was found down at home. He did have a hematoma on his forehead, from his fall. Head CT at that time did not show signs of bleeding. initial workup at an outside hospital did show pneumonia, and blood cultures grew MSSA, which was pansensitive. He was originally treated with Levaquin and Zosyn, but the Zosyn was discontinued after the cultures were back. also of note, the patient recently returned back from a road trip to [place]. He believes he had a fall sometime during his trip, landing on his knee, and says the left leg has been swollen since then. However he is quite fuzzy on the details, and it is not clear if he fell while he was on history, or if he is just recalling the fall he had at home, that landed him up here, about one week ago. His Coumadin was initially held, and his INR did drop down to a level of 1.1, prior to his tunneled catheter placement. Today is therapeutic at 2.2. June 12, 2016: today,patient says he is feeling reasonably well. He is having some mild dyspnea upon return from MRI. Physical therapy says the patient said he was just too tired to work on physical therapy today. He does continue to have some left upper extremity weakness, although he thinks it's better since admission. He also has a foot drop noted on the left foot since admission. It is thought that these symptoms were due to his fall and prolonged stay on the bathroom floor at home. Otherwise, the patient says she has not had any syncopal or near syncopal episodes today. nursing staff also has not noted recurrent symptoms. The patient denies fever or chills, sore throat. He has occasional cough. He continues to have mild dyspnea with exertion. He denies chest pain or palpitations abdominal pain, nausea or vomiting, diarrhea dysuria. June 13: the patient does seem more awake and alert today He reports that he did get up with physical therapy and seemed to move his left leg a little bit better today.he continues to have weakness of the left arm. He otherwise denies fever or chills, chest pain or significant cough or shortness of breath. He denies abdominal pain, nausea or vomiting. unfortunately, renal function does look worse today. Phosphorus level is climbing LFTs look a bit better. CPK continues to decline. he argued a bit with respiratory therapy today, not wanting to work on his incentive spirometry He does seem to have episodes of irritability. June 14: we did finally convinced the patient to undergo an MRI of his brain today, but he was given Ativan and morphine ahead of time, for complaints of anxiety and back pain from laying on the table. This evening he is calm, but he is a little bit drifting when I interview him. He has no particular complaints. He thinks the left arm weakness is about the same today. He did get up and do some transfers to and from the chair today, according to his nurse. otherwise, he denies fever or chills, headaches or dizziness, sore throat or cough, chest pain or palpitations, shortness of breath, abdominal pain, nausea or vomiting. He continues with a Mckeon catheter to help monitor accurate urine output. He is making more urine today, so Dr. Cordero held off on dialysis, to see if he will keep improving spontaneously. June 15: the patient reports he is feeling better today. He seems in good spirits when I enter the room, but is arguing with the nurse about whether or not he can eat finley. Unfortunately, his renal function looks worse today, with climbing B UN, creatinine, phosphate. He was ableto walk some with physical therapy today, and feels that his left leg is stronger. He denies significant coughing or shortness of breath today, and also denies fever or chills, chest pain or palpitations, abdominal pain, nausea or vomiting. he continues with a Mckeon catheter to help measure accurate I's and O's. June 16: -the patient's urine output continues to improve, the BUN/creatinine continued to run very high. He did undergo dialysis yesterday. Dr. Cordero is following and will help us to decide whether or not the patient should have a permanent tunneled catheter placed, or whether he should continue with temporary dialysis , in the hopes that his renal function will recover. This decision needs to be made prior to discharge to [facility] for rehabilitation -The patient continues to have physical therapy for his left-sided weakness, which we suspect are nerve related injuries related to him being down on the floor for 1-2 days prior to arrival. Follow-up MRI of his brain did not show any evidence for recent stroke. -Today, the patient says he is feeling pretty good. He was able to ambulate around the room a few steps, and feels like he has decent strength in his left leg, although has persistent foot drop. The left arm and hand remain weak, but he is continuing to work on that with physical therapy as well. otherwise, he denies fever or chills, chest pain or palpitations, shortness of breath or cough, abdominal pain, nausea or vomiting or diarrhea. He continues with a Mckeon catheter for accurate urine output measurement. 06/17-patient doing well. ongoing hemodialysis. Creatinine 8. Alert oriented. No changes since previous day. 06/18- patient resting comfortably. Ongoing hemodialysis. No overnight fever chills nausea vomiting or concerns per staff. Tolerating diet and ambulating. Family at bedside 06/19-patient doing well. Ongoing hemodialysis. No further recommendations from hospitalist service except for Coumadin management. INR 2.2. 06/20- patient stable. Ongoing hemodialysis and renal issue/electrolytes management per nephrology. hospitalist service on standby. INR therapeutic 2.3 06/21-patient doing well. No overnight events. creatinine 7.4. management as per nephrology. - Constitutional Vitals: Vital Signs Temp Pulse Resp BP Pulse Ox 98.3 F 80 18 94/60 97 06/21/16 08:00 06/21/16 09:01 06/21/16 08:00 06/21/16 09:01 06/21/16 08:00 Period Temp Pulse Resp BP Sys/Hinds Pulse Ox Last 24 Hr 97.7 F-98.3 F 72-96 -18 94-129/60-83 94-97 Intake and Output 06/20/16 06/21/16 06/21/16 21:59 05:59 13:59 Intake Total 440 / 440 500 / 500 Output Total 700 / 700 550 / 550 Balance -260 / -260 -50 / -50 Weight 198 lb Intake & Output: Intake & Output 06/20/16 06/21/16 06/21/16 21:59 05:59 13:59 Intake Total 440 / 440 500 / 500 Output Total 700 / 700 550 / 550 Balance -260 / -260 -50 / -50 Weight 198 lb Intake: Oral 440 / 440 500 / 500 Output: Urine Catheter Amount 700 / 700 550 / 550 Other: Meal Dinner Breakfast Percent of Meal Consumed 75% 50% Feeding Ability Assist with Tray Set Up # Bowel Movements 1 Medical - PN: Obj Da - Labs CBC & Chem 7: 06/21/16 04:47 06/21/16 04:47 Labs: Abnormal Lab Results 06/21/16 06/21/16 06/21/16 04:47 04:47 04:47 RBC 3.16 L Hgb 9.2 L Hct 27.8 L RDW 15.4 H MPV 7.3 L Seg Neutrophils % 83 H Lymphocytes % 7 L Monocytes % (Manual) WBC Morphology Toxic Granulation RBC Morphology Abnorm A Anisocytosis Few A [place] Bodies PT 26.9 H INR 2.4 H Chloride 93 L Anion Gap 17.0 H BUN 63 H Creatinine 7.4 H* Uric Acid 10.0 H Calcium Phosphorus 6.0 H Lactate Dehydrogenase 279 H Albumin Albumin/Globulin Ratio 0.9 L Triglycerides 163 H 06/20/16 06/20/16 06/20/16 04:15 04:15 04:00 RBC 3.16 L Hgb 9.3 L Hct 27.9 L RDW 15.3 H MPV 7.3 L Seg Neutrophils % Lymphocytes % 13 L Monocytes % (Manual) 13 H WBC Morphology Toxic Granulation RBC Morphology Abnorm A Anisocytosis 1+ A [place] Bodies PT 25.9 H INR 2.3 H Chloride 90 L Anion Gap 19.0 H BUN 53 H Creatinine 6.8 H* Uric Acid 8.4 H Calcium Phosphorus 5.8 H Lactate Dehydrogenase 339 H Albumin 2.9 L Albumin/Globulin Ratio 0.8 L Triglycerides 153 H 06/19/16 06/19/16 06/19/16 04:35 04:35 04:35 RBC 3.10 L Hgb 9.1 L Hct 27.3 L RDW 15.4 H MPV 7.1 L Seg Neutrophils % Lymphocytes % 11 L Monocytes % (Manual) WBC Morphology Abnorm A Toxic Granulation 1+ A RBC Morphology Abnorm A Anisocytosis 1+ A [place] Bodies 1+ A PT 25.1 H INR 2.2 H Chloride 90 L Anion Gap BUN 41 H Creatinine 5.5 H* Uric Acid Calcium 8.1 L Phosphorus 5.2 H Lactate Dehydrogenase 350 H Albumin 2.9 L Albumin/Globulin Ratio 0.9 L Triglycerides Meds: Medications Acetaminophen (Tylenol) 650 mg PO Q4-6HP PRN PRN Reason: PAIN/FEVER > 101 Albuterol/Ipratropium (Duoneb) 3 ml NEB Q4HP PRN PRN Reason: Shortness Of Breath Bacitracin (Bacitracin Topical Oint) 1 dose TOPICAL PRN PRN PRN Reason: with dressing change Calcium Acetate (Phoslo) 1,334 mg PO TIDCC [facility] Last Admin: 06/21/16 08:12 Dose: 1,334 mg Calcium Acetate (Phoslo) 667 mg PO BIDCC [facility] Last Admin: 06/21/16 08:12 Dose: 667 mg Cyanocobalamin (Vitamin B-12) 1,000 mcg PO DAILY [facility] Last Admin: 06/21/16 09:04 Dose: 1,000 mcg Docusate Sodium (Colace) 100 mg PO BID [facility] Last Admin: 06/21/16 09:04 Dose: 100 mg Furosemide (Lasix) 80 mg IV DAILY PRN PRN Reason: Shortness Of Breath Metoprolol Tartrate (Lopressor) 100 mg PO BID [facility] Last Admin: 06/21/16 09:05 Dose: Not Given Ondansetron HCl (Zofran) 4 mg IV Q4-6HP PRN PRN Reason: Nausea And Vomiting Pantoprazole Sodium (Protonix) 40 mg PO QAMAC [facility] Senna/Docusate Sodium (Senna Plus Tablet) 1 tab PO HS [facility] Last Admin: 06/20/16 20:43 Dose: Not Given Sodium Chloride (Saline Flush) 10 ml IV Q8 [facility] Last Admin: 06/21/16 05:11 Dose: 10 ml Warfarin Sodium (Coumadin) 2.5 mg PO DAILY@1400 [facility] Last Admin: 06/20/16 14:43 Dose: 2.5 mg Zolpidem Tartrate (Ambien) 5 mg PO HSP PRN PRN Reason: Insomnia Medical - PN: A/P - Time Spent With Patient Total time spent is greater than 50% in coordination of care (as documented) at patient's floor/unit and/or counseling patient: less than 15 minutes (1) Rhabdomyolysis Status: Acute Assessment and plan: * Acute renal failure secondary to rhabdomyolysis/toxic ATN- managed by nephrology. 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 Able to lift left arm and function. Unable to dorsiflex foot. * Community acquired pneumonia with MSSA bacteremia-fully resolved. status post 14 days antibiotics. * MSSA bacteremia-Off antibiotics * brief seizure episode-resolved. Negative MRI brain. * Rhabdomyolysis- fully resolved * Hypoxic respiratory failure -clinically resolved * A. fib RVR-now rate controlled * anticoagulation on Coumadin. INR therapeutic plan * no changes since previous day * continue Coumadin dosing * hemodialysis per nephrology * continue physical therapy Current Visit: Yes Medical - PN: Qual - Stroke Symptom Onset Unknown: Yes - VTE Deep Vein Thrombosis/Pulmonary Embolism Present on Admission: No
[2016-06-21] MEDS: WARFARIN 2.5 MG TABLET PO SCH (14:09)
[2016-06-21] MEDS: SENNOSIDES/DOCUSATE SODIUM 1 TAB TABLET PO SCH (21:24)
[2016-06-22] MEDS: 0.9 % SODIUM CHLORIDE 10 ML SYRINGE IV SCH ×3 (05:02→20:07)
[2016-06-22 06:10] LABS: Mean Cell Volume 88.4 fL (80.0-100.0); Mean Corpuscular HGB Conc 33.7 g/dL (31.0-36.0); Mean Corpuscular Hemoglobin 29.8 pg (26.0-34.0); Platelet Count 208 K/mcL (140-440); RBC 3.17 M/mcL (4.50-5.90); Red Cell Distribution Width 15.3 % (11.5-14.5)
[2016-06-22 06:43] LABS: ALT/SGPT 28 U/l (0-40); Albumin 3.1 gm/dL (3.2-5.2); Albumin/Globulin Ratio 0.8 (1.0-2.3); Alkaline Phosphatase 72 U/L (39-117); Bilirubin,Direct 0.3 mg/dL (0.0-0.3); Blood Urea Nitrogen 77 mg/dl (8-23); Gamma Glutamyl Transpeptidase 39 U/L (8-61); Magnesium 1.7 mg/dL (1.6-2.5); Uric Acid 10.1 mg/dL (2.5-8.0)
[2016-06-22 06:54] LABS: Basophils % (Manual) 3 % (0-2); Eosinophils % (Manual) 4 % (0-7); Lymphocytes % 14 % (15-49); Monocytes % (Manual) 4 % (1-12); Platelet Estimate NORMAL (NORMAL); RBC Morphology NORMAL (NORMAL); Segmented Neutrophils % 75 % (38-78)
[2016-06-22] MEDS: PANTOPRAZOLE 40 MG TABLET PO SCH (07:30)
[2016-06-22] MEDS: CALCIUM ACETATE 667 MG CAPSULE PO SCH ×5 (07:58→17:12)
--- NOTE | 2016-06-22 08:26 | General Surgery Progress Note ---
Subjective Patient reports: other Narrative: Note initiated : 06/22/16 at 8:24 am Service Date, if different from initiated Date: [] Patient: Angel Garrett 80 y/o M admitted on 06/04/16 for Sepsis, EDWIN. Chief Complaint: [] WOUND CARE f/u: Patient seen with Loren LOPEZ, Inpatient Wound care nurse. Reviewed patient's overall progress. Acute Rhabdomyolysis resolved. Patient now has oliguric renal failure. On regular hemodialysis. Being managed by nephrology. Wounds evaluated. Objective Temp Pulse Resp BP Pulse Ox 97.5 F L 79 12 133/86 96 06/22/16 08:00 06/22/16 08:00 06/22/16 08:00 06/22/16 08:00 06/22/16 08:00 AVSS. AAO x 3 . Ambulating and progressing well with physial therapy. R IJV HD catheter in situ. Scalp lesion has resolved. Other skin abrasions and ecchymoses are resolving well. LEFT breast tenderness is less, Hard ness of sub cutaneous area is due to trauma and fat necrosis. Will take time to resolve. NO signs of inflammation. For observation and close monitoring. - Additional Data Intake & Output - Last 24 hours: Intake & Output 06/20/16 06/21/16 06/22/16 06/23/16 05:59 05:59 05:59 05:59 Intake Total 1492 / 1492 1440 / 1440 1200 / 1200 Output Total 2700 / 2700 1250 / 1250 1555 / 1555 Balance -1208 / -1208 190 / 190 -355 / -355 Weight 199 lb 198 lb 197 lb - Labs 06/22/16 04:55 06/22/16 04:55 Diabetes panel 06/22/16 Range/Units 04:55 Sodium 138 (133-145) mmol/L Potassium 3.4 (3.3-5.1) mmol/L Chloride 93 L (96-108) mmol/L Carbon Dioxide 26 (22-30) mmol/L BUN 77 H (8-23) mg/dl Creatinine 7.3 H* (0.7-1.2) mg/dl Glucose 95 (70-105) mg/dL Calcium 8.8 (8.6-10.4) mg/dl AST 28 (0-37) U/l ALT 28 (0-40) U/l Alkaline Phosphatase 72 (39-117) U/L Total Protein 6.8 (5.9-8.4) gm/dL Albumin 3.1 L (3.2-5.2) gm/dL Triglycerides 144 (<150) mg/dl Calcium panel 06/22/16 Range/Units 04:55 Calcium 8.8 (8.6-10.4) mg/dl Phosphorus 6.0 H (2.7-4.5) mg/dL Albumin 3.1 L (3.2-5.2) gm/dL Pituitary panel 06/22/16 Range/Units 04:55 Sodium 138 (133-145) mmol/L Potassium 3.4 (3.3-5.1) mmol/L Chloride 93 L (96-108) mmol/L Carbon Dioxide 26 (22-30) mmol/L BUN 77 H (8-23) mg/dl Creatinine 7.3 H* (0.7-1.2) mg/dl Glucose 95 (70-105) mg/dL Calcium 8.8 (8.6-10.4) mg/dl Adrenal panel 06/22/16 Range/Units 04:55 Sodium 138 (133-145) mmol/L Potassium 3.4 (3.3-5.1) mmol/L Chloride 93 L (96-108) mmol/L Carbon Dioxide 26 (22-30) mmol/L BUN 77 H (8-23) mg/dl Creatinine 7.3 H* (0.7-1.2) mg/dl Glucose 95 (70-105) mg/dL Calcium 8.8 (8.6-10.4) mg/dl Total Bilirubin 0.9 (0.0-1.0) mg/dL AST 28 (0-37) U/l ALT 28 (0-40) U/l Alkaline Phosphatase 72 (39-117) U/L Total Protein 6.8 (5.9-8.4) gm/dL Albumin 3.1 L (3.2-5.2) gm/dL Assessment and Plan (1) Multiple bruises Status: Acute Assessment and plan: Satisfactory progress from wound care point of view. Most of skin lesions have progressed well and resolved. Left breast sub cutaneous firmness is due to traumatic fat necrosis. No acute inflammatory signs. Monitor progress. OK to take showers. Continue present treatment. IF discharged, F/U at the wound clinic in ONE week. Current Visit: Yes - Time Spent With Patient Total time spent is greater than 50% in coordination of care (as documented) at patient's floor/unit and/or counseling patient: less than 15 minutes
--- NOTE | 2016-06-22 09:16 | Nephrology Progress Note ---
Subjective Patient information: Note initiated : 06/22/16 at 9:16 am Service Date, if different from initiated Date: [] Patient: Angel Garrett 80 y/o M admitted on 06/04/16 for Sepsis, EDWIN. Chief Complaint: [] Principal diagnosis: PNA, acute renal failure, rhabdomyolysis Interval history: Doing well. Being monitored off dialysis. Feels much better and brighter today. Was seen by Dr Long this AM. Objective - Vital Signs Vital signs: Vital Signs Temp Pulse Pulse Resp BP BP Pulse Ox 06/22/16 09:02 120/90 06/22/16 08:00 97.5 F L 79 12 133/86 96 06/22/16 07:09 79 96 06/22/16 03:20 97.9 F 97 H 14 135/82 96 06/21/16 23:41 98.4 F 88 14 115/72 91 06/21/16 19:49 97.5 F L 66 14 105/72 93 06/21/16 16:24 97.3 F L 83 18 96/69 97 06/21/16 13:24 97.5 F L 100 H 16 139/89 93 Intake and Output 06/21/16 06/22/16 06/22/16 21:59 05:59 13:59 Intake Total 740 / 740 200 / 200 Output Total 125 / 125 700 / 700 Balance 615 / 615 -500 / -500 Intake: Oral 740 / 740 200 / 200 Output: Urine Catheter Amount 125 / 125 700 / 700 Other: Meal Dinner Percent of Meal Consumed 100% Weight 197 lb Intake & Output: Intake & Output 06/21/16 06/22/16 06/22/16 21:59 05:59 13:59 Intake Total 740 / 740 200 / 200 Output Total 125 / 125 700 / 700 Balance 615 / 615 -500 / -500 Weight 197 lb Intake: Oral 740 / 740 200 / 200 Output: Urine Catheter Amount 125 / 125 700 / 700 Other: Meal Dinner Percent of Meal Consumed 100% - General Appearance General appearance: well-developed, well-nourished, appears started age EENT: mucous membranes moist Neck: no JVD (Chris cath in place) Respiratory: clear Cardiology: irregular rhythm, normal S1, normal S2 Gastrointestinal: normoactive bowel sounds, no tenderness, no guarding Integumentary: no rash, warm and dry Neurologic: no focal deficit, no asterixis, alert and oriented x3 Musculoskeletal: no erythema Psychiatric: mood/affect appropriate - Lab 06/22/16 04:55 06/22/16 04:55 Most recent lab results Calcium 8.8 mg/dl (8.6-10.4) 06/22/16 04:55 Phosphorus 6.0 mg/dL (2.7-4.5) H 06/22/16 04:55 Magnesium 1.7 mg/dL (1.6-2.5) 06/22/16 04:55 Assessment and Plan (1) Acute renal failure EDWIN: 04/08 Rhabdo Pt has been non oliguric with no renal clearance was initiated on HD last hemodialyzed on tuesday lasix d/c - Being assessed daily making urine Ok to d/c castillo cath from renal stand point sCr slowly trending up, but seems to be plateauing off no uremic symptoms if sCr elevated further will dialyse tomorrow Hypokalemia K 3.4 will replete with 40 mEq KCL Hyperphosphatemia from EDWIN, is on phoslo on renal diet phoslo added to snacks Phos uptrended to 6.0 and is stable Calcium is wnl will monitor Anemia: Hb stable at < 10, has normal Tsat, b12 low normal, will order 1000 mcg po B12 PNA: treated with ceftriaxone Status: Acute (2) Rhabdomyolysis resolved Status: Acute
--- NOTE | 2016-06-22 09:58 | Internal Med Progress Note ---
Medical - PN: Subj Patient information: Note initiated : 06/22/16 at 9:56 am Service Date, if different from initiated Date: [] Patient: Angel Garrett 80 y/o M admitted on 06/04/16 for Sepsis, EDWIN. Chief Complaint: [] Interval history: June 11, 2016: on service note: This patient was transferred here on June 04, 2016, after being found down at home. He presented to the hospital with atrial fibrillation with RVR, hypotension, left upper lobe pneumonia, severe rhabdomyolysis and acute renal failure, as well as altered mental status. Over the last 6 days, the patient has responded to IV fluids hemodialysis, IV antibiotics. Mental status has improved. He has continued to have weakness of the left arm, which is thought to be a possible brachial plexus injury. He is working with physical therapy, and this seems to be slowly improving. He has continued to require oxygen to maintain oxygen saturations. June 11, 2016: Urgent care:I was called to the bedside today, to see this patient, for a rapid response call. The patient was in the middle of being transferred from the intensive care unit out to [facility]. The aide noted that when she got into his room, his head rolled back in his eyes seem to roll back, he lost consciousness, and she felt that his hands were shaking consistent with possible seizure activity. The symptoms resolved quickly, and he aroused without us doing much. He does report that he seemed like he was seeing different colors in his vision just prior to the event. He denies any fever or chills, headaches or dizziness. He does not report blurry vision, sore throat, chest pain or palpitations, changes in his breathing or significant abdominal pain. He did report that his right upper quadrant area is a bit sore at times, since his fall. of note, the patient has chronic atrial fibrillation, for which she is maintained on Coumadin. When he was admitted about one week ago, his INR was quite elevated, and he was found down at home. He did have a hematoma on his forehead, from his fall. Head CT at that time did not show signs of bleeding. initial workup at an outside hospital did show pneumonia, and blood cultures grew MSSA, which was pansensitive. He was originally treated with Levaquin and Zosyn, but the Zosyn was discontinued after the cultures were back. also of note, the patient recently returned back from a road trip to [place]. He believes he had a fall sometime during his trip, landing on his knee, and says the left leg has been swollen since then. However he is quite fuzzy on the details, and it is not clear if he fell while he was on history, or if he is just recalling the fall he had at home, that landed him up here, about one week ago. His Coumadin was initially held, and his INR did drop down to a level of 1.1, prior to his tunneled catheter placement. Today is therapeutic at 2.2. June 12, 2016: today,patient says he is feeling reasonably well. He is having some mild dyspnea upon return from MRI. Physical therapy says the patient said he was just too tired to work on physical therapy today. He does continue to have some left upper extremity weakness, although he thinks it's better since admission. He also has a foot drop noted on the left foot since admission. It is thought that these symptoms were due to his fall and prolonged stay on the bathroom floor at home. Otherwise, the patient says she has not had any syncopal or near syncopal episodes today. nursing staff also has not noted recurrent symptoms. The patient denies fever or chills, sore throat. He has occasional cough. He continues to have mild dyspnea with exertion. He denies chest pain or palpitations abdominal pain, nausea or vomiting, diarrhea dysuria. June 13: the patient does seem more awake and alert today He reports that he did get up with physical therapy and seemed to move his left leg a little bit better today.he continues to have weakness of the left arm. He otherwise denies fever or chills, chest pain or significant cough or shortness of breath. He denies abdominal pain, nausea or vomiting. unfortunately, renal function does look worse today. Phosphorus level is climbing LFTs look a bit better. CPK continues to decline. he argued a bit with respiratory therapy today, not wanting to work on his incentive spirometry He does seem to have episodes of irritability. June 14: we did finally convinced the patient to undergo an MRI of his brain today, but he was given Ativan and morphine ahead of time, for complaints of anxiety and back pain from laying on the table. This evening he is calm, but he is a little bit drifting when I interview him. He has no particular complaints. He thinks the left arm weakness is about the same today. He did get up and do some transfers to and from the chair today, according to his nurse. otherwise, he denies fever or chills, headaches or dizziness, sore throat or cough, chest pain or palpitations, shortness of breath, abdominal pain, nausea or vomiting. He continues with a Mckeon catheter to help monitor accurate urine output. He is making more urine today, so Dr. Cordero held off on dialysis, to see if he will keep improving spontaneously. June 15: the patient reports he is feeling better today. He seems in good spirits when I enter the room, but is arguing with the nurse about whether or not he can eat finley. Unfortunately, his renal function looks worse today, with climbing B UN, creatinine, phosphate. He was ableto walk some with physical therapy today, and feels that his left leg is stronger. He denies significant coughing or shortness of breath today, and also denies fever or chills, chest pain or palpitations, abdominal pain, nausea or vomiting. he continues with a Mckeon catheter to help measure accurate I's and O's. June 16: -the patient's urine output continues to improve, the BUN/creatinine continued to run very high. He did undergo dialysis yesterday. Dr. Cordero is following and will help us to decide whether or not the patient should have a permanent tunneled catheter placed, or whether he should continue with temporary dialysis , in the hopes that his renal function will recover. This decision needs to be made [facility] -The patient continues to have physical therapy for his left-sided weakness, which we suspect are nerve related injuries related to him being down on the floor for 1-2 days prior to arrival. Follow-up MRI of his brain did not show any evidence for recent stroke. -Today, the patient says he is feeling pretty good. He was able to ambulate around the room a few steps, and feels like he has decent strength in his left leg, although has persistent foot drop. The left arm and hand remain weak, but he is continuing to work on that with physical therapy as well. otherwise, he denies fever or chills, chest pain or palpitations, shortness of breath or cough, abdominal pain, nausea or vomiting or diarrhea. He continues with a Mckeon catheter for accurate urine output measurement. 06/17-patient doing well. ongoing hemodialysis. Creatinine 8. Alert oriented. No changes since previous day. 06/18- patient resting comfortably. Ongoing hemodialysis. No overnight fever chills nausea vomiting or concerns per staff. Tolerating diet and ambulating. Family at bedside 06/19-patient doing well. Ongoing hemodialysis. No further recommendations from hospitalist service except for Coumadin management. INR 2.2. 06/20- patient stable. Ongoing hemodialysis and renal issue/electrolytes management per nephrology. hospitalist service on standby. INR therapeutic 2.3 06/21-patient doing well. No overnight events. creatinine 7.4. management as per nephrology. 06/22- patient doing well. No overnight events. Improving creatinine is 7.3. continue Coumadin dosing - Constitutional Vitals: Vital Signs Temp Pulse Resp BP Pulse Ox 97.5 F L 115 H 12 106/64 98 06/22/16 08:00 06/22/16 09:49 06/22/16 08:00 06/22/16 09:49 06/22/16 09:49 Period Temp Pulse Resp BP Sys/Hinds Pulse Ox Last 24 Hr 97.3 F-98.4 F 66-115 12-18 96-139/64-90 91-98 Intake and Output 06/21/16 06/22/16 06/22/16 21:59 05:59 13:59 Intake Total 740 / 740 200 / 200 Output Total 125 / 125 700 / 700 Balance 615 / 615 -500 / -500 Weight 197 lb Intake & Output: Intake & Output 06/21/16 06/22/16 06/22/16 21:59 05:59 13:59 Intake Total 740 / 740 200 / 200 Output Total 125 / 125 700 / 700 Balance 615 / 615 -500 / -500 Weight 197 lb Intake: Oral 740 / 740 200 / 200 Output: Urine Catheter Amount 125 / 125 700 / 700 Other: Meal Dinner Percent of Meal Consumed 100% General appearance: disheveled, no acute distress Exam: alert and oriented no labored breathing No anxiety Medical - PN: Obj Da - Labs CBC & Chem 7: 06/22/16 04:55 06/22/16 04:55 Labs: Abnormal Lab Results 06/22/16 06/22/16 06/22/16 04:55 04:55 04:55 RBC 3.17 L Hgb 9.4 L Hct 28.0 L RDW 15.3 H MPV Seg Neutrophils % Lymphocytes % 14 L Monocytes % (Manual) Basophils % (Manual) 3 H RBC Morphology Anisocytosis PT 28.3 H INR 2.5 H Chloride 93 L Anion Gap 19.0 H BUN 77 H Creatinine 7.3 H* Uric Acid 10.1 H Phosphorus 6.0 H Lactate Dehydrogenase 266 H Albumin 3.1 L Albumin/Globulin Ratio 0.8 L Triglycerides 06/21/16 06/21/16 06/21/16 04:47 04:47 04:47 RBC 3.16 L Hgb 9.2 L Hct 27.8 L RDW 15.4 H MPV 7.3 L Seg Neutrophils % 83 H Lymphocytes % 7 L Monocytes % (Manual) Basophils % (Manual) RBC Morphology Abnorm A Anisocytosis Few A PT 26.9 H INR 2.4 H Chloride 93 L Anion Gap 17.0 H BUN 63 H Creatinine 7.4 H* Uric Acid 10.0 H Phosphorus 6.0 H Lactate Dehydrogenase 279 H Albumin Albumin/Globulin Ratio 0.9 L Triglycerides 163 H 06/20/16 06/20/16 06/20/16 04:15 04:15 04:00 RBC 3.16 L Hgb 9.3 L Hct 27.9 L RDW 15.3 H MPV 7.3 L Seg Neutrophils % Lymphocytes % 13 L Monocytes % (Manual) 13 H Basophils % (Manual) RBC Morphology Abnorm A Anisocytosis 1+ A PT 25.9 H INR 2.3 H Chloride 90 L Anion Gap 19.0 H BUN 53 H Creatinine 6.8 H* Uric Acid 8.4 H Phosphorus 5.8 H Lactate Dehydrogenase 339 H Albumin 2.9 L Albumin/Globulin Ratio 0.8 L Triglycerides 153 H Meds: Medications Acetaminophen (Tylenol) 650 mg PO Q4-6HP PRN PRN Reason: PAIN/FEVER > 101 Albuterol/Ipratropium (Duoneb) 3 ml NEB Q4HP PRN PRN Reason: Shortness Of Breath Bacitracin (Bacitracin Topical Oint) 1 dose TOPICAL PRN PRN PRN Reason: with dressing change Calcium Acetate (Phoslo) 1,334 mg PO [facility] Last Admin: 06/22/16 07:58 Dose: 1,334 mg Calcium Acetate (Phoslo) 667 mg PO B[facility] Last Admin: 06/22/16 07:58 Dose: 667 mg Cyanocobalamin (Vitamin B-12) 1,000 mcg PO DAILY [facility] Last Admin: 06/21/16 09:04 Dose: 1,000 mcg Docusate Sodium (Colace) 100 mg PO BID [facility] Last Admin: 06/21/16 21:24 Dose: Not Given Furosemide (Lasix) 80 mg IV DAILY PRN PRN Reason: Shortness Of Breath Metoprolol Tartrate (Lopressor) 100 mg PO BID [facility] Last Admin: 06/21/16 21:24 Dose: Not Given Ondansetron HCl (Zofran) 4 mg IV Q4-6HP PRN PRN Reason: Nausea And Vomiting Pantoprazole Sodium (Protonix) 40 mg PO QAMAC [facility] Last Admin: 06/22/16 07:30 Dose: 40 mg Senna/Docusate Sodium (Senna Plus Tablet) 1 tab PO HS [facility] Last Admin: 06/21/16 21:24 Dose: Not Given Sodium Chloride (Saline Flush) 10 ml IV Q8 [facility] Last Admin: 06/22/16 05:02 Dose: 10 ml Warfarin Sodium (Coumadin) 2.5 mg PO DAILY@1400 [facility] Last Admin: 06/21/16 14:09 Dose: 2.5 mg Zolpidem Tartrate (Ambien) 5 mg PO HSP PRN PRN Reason: Insomnia Medical - PN: A/P - Time Spent With Patient Total time spent is greater than 50% in coordination of care (as documented) at patient's floor/unit and/or counseling patient: 15 - 24 minutes (1) Rhabdomyolysis Status: Acute Assessment and plan: * Acute renal failure secondary to rhabdomyolysis/toxic ATN- managed by nephrology. creatinine down from 7.4-7.3 in 24 hours. * Left arm weakness likely brachial plexus injury as per orthopedics- clinically improving * Community acquired pneumonia with MSSA bacteremia-fully resolved. status post 14 days antibiotics. * MSSA bacteremia-Off antibiotics * brief seizure episode-resolved. Negative MRI brain. * Rhabdomyolysis- fully resolved * Hypoxic respiratory failure -clinically resolved * A. fib RVR-now rate controlled * anticoagulation on Coumadin. INR therapeutic plan * continue Coumadin dosing Current Visit: Yes Medical - PN: Qual - Stroke Symptom Onset Unknown: Yes - VTE Deep Vein Thrombosis/Pulmonary Embolism Present on Admission: No
[2016-06-22] MEDS: METOPROLOL TARTRATE 50 MG TABLET PO SCH ×2 (09:59→20:12)
[2016-06-22] MEDS: CYANOCOBALAMIN (VITAMIN B-12) 500 MCG TABLET PO SCH (09:59)
[2016-06-22] MEDS: DOCUSATE SODIUM 100 MG CAPSULE PO SCH ×2 (10:00→20:12)
[2016-06-22] MEDS ORDERED: POTASSIUM CHLORIDE 40 MEQ in DEXTROSE 5% IN WATER 500 ML IV ONE (10:30)
[2016-06-22] MEDS: WARFARIN 2.5 MG TABLET PO SCH (14:49)
[2016-06-22] MEDS: 0.9 % SODIUM CHLORIDE 750 ML IV SCH (17:12)
[2016-06-22] MEDS: SENNOSIDES/DOCUSATE SODIUM 1 TAB TABLET PO SCH (20:13)
[2016-06-23] MEDS: 0.9 % SODIUM CHLORIDE 750 ML IV SCH ×5 (02:30→22:55)
[2016-06-23] MEDS: 0.9 % SODIUM CHLORIDE 10 ML SYRINGE IV SCH ×3 (05:32→20:23)
[2016-06-23] MEDS: PANTOPRAZOLE 40 MG TABLET PO SCH (07:10)
[2016-06-23] MEDS: CALCIUM ACETATE 667 MG CAPSULE PO SCH ×5 (08:33→17:58)
[2016-06-23] MEDS: METOPROLOL TARTRATE 50 MG TABLET PO SCH ×2 (08:34→20:22)
[2016-06-23] MEDS: CYANOCOBALAMIN (VITAMIN B-12) 500 MCG TABLET PO SCH (08:34)
--- NOTE | 2016-06-23 10:07 | Internal Med Progress Note ---
Medical - PN: Subj Patient information: Note initiated : 06/23/16 at 10:05 am Service Date, if different from initiated Date: [] Patient: Angel Garrett 80 y/o M admitted on 06/04/16 for Sepsis, EDWIN. Chief Complaint: [] Interval history: June 11, 2016: on service note: This patient was transferred here on June 04, 2016, after being found down at home. He presented to the hospital with atrial fibrillation with RVR, hypotension, left upper lobe pneumonia, severe rhabdomyolysis and acute renal failure, as well as altered mental status. Over the last 6 days, the patient has responded to IV fluids hemodialysis, IV antibiotics. Mental status has improved. He has continued to have weakness of the left arm, which is thought to be a possible brachial plexus injury. He is working with physical therapy, and this seems to be slowly improving. He has continued to require oxygen to maintain oxygen saturations. June 11, 2016: Urgent care:I was called to the bedside today, to see this patient, for a rapid response call. The patient was in the middle of being transferred from the intensive care unit out to [facility]. The aide noted that when she got into his room, his head rolled back in his eyes seem to roll back, he lost consciousness, and she felt that his hands were shaking consistent with possible seizure activity. The symptoms resolved quickly, and he aroused without us doing much. He does report that he seemed like he was seeing different colors in his vision just prior to the event. He denies any fever or chills, headaches or dizziness. He does not report blurry vision, sore throat, chest pain or palpitations, changes in his breathing or significant abdominal pain. He did report that his right upper quadrant area is a bit sore at times, since his fall. of note, the patient has chronic atrial fibrillation, for which she is maintained on Coumadin. When he was admitted about one week ago, his INR was quite elevated, and he was found down at home. He did have a hematoma on his forehead, from his fall. Head CT at that time did not show signs of bleeding. initial workup at an outside hospital did show pneumonia, and blood cultures grew MSSA, which was pansensitive. He was originally treated with Levaquin and Zosyn, but the Zosyn was discontinued after the cultures were back. also of note, the patient recently returned back from a road trip to [place]. He believes he had a fall sometime during his trip, landing on his knee, and says the left leg has been swollen since then. However he is quite fuzzy on the details, and it is not clear if he fell while he was on history, or if he is just recalling the fall he had at home, that landed him up here, about one week ago. His Coumadin was initially held, and his INR did drop down to a level of 1.1, prior to his tunneled catheter placement. Today is therapeutic at 2.2. June 12, 2016: today,patient says he is feeling reasonably well. He is having some mild dyspnea upon return from MRI. Physical therapy says the patient said he was just too tired to work on physical therapy today. He does continue to have some left upper extremity weakness, although he thinks it's better since admission. He also has a foot drop noted on the left foot since admission. It is thought that these symptoms were due to his fall and prolonged stay on the bathroom floor at home. Otherwise, the patient says she has not had any syncopal or near syncopal episodes today. nursing staff also has not noted recurrent symptoms. The patient denies fever or chills, sore throat. He has occasional cough. He continues to have mild dyspnea with exertion. He denies chest pain or palpitations abdominal pain, nausea or vomiting, diarrhea dysuria. June 13: the patient does seem more awake and alert today He reports that he did get up with physical therapy and seemed to move his left leg a little bit better today.he continues to have weakness of the left arm. He otherwise denies fever or chills, chest pain or significant cough or shortness of breath. He denies abdominal pain, nausea or vomiting. unfortunately, renal function does look worse today. Phosphorus level is climbing LFTs look a bit better. CPK continues to decline. he argued a bit with respiratory therapy today, not wanting to work on his incentive spirometry He does seem to have episodes of irritability. June 14: we did finally convinced the patient to undergo an MRI of his brain today, but he was given Ativan and morphine ahead of time, for complaints of anxiety and back pain from laying on the table. This evening he is calm, but he is a little bit drifting when I interview him. He has no particular complaints. He thinks the left arm weakness is about the same today. He did get up and do some transfers to and from the chair today, according to his nurse. otherwise, he denies fever or chills, headaches or dizziness, sore throat or cough, chest pain or palpitations, shortness of breath, abdominal pain, nausea or vomiting. He continues with a Mckeon catheter to help monitor accurate urine output. He is making more urine today, so Dr. Cordero held off on dialysis, to see if he will keep improving spontaneously. June 15: the patient reports he is feeling better today. He seems in good spirits when I enter the room, but is arguing with the nurse about whether or not he can eat finley. Unfortunately, his renal function looks worse today, with climbing B UN, creatinine, phosphate. He was ableto walk some with physical therapy today, and feels that his left leg is stronger. He denies significant coughing or shortness of breath today, and also denies fever or chills, chest pain or palpitations, abdominal pain, nausea or vomiting. he continues with a Mckeon catheter to help measure accurate I's and O's. June 16: -the patient's urine output continues to improve, the BUN/creatinine continued to run very high. He did undergo dialysis yesterday. Dr. Cordero is following and will help us to decide whether or not the patient should have a permanent tunneled catheter placed, or whether he should continue with temporary dialysis , in the hopes that his renal function will recover. This decision needs to be made prior to discharge to [facility] -The patient continues to have physical therapy for his left-sided weakness, which we suspect are nerve related injuries related to him being down on the floor for 1-2 days prior to arrival. Follow-up MRI of his brain did not show any evidence for recent stroke. -Today, the patient says he is feeling pretty good. He was able to ambulate around the room a few steps, and feels like he has decent strength in his left leg, although has persistent foot drop. The left arm and hand remain weak, but he is continuing to work on that with physical therapy as well. otherwise, he denies fever or chills, chest pain or palpitations, shortness of breath or cough, abdominal pain, nausea or vomiting or diarrhea. He continues with a Mckeon catheter for accurate urine output measurement. 06/17-patient doing well. ongoing hemodialysis. Creatinine 8. Alert oriented. No changes since previous day. 06/18- patient resting comfortably. Ongoing hemodialysis. No overnight fever chills nausea vomiting or concerns per staff. Tolerating diet and ambulating. Family at bedside 06/19-patient doing well. Ongoing hemodialysis. No further recommendations from hospitalist service except for Coumadin management. INR 2.2. 06/20- patient stable. Ongoing hemodialysis and renal issue/electrolytes management per nephrology. hospitalist service on standby. INR therapeutic 2.3 06/21-patient doing well. No overnight events. creatinine 7.4. management as per nephrology. 06/22- patient doing well. No overnight events. Improving creatinine is 7.3. continue Coumadin dosing 06/23- no changes since previous day except for occasional orthostatic symptoms including dizziness. Patient received fluid bolus as per nephrology. Awaiting labs - Constitutional Vitals: Vital Signs Temp Pulse Resp BP Pulse Ox 97.0 F L 90 18 126/77 97 06/23/16 07:46 06/23/16 07:46 06/23/16 07:46 06/23/16 07:46 06/23/16 07:46 Period Temp Pulse Resp BP Sys/Hinds Pulse Ox Last 24 Hr 97.0 F-98.3 F 83-103 16-18 104-138/58-88 95-97 Intake and Output 06/22/16 06/23/16 06/23/16 21:59 05:59 13:59 Intake Total 770 / 770 1140 / 1140 Output Total 75 / 75 650 / 650 Balance 695 / 695 490 / 490 Weight 192 lb 8 oz Intake & Output: Intake & Output 06/22/16 06/23/16 06/23/16 21:59 05:59 13:59 Intake Total 770 / 770 1140 / 1140 Output Total 75 / 75 650 / 650 Balance 695 / 695 490 / 490 Weight 192 lb 8 oz Intake: IV 520 / 520 750 / 750 Sodium Chloride 0.9% 750 750 / 750 ml @ 100 mls/hr IV . Q7H30M [facility] Rx#:[id number] Potassium Chloride 40 Meq 520 / 520 In Dextrose 5% in Water 500 ml @ 130 mls/hr IV ONCE ONE Rx#:[id number] Oral 250 / 250 390 / 390 Output: Urine Catheter Amount 600 / 600 Void Amount 75 / 75 50 / 50 Other: Meal Dinner Percent of Meal Consumed 50% Feeding Ability Independent # Bowel Movements 1 General appearance: cooperative, no acute distress Exam: alert oriented nonlabored breathing Right IJ dialysis catheter Afebrile Medical - PN: Obj Da - Labs CBC & Chem 7: 06/22/16 04:55 06/22/16 04:55 Labs: Abnormal Lab Results 06/23/16 06/22/16 06/22/16 05:01 04:55 04:55 RBC Hgb Hct RDW MPV Seg Neutrophils % Lymphocytes % Basophils % (Manual) RBC Morphology Anisocytosis PT 28.6 H 28.3 H INR 2.6 H 2.5 H Chloride 93 L Anion Gap 19.0 H BUN 77 H Creatinine 7.3 H* Uric Acid 10.1 H Phosphorus 6.0 H Lactate Dehydrogenase 266 H Albumin 3.1 L Albumin/Globulin Ratio 0.8 L Triglycerides 06/22/16 06/21/16 06/21/16 04:55 04:47 04:47 RBC 3.17 L 3.16 L Hgb 9.4 L 9.2 L Hct 28.0 L 27.8 L RDW 15.3 H 15.4 H MPV 7.3 L Seg Neutrophils % 83 H Lymphocytes % 14 L 7 L Basophils % (Manual) 3 H RBC Morphology Abnorm A Anisocytosis Few A PT INR Chloride 93 L Anion Gap 17.0 H BUN 63 H Creatinine 7.4 H* Uric Acid 10.0 H Phosphorus 6.0 H Lactate Dehydrogenase 279 H Albumin Albumin/Globulin Ratio 0.9 L Triglycerides 163 H 06/21/16 04:47 RBC Hgb Hct RDW MPV Seg Neutrophils % Lymphocytes % Basophils % (Manual) RBC Morphology Anisocytosis PT 26.9 H INR 2.4 H Chloride Anion Gap BUN Creatinine Uric Acid Phosphorus Lactate Dehydrogenase Albumin Albumin/Globulin Ratio Triglycerides Meds: Medications Acetaminophen (Tylenol) 650 mg PO Q4-6HP PRN PRN Reason: PAIN/FEVER > 101 Albuterol/Ipratropium (Duoneb) 3 ml NEB Q4HP PRN PRN Reason: Shortness Of Breath Bacitracin (Bacitracin Topical Oint) 1 dose TOPICAL PRN PRN PRN Reason: with dressing change Calcium Acetate (Phoslo) 1,334 mg PO TIDCC [facility] Last Admin: 06/23/16 08:33 Dose: 1,334 mg Calcium Acetate (Phoslo) 667 mg PO BIDCC [facility] Last Admin: 06/23/16 08:34 Dose: 667 mg Cyanocobalamin (Vitamin B-12) 1,000 mcg PO DAILY [facility] Last Admin: 06/23/16 08:34 Dose: 1,000 mcg Docusate Sodium (Colace) 100 mg PO BID [facility] Last Admin: 06/22/16 20:12 Dose: Not Given Furosemide (Lasix) 80 mg IV DAILY PRN PRN Reason: Shortness Of Breath Sodium Chloride (Sodium Chloride 0.9%) 750 mls @ 100 mls/hr IV .Q7H30M [facility] Last Admin: 06/23/16 02:30 Dose: Not Given Metoprolol Tartrate (Lopressor) 100 mg PO BID [facility] Last Admin: 06/23/16 08:34 Dose: 100 mg Ondansetron HCl (Zofran) 4 mg IV Q4-6HP PRN PRN Reason: Nausea And Vomiting Pantoprazole Sodium (Protonix) 40 mg PO QAMAC [facility] Last Admin: 06/23/16 07:10 Dose: 40 mg Senna/Docusate Sodium (Senna Plus Tablet) 1 tab PO HS [facility] Last Admin: 06/22/16 20:13 Dose: Not Given Sodium Chloride (Saline Flush) 10 ml IV Q8 [facility] Last Admin: 06/23/16 05:32 Dose: 10 ml Warfarin Sodium (Coumadin) 2.5 mg PO DAILY@1400 [facility] Last Admin: 06/22/16 14:49 Dose: 2.5 mg Zolpidem Tartrate (Ambien) 5 mg PO HSP PRN PRN Reason: Insomnia Medical - PN: A/P - Time Spent With Patient Total time spent is greater than 50% in coordination of care (as documented) at patient's floor/unit and/or counseling patient: 15 - 24 minutes (1) Rhabdomyolysis Status: Acute Assessment and plan: * Acute renal failure secondary to rhabdomyolysis/toxic ATN- managed by nephrology. * orthostatic hypotension secondary to volume depletion-managed by nephrology * Left arm weakness likely brachial plexus injury as per orthopedics- clinically improving * Community acquired pneumonia with MSSA bacteremia-fully resolved. status post 14 days antibiotics. * MSSA bacteremia-Off antibiotics * brief seizure episode-resolved. Negative MRI brain. * Rhabdomyolysis- fully resolved * Hypoxic respiratory failure -clinically resolved * A. fib RVR-now rate controlled on metoprolol * anticoagulation on Coumadin. INR therapeutic plan * continue Coumadin dosing * pre-existing medical condition management as above Current Visit: Yes Medical - PN: Qual - Stroke Symptom Onset Unknown: Yes - VTE Deep Vein Thrombosis/Pulmonary Embolism Present on Admission: No
[2016-06-23 10:19] LABS: Blood Urea Nitrogen 80 mg/dl (8-23)
--- NOTE | 2016-06-23 12:58 | Nephrology Progress Note ---
Subjective Patient information: Note initiated : 06/23/16 at 12:56 pm Service Date, if different from initiated Date: [] Patient: Angel Garrett 80 y/o M admitted on 06/04/16 for Sepsis, EDWIN. Chief Complaint: [] Principal diagnosis: PNA, acute renal failure, rhabdomyolysis Interval history: Pt was orthostatic with Pt yesterday so was given 750 cc normal saline. BPs have been good Cr slightly improved No other complaints Objective - Vital Signs Vital signs: Vital Signs Temp Pulse Pulse Pulse Resp BP BP 06/23/16 12:00 97.4 F L 85 18 120/75 06/23/16 07:46 97.0 F L 90 18 126/77 06/23/16 07:02 90 06/23/16 02:59 97.7 F 103 H 18 138/73 06/22/16 23:55 97.6 F 98 H 18 104/58 06/22/16 18:55 97.8 F 102 H 18 124/69 06/22/16 15:28 98.3 F 93 H 16 131/88 Pulse Ox 06/23/16 12:00 96 06/23/16 07:46 97 06/23/16 07:02 97 06/23/16 02:59 95 06/22/16 23:55 96 06/22/16 18:55 97 06/22/16 15:28 96 Intake and Output 06/22/16 06/23/16 06/23/16 21:59 05:59 13:59 Intake Total 770 / 770 1140 / 1140 Output Total 75 / 75 650 / 650 Balance 695 / 695 490 / 490 Intake: IV 520 / 520 750 / 750 Sodium Chloride 0.9% 750 750 / 750 ml @ 100 mls/hr IV . Q7H30M [facility] Rx#:[id number] Potassium Chloride 40 Meq 520 / 520 In Dextrose 5% in Water 500 ml @ 130 mls/hr IV ONCE ONE Rx#:[id number] Oral 250 / 250 390 / 390 Output: Urine Catheter Amount 600 / 600 Void Amount 75 / 75 50 / 50 Other: Meal Dinner Percent of Meal Consumed 50% Feeding Ability Independent # Bowel Movements 1 Weight 192 lb 8 oz Intake & Output: Intake & Output 06/22/16 06/23/16 06/23/16 21:59 05:59 13:59 Intake Total 770 / 770 1140 / 1140 Output Total 75 / 75 650 / 650 Balance 695 / 695 490 / 490 Weight 192 lb 8 oz Intake: IV 520 / 520 750 / 750 Sodium Chloride 0.9% 750 750 / 750 ml @ 100 mls/hr IV . Q7H30M [facility] Rx#:[id number] Potassium Chloride 40 Meq 520 / 520 In Dextrose 5% in Water 500 ml @ 130 mls/hr IV ONCE ONE Rx#:[id number] Oral 250 / 250 390 / 390 Output: Urine Catheter Amount 600 / 600 Void Amount 75 / 75 50 / 50 Other: Meal Dinner Percent of Meal Consumed 50% Feeding Ability Independent # Bowel Movements 1 - General Appearance General appearance: well-developed, well-nourished, appears started age EENT: mucous membranes moist Neck: no JVD Respiratory: clear Cardiology: irregular rhythm Gastrointestinal: normoactive bowel sounds, no tenderness Integumentary: no rash, warm and dry Neurologic: no focal deficit, no asterixis, alert and oriented x3 Musculoskeletal: no erythema Psychiatric: mood/affect appropriate - Lab 06/22/16 04:55 06/23/16 09:10 Most recent lab results Calcium 9.1 mg/dl (8.6-10.4) 06/23/16 09:10 Phosphorus 6.0 mg/dL (2.7-4.5) H 06/22/16 04:55 Magnesium 1.7 mg/dL (1.6-2.5) 06/22/16 04:55 Assessment and Plan (1) Acute renal failure EDWIN: 2/2 Rhabdo Pt has been non oliguric with no renal clearance was initiated on HD last hemodialyzed on tuesday lasix d/c - Being assessed daily making urine castillo maintained as pt unable to void Rec'd fluids not in +ve fluid balance will assess in Am - weights and renal funtion Hypokalemia K 3.5 will replete with 40 mEq KCL Hyperphosphatemia from EDWIN, is on phoslo on renal diet phoslo added to snacks Phos uptrended to 6.0 and was stable assess on AM labs Calcium is wnl will monitor Anemia: Hb stable at < 10, has normal Tsat, b12 low normal, will order 1000 mcg po B12 PNA: treated with ceftriaxone Status: Acute (2) Rhabdomyolysis resolved Status: Acute
[2016-06-23] MEDS ORDERED: POTASSIUM CHLORIDE 40 MEQ in DEXTROSE 5% IN WATER 500 ML IV ONE (13:00)
[2016-06-23] MEDS: DOCUSATE SODIUM 100 MG CAPSULE PO SCH ×2 (13:01→20:23)
[2016-06-23] MEDS: WARFARIN 2.5 MG TABLET PO SCH (13:12)
[2016-06-23] MEDS: SENNOSIDES/DOCUSATE SODIUM 1 TAB TABLET PO SCH (20:23)
[2016-06-24] MEDS: 0.9 % SODIUM CHLORIDE 10 ML SYRINGE IV SCH ×3 (05:00→20:57)
[2016-06-24 07:27] LABS: Blood Urea Nitrogen 79 mg/dl (8-23)
--- NOTE | 2016-06-24 08:24 | Nephrology Progress Note ---
Subjective Patient information: Note initiated : 06/24/16 at 8:24 am Service Date, if different from initiated Date: [] Patient: Angel Garrett 80 y/o M admitted on 06/04/16 for Sepsis, EDWIN. Chief Complaint: [] Principal diagnosis: PNA, acute renal failure, rhabdomyolysis Interval history: no acute o/n events. doing well. Cr slowly trending down Objective - Vital Signs Vital signs: Vital Signs Temp Pulse Resp BP BP BP Pulse Ox 06/24/16 07:52 98.9 F 20 131/85 97 06/24/16 04:00 98.1 F 93 H 12 126/77 96 06/23/16 23:43 98.5 F 83 12 110/79 95 06/23/16 20:00 97.6 F 97 H 12 116/65 97 06/23/16 16:00 97.3 F L 87 124/75 96 06/23/16 12:00 97.4 F L 85 18 120/75 96 Intake and Output 06/23/16 06/24/16 06/24/16 21:59 05:59 13:59 Intake Total 420 / 420 250 / 250 Output Total 800 / 800 1050 / 1050 Balance -380 / -380 -800 / -800 Intake: Oral 420 / 420 250 / 250 Output: Urine Catheter Amount 800 / 800 1050 / 1050 Other: Meal Lunch Percent of Meal Consumed 100% Weight 198 lb Intake & Output: Intake & Output 06/23/16 06/24/16 06/24/16 21:59 05:59 13:59 Intake Total 420 / 420 250 / 250 Output Total 800 / 800 1050 / 1050 Balance -380 / -380 -800 / -800 Weight 198 lb Intake: Oral 420 / 420 250 / 250 Output: Urine Catheter Amount 800 / 800 1050 / 1050 Other: Meal Lunch Percent of Meal Consumed 100% - General Appearance General appearance: well-developed, well-nourished, appears started age EENT: mucous membranes moist Neck: no JVD (HD cath in place) Respiratory: clear Cardiology: no edema, regular rate, regular rhythm, normal S1, normal S2 Gastrointestinal: normoactive bowel sounds, no tenderness, no guarding Integumentary: no rash, warm and dry Neurologic: no focal deficit, no asterixis, alert and oriented x3 Musculoskeletal: no erythema Psychiatric: mood/affect appropriate - Lab 04/18/17 04:55 06/24/16 04:55 Most recent lab results Calcium 8.5 mg/dl (8.6-10.4) L 06/24/16 04:55 Phosphorus 6.0 mg/dL (2.7-4.5) H 06/22/16 04:55 Magnesium 1.7 mg/dL (1.6-2.5) 06/22/16 04:55 Assessment and Plan (1) Acute renal failure EDWIN: 2/ Rhabdo Pt has been non oliguric with no renal clearance was initiated on HD last hemodialyzed on tuesday lasix d/c - Being assessed daily making urine castillo maintained as pt unable to void Rec'd fluids Cr slowly trending down Hypokalemia K 3.4 will replete with 40 mEq KCL Hyperphosphatemia from EDWIN, is on phoslo on renal diet phoslo added to snacks Phos uptrended to 6.0 and was stable assess on AM labs- ordered for AM Calcium is wnl will monitor Anemia: Hb stable at < 10, has normal Tsat, b12 low normal, will order 1000 mcg po B12 PNA: treated with ceftriaxone Status: Acute (2) Rhabdomyolysis resolved Status: Acute
[2016-06-24] MEDS: PANTOPRAZOLE 40 MG TABLET PO SCH (08:50)
[2016-06-24] MEDS: DOCUSATE SODIUM 100 MG CAPSULE PO SCH ×2 (08:50→20:54)
[2016-06-24] MEDS: CALCIUM ACETATE 667 MG CAPSULE PO SCH ×5 (08:51→17:49)
[2016-06-24] MEDS: CYANOCOBALAMIN (VITAMIN B-12) 500 MCG TABLET PO SCH (08:51)
[2016-06-24] MEDS: METOPROLOL TARTRATE 50 MG TABLET PO SCH ×2 (08:51→20:55)
[2016-06-24] MEDS ORDERED: POTASSIUM CHLORIDE 40 MEQ in DEXTROSE 5% IN WATER 500 ML IV ONE (09:00)
[2016-06-24] MEDS ORDERED: WARFARIN 1 MG TABLET PO ONE (14:00)
--- NOTE | 2016-06-24 20:41 | Internal Med Progress Note ---
Medical - PN: Subj Patient information: Note initiated : 06/24/16 at 8:41 pm Service Date, if different from initiated Date: [] Patient: Angel Garrett 80 y/o M admitted on 06/04/16 for Sepsis, EDWIN. Chief Complaint: [] Interval history: June 11, 2016: on service note: This patient was transferred here on June 04, 2016, after being found down at home. He presented to the hospital with atrial fibrillation with RVR, hypotension, left upper lobe pneumonia, severe rhabdomyolysis and acute renal failure, as well as altered mental status. Over the last 6 days, the patient has responded to IV fluids hemodialysis, IV antibiotics. Mental status has improved. He has continued to have weakness of the left arm, which is thought to be a possible brachial plexus injury. He is working with physical therapy, and this seems to be slowly improving. He has continued to require oxygen to maintain oxygen saturations. June 11, 2016: Urgent care:I was called to the bedside today, to see this patient, for a rapid response call. The patient was in the middle of being transferred from the intensive care unit out to [facility]. The aide noted that when she got into his room, his head rolled back in his eyes seem to roll back, he lost consciousness, and she felt that his hands were shaking consistent with possible seizure activity. The symptoms resolved quickly, and he aroused without us doing much. He does report that he seemed like he was seeing different colors in his vision just prior to the event. He denies any fever or chills, headaches or dizziness. He does not report blurry vision, sore throat, chest pain or palpitations, changes in his breathing or significant abdominal pain. He did report that his right upper quadrant area is a bit sore at times, since his fall. of note, the patient has chronic atrial fibrillation, for which she is maintained on Coumadin. When he was admitted about one week ago, his INR was quite elevated, and he was found down at home. He did have a hematoma on his forehead, from his fall. Head CT at that time did not show signs of bleeding. initial workup at an outside hospital did show pneumonia, and blood cultures grew MSSA, which was pansensitive. He was originally treated with Levaquin and Zosyn, but the Zosyn was discontinued after the cultures were back. also of note, the patient recently returned back from a road trip to [place]. He believes he had a fall sometime during his trip, landing on his knee, and says the left leg has been swollen since then. However he is quite fuzzy on the details, and it is not clear if he fell while he was on history, or if he is just recalling the fall he had at home, that landed him up here, about one week ago. His Coumadin was initially held, and his INR did drop down to a level of 1.1, prior to his tunneled catheter placement. Today is therapeutic at 2.2. June 12, 2016: today,patient says he is feeling reasonably well. He is having some mild dyspnea upon return from MRI. Physical therapy says the patient said he was just too tired to work on physical therapy today. He does continue to have some left upper extremity weakness, although he thinks it's better since admission. He also has a foot drop noted on the left foot since admission. It is thought that these symptoms were due to his fall and prolonged stay on the bathroom floor at home. Otherwise, the patient says she has not had any syncopal or near syncopal episodes today. nursing staff also has not noted recurrent symptoms. The patient denies fever or chills, sore throat. He has occasional cough. He continues to have mild dyspnea with exertion. He denies chest pain or palpitations abdominal pain, nausea or vomiting, diarrhea dysuria. June 13: the patient does seem more awake and alert today He reports that he did get up with physical therapy and seemed to move his left leg a little bit better today.he continues to have weakness of the left arm. He otherwise denies fever or chills, chest pain or significant cough or shortness of breath. He denies abdominal pain, nausea or vomiting. unfortunately, renal function does look worse today. Phosphorus level is climbing LFTs look a bit better. CPK continues to decline. he argued a bit with respiratory therapy today, not wanting to work on his incentive spirometry He does seem to have episodes of irritability. June 14: we did finally convinced the patient to undergo an MRI of his brain today, but he was given Ativan and morphine ahead of time, for complaints of anxiety and back pain from laying on the table. This evening he is calm, but he is a little bit drifting when I interview him. He has no particular complaints. He thinks the left arm weakness is about the same today. He did get up and do some transfers to and from the chair today, according to his nurse. otherwise, he denies fever or chills, headaches or dizziness, sore throat or cough, chest pain or palpitations, shortness of breath, abdominal pain, nausea or vomiting. He continues with a Mckeon catheter to help monitor accurate urine output. He is making more urine today, so Dr. Cordero held off on dialysis, to see if he will keep improving spontaneously. June 15: the patient reports he is feeling better today. He seems in good spirits when I enter the room, but is arguing with the nurse about whether or not he can eat finley. Unfortunately, his renal function looks worse today, with climbing B UN, creatinine, phosphate. He was ableto walk some with physical therapy today, and feels that his left leg is stronger. He denies significant coughing or shortness of breath today, and also denies fever or chills, chest pain or palpitations, abdominal pain, nausea or vomiting. he continues with a Mckeon catheter to help measure accurate I's and O's. June 16: -the patient's urine output continues to improve, the BUN/creatinine continued to run very high. He did undergo dialysis yesterday. Dr. Cordero is following and will help us to decide whether or not the patient should have a permanent tunneled catheter placed, or whether he should continue with temporary dialysis , in the hopes that his renal function will recover. This decision needs to be made prior to discharge to [facility] for rehabilitation -The patient continues to have physical therapy for his left-sided weakness, which we suspect are nerve related injuries related to him being down on the floor for 1-2 days prior to arrival. Follow-up MRI of his brain did not show any evidence for recent stroke. -Today, the patient says he is feeling pretty good. He was able to ambulate around the room a few steps, and feels like he has decent strength in his left leg, although has persistent foot drop. The left arm and hand remain weak, but he is continuing to work on that with physical therapy as well. otherwise, he denies fever or chills, chest pain or palpitations, shortness of breath or cough, abdominal pain, nausea or vomiting or diarrhea. He continues with a Mckeon catheter for accurate urine output measurement. 06/17-patient doing well. ongoing hemodialysis. Creatinine 8. Alert oriented. No changes since previous day. 06/18- patient resting comfortably. Ongoing hemodialysis. No overnight fever chills nausea vomiting or concerns per staff. Tolerating diet and ambulating. Family at bedside 06/19-patient doing well. Ongoing hemodialysis. No further recommendations from hospitalist service except for Coumadin management. INR 2.2. 06/20- patient stable. Ongoing hemodialysis and renal issue/electrolytes management per nephrology. hospitalist service on standby. INR therapeutic 2.3 06/21-patient doing well. No overnight events. creatinine 7.4. management as per nephrology. 06/22- patient doing well. No overnight events. Improving creatinine is 7.3. continue Coumadin dosing 06/23- no changes since previous day except for occasional orthostatic symptoms including dizziness. Patient received fluid bolus as per nephrology. Awaiting labs 06/24- gradually downtrending creatinine improving renal function. hemodialysis has been on hold. Nephrology closely monitoring renal function. No further recommendations from hospitalist service - Constitutional Vitals: Vital Signs Temp Pulse Resp BP Pulse Ox 97.2 F L 78 18 112/62 96 06/24/16 17:27 06/24/16 16:00 06/24/16 17:27 06/24/16 17:27 06/24/16 17:27 Period Temp Pulse Resp BP Sys/Hinds Pulse Ox Last 24 Hr 97.2 F-98.9 F 78-93 12-20 92-131/59-85 92-97 Intake and Output 06/24/16 06/24/16 06/24/16 05:59 13:59 21:59 Intake Total 250 / 250 1020 / 1020 1380 / 1380 Output Total 1050 / 1050 775 / 775 1000 / 1000 Balance -800 / -800 245 / 245 380 / 380 Intake & Output: Intake & Output 06/24/16 06/24/16 06/24/16 05:59 13:59 21:59 Intake Total 250 / 250 1020 / 1020 1380 / 1380 Output Total 1050 / 1050 775 / 775 1000 / 1000 Balance -800 / -800 245 / 245 380 / 380 Intake: IV 520 / 520 Potassium Chloride 40 Meq 520 / 520 In Dextrose 5% in Water 500 ml @ 130 mls/hr IV ONCE ONE Rx#:[id number] Oral 250 / 250 500 / 500 1380 / 1380 Output: Urine Catheter Amount 1050 / 1050 775 / 775 1000 / 1000 Other: Meal Breakfast Dinner Percent of Meal Consumed 100% 100% # Bowel Movements 1 Medical - PN: Obj Da - Labs CBC & Chem 7: 06/22/16 04:55 06/25/16 04:30 Labs: Abnormal Lab Results 06/24/16 06/24/16 06/23/16 04:55 04:55 09:10 RBC Hgb Hct RDW Lymphocytes % Basophils % (Manual) PT 31.4 H INR 2.9 H Chloride 94 L 91 L Anion Gap 19.0 H 24.0 H BUN 79 H 80 H Creatinine 6.3 H* 6.8 H* Glucose 199 H Uric Acid Calcium 8.5 L Phosphorus Lactate Dehydrogenase Albumin Albumin/Globulin Ratio 06/23/16 06/22/16 06/22/16 05:01 04:55 04:55 RBC Hgb Hct RDW Lymphocytes % Basophils % (Manual) PT 28.6 H 28.3 H INR 2.6 H 2.5 H Chloride 93 L Anion Gap 19.0 H BUN 77 H Creatinine 7.3 H* Glucose Uric Acid 10.1 H Calcium Phosphorus 6.0 H Lactate Dehydrogenase 266 H Albumin 3.1 L Albumin/Globulin Ratio 0.8 L 06/22/16 04:55 RBC 3.17 L Hgb 9.4 L Hct 28.0 L RDW 15.3 H Lymphocytes % 14 L Basophils % (Manual) 3 H PT INR Chloride Anion Gap BUN Creatinine Glucose Uric Acid Calcium Phosphorus Lactate Dehydrogenase Albumin Albumin/Globulin Ratio Meds: Medications Acetaminophen (Tylenol) 650 mg PO Q4-6HP PRN PRN Reason: PAIN/FEVER > 101 Albuterol/Ipratropium (Duoneb) 3 ml NEB Q4HP PRN PRN Reason: Shortness Of Breath Bacitracin (Bacitracin Topical Oint) 1 dose TOPICAL PRN PRN PRN Reason: with dressing change Calcium Acetate (Phoslo) 1,334 mg PO TIDCC [facility] Last Admin: 06/24/16 17:49 Dose: 1,334 mg Calcium Acetate (Phoslo) 667 mg PO BIDCC [facility] Last Admin: 06/24/16 17:49 Dose: 667 mg Cyanocobalamin (Vitamin B-12) 1,000 mcg PO DAILY [facility] Last Admin: 06/24/16 08:51 Dose: 1,000 mcg Docusate Sodium (Colace) 100 mg PO BID [facility] Last Admin: 06/24/16 08:50 Dose: 100 mg Furosemide (Lasix) 80 mg IV DAILY PRN PRN Reason: Shortness Of Breath Metoprolol Tartrate (Lopressor) 100 mg PO BID [facility] Last Admin: 06/24/16 08:51 Dose: 100 mg Ondansetron HCl (Zofran) 4 mg IV Q4-6HP PRN PRN Reason: Nausea And Vomiting Pantoprazole Sodium (Protonix) 40 mg PO QAMAC [facility] Last Admin: 06/24/16 08:50 Dose: 40 mg Senna/Docusate Sodium (Senna Plus Tablet) 1 tab PO HS [facility] Last Admin: 06/23/16 20:23 Dose: Not Given Sodium Chloride (Saline Flush) 10 ml IV Q8 [facility] Last Admin: 06/24/16 15:52 Dose: 10 ml Zolpidem Tartrate (Ambien) 5 mg PO HSP PRN PRN Reason: Insomnia Medical - PN: A/P - Time Spent With Patient Total time spent is greater than 50% in coordination of care (as documented) at patient's floor/unit and/or counseling patient: 15 - 24 minutes (1) Rhabdomyolysis Status: Acute Assessment and plan: * Acute renal failure secondary to rhabdomyolysis/toxic ATN- managed by nephrology. renal function gradually improving. Hemodialysis on hold * Left arm weakness likely brachial plexus injury as per orthopedics- clinically improving the physical therapy * Community acquired pneumonia with MSSA bacteremia-fully resolved. status post 14 days antibiotics. * MSSA bacteremia-status post 14 days antibiotics * brief seizure episode-resolved. Negative MRI brain. * Rhabdomyolysis- fully resolved * Hypoxic respiratory failure -clinically resolved * A. fib RVR-now rate controlled on metoprolol * anticoagulation on Coumadin. INR 2.9 plan * Coumadin dosing based on INR * continue physical therapy * pre-existing medical condition management as above Current Visit: Yes - Narrative A/P Narrative: #1. Neurologic. -The patient had a brief period of loss of consciousness Neo night, suspicious for seizure activity. This has not recurred. Levaquin was discontinued in case this was the cause.. he continues to have ongoing left- sided weakness, so he did undergo an MRI of his brain . This did not show evidence of any recent strokes. -continue physical therapy. Our working diagnosis for the left arm is still possible brachial plexus injury, which according to orthopedics, would require several months to resolve. #2. Left lower extremity swelling. Doppler was negative for DVT. The patient is therapeutic on his Coumadin at this time. d-dimer was elevated, but that may be more of an acute phase reactant. He has not been hypoxic. #3. infectious disease. Pneumonia , with an MSSA bacteremia. This was pansensitive, so antibiotics were changed over to Rocephin. -today' is day 12 of antibiotics, so I think we can safely discontinue these. -Sepsis appears resolved. #4. Renal.acute renal failure. -continue management per Dr. Cordero. -Rhabdomyolysis is resolving, and CPK is approaching normal. -phosphate binders were added by Dr. Cordero. he patient did have dialysis again yesterday. Renal function labs are still quite abnormal.. Urine output continues to improve. we await Dr. Cordero's decision about whether or not the patient needs a permanent dialysis catheter. #4.5. . The patient continues with a Mckeon catheter going on 12 days. We should probably discontinue this and hope that he can use a urinal for continued accurate urine output measurements. #5. Cardiac. History of chronic atrial fibrillation with controlled rate. He is maintained on Coumadin therapy, and Coumadin is therapeutic today. -Troponin was normal . #6. GI. -The patient has fluctuating LFTs, of uncertain cause.LFTs are gradually trending down. . MRI of the abdomen did not really show any worrisome changes. And there is no evidence of renal mass. #7. Disposition: The plan is to transfer him to [facility] for ongoing rehabilitation, once his renal status is clarified regarding the need for long- term dialysis. approximately 25 minutes was spent today, reviewing the patient's chart and test results, interviewing and examining him, reviewing his case with nursing staff, and writing orders. Medical - PN: Qual - Stroke Symptom Onset Unknown: Yes - VTE Deep Vein Thrombosis/Pulmonary Embolism Present on Admission: No
[2016-06-24] MEDS: SENNOSIDES/DOCUSATE SODIUM 1 TAB TABLET PO SCH (20:54)
[2016-06-25] MEDS: 0.9 % SODIUM CHLORIDE 10 ML SYRINGE IV SCH ×2 (04:30→15:29)
[2016-06-25 06:18] LABS: Blood Urea Nitrogen 76 mg/dl (8-23)
[2016-06-25] MEDS: PANTOPRAZOLE 40 MG TABLET PO SCH (06:53)
[2016-06-25] MEDS: DOCUSATE SODIUM 100 MG CAPSULE PO SCH (08:26)
[2016-06-25] MEDS: METOPROLOL TARTRATE 50 MG TABLET PO SCH (08:27)
[2016-06-25] MEDS: CYANOCOBALAMIN (VITAMIN B-12) 500 MCG TABLET PO SCH (08:27)
[2016-06-25] MEDS: CALCIUM ACETATE 667 MG CAPSULE PO SCH ×3 (08:27→13:04)
[2016-06-25] MEDS ORDERED: CALCIUM ACETATE 667 MG CAPSULE PO PRN (08:57)
[2016-06-25] MEDS ORDERED: TAMSULOSIN 0.4 MG CAPSULE PO ONE (10:03)
[2016-06-25] MEDS ORDERED: POTASSIUM CHLORIDE 40 MEQ in DEXTROSE 5% IN WATER 500 ML IV ONE (10:21)
--- NOTE | 2016-06-25 10:24 | Nephrology Progress Note ---
Subjective Patient information: Note initiated : 06/25/16 at 10:22 am Service Date, if different from initiated Date: [] Patient: Angel Garrett 80 y/o M admitted on 06/04/16 for Sepsis, EDWIN. Chief Complaint: [] Principal diagnosis: PNA, acute renal failure, rhabdomyolysis Interval history: No acute o/n events. Pt doing good. Renal function is improving Objective - Vital Signs Vital signs: Vital Signs Temp Pulse Resp BP BP BP Pulse Ox 06/25/16 07:10 97.4 F L 20 113/73 93 06/25/16 04:00 98.3 F 81 18 132/77 96 06/25/16 00:00 98.0 F 89 16 126/77 95 06/24/16 20:00 97.9 F 88 18 127/80 95 06/24/16 17:27 97.2 F L 18 112/62 96 06/24/16 16:00 98.1 F 78 20 107/66 92 06/24/16 11:49 98.5 F 20 92/59 96 Intake and Output 06/24/16 06/25/16 06/25/16 21:59 05:59 13:59 Intake Total 1380 / 1380 500 / 500 480 / 480 Output Total 1000 / 1000 1250 / 1250 Balance 380 / 380 -750 / -750 480 / 480 Intake: Oral 1380 / 1380 500 / 500 480 / 480 Output: Urine Catheter Amount 1000 / 1000 1250 / 1250 Other: Meal Dinner Percent of Meal Consumed 100% # Bowel Movements 1 1 Weight 198 lb 8 oz Intake & Output: Intake & Output 06/24/16 06/25/16 06/25/16 21:59 05:59 13:59 Intake Total 1380 / 1380 500 / 500 480 / 480 Output Total 1000 / 1000 1250 / 1250 Balance 380 / 380 -750 / -750 480 / 480 Weight 198 lb 8 oz Intake: Oral 1380 / 1380 500 / 500 480 / 480 Output: Urine Catheter Amount 1000 / 1000 1250 / 1250 Other: Meal Dinner Percent of Meal Consumed 100% # Bowel Movements 1 1 - General Appearance General appearance: well-developed, well-nourished, appears started age EENT: mucous membranes moist Neck: no JVD (HD cath in place) Respiratory: clear Cardiology: no edema, irregular rhythm, normal S1, normal S2 Gastrointestinal: normoactive bowel sounds, no tenderness Integumentary: no rash, warm and dry Neurologic: no focal deficit, no asterixis, alert and oriented x3 Musculoskeletal: no erythema Psychiatric: mood/affect appropriate - Lab 06/22/16 04:55 06/25/16 04:30 Most recent lab results Calcium 8.7 mg/dl (8.6-10.4) 06/25/16 04:30 Phosphorus 3.8 mg/dL (2.7-4.5) 06/25/16 04:30 Magnesium 1.7 mg/dL (1.6-2.5) 06/22/16 04:55 Assessment and Plan (1) Acute renal failure EDWIN: 2/ Rhabdo Pt has been non oliguric with no renal clearance was initiated on HD last hemodialyzed on tuesday lasix d/c - Being assessed daily making urine castillo maintained as pt unable to void s/p flomax yesterday Cr slowly trending down Hypokalemia K 3.7 will replete with 20 mEq KCL Hyperphosphatemia from EDWIN, Phos 3.8 this AM is on phoslo, with meals and snacks - will start backing off on phoslo after assessing AM labs on renal diet monitor AM labs Calcium is wnl Anemia: Hb stable at < 10, has normal Tsat, b12 low normal, on 1000 mcg po B12 PNA: treated with ceftriaxone Status: Acute (2) Rhabdomyolysis resolved Status: Acute
[2016-06-25] MEDS ORDERED: WARFARIN 2.5 MG TABLET PO SCH (14:00)
--- NOTE | 2016-06-25 14:06 | Discharge Summary ---
Medical - DS: Prov Patient information: Note initiated : 06/25/16 at 2:04 pm Service Date, if different from initiated Date: [] Patient: Angel Garrett 80 y/o M admitted on 06/04/16 for Sepsis, [place]. Chief Complaint: [] Date of admission: 06/04/16 19:31 Discharge date: 06/25/16 Primary care physician: [f_Reg Prim Care Provider] Consults: 06/05/16 11:47 Consult to Physician [CONS] Routine Comment: Consulting Provider: Andreia Soto Reason For Exam: Physician to Consult 06/07/16 11:40 Consult to Physician [CONS] Routine Comment: Consulting Provider: Ethan Long Reason For Exam: Physician to Consult 06/07/16 14:05 Consult to Physician [CONS] Routine Comment: Consulting Provider: [facility] Reason For Exam: Physician to Consult 06/08/16 15:06 Consult to Physician [CONS] Routine Comment: Consulting Provider: [facility] Reason For Exam: Physician to Consult Medical - DS: Meds - Discharge Medications Active and Home Medications: Home Medications Acetaminophen [Tylenol] 1,000 mg PO Q4HP PRN 06/05/16 [History Confirmed Last Taken 05/31/16] Aspirin [Aspirin EC] 81 mg PO DAILY 06/05/16 [History Confirmed 06/05/16 Last Taken 05/31/16] Atorvastatin [Lipitor] 40 mg PO HS 06/05/16 [History Confirmed 06/05/16 Last Taken 05/31/16] Metoprolol Tartrate [Lopressor] 50 mg PO BID 06/05/16 [History Confirmed Last Taken 05/31/16] Omeprazole 20 mg PO BID 06/05/16 [History Confirmed 06/05/16 Last Taken 05/31/16 ] Sennosides [Ex-Lax] 15 mg PO DAILY 06/05/16 [History Confirmed 06/05/16 Last Taken 05/31/16] Warfarin [Coumadin] 5 mg PO SUMOTUWEFRSA@1400 06/05/16 [History Confirmed Last Taken 05/31/16] Warfarin [Coumadin] 2.5 mg PO TH@1400 06/10/16 [History Confirmed 06/10/16 Last Taken Unknown] Tamsulosin [Flomax] 0.4 mg PO HS #0 capsule 06/25/16 [Rx Last Taken Unknown] Medical - DS: Hosp Hospital course: DISCHARGE DIAGNOSIS * Acute renal failure secondary to rhabdomyolysis/toxic ATN- managed by nephrology. renal function gradually improving. crackles down 5.7. Hemodialysis on hold. 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 status post 14 days antibiotics. * MSSA bacteremia-status post 14 days antibiotics * brief seizure episode-resolved. Negative MRI brain. * Rhabdomyolysis- fully resolved * Hypoxic respiratory failure -clinically resolved * A. fib RVR-now rate controlled on metoprolol * anticoagulation on Coumadin. INR therapeutic [facility] Mr. Garrett is a 80 year old male June 11, 2016: on service note: This patient was transferred here on June 04, 2016, after being found down at home. He presented to the hospital with atrial fibrillation with RVR, hypotension, left upper lobe pneumonia, severe rhabdomyolysis and acute renal failure, as well as altered mental status. Over the last 6 days, the patient has responded to IV fluids hemodialysis, IV antibiotics. Mental status has improved. He has continued to have weakness of the left arm, which is thought to be a possible brachial plexus injury. He is working with physical therapy, and this seems to be slowly improving. He has continued to require oxygen to maintain oxygen saturations. June 11, 2016: Urgent care:I was called to the bedside today, to see this patient, for a rapid response call. The patient was in the middle of being transferred from the intensive care unit out to [facility]. The aide noted that when she got into his room, his head rolled back in his eyes seem to roll back, he lost consciousness, and she felt that his hands were shaking consistent with possible seizure activity. The symptoms resolved quickly, and he aroused without us doing much. He does report that he seemed like he was seeing different colors in his vision just prior to the event. He denies any fever or chills, headaches or dizziness. He does not report blurry vision, sore throat, chest pain or palpitations, changes in his breathing or significant abdominal pain. He did report that his right upper quadrant area is a bit sore at times, since his fall. of note, the patient has chronic atrial fibrillation, for which she is maintained on Coumadin. When he was admitted about one week ago, his INR was quite elevated, and he was found down at home. He did have a hematoma on his forehead, from his fall. Head CT at that time did not show signs of bleeding. initial workup at an outside hospital did show pneumonia, and blood cultures grew MSSA, which was pansensitive. He was originally treated with Levaquin and Zosyn, but the Zosyn was discontinued after the cultures were back. also of note, the patient recently returned back from a road trip to [place]. He believes he had a fall sometime during his trip, landing on his knee, and says the left leg has been swollen since then. However he is quite fuzzy on the details, and it is not clear if he fell while he was on history, or if he is just recalling the fall he had at home, that landed him up here, about one week ago. His Coumadin was initially held, and his INR did drop down to a level of 1.1, prior to his tunneled catheter placement. Today is therapeutic at 2.2. June 12, 2016: today,patient says he is feeling reasonably well. He is having some mild dyspnea upon return from [facility]. Physical therapy says the patient said he was just too tired to work on physical therapy today. He does continue to have some left upper extremity weakness, although he thinks it's better since admission. He also has a foot drop noted on the left foot since admission. It is thought that these symptoms were due to his fall and prolonged stay on the bathroom floor at home. Otherwise, the patient says she has not had any syncopal or near syncopal episodes today. nursing staff also has not noted recurrent symptoms. The patient denies fever or chills, sore throat. He has occasional cough. He continues to have mild dyspnea with exertion. He denies chest pain or palpitations abdominal pain, nausea or vomiting, diarrhea dysuria. June 13: the patient does seem more awake and alert today He reports that he did get up with physical therapy and seemed to move his left leg a little bit better today.he continues to have weakness of the left arm. He otherwise denies fever or chills, chest pain or significant cough or shortness of breath. He denies abdominal pain, nausea or vomiting. unfortunately, renal function does look worse today. Phosphorus level is climbing LFTs look a bit better. CPK continues to decline. he argued a bit with respiratory therapy today, not wanting to work on his incentive spirometry He does seem to have episodes of irritability. June 14: we did finally convinced the patient to undergo an MRI of his brain today, but he was given Ativan and morphine ahead of time, for complaints of anxiety and back pain from laying on the table. This evening he is calm, but he is a little bit drifting when I interview him. He has no particular complaints. He thinks the left arm weakness is about the same today. He did get up and do some transfers to and from the chair today, according to his nurse. otherwise, he denies fever or chills, headaches or dizziness, sore throat or cough, chest pain or palpitations, shortness of breath, abdominal pain, nausea or vomiting. He continues with a Mckeon catheter to help monitor accurate urine output. He is making more urine today, so Dr. Cordero held off on dialysis, to see if he will keep improving spontaneously. June 15: the patient reports he is feeling better today. He seems in good spirits when I enter the room, but is arguing with the nurse about whether or not he can eat finley. Unfortunately, his renal function looks worse today, with climbing B UN, creatinine, phosphate. He was ableto walk some with physical therapy today, and feels that his left leg is stronger. He denies significant coughing or shortness of breath today, and also denies fever or chills, chest pain or palpitations, abdominal pain, nausea or vomiting. he continues with a Mckeon catheter to help measure accurate I's and O's. June 16: -the patient's urine output continues to improve, the BUN/creatinine continued to run very high. He did undergo dialysis yesterday. Dr. Cordero is following and will help us to decide whether or not the patient should have a permanent tunneled catheter placed, or whether he should continue with temporary dialysis , in the hopes that his renal function will recover. This decision needs to be made prior to discharge to [facility] for rehabilitation -The patient continues to have physical therapy for his left-sided weakness, which we suspect are nerve related injuries related to him being down on the floor for 1-2 days prior to arrival. Follow-up MRI of his brain did not show any evidence for recent stroke. -Today, the patient says he is feeling pretty good. He was able to ambulate around the room a few steps, and feels like he has decent strength in his left leg, although has persistent foot drop. The left arm and hand remain weak, but he is continuing to work on that with physical therapy as well. otherwise, he denies fever or chills, chest pain or palpitations, shortness of breath or cough, abdominal pain, nausea or vomiting or diarrhea. He continues with a Mckeon catheter for accurate urine output measurement. 06/17-patient doing well. ongoing hemodialysis. Creatinine 8. Alert oriented. No changes since previous day. 06/18- patient resting comfortably. Ongoing hemodialysis. No overnight fever chills nausea vomiting or concerns per staff. Tolerating diet and ambulating. Family at bedside 06/19-patient doing well. Ongoing hemodialysis. No further recommendations from hospitalist service except for Coumadin management. INR 2.2. 06/20- patient stable. Ongoing hemodialysis and renal issue/electrolytes management per nephrology. hospitalist service on standby. INR therapeutic 2.3 06/21-patient doing well. No overnight events. creatinine 7.4. management as per nephrology. 06/22- patient doing well. No overnight events. Improving creatinine is 7.3. continue Coumadin dosing 06/23- no changes since previous day except for occasional orthostatic symptoms including dizziness. Patient received fluid bolus as per nephrology. Awaiting labs 06/24- gradually downtrending creatinine improving renal function. hemodialysis has been on hold. Nephrology closely monitoring renal function. No further recommendations from hospitalist service Discharge diagnosis: . - Time Spent with Patient Total time spent providing and/or coordinating discharge services: Greater than 30 minutes Medical - DS: Exam - Constitutional Vitals: Vital Signs Temp Pulse Resp BP BP BP Pulse Ox 06/25/16 12:13 97.8 F 70 18 99/64 96 06/25/16 07:10 97.4 F L 20 113/73 93 06/25/16 04:00 98.3 F 81 18 132/77 96 06/25/16 00:00 98.0 F 89 16 126/77 95 06/24/16 20:00 97.9 F 88 18 127/80 95 06/24/16 17:27 97.2 F L 18 112/62 96 06/24/16 16:00 98.1 F 78 20 107/66 92 Intake and Output 06/25/16 06/25/16 06/25/16 05:59 13:59 21:59 Intake Total 500 / 500 480 / 480 Output Total 1250 / 1250 Balance -750 / -750 480 / 480 Intake: Oral 500 / 500 480 / 480 Output: Urine Catheter Amount 1250 / 1250 Other: # Bowel Movements 1 Medical - DS: Data Labs on day of discharge: Labs from last 24 hours 06/25/16 06/25/16 06/25/16 04:30 04:30 04:30 PT 28.1 H INR 2.5 H Sodium 137 Potassium 3.7 Chloride 95 L Carbon Dioxide 23 Anion Gap 19.0 H BUN 76 H Creatinine 5.7 H* GFR Calculation 9 Glucose 84 Calcium 8.7 Phosphorus 3.8 Medical - DS: A/P - Patient/Caregiver Discharge Instructions Activity: as per physical therapy Diet: Renal/Consistent Carbs Additional Instructions: transfer to swing bed status Other Amb Orders: Wound Care Instructions Location: Determined By Patient - Problem Maintenance (1) Rhabdomyolysis Status: Acute - Follow up Plan Disposition: [facility] Swing Bed Prognosis: Fair Rehab Potential: Fair I certify that the patient requires SNF services: Yes Overall status at discharge: patient is progressing back to baseline Medical - DS: Qual - VTE Deep Vein Thrombosis/Pulmonary Embolism Present on Admission: No
[2016-06-25] MEDS ORDERED: TAMSULOSIN 0.4 MG CAPSULE PO SCH (21:00)
== END 2016-06-25 14:06 | disposition other institution (70) | DRG 871 ==
LOC: ICU 17:20 → SUATTDRO 19:31 → MEDSUR 06-11 17:30
PROVIDERS: ADMIT Internal Medicine; ATTEND Internal Medicine

== ENCOUNTER 2016-06-25 09:14 | Inpatient (IN) ==
[2016-06-25] MEDS ORDERED: ACETAMINOPHEN 500 MG TABLET PO PRN (15:14)
[2016-06-25] MEDS: PANTOPRAZOLE 40 MG TABLET PO SCH (17:22)
[2016-06-25] MEDS: ATORVASTATIN 20 MG TABLET PO SCH (20:56)
[2016-06-25] MEDS: TAMSULOSIN 0.4 MG CAPSULE PO SCH (20:56)
[2016-06-25] MEDS: METOPROLOL TARTRATE 50 MG TABLET PO SCH (20:56)
[2016-06-25] MEDS: SENNOSIDES 1 TABLET PO SCH (20:57)
[2016-06-26] MEDS: PANTOPRAZOLE 40 MG TABLET PO SCH ×2 (07:07→18:28)
[2016-06-26] MEDS ORDERED: CALCIUM ACETATE 667 MG CAPSULE PO SCH (08:00)
[2016-06-26 08:33] LABS: ALT/SGPT 32 U/l (0-40); Albumin 3.1 gm/dL (3.2-5.2); Albumin/Globulin Ratio 0.8 (1.0-2.3); Alkaline Phosphatase 78 U/L (39-117); Blood Urea Nitrogen 73 mg/dl (8-23)
[2016-06-26] MEDS ORDERED: CALCIUM ACETATE 667 MG CAPSULE PO PRN (09:00)
[2016-06-26] MEDS: METOPROLOL TARTRATE 50 MG TABLET PO SCH ×2 (09:13→20:46)
[2016-06-26] MEDS: ASPIRIN 81 MG TAB.CHEW PO SCH (09:13)
--- NOTE | 2016-06-26 10:33 | Internal Med Progress Note ---
Medical - PN: Subj Patient information: Note initiated : 06/26/16 at 10:26 am Service Date, if different from initiated Date: [] Patient: Angel Garrett 80 y/o M admitted on 06/25/16 for sepsis. Chief Complaint: [] Interval history: Pt with Rhabdomyolysis, started on Hd, but now HD on hold since renal function slowly improving. However, eGFR at 10, so needs close monitoring. He is doing well, has castillo cath in and is undergoing castillo training to help void without the castillo. - Constitutional Vitals: Vital Signs Temp Pulse Resp BP Pulse Ox 97.3 F L 104 H 20 119/70 96 06/26/16 07:28 06/25/16 20:00 06/26/16 07:28 06/26/16 07:28 06/26/16 07:28 Period Temp Pulse Resp BP Sys/Hinds Pulse Ox Last 24 Hr 97.3 F-98.3 F 104 20-20 109-119/70-74 96-98 Intake and Output 06/25/16 06/26/16 06/26/16 21:59 05:59 13:59 Intake Total 500 / 500 300 / 300 100 / 100 Output Total 1425 / 1425 475 / 475 300 / 300 Balance -925 / -925 -175 / -175 -200 / -200 Weight 192 lb 8 oz Intake & Output: Intake & Output 06/25/16 06/26/16 06/26/16 21:59 05:59 13:59 Intake Total 500 / 500 300 / 300 100 / 100 Output Total 1425 / 1425 475 / 475 300 / 300 Balance -925 / -925 -175 / -175 -200 / -200 Weight 192 lb 8 oz Intake: Oral 500 / 500 300 / 300 100 / 100 Output: Urine Catheter Amount 1425 / 1425 475 / 475 300 / 300 Other: Meal Dinner Breakfast Percent of Meal Consumed 50% 100% Feeding Ability Independent Medical - PN: Obj Da - Labs CBC & Chem 7: 06/26/16 07:06 Labs: Abnormal Lab Results 06/26/16 06/26/16 07:06 07:06 PT 27.5 H INR 2.5 H Anion Gap 17.0 H BUN 73 H Creatinine 5.0 H Albumin 3.1 L Globulin 3.8 H Albumin/Globulin Ratio 0.8 L Meds: Medications Acetaminophen (Tylenol) 1,000 mg PO Q4HP PRN PRN Reason: Pain Aspirin (Aspirin) 81 mg PO DAILY [facility] Last Admin: 06/26/16 09:13 Dose: 81 mg Atorvastatin Calcium (Lipitor) 40 mg PO HS [facility] Last Admin: 06/25/16 20:56 Dose: 40 mg Metoprolol Tartrate (Lopressor) 50 mg PO BID [facility] Last Admin: 06/26/16 09:13 Dose: 50 mg Pantoprazole [facility]odium ([facility]tonix) [address] [facility] Last Admin: 06/26/16 07:07 Dose: 40 mg Senna (Senokot) 1 tab PO [facility] Last Admin: 06/25/16 20:57 Dose: Not Given Tamsulosin HCl (Flomax) 0.4 mg PO [facility] Last Admin: 06/25/16 20:56 Dose: 0.4 mg Warfarin Sodium (Coumadin) 2.5 mg PO TH@1400 [facility] Warfarin Sodium (Coumadin) 5 mg PO SUMOTUWEFRSA@1400 [facility] Medical - PN: A/P - Time Spent With Patient Total time spent is greater than 50% in coordination of care (as documented) at patient's floor/unit and/or counseling patient: Medical - PN: Qual - Stroke Symptom Onset Unknown: No - VTE Deep Vein Thrombosis/Pulmonary Embolism Present on Admission: No
--- NOTE | 2016-06-26 10:35 | Internal Med History&Physical ---
Medical - H&P: HPI Patient information: Note initiated : 06/26/16 at 10:31 am Service Date, if different from initiated Date: [] Patient: Angel Garrett 80 y/o M admitted on 06/25/16 for sepsis. Chief Complaint: [] Chief complaint: swing bed admission for renal function monitoring History of present illness: Mr. Garrett is a 80 year old male was admitted on June 11 with renal failure and rhabdomyolysis. he had a prolonged course of hospitalization but gradual improvement in renal function requiring hemodialysis. Currently hemodialysis hold while renal function continues to improve. He is being admitted to swing bed status for monitoring renal function in anticipation of removal of temporary Dialysis catheter. please review below for a detailed course of events during latest hospitalization June 11, 2016: on service note: This patient was transferred here on June 04, 2016, after being found down at home. He presented to the hospital with atrial fibrillation with RVR, hypotension, left upper lobe pneumonia, severe rhabdomyolysis and acute renal failure, as well as altered mental status. Over the last 6 days, the patient has responded to IV fluids hemodialysis, IV antibiotics. Mental status has improved. He has continued to have weakness of the left arm, which is thought to be a possible brachial plexus injury. He is working with physical therapy, and this seems to be slowly improving. He has continued to require oxygen to maintain oxygen saturations. June 11, 2016: Urgent care:I was called to the bedside today, to see this patient, for a rapid response call. The patient was in the middle of being transferred from the intensive care unit out to [facility]. The aide noted that when she got into his room, his head rolled back in his eyes seem to roll back, he lost consciousness, and she felt that his hands were shaking consistent with possible seizure activity. The symptoms resolved quickly, and he aroused without us doing much. He does report that he seemed like he was seeing different colors in his vision just prior to the event. He denies any fever or chills, headaches or dizziness. He does not report blurry vision, sore throat, chest pain or palpitations, changes in his breathing or significant abdominal pain. He did report that his right upper quadrant area is a bit sore at times, since his fall. of note, the patient has chronic atrial fibrillation, for which she is maintained on Coumadin. When he was admitted about one week ago, his INR was quite elevated, and he was found down at home. He did have a hematoma on his forehead, from his fall. Head CT at that time did not show signs of bleeding. initial workup at an outside hospital did show pneumonia, and blood cultures grew MSSA, which was pansensitive. He was originally treated with Levaquin and Zosyn, but the Zosyn was discontinued after the cultures were back. also of note, the patient recently returned back from a road trip to [place]. He believes he had a fall sometime during his trip, landing on his knee, and says the left leg has been swollen since then. However he is quite fuzzy on the details, and it is not clear if he fell while he was on history, or if he is just recalling the fall he had at home, that landed him up here, about one week ago. His Coumadin was initially held, and his INR did drop down to a level of 1.1, prior to his tunneled catheter placement. Today is therapeutic at 2.2. June 12, 2016: today,patient says he is feeling reasonably well. He is having some mild dyspnea upon return from MRI. Physical therapy says the patient said he was just too tired to work on physical therapy today. He does continue to have some left upper extremity weakness, although he thinks it's better since admission. He also has a foot drop noted on the left foot since admission. It is thought that these symptoms were due to his fall and prolonged stay on the bathroom floor at home. Otherwise, the patient says she has not had any syncopal or near syncopal episodes today. nursing staff also has not noted recurrent symptoms. The patient denies fever or chills, sore throat. He has occasional cough. He continues to have mild dyspnea with exertion. He denies chest pain or palpitations abdominal pain, nausea or vomiting, diarrhea dysuria. June 13: the patient does seem more awake and alert today He reports that he did get up with physical therapy and seemed to move his left leg a little bit better today.he continues to have weakness of the left arm. He otherwise denies fever or chills, chest pain or significant cough or shortness of breath. He denies abdominal pain, nausea or vomiting. unfortunately, renal function does look worse today. Phosphorus level is climbing LFTs look a bit better. CPK continues to decline. he argued a bit with respiratory therapy today, not wanting to work on his incentive spirometry He does seem to have episodes of irritability. June 14: we did finally convinced the patient to undergo an MRI of his brain today, but he was given Ativan and morphine ahead of time, for complaints of anxiety and back pain from laying on the table. This evening he is calm, but he is a little bit drifting when I interview him. He has no particular complaints. He thinks the left arm weakness is about the same today. He did get up and do some transfers to and from the chair today, according to his nurse. otherwise, he denies fever or chills, headaches or dizziness, sore throat or cough, chest pain or palpitations, shortness of breath, abdominal pain, nausea or vomiting. He continues with a Mckeon catheter to help monitor accurate urine output. He is making more urine today, so Dr. Cordero held off on dialysis, to see if he will keep improving spontaneously. June 15: the patient reports he is feeling better today. He seems in good spirits when I enter the room, but is arguing with the nurse about whether or not he can eat finley. Unfortunately, his renal function looks worse today, with climbing B UN, creatinine, phosphate. He was ableto walk some with physical therapy today, and feels that his left leg is stronger. He denies significant coughing or shortness of breath today, and also denies fever or chills, chest pain or palpitations, abdominal pain, nausea or vomiting. he continues with a Mckeon catheter to help measure accurate I's and O's. June 16: -the patient's urine output continues to improve, the BUN/creatinine continued to run very high. He did undergo dialysis yesterday. Dr. Cordero is following and will help us to decide whether or not the patient should have a permanent tunneled catheter placed, or whether he should continue with temporary dialysis , in the hopes that his renal function will recover. This decision needs to be made prior to discharge to [facility] for rehabilitation -The patient continues to have physical therapy for his left-sided weakness, which we suspect are nerve related injuries related to him being down on the floor for 1-2 days prior to arrival. Follow-up MRI of his brain did not show any evidence for recent stroke. -Today, the patient says he is feeling pretty good. He was able to ambulate around the room a few steps, and feels like he has decent strength in his left leg, although has persistent foot drop. The left arm and hand remain weak, but he is continuing to work on that with physical therapy as well. otherwise, he denies fever or chills, chest pain or palpitations, shortness of breath or cough, abdominal pain, nausea or vomiting or diarrhea. He continues with a Mckeon catheter for accurate urine output measurement. 06/17-patient doing well. ongoing hemodialysis. Creatinine 8. Alert oriented. No changes since previous day. 06/18- patient resting comfortably. Ongoing hemodialysis. No overnight fever chills nausea vomiting or concerns per staff. Tolerating diet and ambulating. Family at bedside 06/19-patient doing well. Ongoing hemodialysis. No further recommendations from hospitalist service except for Coumadin management. INR 2.2. 06/20- patient stable. Ongoing hemodialysis and renal issue/electrolytes management per nephrology. hospitalist service on standby. INR therapeutic 2.3 06/21-patient doing well. No overnight events. creatinine 7.4. management as per nephrology. 06/22- patient doing well. No overnight events. Improving creatinine is 7.3. continue Coumadin dosing 06/23- no changes since previous day except for occasional orthostatic symptoms including dizziness. Patient received fluid bolus as per nephrology. Awaiting labs 06/24- gradually downtrending creatinine improving renal function. hemodialysis has been on hold. Nephrology closely monitoring renal function. No further recommendations from hospitalist service 06/25 patient admitted to swing bed status for continued Monitoring of renal function and anticipation of discontinuation of dialysis. creatinine on the day of discharge downtrending to 5.7. Review of systems: patient is alert oriented denies any active distress, denies chest pain shortness of breath fever chills nausea vomiting. feels upbeat, ambulating, A 10 point review system is negative except for the ones discussed above. Medical - H&P: PMH Medical history: a. fib Anticoagulation for CVA prophylaxis DJD Pertinent family history: reviewed Social history: eviewed from prior hospitalization, unchanged Functional capacity: independent ambulation Smoking status: Never smoker Have you smoked in the last 12 months: No Drug use: none Alcohol use: none Medical - H&P: Meds Home Medications Medication Instructions Recorded Confirmed Type Acetaminophen [Tylenol] 1,000 mg PO Q4HP PRN 06/05/16 06/25/16 History Aspirin [Aspirin EC] 81 mg PO DAILY 06/05/16 06/25/16 History Atorvastatin [Lipitor] 40 mg PO HS 06/05/16 06/25/16 History Metoprolol Tartrate [Lopressor] 50 mg PO BID 06/05/16 06/25/16 History Omeprazole 20 mg PO BID 06/05/16 06/25/16 History Sennosides [Ex-Lax] 15 mg PO DAILY 06/05/16 06/25/16 History Warfarin [Coumadin] 5 mg PO SUMOTUWEFRSA@1400 06/05/16 06/25/16 History Warfarin [Coumadin] 2.5 mg PO TH@1400 06/10/16 06/25/16 History Tamsulosin [Flomax] 0.4 mg PO HS #0 capsule 06/25/16 06/25/16 Rx Allergies Allergy/AdvReac Type Severity Reaction Status Date / Time codeine Allergy Unknown Unknown Verified 06/16/16 16:37 Medical - H&P: Exam - Constitutional Vitals: Temp Pulse Resp BP Pulse Ox 97.3 F L 104 H 20 119/70 96 06/26/16 07:28 06/25/16 20:00 06/26/16 07:28 06/26/16 07:28 06/26/16 07:28 General appearance: average body habitus Exam: alert oriented Eye movements normal no ear or nose discharge Neck no lymphadenopathy Right-sided temporary IJ dialysis catheter chest clear to auscultation S1 and S2 irregular rhythm,ESM grade 1 abdomen soft Lower extremity-no lymphedema or cyanosis skin no suspicious lesion psych alert cooperative Neuro nonfocal moving all extremities Medical - H&P: Reslt - Labs CBC & Chem 7: 06/26/16 07:06 Labs: BMP 06/26/16 07:06 Sodium 136 Potassium 4.0 Chloride 96 Carbon Dioxide 23 BUN 73 H Creatinine 5.0 H Glucose 93 Calcium 8.6 Liver Function 06/26/16 Range/Units 07:06 Total Bilirubin 0.6 (0.0-1.0) mg/dL AST 29 (0-37) U/l ALT 32 (0-40) U/l Alkaline Phosphatase 78 (39-117) U/L Albumin 3.1 L (3.2-5.2) gm/dL Medical - H&P: A/P - Narrative A/P Narrative: ASSESSMENT * Acute renal failure secondary to rhabdomyolysis/toxic ATN- managed by nephrology. continue swing bed. Creatinine downtrending at 5 * Left arm weakness likely brachial plexus injury as per orthopedics- clinically improving- continue physical therapy * A. fib- rate controlled on metoprolol * Anticoagulation on Coumadin. INR therapeutic. INR 2.5 PLAN * nephrology managing renal failure * Coumadin dosing Medical - H&P: Qual - Stroke Symptom Onset Unknown: No - VTE Deep Vein Thrombosis/Pulmonary Embolism Present on Admission: No
--- NOTE | 2016-06-26 10:38 | Nephrology Progress Note ---
Subjective Patient information: Note initiated : 06/26/16 at 10:34 am Service Date, if different from initiated Date: [] Patient: Angel Garrett 80 y/o M admitted on 06/25/16 for sepsis. Chief Complaint: [] Principal diagnosis: Rhabdomyolysis needing HD Interval history: renal function slowly improving, Cr now down to 5.0 Phos was down to 3.8 yesterday, so Phoslo has been d/c. Pt has no complaints HD cath stays in for now ; can be d/c if eGFR decreases to atleast 15 ml/hr If not castillo cath can be changed on tuesday to permanent Dr Cordero will make that decision when she is back on Tuesday Objective - Vital Signs Vital signs: Vital Signs Temp Pulse Resp BP BP Pulse Ox 06/26/16 07:28 97.3 F L 20 119/70 96 06/25/16 20:00 98.3 F 104 H 20 109/74 98 Intake and Output 06/25/16 06/26/16 06/26/16 21:59 05:59 13:59 Intake Total 500 / 500 300 / 300 100 / 100 Output Total 1425 / 1425 475 / 475 300 / 300 Balance -925 / -925 -175 / -175 -200 / -200 Intake: Oral 500 / 500 300 / 300 100 / 100 Output: Urine Catheter Amount 1425 / 1425 475 / 475 300 / 300 Other: Meal Dinner Breakfast Percent of Meal Consumed 50% 100% Feeding Ability Independent Weight 192 lb 8 oz Intake & Output: Intake & Output 06/25/16 06/26/16 06/26/16 21:59 05:59 13:59 Intake Total 500 / 500 300 / 300 100 / 100 Output Total 1425 / 1425 475 / 475 300 / 300 Balance -925 / -925 -175 / -175 -200 / -200 Weight 192 lb 8 oz Intake: Oral 500 / 500 300 / 300 100 / 100 Output: Urine Catheter Amount 1425 / 1425 475 / 475 300 / 300 Other: Meal Dinner Breakfast Percent of Meal Consumed 50% 100% Feeding Ability Independent - General Appearance General appearance: well-developed, well-nourished, appears started age EENT: mucous membranes moist Neck: no JVD Respiratory: clear Cardiology: irregular rhythm, normal S1, normal S2 Gastrointestinal: normoactive bowel sounds, no tenderness, no guarding Integumentary: no rash, warm and dry Neurologic: no focal deficit, no asterixis, alert and oriented x3 Psychiatric: mood/affect appropriate - Lab 06/26/16 07:06 Most recent lab results Calcium 8.6 mg/dl (8.6-10.4) 06/26/16 07:06 Assessment and Plan (1) Acute renal failure Pt with [place] 2/2 Rhabdomyolysis was initiated on HD with renal function improving electrolytes are wnl Phos was 3.8 yesterday, so will d/c Phoslo pt is in negative fluid balance so will give 500 cc NS monitor I/O and renal function HD cath has been in for >15 days but not changed to permanent since renal function is improving and pt may not need HD This will be assessed on tuesday by Dr Cordero when she is back on service Status: Acute (2) Rhabdomyolysis resolved Status: Acute
[2016-06-26] MEDS ORDERED: WARFARIN 5 MG TABLET PO SCH (14:00)
[2016-06-26] MEDS: WARFARIN 2.5 MG TABLET PO SCH (14:44)
[2016-06-26] MEDS: 0.9 % SODIUM CHLORIDE 1,000 ML IV SCH (18:29)
[2016-06-26] MEDS: ATORVASTATIN 20 MG TABLET PO SCH (20:45)
[2016-06-26] MEDS: SENNOSIDES 1 TABLET PO SCH (20:46)
[2016-06-26] MEDS: TAMSULOSIN 0.4 MG CAPSULE PO SCH (20:46)
[2016-06-27 06:59] LABS: Magnesium 1.1 mg/dL (1.6-2.5)
[2016-06-27 07:00] LABS: ALT/SGPT 29 U/l (0-40); Albumin 3.1 gm/dL (3.2-5.2); Albumin/Globulin Ratio 0.9 (1.0-2.3); Alkaline Phosphatase 77 U/L (39-117); Blood Urea Nitrogen 73 mg/dl (8-23)
--- NOTE | 2016-06-27 09:43 | Internal Med Progress Note ---
Medical - PN: Subj Patient information: Note initiated : 06/27/16 at 9:41 am Service Date, if different from initiated Date: [] Patient: Angel Garrett 80 y/o M admitted on 06/25/16 for sepsis. Chief Complaint: [] Interval history: 06/25-atient admitted to swing bed status for continued monitoring renal function. 06/27- blood pressure systolics around 90s. Foleys catheter discontinued. Heart rate variable between 118. Continue close monitoring of blood pressures and heart rate. nephrology managing renal issues. Creatinine down to 4.7 from 5. Electrolyte stable. continue close monitoring - Constitutional Vitals: Vital Signs Temp Pulse Resp BP Pulse Ox 98.0 F 112 H 18 108/58 95 06/27/16 06:23 06/26/16 19:05 06/27/16 06:23 06/27/16 06:23 06/27/16 06:23 Period Temp Pulse Resp BP Sys/Hinds Pulse Ox Last 24 Hr 96.8 F-98.0 F 102-112 16-18 106-114/58-68 95-97 Intake and Output 06/26/16 06/27/16 06/27/16 21:59 05:59 13:59 Intake Total 1180 / 1180 300 / 300 916 / 916 Output Total 425 / 425 250 / 250 100 / 100 Balance 755 / 755 50 / 50 816 / 816 Weight 197 lb Intake & Output: Intake & Output 06/26/16 06/27/16 06/27/16 21:59 05:59 13:59 Intake Total 1180 / 1180 300 / 300 916 / 916 Output Total 425 / 425 250 / 250 100 / 100 Balance 755 / 755 50 / 50 816 / 816 Weight 197 lb Intake: IV 916 / 916 Sodium Chloride 0.9% 1, 916 / 916 000 ml @ 75 mls/hr IV . [id number] KAYLEE Rx#:[id number] Oral 1180 / 1180 300 / 300 Output: Void Amount 425 / 425 250 / 250 100 / 100 Other: Meal Dinner Percent of Meal Consumed 100% # Bowel Movements 1 Medical - PN: Obj Da - Labs CBC & Chem 7: 06/27/16 05:15 Labs: Abnormal Lab Results 06/27/16 06/27/16 06/26/16 05:15 05:15 07:06 PT 27.5 H INR 2.5 H Carbon Dioxide 21 L Anion Gap 20.0 H BUN 73 H Creatinine 4.7 H Calcium 8.1 L Magnesium 1.1 L Albumin 3.1 L Globulin Albumin/Globulin Ratio 0.9 L 06/26/16 07:06 PT INR Carbon Dioxide Anion Gap 17.0 H BUN 73 H Creatinine 5.0 H Calcium Magnesium Albumin 3.1 L Globulin 3.8 H Albumin/Globulin Ratio 0.8 L Meds: Medications Acetaminophen (Tylenol) 1,000 mg PO Q4HP PRN PRN Reason: Pain Aspirin (Aspirin) 81 mg PO DAILY [facility] Last Admin: 06/26/16 09:13 Dose: 81 mg Atorvastatin Calcium (Lipitor) 40 mg PO [facility] Last Admin: 06/26/16 20:45 Dose: 40 mg Sodium Chloride (Sodium Chloride 0.9%) 1,000 mls @ 75 mls/hr IV .[id number] [facility] Last Infusion: 06/27/16 06:42 Dose: 0 mls/hr Metoprolol Tartrate (Lopressor) 50 mg PO BID [facility] Last Admin: 06/26/16 20:46 Dose: Not Given Pantoprazole Sodium (Protonix) 40 mg PO BIDAC [facility] Last Admin: 06/26/16 18:28 Dose: 40 mg Senna (Senokot) 1 tab PO [facility] Last Admin: 06/26/16 20:46 Dose: Not Given Tamsulosin HCl (Flomax) 0.4 mg PO [facility] Last Admin: 06/26/16 20:46 Dose: 0.4 mg Warfarin Sodium (Coumadin) 2.5 mg PO DAILY@1400 [facility] Last Admin: 06/26/16 14:44 Dose: 2.5 mg Medical - PN: A/P - Time Spent With Patient Total time spent is greater than 50% in coordination of care (as documented) at patient's floor/unit and/or counseling patient: 15 - 24 minutes (1) Acute renal failure Status: Acute Assessment and plan: ASSESSMENT * Acute renal failure secondary to rhabdomyolysis/toxic ATN- managed by nephrology. Creatinine downtrending at 4.7 * orthostatic hypotension-continue management per nephrology. Intubate and fluid challenges * Hypo-magnesium at 1.1. replacement per nephrology * Left arm weakness likely brachial plexus injury as per orthopedics- clinically improving- continue physical therapy * A. fib- rate controlled on metoprolol. * Anticoagulation on Coumadin. INR therapeutic. INR therapeutic PLAN * electrolytes/orthostatic hypotension/renal failure management per nephrology * Coumadin dosing Current Visit: No Medical - PN: Qual - Stroke Symptom Onset Unknown: No - VTE Deep Vein Thrombosis/Pulmonary Embolism Present on Admission: No
[2016-06-27] MEDS ORDERED: MAGNESIUM SULFATE 24.36 MEQ in DEXTROSE 5% IN WATER 50 ML IV ONE (09:45)
[2016-06-27] MEDS ORDERED: POTASSIUM CHLORIDE 40 MEQ in DEXTROSE 5% IN WATER 250 ML IV ONE (09:46)
[2016-06-27] MEDS ORDERED: POTASSIUM CHLORIDE 40 MEQ in DEXTROSE 5% IN WATER 500 ML IV ONE (10:00)
[2016-06-27] MEDS: ASPIRIN 81 MG TAB.CHEW PO SCH (10:16)
[2016-06-27] MEDS: METOPROLOL TARTRATE 50 MG TABLET PO SCH ×2 (10:16→22:25)
[2016-06-27] MEDS: PANTOPRAZOLE 40 MG TABLET PO SCH ×2 (10:16→17:11)
--- NOTE | 2016-06-27 11:46 | Nephrology Progress Note ---
Subjective Patient information: Note initiated : 06/27/16 at 11:42 am Service Date, if different from initiated Date: [] Patient: Angel Garrett 80 y/o M admitted on 06/25/16 for sepsis. Chief Complaint: [] Principal diagnosis: Rhabdomyolysis needing HD Interval history: no acute o/n events HD on hold for now. Renal function is slowly improving Objective - Vital Signs Vital signs: Vital Signs Temp Pulse Resp BP BP BP Pulse Ox 06/27/16 06:23 98.0 F 18 108/58 95 06/26/16 19:05 97.8 F 112 H 16 114/68 96 06/26/16 12:51 96.8 F L 102 H 18 106/61 97 Intake and Output 06/26/16 06/27/16 06/27/16 21:59 05:59 13:59 Intake Total 1180 / 1180 300 / 300 916 / 916 Output Total 425 / 425 250 / 250 100 / 100 Balance 755 / 755 50 / 50 816 / 816 Intake: IV 916 / 916 Sodium Chloride 0.9% 1, 916 / 916 000 ml @ 75 mls/hr IV . [id number] KAYLEE Rx#:[id number] Oral 1180 / 1180 300 / 300 Output: Void Amount 425 / 425 250 / 250 100 / 100 Other: Meal Dinner Percent of Meal Consumed 100% # Bowel Movements 1 1 Weight 197 lb Intake & Output: Intake & Output 06/26/16 06/27/16 06/27/16 21:59 05:59 13:59 Intake Total 1180 / 1180 300 / 300 916 / 916 Output Total 425 / 425 250 / 250 100 / 100 Balance 755 / 755 50 / 50 816 / 816 Weight 197 lb Intake: IV 916 / 916 Sodium Chloride 0.9% 1, 916 / 916 000 ml @ 75 mls/hr IV . [id number] KAYLEE Rx#:[id number] Oral 1180 / 1180 300 / 300 Output: Void Amount 425 / 425 250 / 250 100 / 100 Other: Meal Dinner Percent of Meal Consumed 100% # Bowel Movements 1 1 - General Appearance General appearance: well-developed, well-nourished, appears started age EENT: mucous membranes moist Neck: no JVD (hd cath in place) Respiratory: clear Cardiology: irregular rhythm Gastrointestinal: normoactive bowel sounds, no tenderness, no guarding Integumentary: warm and dry Neurologic: no focal deficit, no asterixis, alert and oriented x3 Psychiatric: mood/affect appropriate - Lab 06/27/16 05:15 Most recent lab results Calcium 8.1 mg/dl (8.6-10.4) L 06/27/16 05:15 Phosphorus 4.2 mg/dL (2.7-4.5) 06/27/16 05:15 Magnesium 1.1 mg/dL (1.6-2.5) L 06/27/16 05:15 Assessment and Plan (1) Acute renal failure Pt with [place] 2/2 Rhabdomyolysis was initiated on HD with renal function improving got 1L NS yesterday Phos is wnl , phoslo d/c Mg is low at 1.1 - will replete with 3g MgSO4 K at 3.6 - will replete with 40 mEq KCl monitor I/O and renal function HD cath has been in for >15 days but not changed to permanent since renal function is improving and pt may not need HD Dr Cordero will be back on service tomorrow ; decision regarding HD will be made then. Status: Acute (2) Rhabdomyolysis resolved Status: Acute
[2016-06-27] MEDS: 0.9 % SODIUM CHLORIDE 1,000 ML IV SCH (12:38)
[2016-06-27] MEDS: WARFARIN 2.5 MG TABLET PO SCH (15:03)
[2016-06-27] MEDS: ATORVASTATIN 20 MG TABLET PO SCH (22:25)
[2016-06-27] MEDS: TAMSULOSIN 0.4 MG CAPSULE PO SCH (22:25)
[2016-06-27] MEDS: SENNOSIDES 1 TABLET PO SCH (22:25)
[2016-06-28 06:41] LABS: Magnesium 1.6 mg/dL (1.6-2.5)
[2016-06-28 06:46] LABS: ALT/SGPT 30 U/l (0-40); Albumin 3.3 gm/dL (3.2-5.2); Albumin/Globulin Ratio 0.9 (1.0-2.3); Alkaline Phosphatase 81 U/L (39-117); Blood Urea Nitrogen 67 mg/dl (8-23)
[2016-06-28] MEDS: PANTOPRAZOLE 40 MG TABLET PO SCH ×2 (08:17→17:09)
[2016-06-28] MEDS: ASPIRIN 81 MG TAB.CHEW PO SCH (08:17)
[2016-06-28] MEDS: METOPROLOL TARTRATE 50 MG TABLET PO SCH ×2 (08:18→21:28)
--- NOTE | 2016-06-28 10:38 | Internal Med Progress Note ---
Medical - PN: Subj Patient information: Note initiated : 06/28/16 at 10:23 am Service Date, if different from initiated Date: [] Patient: Angel Garrett 80 y/o M admitted on 06/25/16 for Sepsis. Chief Complaint: [] Interval history: 06/25-atient admitted to swing bed status for continued monitoring renal function. 06/27- blood pressure systolics around 90s. Foleys catheter discontinued. Heart rate variable between 118. Continue close monitoring of blood pressures and heart rate. nephrology managing renal issues. Creatinine down to 4.7 from 5. Electrolyte stable. continue close monitoring 06/28-creatinine down to 4.3, BUN 67. Hemodialysis on hold. Managed by nephrology. INR 2.5. Occasional dizziness. atrial fibrillation rate controlled around 100. Sats on room air - Constitutional Vitals: Vital Signs Temp Pulse Resp BP Pulse Ox 97.5 F L 106 H 16 111/77 96 06/28/16 07:35 06/28/16 07:35 06/28/16 07:35 06/28/16 07:35 06/28/16 07:35 Period Temp Pulse Resp BP Sys/Hinds Pulse Ox Last 24 Hr 97.5 F-98.6 F 91-106 16-20 101-135/65-85 94-99 Intake and Output 06/27/16 06/28/16 06/28/16 21:59 05:59 13:59 Intake Total 1240 / 1240 Output Total 2024 975 / 975 Balance -785 / -785 -975 / -975 Weight 194 lb 8 oz Intake & Output: Intake & Output 06/27/16 06/28/16 06/28/16 21:59 05:59 13:59 Intake Total 1240 / 1240 Output Total 2024 975 / 975 Balance -785 / -785 -975 / -975 Weight 194 lb 8 oz Intake: Oral 1240 / 1240 Output: Urine Catheter Amount 900 / 900 900 / 900 Void Amount 1125 / 1125 75 / 75 Straight 900 / 900 Other: Meal Dinner Percent of Meal Consumed 75% Feeding Ability Independent General appearance: cooperative, no acute distress Exam: alert oriented nonlabored breathing on room air Lymphedema resolved Medical - PN: Obj Da - Labs CBC & Chem 7: 06/28/16 05:28 Labs: Abnormal Lab Results 06/28/16 06/28/16 06/27/16 05:28 05:28 10:40 PT 28.0 H 26.9 H INR 2.5 H 2.4 H Carbon Dioxide 21 L Anion Gap 20.0 H BUN 67 H Creatinine 4.5 H Calcium 8.1 L Magnesium Albumin Globulin Albumin/Globulin Ratio 0.9 L 06/27/16 06/27/16 06/26/16 05:15 05:15 07:06 PT 27.5 H INR 2.5 H Carbon Dioxide 21 L Anion Gap 20.0 H BUN 73 H Creatinine 4.7 H Calcium 8.1 L Magnesium 1.1 L Albumin 3.1 L Globulin Albumin/Globulin Ratio 0.9 L 06/26/16 07:06 PT INR Carbon Dioxide Anion Gap 17.0 H BUN 73 H Creatinine 5.0 H Calcium Magnesium Albumin 3.1 L Globulin 3.8 H Albumin/Globulin Ratio 0.8 L Meds: Medications Acetaminophen (Tylenol) 1,000 mg PO Q4HP PRN PRN Reason: Pain Aspirin (Aspirin) 81 mg PO DAILY [facility] Last Admin: 06/28/16 08:17 Dose: 81 mg Atorvastatin Calcium (Lipitor) 40 mg PO [facility] Last Admin: 06/27/16 22:25 Dose: 40 mg Metoprolol Tartrate (Lopressor) 50 mg PO BID [facility] Last Admin: 06/28/16 08:18 Dose: 50 mg [facility] Last Admin: 06/28/16 08:17 Dose: 40 mg Senna (Senokot) 1 tab PO [facility] Last Admin: 06/27/16 22:25 Dose: Not Given Tamsulosin HCl (Flomax) 0.8 mg PO [facility] Last Admin: 06/27/16 22:25 Dose: Not Given Warfarin Sodium (Coumadin) 2.5 mg PO DAILY@1400 [facility] Last Admin: 06/27/16 15:03 Dose: 2.5 mg Medical - PN: A/P - Time Spent With Patient Total time spent is greater than 50% in coordination of care (as documented) at patient's floor/unit and/or counseling patient: 15 - 24 minutes (1) Acute renal failure Status: Acute Assessment and plan: ASSESSMENT * Acute renal failure secondary to rhabdomyolysis/toxic ATN- improving creatinine gradually. Down to 4.3. managed by nephrology. * Orthostatic hypotension- Continue management per nephrology. fluid challenges * Hypo-magnesium at 1.1-1.6. replacement per nephrology * Left arm weakness likely brachial plexus injury as per orthopedics- clinically improving- continue physical therapy * A. fib- rate controlled on metoprolol. * Anticoagulation on Coumadin. INR therapeutic. INR therapeutic PLAN * electrolytes/orthostatic hypotension/renal failure management per nephrology * Coumadin dosing to continue 2.5 Current Visit: No Medical - PN: Qual - Stroke Symptom Onset Unknown: No - VTE Deep Vein Thrombosis/Pulmonary Embolism Present on Admission: No
[2016-06-28] MEDS: WARFARIN 2.5 MG TABLET PO SCH (14:51)
--- NOTE | 2016-06-28 17:29 | Nephrology Progress Note ---
Subjective Patient information: Note initiated : 06/28/16 at 5:25 pm Service Date, if different from initiated Date: [] Patient: Angel Garrett 80 y/o M admitted on 06/25/16 for Sepsis. Chief Complaint: [] Principal diagnosis: Rhabdomyolysis needing HD Interval history: c/o dizziness during PT now has castillo cath again, will need to see urology no SOB, CP, dizziness no other issues renal function continues to get better Pertinent ROS: as above Objective - Vital Signs Vital signs: Vital Signs Temp Pulse Resp BP BP Pulse Ox 06/28/16 12:00 98.2 F 106 H 108/69 95 06/28/16 11:00 98 F 102 H 16 102/68 95 06/28/16 07:35 97.5 F L 106 H 16 111/77 96 06/28/16 04:00 98.6 F 99 H 16 113/68 98 06/28/16 00:00 97.6 F 96 H 16 101/68 97 06/27/16 20:35 91 H 116/77 06/27/16 19:08 97.7 F 94 H 16 135/80 98 Intake and Output 06/28/16 06/28/16 06/28/16 05:59 13:59 21:59 Output Total 975 / 975 690 / 690 Balance -975 / -975 -690 / -690 Output: Urine Catheter Amount 900 / 900 Void Amount 75 / 75 690 / 690 Intake & Output: Intake & Output 06/28/16 06/28/16 06/28/16 05:59 13:59 21:59 Output Total 975 / 975 690 / 690 Balance -975 / -975 -690 / -690 Output: Urine Catheter Amount 900 / 900 Void Amount 75 / 75 690 / 690 - General Appearance General appearance: appears started age EENT: mucous membranes moist Neck: no JVD Respiratory: clear Cardiology: no rub, irregular rhythm Gastrointestinal: no tenderness, no guarding Integumentary: warm and dry Neurologic: alert and oriented x3 Musculoskeletal: no erythema, no cyanosis Psychiatric: mood/affect appropriate - Lab 06/28/16 05:28 Most recent lab results Calcium 8.1 mg/dl (8.6-10.4) L 06/28/16 05:28 Phosphorus 3.8 mg/dL (2.7-4.5) 06/28/16 05:28 Magnesium 1.6 mg/dL (1.6-2.5) 06/28/16 05:28 Assessment and Plan (1) Acute renal failure renal function continues to get better clinically pt looks volume depleted and this may explain dizziness on physical exertion advised to add a bottle of gatorade once a day ensure to continue with adequate fluid intake if renal function continues to get better I will d/c his dialysis cath continue protein supplements will follow along Status: Acute
[2016-06-28] MEDS: SENNOSIDES 1 TABLET PO SCH (21:21)
[2016-06-28] MEDS: ATORVASTATIN 20 MG TABLET PO SCH (21:29)
[2016-06-28] MEDS: TAMSULOSIN 0.4 MG CAPSULE PO SCH (21:29)
[2016-06-29 06:26] LABS: ALT/SGPT 28 U/l (0-40); Albumin 3.3 gm/dL (3.2-5.2); Albumin/Globulin Ratio 0.9 (1.0-2.3); Alkaline Phosphatase 79 U/L (39-117); Blood Urea Nitrogen 59 mg/dl (8-23)
[2016-06-29] MEDS: PANTOPRAZOLE 40 MG TABLET PO SCH ×2 (07:10→17:30)
[2016-06-29] MEDS ORDERED: POTASSIUM CHLORIDE 20 MEQ TABLET PO ONE (08:25)
[2016-06-29] MEDS: METOPROLOL TARTRATE 50 MG TABLET PO SCH ×2 (09:17→22:35)
[2016-06-29] MEDS: ASPIRIN 81 MG TAB.CHEW PO SCH (09:18)
[2016-06-29] MEDS: WARFARIN 2.5 MG TABLET PO SCH (13:58)
--- NOTE | 2016-06-29 16:08 | Internal Med Progress Note ---
Medical - PN: Subj Patient information: Note initiated : 06/29/16 at 4:06 pm Service Date, if different from initiated Date: [] Patient: Angel Garrett 80 y/o M admitted on 06/25/16 for Sepsis. Chief Complaint: [] Interval history: 06/25-atient admitted to swing bed status for continued monitoring renal function. 06/27- blood pressure systolics around 90s. Foleys catheter discontinued. Heart rate variable between 118. Continue close monitoring of blood pressures and heart rate. nephrology managing renal issues. Creatinine down to 4.7 from 5. Electrolyte stable. continue close monitoring 06/28-creatinine down to 4.3, BUN 67. Hemodialysis on hold. Managed by nephrology. INR 2.5. Occasional dizziness. atrial fibrillation rate controlled around 100. Sats on room air 06/29- patient doing well. No overnight events. No concerns per staff. wound care ongoing for the necrotic skin lesion left breast. reatinine and downtrending. the case discussed with nephrology. Dialysis catheter will be discontinued. Anticipate discharge once cleared by wound care. - Constitutional Vitals: Vital Signs Temp Pulse Resp BP Pulse Ox 99.1 F 103 H 17 106/69 98 06/29/16 15:31 06/29/16 15:31 06/29/16 15:31 06/29/16 15:31 06/29/16 15:31 Period Temp Pulse Resp BP Sys/Hinds Pulse Ox Last 24 Hr 97.3 F-99.1 F 85-110 16-18 95-116/58-82 97-98 Intake and Output 06/29/16 06/29/16 06/29/16 05:59 13:59 21:59 Intake Total 750 / 750 650 / 650 200 / 200 Output Total 1300 / 1300 1350 / 1350 Balance -550 / -550 650 / 650 -1150 / -1150 Weight 192 lb 8 oz Patient Weight 06/30/16 05:59 Weight 192 lb 8 oz Intake & Output: Intake & Output 06/29/16 06/29/16 06/29/16 05:59 13:59 21:59 Intake Total 750 / 750 650 / 650 200 / 200 Output Total 1300 / 1300 1350 / 1350 Balance -550 / -550 650 / 650 -1150 / -1150 Weight 192 lb 8 oz Intake: Oral 750 / 750 650 / 650 200 / 200 Output: Urine Catheter Amount 1300 / 1300 1350 / 1350 Other: Meal Breakfast Percent of Meal Consumed 90 Feeding Ability Independent General appearance: cooperative, no acute distress Exam: alert oriented left-sided hemodialysis catheterRemoved Nonlabored breathing Left chest/breast necrotic skin lesion 3 x 3 cm no anxiety Medical - PN: Obj Da - Labs CBC & Chem 7: 06/29/16 04:43 Labs: Abnormal Lab Results 06/29/16 06/29/16 06/28/16 04:43 04:42 05:28 PT 28.4 H 28.0 H INR 2.6 H 2.5 H Potassium 3.0 L Chloride 95 L Carbon Dioxide 21 L Anion Gap 19.0 H BUN 59 H Creatinine 3.9 H Glucose 112 H Calcium 7.6 L Magnesium Albumin Albumin/Globulin Ratio 0.9 L 06/28/16 06/27/16 06/27/16 05:28 10:40 05:15 PT 26.9 H INR 2.4 H Potassium Chloride Carbon Dioxide 21 L Anion Gap 20.0 H BUN 67 H Creatinine 4.5 H Glucose Calcium 8.1 L Magnesium 1.1 L Albumin Albumin/Globulin Ratio 0.9 L 06/27/16 05:15 PT INR Potassium Chloride Carbon Dioxide 21 L Anion Gap 20.0 H BUN 73 H Creatinine 4.7 H Glucose Calcium 8.1 L Magnesium Albumin 3.1 L Albumin/Globulin Ratio 0.9 L Meds: Medications Acetaminophen (Tylenol) 1,000 mg PO Q4HP PRN PRN Reason: Pain Aspirin (Aspirin) 81 mg PO DAILY [facility] Last Admin: 06/29/16 09:18 Dose: 81 mg Atorvastatin Calcium (Lipitor) 40 mg PO [facility] Last Admin: 06/28/16 21:29 Dose: 40 mg Metoprolol Tartrate (Lopressor) 50 mg PO BID [facility] Last Admin: 06/29/16 09:17 Dose: 25 mg Pantoprazole Sodium (Protonix) 40 mg PO BIDAC [facility] Last Admin: 06/29/16 07:10 Dose: 40 mg Potassium Chloride (Kdur) 20 meq PO BIDCC [facility] Senna (Senokot) 1 tab PO [facility] Last Admin: 06/28/16 21:21 Dose: Not Given Tamsulosin HCl (Flomax) 0.8 mg PO [facility] Last Admin: 06/28/16 21:29 Dose: 0.8 mg Warfarin Sodium (Coumadin) 2.5 mg PO DAILY@1400 [facility] Last Admin: 06/29/16 13:58 Dose: 2.5 mg Medical - PN: A/P - Time Spent With Patient Total time spent is greater than 50% in coordination of care (as documented) at patient's floor/unit and/or counseling patient: 25 - 35 minutes (1) Acute renal failure Status: Acute Assessment and plan: ASSESSMENT * Acute renal failure secondary to rhabdomyolysis/toxic ATN-nephrology managing. creatinine down to 3.7 * Orthostatic hypotension- Continue management per nephrology. on oral fluids * Hypo-magnesium managed per nephrology * Left arm weakness likely brachial plexus injury as per orthopedics- clinically improving- continue physical therapy * left chest/breast necrotic skin lesion worsening since admission. Managed by wound care * A. fib- rate controlled on metoprolol. * Anticoagulation on Coumadin. INR therapeutic. INR therapeutic PLAN * electrolytes/orthostatic hypotension/renal failure management per nephrology * continue Coumadin * wound managed per wound care facility Current Visit: No Medical - PN: Qual - Stroke Symptom Onset Unknown: No - VTE Deep Vein Thrombosis/Pulmonary Embolism Present on Admission: No
--- NOTE | 2016-06-29 16:47 | Nephrology Progress Note ---
Subjective Patient information: Note initiated : 06/29/16 at 4:44 pm Service Date, if different from initiated Date: [] Patient: Angel Garrett 80 y/o M admitted on 06/25/16 for Sepsis. Chief Complaint: [] Principal diagnosis: Rhabdomyolysis needing HD Interval history: no new issues pt feels better no dizziness, SOB, CP concern of necrosis at the chest wound ? needs intervention good urinary output with improvign renal function Pertinent ROS: as above Objective - Vital Signs Vital signs: Vital Signs Temp Pulse Resp BP BP Pulse Ox 06/29/16 15:31 99.1 F 103 H 17 106/69 98 06/29/16 12:42 97.5 F L 98 H 18 104/69 97 06/29/16 08:41 108/58 06/29/16 08:25 110 H 112/68 06/29/16 07:51 97.3 F L 85 17 116/82 97 06/29/16 03:07 98.3 F 95 H 16 111/72 97 06/28/16 23:50 97.3 F L 101 H 16 95/61 98 06/28/16 21:20 98 H 112/74 06/28/16 20:00 97.5 F L 100 H 16 106/67 98 Intake and Output 06/29/16 06/29/16 06/29/16 05:59 13:59 21:59 Intake Total 750 / 750 650 / 650 200 / 200 Output Total 1300 / 1300 1350 / 1350 Balance -550 / -550 650 / 650 -1150 / -1150 Intake: Oral 750 / 750 650 / 650 200 / 200 Output: Urine Catheter Amount 1300 / 1300 1350 / 1350 Other: Meal Breakfast Percent of Meal Consumed 90 Feeding Ability Independent Weight 192 lb 8 oz Patient Weight 06/30/16 05:59 Weight 192 lb 8 oz Intake & Output: Intake & Output 06/29/16 06/29/16 06/29/16 05:59 13:59 21:59 Intake Total 750 / 750 650 / 650 200 / 200 Output Total 1300 / 1300 1350 / 1350 Balance -550 / -550 650 / 650 -1150 / -1150 Weight 192 lb 8 oz Intake: Oral 750 / 750 650 / 650 200 / 200 Output: Urine Catheter Amount 1300 / 1300 1350 / 1350 Other: Meal Breakfast Percent of Meal Consumed 90 Feeding Ability Independent - General Appearance General appearance: appears started age EENT: mucous membranes moist Neck: no JVD Respiratory: clear Cardiology: no rub, irregular rhythm Gastrointestinal: no tenderness, no guarding Integumentary: warm and dry Neurologic: alert and oriented x3 Musculoskeletal: no erythema, no clubbing Psychiatric: mood/affect appropriate - Lab 06/29/16 04:43 Most recent lab results Calcium 7.6 mg/dl (8.6-10.4) L 06/29/16 04:43 Phosphorus 3.8 mg/dL (2.7-4.5) 06/28/16 05:28 Magnesium 1.6 mg/dL (1.6-2.5) 06/28/16 05:28 Assessment and Plan (1) Acute renal failure renal function continues to get better, s.creatinine down to 3.9 today K is low and so is calcium dialysis cathetor was removed today, good hemostasis achieved, RN advised to monitor for bleeding ct with once daily gatorade, ct to encouarge adequate water intake also K supplements added, will recheck labs today to ensure improving will monitor labs closely Status: Acute
[2016-06-29] MEDS: POTASSIUM CHLORIDE 20 MEQ TABLET PO SCH (17:31)
[2016-06-29 17:35] LABS: Blood Urea Nitrogen 56 mg/dl (8-23)
[2016-06-29] MEDS: ATORVASTATIN 20 MG TABLET PO SCH (22:35)
[2016-06-29] MEDS: TAMSULOSIN 0.4 MG CAPSULE PO SCH (22:35)
[2016-06-29] MEDS: SENNOSIDES 1 TABLET PO SCH (22:36)
[2016-06-30 06:42] LABS: ALT/SGPT 26 U/l (0-40); Albumin 3.3 gm/dL (3.2-5.2); Albumin/Globulin Ratio 0.9 (1.0-2.3); Alkaline Phosphatase 86 U/L (39-117); Blood Urea Nitrogen 54 mg/dl (8-23)
[2016-06-30] MEDS: POTASSIUM CHLORIDE 20 MEQ TABLET PO SCH ×2 (07:44→17:44)
[2016-06-30] MEDS: PANTOPRAZOLE 40 MG TABLET PO SCH ×2 (07:45→17:43)
--- NOTE | 2016-06-30 07:53 | General Surgery Consult Note ---
History of Present Illness Patient information: Note initiated : 06/30/16 at 7:50 am Service Date, if different from initiated Date: [] Patient: Angel Garrett 80 y/o M admitted on 06/25/16 for Sepsis. Chief Complaint: [] Consult date: 06/29/16 Reason for consult: wound care Requesting physician: Valdemar Peterson History of present illness: Angel is in the hospital in a swing bed after a prolonged, trapped, found down situation which resulted in rhabdomyalysis and ATN requiring dialysis. The wound issue is the left breast area Medications and Allergies Home Medications Medication Instructions Recorded Confirmed Type Acetaminophen [Tylenol] 1,000 mg PO Q4HP PRN 06/05/16 06/25/16 History Aspirin [Aspirin EC] 81 mg PO DAILY 06/05/16 06/25/16 History Atorvastatin [Lipitor] 40 mg PO HS 06/05/16 06/25/16 History Metoprolol Tartrate [Lopressor] 50 mg PO BID 06/05/16 06/25/16 History Omeprazole 20 mg PO BID 06/05/16 06/25/16 History Sennosides [Ex-Lax] 15 mg PO DAILY 06/05/16 06/25/16 History Warfarin [Coumadin] 5 mg PO SUMOTUWEFRSA@1400 06/05/16 06/25/16 History Warfarin [Coumadin] 2.5 mg PO TH@1400 06/10/16 06/25/16 History Tamsulosin [Flomax] 0.4 mg PO HS #0 capsule 06/25/16 06/25/16 Rx Allergies Allergy/AdvReac Type Severity Reaction Status Date / Time codeine Allergy Unknown Unknown Verified 06/16/16 16:37 Exam Temp Pulse Resp BP Pulse Ox 98.1 F 101 H 12 106/74 97 06/30/16 04:00 06/30/16 04:00 06/30/16 04:00 06/30/16 04:00 06/30/16 04:00 - Integumentary Present: other (Large dry black eschar with hardened subcutaneous tissue below it in the left breast area. The large eschar doesn't involve the nipple but there is a small eschar on the nipple. ) Results - Labs 06/30/16 04:39 Abnormal lab results 06/29/16 06/30/16 06/30/16 Range/Units 16:50 04:39 04:39 PT 29.9 H (11.9-14.5) sec INR 2.7 H (0.9-1.1) Carbon Dioxide 21 L (22-30) mmol/L Anion Gap 17.0 H (8-16) BUN 56 H 54 H (8-23) mg/dl Creatinine 3.9 H 3.7 H (0.7-1.2) mg/dl Calcium 7.9 L 7.8 L (8.6-10.4) mg/dl Globulin 3.8 H (2.2-3.7) gm/dL Albumin/Globulin Ratio 0.9 L (1.0-2.3) Diabetes panel 06/29/16 06/30/16 Range/Units 16:50 04:39 Sodium 135 137 (133-145) mmol/L Potassium 4.5 3.9 (3.3-5.1) mmol/L Chloride 97 99 (96-108) mmol/L Carbon Dioxide 22 21 L (22-30) mmol/L BUN 56 H 54 H (8-23) mg/dl Creatinine 3.9 H 3.7 H (0.7-1.2) mg/dl Glucose 93 93 (70-105) mg/dL Calcium 7.9 L 7.8 L (8.6-10.4) mg/dl AST 27 (0-37) U/l ALT 26 (0-40) U/l Alkaline Phosphatase 86 (39-117) U/L Total Protein 7.1 (5.9-8.4) gm/dL Albumin 3.3 (3.2-5.2) gm/dL Calcium panel 06/29/16 06/30/16 Range/Units 16:50 04:39 Calcium 7.9 L 7.8 L (8.6-10.4) mg/dl Albumin 3.3 (3.2-5.2) gm/dL Pituitary panel 06/29/16 06/30/16 Range/Units 16:50 04:39 Sodium 135 137 (133-145) mmol/L Potassium 4.5 3.9 (3.3-5.1) mmol/L Chloride 97 99 (96-108) mmol/L Carbon Dioxide 22 21 L (22-30) mmol/L BUN 56 H 54 H (8-23) mg/dl Creatinine 3.9 H 3.7 H (0.7-1.2) mg/dl Glucose 93 93 (70-105) mg/dL Calcium 7.9 L 7.8 L (8.6-10.4) mg/dl Adrenal panel 06/29/16 06/30/16 Range/Units 16:50 04:39 Sodium 135 137 (133-145) mmol/L Potassium 4.5 3.9 (3.3-5.1) mmol/L Chloride 97 99 (96-108) mmol/L Carbon Dioxide 22 21 L (22-30) mmol/L BUN 56 H 54 H (8-23) mg/dl Creatinine 3.9 H 3.7 H (0.7-1.2) mg/dl Glucose 93 93 (70-105) mg/dL Calcium 7.9 L 7.8 L (8.6-10.4) mg/dl Total Bilirubin 0.6 (0.0-1.0) mg/dL AST 27 (0-37) U/l ALT 26 (0-40) U/l Alkaline Phosphatase 86 (39-117) U/L Total Protein 7.1 (5.9-8.4) gm/dL Albumin 3.3 (3.2-5.2) gm/dL All other labs normal. Assessment and Plan (1) Pressure injury of skin The injury is now several weeks old and appears to be either pressure necrosis from "being down" for a prolonged period of time or a shearing injury. The eschar is dry and he has hard fat necrosis below it. No need for urgent intervention as long as no signs of infection. Eventually the eschar will loosen at the edges and debridement will be needed. Reviewed with Dr Abarca. He should have a wound clinic followup at the time of discharge to monitor the eschar and determine optimal timing for debridement. Status: Acute
[2016-06-30] MEDS: METOPROLOL TARTRATE 50 MG TABLET PO SCH ×2 (09:52→22:57)
[2016-06-30] MEDS: ASPIRIN 81 MG TAB.CHEW PO SCH (09:55)
[2016-06-30] MEDS ORDERED: DIGOXIN 500 MCG/2 ML AMPUL IV ONE (10:21)
--- NOTE | 2016-06-30 11:31 | Internal Med Progress Note ---
Medical - PN: Subj Patient information: Note initiated : 06/30/16 at 11:27 am Service Date, if different from initiated Date: [] Patient: Angel Garrett 80 y/o M admitted on 06/25/16 for Sepsis. Chief Complaint: [] Interval history: 06/25-atient admitted to swing bed status for continued monitoring renal function. 06/27- blood pressure systolics around 90s. Foleys catheter discontinued. Heart rate variable between 118. Continue close monitoring of blood pressures and heart rate. nephrology managing renal issues. Creatinine down to 4.7 from 5. Electrolyte stable. continue close monitoring 06/28-creatinine down to 4.3, BUN 67. Hemodialysis on hold. Managed by nephrology. INR 2.5. Occasional dizziness. atrial fibrillation rate controlled around 100. Sats on room air 06/29- patient doing well. No overnight events. No concerns per staff. wound care ongoing for the necrotic skin lesion left breast. reatinine and downtrending. the case discussed with nephrology. Dialysis catheter will be discontinued. Anticipate discharge once cleared by wound care. 06/30-Patient complains of dizziness. expressed concerns about hypotension/A. fib with intermittent RVR. EKG reveals heart rate of 119 However no episodes of significant RVR. start digoxin load. continue metoprolol. Wound care managing left breast necrotic skin lesion. Nephrology on board managing renal issues. thank you frequent vital signs checks and transfer to telemetry if sustained RVR not responding to digoxin. - Constitutional Vitals: Vital Signs Temp Pulse Resp BP Pulse Ox 98.1 F 134 H 16 92/62 97 06/30/16 09:00 06/30/16 09:00 06/30/16 09:00 06/30/16 09:00 06/30/16 09:00 Period Temp Pulse Resp BP Sys/Hinds Pulse Ox Last 24 Hr 97.2 F-99.1 F 98-134 12-18 92-122/62-79 96-98 Intake and Output 06/29/16 06/30/16 06/30/16 21:59 05:59 13:59 Intake Total 200 / 200 150 / 150 Output Total 1350 / 1350 1100 / 1100 Balance -1150 / -1150 -950 / -950 Weight 191 lb Intake & Output: Intake & Output 06/29/16 06/30/16 06/30/16 21:59 05:59 13:59 Intake Total 200 / 200 150 / 150 Output Total 1350 / 1350 1100 / 1100 Balance -1150 / -1150 -950 / -950 Weight 191 lb Intake: Oral 200 / 200 150 / 150 Output: Urine Catheter Amount 1350 / 1350 1100 / 1100 Other: Meal Gram Crackers(1)/Peanut Butter/Peaches Percent of Meal Consumed 100% Refused Feeding Ability Independent General appearance: cooperative, no acute distress Exam: alert oriented nonlabored breathing Complains of dizziness No pallor lymphedema Medical - PN: Obj Da - Labs CBC & Chem 7: 06/30/16 04:39 Labs: Abnormal Lab Results 06/30/16 06/30/16 06/29/16 04:39 04:39 16:50 PT 29.9 H INR 2.7 H Potassium Chloride Carbon Dioxide 21 L Anion Gap 17.0 H BUN 54 H 56 H Creatinine 3.7 H 3.9 H Glucose Calcium 7.8 L 7.9 L Globulin 3.8 H Albumin/Globulin Ratio 0.9 L 06/29/16 06/29/16 06/28/16 04:43 04:42 05:28 PT 28.4 H 28.0 H INR 2.6 H 2.5 H Potassium 3.0 L Chloride 95 L Carbon Dioxide 21 L Anion Gap 19.0 H BUN 59 H Creatinine 3.9 H Glucose 112 H Calcium 7.6 L Globulin Albumin/Globulin Ratio 0.9 L 06/28/16 06/27/16 05:28 10:40 PT 26.9 H INR 2.4 H Potassium Chloride Carbon Dioxide 21 L Anion Gap 20.0 H BUN 67 H Creatinine 4.5 H Glucose Calcium 8.1 L Globulin Albumin/Globulin Ratio 0.9 L Meds: Medications Acetaminophen (Tylenol) 1,000 mg PO Q4HP PRN PRN Reason: Pain Aspirin (Aspirin) 81 mg PO DAILY [facility] Last Admin: 06/30/16 09:55 Dose: Not Given Atorvastatin Calcium (Lipitor) 40 mg PO HS [facility] Last Admin: 06/29/16 22:35 Dose: 40 mg Metoprolol Tartrate (Lopressor) 50 mg PO BID [facility] Last Admin: 06/30/16 09:52 Dose: Not Given [facility]op[facility] Last Admin: 06/30/16 07:45 Dose: 40 mg Potassium [facility] Last Admin: 06/30/16 07:44 Dose: 20 meq Senna (Senokot) 1 tab PO [facility] Last Admin: 06/29/16 22:36 Dose: Not Given Tamsulosin HCl (Flomax) 0.8 mg PO [facility] Last Admin: 06/29/16 22:35 Dose: 0.8 mg Warfarin Sodium (Coumadin) 1 mg PO ONCE@1400 [facility] Stop: 06/30/16 14:01 Medical - PN: A/P - Time Spent With Patient Total time spent is greater than 50% in coordination of care (as documented) at patient's floor/unit and/or counseling patient: 25 - 35 minutes (1) Acute renal failure Status: Acute Assessment and plan: ASSESSMENT * Orthostatic hypotension- systolics around 90-100. * A. fib- continued controlled however intermittently up to 120. Continue metoprolol. IV digoxin load * left chest/breast necrotic skin lesion worsening since admission. wound care closely monitoring * Acute renal failure secondary to rhabdomyolysis/toxic ATN-nephrology managing. creatinine down to 3.7. XD catheter discontinued * Hypo-magnesium managed per nephrology * Left arm weakness likely brachial plexus injury as per orthopedics- clinically improving- continue physical therapy * Anticoagulation on Coumadin. INR therapeutic. INR therapeutic PLAN * digoxin load and frequent vital monitoring * electrolytes/orthostatic hypotension/renal failure management per nephrology * wound managed per wound care physician Current Visit: No Medical - PN: Qual - Stroke Symptom Onset Unknown: No - VTE Deep Vein Thrombosis/Pulmonary Embolism Present on Admission: No
[2016-06-30] MEDS ORDERED: WARFARIN 1 MG TABLET PO ONE (14:00)
[2016-06-30] MEDS ORDERED: WARFARIN 2.5 MG TABLET PO SCH (14:00)
[2016-06-30] MEDS ORDERED: METOPROLOL TARTRATE 25 MG TABLET ONE (21:41)
[2016-06-30] MEDS: SENNOSIDES 1 TABLET PO SCH (21:45)
[2016-06-30] MEDS: TAMSULOSIN 0.4 MG CAPSULE PO SCH (21:45)
[2016-06-30] MEDS: ATORVASTATIN 20 MG TABLET PO SCH (21:46)
[2016-06-30] MEDS: METOPROLOL TARTRATE 25 MG TABLET PO SCH ×2 (21:56→21:57)
[2016-07-01 06:40] LABS: ALT/SGPT 33 U/l (0-40); Albumin 3.4 gm/dL (3.2-5.2); Albumin/Globulin Ratio 0.9 (1.0-2.3); Alkaline Phosphatase 83 U/L (39-117); Blood Urea Nitrogen 52 mg/dl (8-23)
[2016-07-01] MEDS: PANTOPRAZOLE 40 MG TABLET PO SCH ×2 (07:34→17:01)
[2016-07-01] MEDS: ASPIRIN 81 MG TAB.CHEW PO SCH (09:06)
[2016-07-01] MEDS: METOPROLOL TARTRATE 25 MG TABLET PO SCH ×2 (09:06→21:48)
[2016-07-01] MEDS: POTASSIUM CHLORIDE 20 MEQ TABLET PO SCH ×2 (09:06→17:01)
--- NOTE | 2016-07-01 10:42 | Internal Med Progress Note ---
Medical - PN: Subj Patient information: Note initiated : 07/01/16 at 10:38 am Service Date, if different from initiated Date: [] Patient: Angel Garrett 80 y/o M admitted on 06/25/16 for Sepsis. Chief Complaint: [] Interval history: 06/25-Patient admitted to swing bed status for continued monitoring renal function. 06/27- blood pressure systolics around 90s. Foleys catheter discontinued. Heart rate variable between 118. Continue close monitoring of blood pressures and heart rate. nephrology managing renal issues. Creatinine down to 4.7 from 5. Electrolyte stable. continue close monitoring 06/28-creatinine down to 4.3, BUN 67. Hemodialysis on hold. Managed by nephrology. INR 2.5. Occasional dizziness. atrial fibrillation rate controlled around 100. Sats on room air 06/29- patient doing well. No overnight events. No concerns per staff. wound care ongoing for the necrotic skin lesion left breast. reatinine and downtrending. the case discussed with nephrology. Dialysis catheter will be discontinued. Anticipate discharge once cleared by wound care. 06/30-Patient complains of dizziness. expressed concerns about hypotension/A. fib with intermittent RVR. EKG reveals heart rate of 119 However no episodes of significant RVR. start digoxin load. continue metoprolol. Wound care managing left breast necrotic skin lesion. Nephrology on board managing renal issues. thank you frequent vital signs checks and transfer to telemetry if sustained RVR not responding to digoxin. 07/01- heart rate has been stable after digoxin load. Digoxin level in 24 hours. stable hemodynamics. Wound care recommends follow up as an outpatient for left breast necrotic/gangrenous skin lesion/hematoma. renal issues managed by nephrology. Anticipate discharge in the next 24-48 hours if approved by nephrology. Attempt discontinuing Mckeon's catheter however if continues to show signs of urinary retention patient will require outpatient urology follow- up. no overnight fever chills or concerns per staff. - Constitutional Vitals: Vital Signs Temp Pulse Resp BP Pulse Ox 97.5 F L 86 18 112/67 95 07/01/16 10:31 07/01/16 10:31 07/01/16 06:34 07/01/16 06:34 07/01/16 06:34 Period Temp Pulse Resp BP Sys/Hinds Pulse Ox Last 24 Hr 97.3 F-98.7 F 84-98 16-18 102-124/66-84 95-99 Intake and Output 06/30/16 07/01/16 07/01/16 21:59 05:59 13:59 Intake Total 100 / 100 540 / 540 Output Total 1150 / 1150 700 / 700 Balance -1150 / -1150 -600 / -600 540 / 540 Weight 192 lb Intake & Output: Intake & Output 06/30/16 07/01/16 07/01/16 21:59 05:59 13:59 Intake Total 100 / 100 540 / 540 Output Total 1150 / 1150 700 / 700 Balance -1150 / -1150 -600 / -600 540 / 540 Weight 192 lb Intake: Oral 100 / 100 540 / 540 Output: Urine Catheter Amount 850 / 850 700 / 700 Void Amount 300 / 300 Other: Meal Gram crackers/Peanut butter Breakfast Percent of Meal Consumed 100% # Bowel Movements 1 1 1 General appearance: cooperative, no acute distress Exam: alert and oriented nonlabored breathing foleys draining clear urine no anxiety 4 x 4 necrotic angrenous skin lesion left anterior chestwith clear demarcation Medical - PN: Obj Da - Labs CBC & Chem 7: 07/01/16 05:20 Labs: Abnormal Lab Results 07/01/16 07/01/16 06/30/16 05:20 05:20 04:39 PT 31.4 H 29.9 H INR 2.9 H 2.7 H Potassium Chloride Carbon Dioxide 21 L Anion Gap 17.0 H BUN 52 H Creatinine 3.5 H Glucose Calcium 7.8 L Globulin 3.8 H Albumin/Globulin Ratio 0.9 L 06/30/16 06/29/16 06/29/16 04:39 16:50 04:43 PT INR Potassium 3.0 L Chloride 95 L Carbon Dioxide 21 L 21 L Anion Gap 17.0 H 19.0 H BUN 54 H 56 H 59 H Creatinine 3.7 H 3.9 H 3.9 H Glucose 112 H Calcium 7.8 L 7.9 L 7.6 L Globulin 3.8 H Albumin/Globulin Ratio 0.9 L 0.9 L 06/29/16 04:42 PT 28.4 H INR 2.6 H Potassium Chloride Carbon Dioxide Anion Gap BUN Creatinine Glucose Calcium Globulin Albumin/Globulin Ratio Meds: Medications Acetaminophen (Tylenol) 1,000 mg PO Q4HP PRN PRN Reason: Pain Aspirin (Aspirin) 81 mg PO DAILY [facility] Last Admin: 07/01/16 09:06 Dose: 81 mg Atorvastatin Calcium (Lipitor) 40 mg PO [facility] Last Admin: 06/30/16 21:46 Dose: 40 mg Metoprolol Tartrate (Lopressor) 25 mg PO BID [facility] Last Admin: 07/01/16 09:06 Dose: 25 mg Pantoprazole Sodium (Protonix) 40 mg PO BIDAC [facility] Last Admin: 07/01/16 07:34 Dose: 40 mg Potassium Chloride (Kdur) 20 meq PO BIDCC [facility] Last Admin: 07/01/16 09:06 Dose: 20 meq Senna (Senokot) 1 tab PO [facility] Last Admin: 06/30/16 21:45 Dose: 1 tab Tamsulosin HCl (Flomax) 0.8 mg PO [facility] Last Admin: 06/30/16 21:45 Dose: 0.8 mg Warfarin Sodium (Coumadin) 1 mg PO ONCE@1400 ONE Stop: 07/01/16 14:01 Medical - PN: A/P - Time Spent With Patient Total time spent is greater than 50% in coordination of care (as documented) at patient's floor/unit and/or counseling patient: 15 - 24 minutes (1) Acute renal failure Status: Acute Assessment and plan: ASSESSMENT * Acute renal failure secondary to rhabdomyolysis/toxic ATN-nephrology managing. creatinine trending down. DC Mckeon's catheter today * Orthostatic hypotension- resolved * A. fib- rate controlled after IV digoxin load. digoxin level in in a.m.. * left chest/breast necrotic skin lesion worsening since admission. wound care closely monitoring and recommends outpatient follow-up. 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 INR therapeutic at 2.9 * history of urinary retention-if patient continues to retain urine-will need discharge on Foleys catheter with urology follow-up PLAN * digoxin digoxin level a.m. * electrolytes/orthostatic hypotension/renal failure management per nephrology * discharge home once approved by nephrology * urology follow-up if persistent urinary retention * Wound care follow-up As recommended by wound physician * nephrology follow-up on discharge Current Visit: No Medical - PN: Qual - Stroke Symptom Onset Unknown: No - VTE Deep Vein Thrombosis/Pulmonary Embolism Present on Admission: No
[2016-07-01] MEDS ORDERED: WARFARIN 1 MG TABLET PO ONE (14:00)
[2016-07-01] MEDS: ATORVASTATIN 20 MG TABLET PO SCH (21:47)
[2016-07-01] MEDS: TAMSULOSIN 0.4 MG CAPSULE PO SCH (21:47)
[2016-07-01] MEDS: SENNOSIDES 1 TABLET PO SCH (21:48)
[2016-07-02 05:38] LABS: ALT/SGPT 33 U/l (0-40); Albumin 3.5 gm/dL (3.2-5.2); Albumin/Globulin Ratio 0.9 (1.0-2.3); Alkaline Phosphatase 89 U/L (39-117); Blood Urea Nitrogen 50 mg/dl (8-23)
[2016-07-02] MEDS: PANTOPRAZOLE 40 MG TABLET PO SCH (07:22)
[2016-07-02] MEDS: METOPROLOL TARTRATE 25 MG TABLET PO SCH (08:50)
[2016-07-02] MEDS: ASPIRIN 81 MG TAB.CHEW PO SCH (08:51)
[2016-07-02] MEDS: POTASSIUM CHLORIDE 20 MEQ TABLET PO SCH (08:51)
--- NOTE | 2016-07-02 11:20 | Discharge Summary ---
Medical - DS: Prov Patient information: Note initiated : 07/02/16 at 11:15 am Service Date, if different from initiated Date: [] Patient: Angel Garrett 80 y/o M admitted on 06/25/16 for Sepsis. Chief Complaint: [] Date of admission: 06/25/16 14:06 Discharge date: 07/02/16 Primary care physician: [f_Reg Prim Care Provider] Admitting clinician: Valdemar Peterson Consults: 06/29/16 13:02 Consult to Physician [CONS] Routine Comment: Left Breast Consulting Provider: Lazaro Hendrickson Reason For Exam: Physician to Consult Discharging clinician: Sheldon Barclay Medical - DS: Meds - Discharge Medications Prescriptions: Potassium Chloride [Kdur] 20 meq PO QAMCC #30 tablet Tamsulosin [Flomax] 0.8 mg PO HS #60 capsule Active and Home Medications: Home Medications Acetaminophen [Tylenol] 1,000 mg PO Q4HP PRN 06/05/16 [History Confirmed Last Taken 05/31/16] Aspirin [Aspirin EC] 81 mg PO DAILY 06/05/16 [History Confirmed 06/25/16 Last Taken 05/31/16] Atorvastatin [Lipitor] 40 mg PO HS 06/05/16 [History Confirmed 06/25/16 Last Taken 06/24/16 21:00] Metoprolol Tartrate [Lopressor] 50 mg PO BID 06/05/16 [History Confirmed Last Taken 06/25/16 09:00] Omeprazole 20 mg PO BID 06/05/16 [History Confirmed 06/25/16 Last Taken 07:30] Sennosides [Ex-Lax] 15 mg PO DAILY 06/05/16 [History Confirmed 06/25/16 Last Taken 06/25/16 09:00] Warfarin [Coumadin] 5 mg PO SUMOTUWEFRSA@1400 06/05/16 [History Confirmed Last Taken 06/25/16 14:00] Warfarin [Coumadin] 2.5 mg PO TH@1400 06/10/16 [History Confirmed 06/25/16 Last Taken 06/24/16 14:00] Tamsulosin [Flomax] 0.4 mg PO HS #0 capsule 06/25/16 [Rx Confirmed 06/25/16 Last Taken 06/24/16 21:00] Medical - DS: Hosp Hospital course: Mr. Garrett is a 80 year old male who presented to this facility on the 06/04/2016 from another facility as a transfer. The patient was found down with unknow period. Labs were significant for elevated creatinine, rhabdomyolysis, pneumonia. Given the need for dialysis the patient was transferred here for further management. Pt condition was treated, and later transferred to swing bed status for wound care and dialysis. Pt is now stable for xfer to MD. Syncope/ found down- Etiology of passing out is not clear. The patent notes he has had some spells in the past, but not sure, Workup in the hospital included CT head, MRI head, Echo, tele monitoring, (afib noted) no other major events noted. During the hospitalization, he had one episode of ? seziure, which was thought to be due to levaquin. Should he have another episode, a evaluation by neurologist would be warranted. Pneumonia/ Sepsis/ Acute hypoxic Resp failure- Patient had left lung pna, bc positive for mssa, Echo neg for vegetations. Patient treated with antibiotics with resolution of infection and sepsis, pt is back to baseline at the time of discharge. Acute renal failure/ Rhabdomyolysis- As a result of being down for prolonged peroid, Pt was anuric on presentation due to rhabdomyolysis / sepsis, treated with IV fljids, laxis and hemodialysis, pt responded to treatment well, he is no longer on hemodialysis, his creatinine is 3.5 and is stable, he will follow up with nephrology as outpatient. Pt catheter for HD removed. Renal sonogram showed normal kidney,s but there was concern for left renal mass , Subsequent MRI abdomen did not reveal any mass. Debility: left arm weakness, left foot drop, noted thought to be sequelae of lying on the floor. Patient will need ongoing therapy at rehab center to recover strength. Wound on the left shoulder, left breast- followed by Wound care, needs dressing changes for now, Will follow up with wound care clinic at discharge. BPH- Pt has h/o BPH, he had episode of urinary retention while in the hospital, castillo was placed. His dose of floxmax doubled. His castillo was discontinued a day before discharge, he is able to make urine with post void residual of approx 150 , he is not able to stand and urinate at this time due to weakness. The patient will continue with flomax for now, consider urology referral as outpt if pt develops urinary retention and needs reinsertion of castillo. Atrial fibrillation- Chr issue, on coumadin and metoprolol at home. On presentation his INR was supratherapeutic and had afib with RVR, this has resolved, his HR is still in 90-100, he will be discharged on metoprolol 50mg bid, which is his home dose. He will take c oumadin 1mg once dialy, INR check in 3 days. Discharge diagnosis: Acute Renal failure/ Rhabdomyolysis Pertinent studies/significant findings: X ray chest- Left lung pneumonia, Renal usg- 3.5cms mass left kidney, rest normal Abdomen MRI- No mass in the kidney, simple cysts in the right kidney. Echo- Normal lvef, moderate mr, mild pulm htn, raised cvp head ct - moderate generalized ischemia, no acute abnormality. DVT Scan neg MRI head, mild atrophy, patchy chronic ischemic changes in deep cerebral white matter, no acute process. - Time Spent with Patient Total time spent providing and/or coordinating discharge services: Greater than 30 minutes Medical - DS: Exam - Constitutional Vitals: Vital Signs Temp Pulse Resp BP BP BP Pulse Ox 07/02/16 07:38 97.5 F L 18 126/89 97 07/02/16 07:30 104 H 16 98 07/02/16 04:00 98.4 F 92 H 16 117/84 99 07/02/16 00:00 97.6 F 108 H 16 110/72 98 07/01/16 20:20 97.8 F 118 H 22 131/82 99 07/01/16 11:54 98.3 F 98 H 107/68 98 07/01/16 11:43 138/84 Intake and Output 07/01/16 07/02/16 07/02/16 21:59 05:59 13:59 Intake Total 740 / 740 650 / 650 Output Total 375 / 375 725 / 725 400 / 400 Balance 365 / 365 -75 / -75 -400 / -400 Intake: Oral 740 / 740 650 / 650 Output: Void Amount 375 / 375 725 / 725 400 / 400 Other: Meal Dinner Breakfast Percent of Meal Consumed 50% 100% Feeding Ability Independent Independent Weight 190 lb Additional comments: Constitutional; Afebrile, cooperative, alert, not in distress. Eyes- No icterus, , No periorbital swelling Ears- Ext ear normal, hearing normal to conversation. Neck- Midline trachea, supple Respiratory system: Air Entry equal on both sides, No crackles or wheezing, no rhonchi. CVS- Rate rhythm irregular, S1,S2 heard, no gallop, no rub. Abdomen- Soft nontender abdomen, no organomegaly, no tenderness, no guarding or rigidity, [employer]- AOOx3, moving all extremities, no gross focal deficit noted. Medical - DS: Data Labs on day of discharge: Labs from last 24 hours 07/02/16 07/02/16 07/02/16 04:09 04:09 04:09 PT 29.9 H INR 2.7 H Sodium 136 Potassium 4.1 Chloride 97 Carbon Dioxide 19 L Anion Gap 20.0 H BUN 50 H Creatinine 3.5 H GFR Calculation 15 Glucose 100 Calcium 8.0 L Total Bilirubin 0.6 AST 32 ALT 33 Alkaline Phosphatase 89 Total Protein 7.5 Albumin 3.5 Globulin 4.0 H Albumin/Globulin Ratio 0.9 L Digoxin 0.6 Digoxin Dose Not Reportable Digox Last Dose Time Not Reportable Medical - DS: A/P - Patient/Caregiver Discharge Instructions Activity: as per physical therapy Diet: Cardiac Additional Instructions: follow-up primary care physician in 7 days follow-up nephrology In [address] Hendrickson, patient to be seen for follow up in wound care clinic within 5 days of discharge. Chest wound needs followed up on weekly after discharge. Continue Chest wound care as per wound Dr. Hendrickson recommendations - See orders. If persistent urinary retention follow-up with urology, presently able to void INR check on Tuesday07/05/16, presently on coumadin 1mg daily Prescriptions: Potassium Chloride [Kdur] 20 meq PO QAMCC #30 tablet Tamsulosin [Flomax] 0.8 mg PO HS #60 capsule - Follow up Plan Follow up with: Valencia Cordeor MD [Physician] - Ethan Long MD [Physician] - Glo Kessler MD [Primary Care Provider] - Disposition: Xfer SNF Prognosis: Fair Rehab Potential: Fair I certify that the patient requires SNF services: Yes Overall status at discharge: patient is progressing back to baseline Medical - DS: Qual - VTE Deep Vein Thrombosis/Pulmonary Embolism Present on Admission: No
[2016-07-02] MEDS ORDERED: WARFARIN 1 MG TABLET PO ONE (13:00)
== END 2016-07-02 14:25 | DRG 871 ==
LOC: MEDSUR 14:06
PROVIDERS: ADMIT Internal Medicine; ATTEND Internal Medicine

== ENCOUNTER 2021-01-20 06:36 | Inpatient (IN) ==
[2021-01-13 11:36] LABS: Basophils # (Auto) 0.04 K/mcL (0.00-0.30); Basophils % (Auto) 0.4 % (0.0-2.0); Eosinophils # (Auto) 0.21 K/mcL (0.00-0.70); Eosinophils % (Auto) 2.1 % (0.0-7.0); Hematocrit 32.3 % (40.1-51.0); Hemoglobin 9.5 g/dL (13.7-17.5); Lymphocytes # (Auto) 1.76 K/mcL (1.50-4.80); Lymphocytes % (Auto) 17.5 % (15.5-49.0); Mean Cell Volume 77.5 fL (80.0-100.0); Mean Corpuscular HGB Conc 29.4 g/dL (31.0-36.0); Mean Platelet Volume 9.1 fL (7.4-10.4); Monocytes # (Auto) 0.87 K/mcL (0.10-0.90); Monocytes % (Auto) 8.6 % (1.0-12.0); Neutrophils % (Auto) 71.4 % (38.0-78.0); Platelet Count 296 K/mcL (140-440); RBC 4.17 M/mcL (4.63-6.08); Red Cell Distribution Width 17.6 % (11.5-14.5); WBC 10.1 K/mcL (4.5-11.0)
[2021-01-13 12:05] LABS: Estimated Average Glucose(eAG) 114 mg/dL; Hemoglobin A1C 5.6 % Hgb (4.0-6.0)
[2021-01-13 19:40] LABS: ALT/SGPT 15 U/L (<40); AST/SGOT 18 U/L (<40); Albumin 2.9 gm/dL (3.2-5.2); Albumin/Globulin Ratio 0.7 (1.0-2.3); Alkaline Phosphatase 104 U/L (39-117); Bilirubin,Total 0.3 mg/dL (0.1-1.0); Blood Urea Nitrogen 21 mg/dL (8-23); Calcium 8.9 mg/dL (8.6-10.4); Carbon Dioxide 18 mmol/L (22-30); Chloride 102 mmol/L (96-108); Globulin 4.3 gm/dL (2.2-3.7); Glomerular Filtration Rate 38; Glucose 86 mg/dL (70-105)
--- NOTE | 2021-01-15 18:30 | EKG ---
[facility] Test Date: 2021-01-13 Pat Name: Angel Garrett Department: [facility] Room: Gender: Male [employer]: : 1935 Requested By: Migel Shore Order Number: [id number] Reading MD: Stan Liu Measurements Intervals [place] Rate: 90 P: CA: QRS: 35 QRSD: 88 T: -30 QT: 360 QTc: 441 Interpretive Statements ATRIAL FIBRILLATION, V-RATE 70-120 MULTIFORM VENTRICULAR PREMATURE COMPLEXES BORDERLINE T ABNORMALITIES, INFERIOR LEADS Electronically Signed On 01-15-2021 18:30:39 PST by Stan Liu /[email or web address]/[email or web address]/[id number]/[id number]
[~2021-01-20 06:36] MED LIST: ceFAZolin 2 GM in DEXTROSE 5% IN WATER 50 ML IV SCH
[2021-01-20] MEDS ORDERED: PROPOFOL 200 MG/20 ML VIAL IV ONE (07:48)
[2021-01-20] MEDS ORDERED: PHENYLephrine 1 MG/10 ML SYRINGE (ANEST) ONE (07:48)
[2021-01-20] MEDS ORDERED: SUGAMMADEX SODIUM 200 MG/2 ML VIAL IV ONE (07:48)
[2021-01-20] MEDS ORDERED: VASOPRESSIN 20 UNIT/ML VIAL ONE (07:48)
[2021-01-20] MEDS ORDERED: DEXAMETHASONE 10 MG/ML VIAL ONE (07:48)
[2021-01-20] MEDS ORDERED: MAGNESIUM SULFATE 2 GM/50 ML BAG IV ONE (07:48)
[2021-01-20] MEDS ORDERED: ALBUMIN HUMAN 25 GM/100 ML BAG IV ONE ×2 (07:48→08:56)
[2021-01-20] MEDS ORDERED: SUCCINYLCHOLINE 20 MG/ML ML IV ONE (07:48)
[2021-01-20] MEDS ORDERED: KETAMINE 50 MG/ML Syringe (ANEST) IV ONE (07:48)
[2021-01-20] MEDS ORDERED: fentaNYL 250 MCG/5 ML VIAL IV ONE (07:48)
[2021-01-20] MEDS ORDERED: ROCURONIUM 10 MG/ML ML IV ONE (07:48)
[2021-01-20] MEDS ORDERED: GLYCOPYRROLATE 0.2 MG/ML VIAL IV ONE (07:48)
[2021-01-20] MEDS ORDERED: LIDOCAINE HCL/PF 100 MG/5 ML SYRINGE IV ONE (07:48)
[2021-01-20] MEDS ORDERED: ROPIVACAINE HCL/PF 30 ML VIAL IJ ONE (07:48)
[2021-01-20] MEDS ORDERED: ePHEDrine 50 MG/5 ML SYRINGE (ANEST) IV ONE (07:48)
[2021-01-20] MEDS ORDERED: ONDANSETRON 4 MG/2 ML VIAL ONE (07:48)
--- NOTE | 2021-01-20 08:10 | Operative Note ---
Brief Operative Note Date of procedure: 01/20/21 Pre-op diagnosis: Elevated PSA Post-op diagnosis: same Procedure: Transrectal ultrasound-guided biopsy of the prostate Grafts/Implants: No Anesthesia: GETA Findings: Prostate dimensions are sagittal 42 mm, AP 34 mm, and transverse 58 mm. PSA was 19.20. Prostate volume was 44 mL. PSA density was 0.4. There were multiple hypoechoic areas in the left medial mid and apex. There were multiple BPH nodules bilaterally. Complications: none Surgeon: Robert Ronquillo Estimated blood loss (cc): 5 Specimens Removed/Pathology: other (Prostate biopsy cores x15) Condition: stable Disposition: other (Patient remaining in the operating room for Dr. Bautista' procedure) Operative Note Operative Note: After obtaining informed consent from the patient, he was brought to the operating was placed supine on the operating table. Dental endotracheal anesthesia was provided. The patient was then repositioned into a lateral decubitus position with his right set up in his knees towards his chest. Lidocaine jelly was placed in the rectum. Digital rectal examination was performed which revealed a grade 2 enlarged prostate that was nodular bilaterally. The transrectal ultrasound probe was then placed and a good picture of the prostate was obtained. There were multiple hypoechoic areas within the left medial mid and apex. There were multiple BPH nodules seen bilaterally. I anesthetized the prostate using a mixture of half, 1% plain lidocaine and half, 0.5% plain bupivacaine using 10 mL at each neurovascular bundle, right and left. While this was taken effect prostatic volume was measured in 3 planes and was determined to be 44 mL. PSA was 19.2. PSA density was 0.4. I then began obtaining prostate biopsy cores. The biopsy sites obtained were the left lateral base, left lateral mid, left lateral apex, left medial medial base, left medial mid x2, left medial apex x2, right medial base, right medial mid, right medial apex x2, right lateral base, right lateral mid, and right lateral apex. He tolerated the procedure well with no significant bleeding. He was then returned to the supine position and transferred to Dr. Bautista' care for his portion of the procedure.
--- NOTE | 2021-01-20 08:20 | Operative Note ---
Brief Operative Note Date of procedure: 01/20/21 Pre-op diagnosis: Difficult Mckeon catheter placement Post-op diagnosis: same Procedure: Placement of a 16 Malaysian coud catheter Grafts/Implants: Yes (16 Malaysian coud catheter) Anesthesia: GETA Complications: none Surgeon: Robert Ronquillo Estimated blood loss (cc): 0 Specimens Removed/Pathology: none sent Condition: stable Disposition: other (Transferred to Dr. Leon hammond for his portion of the procedure) Operative Note Operative Note: After prostate biopsy and after I left the room, I was called back to the room as nursing had difficulty placing a Mckeon catheter. They tried a 16 Malaysian straight catheter and could not get it to pass through the prostate. This catheter was removed. Under sterile conditions I placed lidocaine jelly by way of a Urojet in the urethra. I then passed a 16 Malaysian coud catheter with the tip up through the prostate and into the bladder. The balloon was then inflated with 10 mL of sterile water. Clear urine was obtained. It was placed to gravity drainage. The patient was then returned to Dr. Bautista' manish for his portion of the procedure.
[2021-01-20] MEDS ORDERED: cefTRIAXone 1 GM VIAL IV ONE (09:08)
[2021-01-20] MEDS ORDERED: LIDOCAINE 2% URO-JET 10 ML JEL.PF.APP UR ONE (09:11)
[2021-01-20] MEDS ORDERED: BUPIVACAINE PF 0.5% 10 ML VIAL IJ ONE (09:36)
[2021-01-20] MEDS ORDERED: LIDOCAINE W/EPI 1% 20 ML VIAL IJ ONE (09:36)
[2021-01-20] MEDS ORDERED: ONDANSETRON 4 MG/2 ML VIAL IV PRN ×2 (10:11→10:54)
[2021-01-20] MEDS ORDERED: HYDROmorphone 0.5 MG/0.5 ML SYRINGE IV PRN (10:11)
--- NOTE | 2021-01-20 10:11 | Operative Note ---
Brief Operative Note Date of procedure: 01/20/21 Pre-op diagnosis: Left-sided colon cancer Post-op diagnosis: same Procedure: Extended left hemicolectomy Grafts/Implants: No Anesthesia: GETA Findings: Perforated left-sided colon cancer with involvement of the small bowel mesentery Complications: none Surgeon: Noble Bautista Estimated blood loss (cc): 100 Specimens Removed/Pathology: other (Left:) Condition: stable Disposition: floor Operative Note Operative Note: After risk benefits and alternatives to the procedure were discussed with the patient at length he verbalized understanding and desire to continue with the procedure. Patient was taken the operating room placed upon operative table. General esthesia was induced over endotracheal tube. Dr. Ronquillo of urology came and I did a transrectal prostate biopsy, please see his operative note for further details on this procedure. Patient was then placed in a modified lithotomy position. Patient was prepped and draped in the standard sterile surgical fashion. Surgical timeout was taken to verify patient and procedure being performed. Mckeon catheter was also placed at this time as well as a NG tube. A midline laparotomy incision was made carried down through skin subcutaneous tissue. The abdominal cavity was entered and upon exploration there was an obvious left-sided colon mass. The mass was intimately associated with the mesentery of the small bowel. The white line of Toldt's was taken down to mobilize the mass, while doing this there was an area of perforation into the sidewall which was dissected and included with the mass. The left ureter was below this area and was kept out of the field of operation. Once the mass was completely mobile the sigmoid colon was transected as well as the descending colon just below the splenic flexure. The mobilization of the colon included splenic flexure mobilization and the majority of the transverse colon was mobilized and removed from the mesentery. Once the colon was transected on both sides the mesentery was carefully dissected free from the surrounding structures taking wide mesentery around the mesenteric mass, the cancer was involving portion of the small bowel mesentery this was also included in the specimen and this was down to the duodenum which was carefully dissected free with blunt and sharp dissection away from the mass and left intact. The mesentery was taken down between clamps and ties as well as with the LigaSure device. Once the mass was completelyfree was passed off the field for surgical pathology. There was at least 6 cm of uninvolved colon on both sides of the mass. The small bowel mesenteric defect was closed with interrupted 3-0 Vicryl sutures, the bowel was slightly dusky but appeared to have adequate blood flow at the end of the case. A [id number] functional end-to-end stapled 2 layered anastomosis was performed between the descending colon and the sigmoid colon it laid in the pelvis without tension and there was a good anastomosis at the end of the procedure. The abdominal cavity was then copiously irrigated, and further exploration including palpation of the spleen and liver identified no further masses. The NG tube was not able to be felt in the stomach even with multiple manipulations by anesthesia, they will continue to try after surgery, if this is unsuccessful we will use radiology to radiographically place his NG tube. Once abdominal cavity was copiously irrigated and expiration was performed all irrigant was suctioned free from the abdominal cavity, new gown and gloves and a closing tray was then brought up to the surgical field and the midline fascial defect was closed with 2 looped running 0 PDS sutures. Skin was closed with surgical priscilla. Xeroform 4 x 4 and tape dressings were applied. Patient was then awakened from anesthesia transported postanesthesia care unit awake alert in good condition.
[2021-01-20] MEDS ORDERED: LACTATED RINGERS 250 ML IV PRN (10:54)
[2021-01-20] MEDS ORDERED: METHOCARBAMOL 1,000 MG/10 ML VIAL IV PRN (10:54)
[2021-01-20] MEDS ORDERED: BENZOCAINE/MENTHOL 1 LOZENGE PO PRN (10:54)
[2021-01-20] MEDS ORDERED: ACETAMINOPHEN 1,000 MG/100 ML BAG IV ONE (10:54)
[2021-01-20] MEDS ORDERED: fentaNYL 100 MCG/2 ML VIAL IV PRN (10:54)
[2021-01-20] MEDS ORDERED: IPRATROPIUM/ALBUTEROL 3 ML AMPUL.NEB NEB PRN (10:54)
[2021-01-20] MEDS ORDERED: NALOXONE HCL 0.4 MG/ML VIAL IV PRN (10:54)
[2021-01-20] MEDS ORDERED: LACTATED RINGERS 1,000 ML IV SCH (11:00)
[2021-01-20] MEDS: DEXTROSE 5%-1/2NS 1,000 ML IV SCH ×3 (13:35→22:14)
[2021-01-20] MEDS: 0.9 % SODIUM CHLORIDE 10 ML SYRINGE IV SCH ×2 (13:35→22:09)
[2021-01-20] MEDS: KETOROLAC 10 MG TABLET PO PRN ×2 (13:36→19:44)
[2021-01-21] MEDS: DEXTROSE 5%-1/2NS 1,000 ML IV SCH ×6 (03:05→22:01)
[2021-01-21] MEDS: KETOROLAC 10 MG TABLET PO PRN (03:05)
[2021-01-21] MEDS: 0.9 % SODIUM CHLORIDE 10 ML SYRINGE IV SCH ×3 (04:38→21:45)
[2021-01-21 07:12] LABS: Basophils # (Auto) 0.01 K/mcL (0.00-0.30); Basophils % (Auto) 0.1 % (0.0-2.0); Eosinophils # (Auto) 0 K/mcL (0.00-0.70); Eosinophils % (Auto) 0 % (0.0-7.0); Hematocrit 25.7 % (40.1-51.0); Hemoglobin 7.8 g/dL (13.7-17.5); Lymphocytes # (Auto) 1.44 K/mcL (1.50-4.80); Mean Cell Volume 75.1 fL (80.0-100.0); Mean Corpuscular HGB Conc 30.4 g/dL (31.0-36.0); Mean Platelet Volume 9.5 fL (7.4-10.4); Monocytes % (Auto) 5.6 % (1.0-12.0); Neutrophils % (Auto) 84.3 % (38.0-78.0); Platelet Count 240 K/mcL (140-440); RBC 3.42 M/mcL (4.63-6.08); Red Cell Distribution Width 17.8 % (11.5-14.5); WBC 14.4 K/mcL (4.5-11.0)
[2021-01-21 07:48] LABS: Blood Urea Nitrogen 18 mg/dL (8-23); Calcium 8.2 mg/dL (8.6-10.4); Carbon Dioxide 22 mmol/L (22-30); Chloride 99 mmol/L (96-108); Glomerular Filtration Rate 60; Glucose 163 mg/dL (70-105)
--- NOTE | 2021-01-21 09:16 | General Surgery Progress Note ---
SUBJECTIVE Subjective Patient information: Note initiated : 01/21/21 at 9:15 am Service Date, if different from initiated Date: [] Patient: Angel Garrett 85 y/o M admitted on 01/20/21 for Left Hemicolectomy. Chief Complaint: [] Principal diagnosis: Colonic adenocarcinoma Interval history: Postop day #1 status post extended left hemicolectomy. Patient is doing well, has been ambulatory. Reports passing flatus this morn ing. Complains of minimal abdominal pain. Constitutional Vitals: Vital Signs Temp Pulse Resp BP Pulse Ox 96.7 F L 80 20 139/76 97 01/21/21 07:53 01/21/21 07:53 01/21/21 07:53 01/21/21 07:53 01/21/21 07:53 Period Temp Pulse Resp BP Sys/Hinds Pulse Ox Last 24 Hr 96.7 F-98.4 F 64-104 13-24 101-139/53-89 94-100 Intake and Output 01/20/21 01/21/21 01/21/21 21:59 05:59 13:59 Intake Total 1000 1190 Output Total 850 250 Balance 150 940 Weight 166 lb 1 oz Intake & Output: Intake & Output 01/20/21 01/21/21 01/21/21 21:59 05:59 13:59 Intake Total 1000 1190 Output Total 850 250 Balance 150 940 Weight 166 lb 1 oz Intake: IV 1000 890 Dextrose 5%-1/2Ns IV Solution 1 1000 890 ,000 ml @ 125 mls/hr IV .Q8H [facility] Rx#:[id number] Oral 300 Output: Urine Catheter Amount 250 Void Amount 850 Other: Urine Appearance Clear Uretheral (Mckeon) Clear Urine Color Dark Yellow Uretheral (Mckeon) Dark Yellow Urine Odor Strong General appearance: cooperative and no acute distress GI/Abdominal GI/Abdominal exam: Present soft and tenderness; Absent distended Additional comments: Incision is clean dry and intact A/P Narrative A/P Narrative: Doing as expected postop day #1. Awaiting return of bowel function. Continue with ambulation, continue n.p.o. at this time. Time Spent With Patient Time: Total time spent is greater than 50% in coordination of care (as documented) at patient's floor/unit and/or counseling patient:
[2021-01-21] MEDS: ENOXAPARIN 30 MG/0.3 ML SYRINGE SQ SCH (09:22)
[2021-01-21] MEDS: DIGOXIN 125 MCG TABLET PO SCH (22:15)
[2021-01-22] MEDS: DEXTROSE 5%-1/2NS 1,000 ML IV SCH ×4 (01:50→22:00)
[2021-01-22] MEDS: 0.9 % SODIUM CHLORIDE 10 ML SYRINGE IV SCH ×3 (04:16→22:01)
[2021-01-22] MEDS: LEVOTHYROXINE 75 MCG TABLET PO SCH (07:07)
[2021-01-22 07:19] LABS: Basophils # (Auto) 0.02 K/mcL (0.00-0.30); Basophils % (Auto) 0.2 % (0.0-2.0); Eosinophils # (Auto) 0.01 K/mcL (0.00-0.70); Eosinophils % (Auto) 0.1 % (0.0-7.0); Hematocrit 27.7 % (40.1-51.0); Hemoglobin 8.2 g/dL (13.7-17.5); Lymphocytes # (Auto) 1.68 K/mcL (1.50-4.80); Lymphocytes % (Auto) 12.6 % (15.5-49.0); Mean Cell Volume 76.9 fL (80.0-100.0); Mean Corpuscular HGB Conc 29.6 g/dL (31.0-36.0); Mean Platelet Volume 8.9 fL (7.4-10.4); Monocytes # (Auto) 0.44 K/mcL (0.10-0.90); Monocytes % (Auto) 3.3 % (1.0-12.0); Neutrophils % (Auto) 83.8 % (38.0-78.0); Platelet Count 246 K/mcL (140-440); Red Cell Distribution Width 18.4 % (11.5-14.5); WBC 13.3 K/mcL (4.5-11.0)
[2021-01-22 08:25] LABS: Blood Urea Nitrogen 17 mg/dL (8-23); Calcium 8.2 mg/dL (8.6-10.4); Carbon Dioxide 18 mmol/L (22-30); Chloride 99 mmol/L (96-108); Glomerular Filtration Rate 68; Glucose 100 mg/dL (70-105)
[2021-01-22] MEDS: CARVEDILOL 12.5 MG TABLET PO SCH ×2 (10:08→17:46)
[2021-01-22] MEDS: ENOXAPARIN 30 MG/0.3 ML SYRINGE SQ SCH (10:09)
--- NOTE | 2021-01-22 10:23 | General Surgery Progress Note ---
SUBJECTIVE Subjective Patient information: Note initiated : 01/22/21 at 10:21 am Service Date, if different from initiated Date: [] Patient: Angel Garrett 85 y/o M admitted on 01/20/21 for Left Hemicolectomy. Chief Complaint: [] Principal diagnosis: Colonic adenocarcinoma Interval history: Postop day #2 status post extended left hemicolectomy for colon cancer. Patient is doing well overnight, started having flatus postop day #1, had multiple bowel movements overnight. He has no fevers chills nausea or vomiting. Constitutional Vitals: Vital Signs Temp Pulse Resp BP Pulse Ox 96.5 F L 98 H 20 137/80 96 01/22/21 07:18 01/22/21 07:18 01/22/21 07:18 01/22/21 07:18 01/22/21 07:18 Period Temp Pulse Resp BP Sys/Hinds Pulse Ox Last 24 Hr 96.5 F-98.7 F 72-99 20-20 131-155/73-89 93-97 Intake and Output 01/21/21 01/22/21 01/22/21 21:59 05:59 13:59 Intake Total 1000 0 1000 Output Total 600 1150 Balance 400 -1150 1000 Weight 180 lb 3.2 oz Intake & Output: Intake & Output 01/21/21 01/22/21 01/22/21 21:59 05:59 13:59 Intake Total 1000 0 1000 Output Total 600 1150 Balance 400 -1150 1000 Weight 180 lb 3.2 oz Intake: IV 1000 1000 Dextrose 5%-1/2Ns IV Solution 1 1000 1000 ,000 ml @ 125 mls/hr IV .Q8H [facility] Rx#:[id number] Oral 0 Output: Urine Catheter Amount 600 825 Stool 325 Other: Urine Appearance Clear Uretheral (Mckeon) Clear Urine Color Bright Yellow Uretheral (Mckeon) Dark Yellow Stool Size Small Small Stool Color Brown Brown Stool Consistency Liquid Liquid Loose # Bowel Movements 1 1 # of times incontinent of 1 Bowels General appearance: cooperative and no acute distress GI/Abdominal GI/Abdominal exam: Present soft and tenderness (Appropriately tender to palpation); Absent distended Additional comments: Midline incision is clean dry and intact, dressing removed. A/P Narrative A/P Narrative: Postop day #2 status post hemicolectomy. Patient has evidence of return of bowel function. Plan: Continue with Mckeon secondary to difficult urination and difficult Mckeon placement. Advance diet to clears. Continue ambulation. Time Spent With Patient Time: Total time spent is greater than 50% in coordination of care (as documented) at patient's floor/unit and/or counseling patient:
--- NOTE | 2021-01-22 10:58 | Procedure Note ---
Procedures - Nerve Block Nerve Block 2 Date of Procedure: 01/22/21 Time out performed: Yes Procedure: Ultrasound guided Injectate: 0.5% Ropivicaine Volume (ml): 20 Side: left, right Nerve blocks: other (Bilateral Rectus Sheath blocks) Procedure successful: Yes Patient tolerated procedure: well Ultrasound Guided Nerve Procedure: Relevant anatomy identified (N,A,V), Local anesthetic: Spread visualized Complications: none Additional comments: Bilateral rectus sheath catheters assessed. Catheter insertion sites WNL. Ultrasound used. Spread of local anesthesia visualized. Patient tolerated well. Catheters discontinued. Nursing staff aware.
[2021-01-23] MEDS: DEXTROSE 5%-1/2NS 1,000 ML IV SCH (05:50)
[2021-01-23] MEDS: 0.9 % SODIUM CHLORIDE 10 ML SYRINGE IV SCH ×3 (05:52→20:07)
[2021-01-23 07:08] LABS: Basophils # (Auto) 0.01 K/mcL (0.00-0.30); Basophils % (Auto) 0.1 % (0.0-2.0); Eosinophils # (Auto) 0.05 K/mcL (0.00-0.70); Eosinophils % (Auto) 0.5 % (0.0-7.0); Hematocrit 23.1 % (40.1-51.0); Hemoglobin 7.1 g/dL (13.7-17.5); Lymphocytes # (Auto) 1.51 K/mcL (1.50-4.80); Lymphocytes % (Auto) 15.2 % (15.5-49.0); Mean Cell Volume 75.2 fL (80.0-100.0); Mean Corpuscular HGB Conc 30.7 g/dL (31.0-36.0); Mean Platelet Volume 9.2 fL (7.4-10.4); Monocytes # (Auto) 0.37 K/mcL (0.10-0.90); Monocytes % (Auto) 3.7 % (1.0-12.0); Neutrophils % (Auto) 80.5 % (38.0-78.0); Platelet Count 216 K/mcL (140-440); RBC 3.07 M/mcL (4.63-6.08); Red Cell Distribution Width 18.1 % (11.5-14.5); WBC 9.9 K/mcL (4.5-11.0)
[2021-01-23] MEDS: LEVOTHYROXINE 75 MCG TABLET PO SCH (07:14)
[2021-01-23 08:28] LABS: Blood Urea Nitrogen 13 mg/dL (8-23); Calcium 7.6 mg/dL (8.6-10.4); Carbon Dioxide 20 mmol/L (22-30); Chloride 105 mmol/L (96-108); Glucose 95 mg/dL (70-105)
[2021-01-23] MEDS ORDERED: POTASSIUM CHLORIDE 20 MEQ TABLET PO ONE (09:04)
--- NOTE | 2021-01-23 09:08 | General Surgery Progress Note ---
SUBJECTIVE Subjective Patient information: Note initiated : 01/23/21 at 9:06 am Service Date, if different from initiated Date: [] Patient: Angel Garrett 85 y/o M admitted on 01/20/21 for Left Hemicolectomy. Chief Complaint: [] Principal diagnosis: Colonic adenocarcinoma Interval history: Postop day #3 status post extended left hemicolectomy. Patient is doing well, continues to have bowel movements with minimal abdominal pain. Patient has no fevers chills nausea and vomiting with clear liquid diet. Constitutional Vitals: Vital Signs Temp Pulse Resp BP Pulse Ox 97.5 F 78 14 128/79 96 01/23/21 06:49 01/23/21 06:49 01/23/21 06:49 01/23/21 06:49 01/23/21 07:15 Period Temp Pulse Resp BP Sys/Hinds Pulse Ox Last 24 Hr 96.7 F-98.0 F 78-95 14-20 113-140/72-85 95-98 Intake and Output 01/22/21 01/23/21 01/23/21 21:59 05:59 13:59 Intake Total 1840 979 400 Output Total 825 1325 75 Balance 1015 -346 325 Weight 180 lb 5 oz Intake & Output: Intake & Output 01/22/21 01/23/21 01/23/21 21:59 05:59 13:59 Intake Total 1840 979 400 Output Total 825 1325 75 Balance 1015 -346 325 Weight 180 lb 5 oz Intake: IV 1000 979 Dextrose 5%-1/2Ns IV Solution 1 1000 979 ,000 ml @ 125 mls/hr IV .Q8H [facility] Rx#:[id number] Oral 840 0 400 Output: Urine Catheter Amount 825 1325 Stool 75 Other: Meal Breakfast Percent of Meal Consumed 100% Feeding Ability Independent Urine Appearance Clear Clear Clear Uretheral (Mckeon) Clear Clear Urine Color Bright Yellow Bright Yellow Bright Yellow Uretheral (Mckeon) Bright Yellow Bright Yellow Urine Odor Normal Stool Size Small Small Small Stool Color Brown Brown Brown Blood Tinged Blood Tinged Stool Consistency Loose Liquid Liquid Watery # Bowel Movements 1 1 1 General appearance: cooperative and no acute distress Respiratory Respiratory exam: Present normal respiratory exam GI/Abdominal GI/Abdominal exam: Present normal bowel sounds and soft; Absent distended or tenderness Additional comments: Incision is clean dry and intact A/P Narrative A/P Narrative: Postop day #3 status post left hemicolectomy. We will advance diet to regular today. DC IV medications. DC IV fluid. Continue with Mckeon until discharge secondary to urinary retention. Time Spent With Patient Time: Total time spent is greater than 50% in coordination of care (as documented) at patient's floor/unit and/or counseling patient:
[2021-01-23] MEDS: CARVEDILOL 12.5 MG TABLET PO SCH ×2 (09:56→16:58)
[2021-01-23] MEDS: ENOXAPARIN 30 MG/0.3 ML SYRINGE SQ SCH (09:58)
[2021-01-23] MEDS: DIGOXIN 125 MCG TABLET PO SCH (14:11)
--- NOTE | 2021-01-23 15:12 | Surgical Pathology Report ---
Histo Prostate BX Surgical Source Specimen A- Prostate, Left Base Lateral, Needle Core Biopsy Prostate Biopsy Diagnosis --- PROSTATIC ADENOCARCINOMA: -- MARCO ANTONIO SCORE 9 (5+4), GRADE GROUP 5. -- CARCINOMA INVOLVES 75% OF THE TISSUE. Microscopic Description: Multiplex immunohistochemistry is performed (blocks B, D, I, K). Blocks B, D PIN4 (P504S, 34BE12, p63): Highlights foci expressing P504S, with and without basal epithelial cells. Interpretation: Invasive carcinoma and HG-PIN. Block I PIN4 (P504S, 34BE12, p63): Negative P504S, positive for basal epithelial cells. Interpretation: Benign. Block K PIN4 (P504S, 34BE12, p63): Positive P504S, positive for basal epithelial cells. Interpretation: HG-PIN. Prostate Gross Description Twelve specimens received in formalin. The specimens consist of multiple needle biopsy fragments of pale chang tissue, each less than 0.1 cm in diameter. Total formalin fixation time is between 6 and 36 hours. Prostate Gross Left Base Lateral Labeled left base lateral, is a 2 cm core of tissue. The specimen is trisected. Totally submitted in one cassette. IHC Disclaimer Some of the tests reported may not have been cleared or approved by the U.S. Food Drug Administration (FDA). However, the FDA has determined that such clearance or approval is not necessary. Pursuant to the requirements of CLIA, this laboratory has established and verified the accuracy and precision of all tests, and additional information about these tests is available upon request. All technical controls are adequate. Surgical Source Specimen B- Prostate, Left Mid Lateral, Needle Core Biopsy Prostate Biopsy Diagnosis --- PROSTATIC ADENOCARCINOMA: -- MARCO ANTONIO SCORE 10 (5+5), GRADE GROUP 5. -- CARCINOMA INVOLVES 60% OF THE TISSUE. --- HIGH GRADE PROSTATIC INTRAEPITHELIAL NEOPLASIA (HG-PIN). Prostate Gross Left Mid Lateral Labeled left mid lateral is a 1.2 cm core of tissue. It is bisected. Totally submitted in one cassette. Surgical Source Specimen C- Prostate, Left [place] Lateral, Needle Core Biopsy Prostate Biopsy Diagnosis --- PROSTATIC ADENOCARCINOMA: -- MARCO ANTONIO SCORE 9 (5+4), GRADE GROUP 5. -- CARCINOMA INVOLVES 80% OF THE TISSUE. Prostate Gross Left [place] Lateral Labeled left apex lateral, is a 1 cm core of tissue. It is bisected. Totally submitted in one cassette. Surgical Source Specimen D- Prostate, Left Base Medial, Needle Core Biopsy Prostate Biopsy Diagnosis --- FOCAL PROSTATIC ADENOCARCINOMA: -- MARCO ANTONIO SCORE 8 (3+5), GRADE GROUP 4. -- CARCINOMA INVOLVES 5% OF THE TISSUE. --- HIGH GRADE PROSTATIC INTRAEPITHELIAL NEOPLASIA (HG-PIN). Prostate Gross Left Base Medial Labeled left base medial, are two cores of tissue 0.1 and 1.3 cm. The largest is bisected. Everything totally submitted in one cassette. Surgical Source Specimen E- Prostate, Left Mid Medial, Needle Core Biopsy Prostate Biopsy Diagnosis --- PROSTATIC ADENOCARCINOMA: -- MARCO ANTONIO SCORE 10 (5+5), GRADE GROUP 5. -- CARCINOMA INVOLVES 60% OF THE TISSUE. --- HIGH GRADE PROSTATIC INTRAEPITHELIAL NEOPLASIA (HG-PIN). Prostate Gross Left Mid Medial Labeled left mid medial, are three cores of tissue from 1 to 1.5 cm. The specimen are all bisected. Totally submitted in one cassette. Surgical Source Specimen F- Prostate, Left [place] Medial, Needle Core Biopsy Prostate Biopsy Diagnosis --- PROSTATIC ADENOCARCINOMA: -- MARCO ANTONIO SCORE 9 (4+5), GRADE GROUP 5. -- CARCINOMA INVOLVES 10% OF THE TISSUE. Prostate Gross Left [place] Medial Labeled left apex medial, are four cores of tissue from 0.1 to 1 cm. The largest fragment is bisected. Everything is totally submitted in one cassette. Surgical Source Specimen G- Prostate, Right Base Lateral, Needle Core Biopsy Prostate Biopsy Diagnosis --- PROSTATIC PARENCHYMA WITH NO DIAGNOSTIC ALTERATIONS. --- NO CARCINOMA IDENTIFIED. Prostate Gross Right Base Lateral Labeled right base lateral, is a 1.3 cm core of tissue. It is bisected. Totally submitted in one cassette. Surgical Source Specimen H- Prostate, Right Mid Lateral, Needle Core Biopsy Prostate Biopsy Diagnosis --- PROSTATIC ADENOCARCINOMA: -- MARCO ANTONIO SCORE 7 (4+3), GRADE GROUP 3. -- CARCINOMA INVOLVES 20% OF THE TISSUE. Prostate Gross Right Mid Lateral Labeled right mid lateral, is a 1.6 cm core of tissue. It is bisected. Totally submitted in one cassette. Surgical Source Specimen I- Prostate, Right [place] Lateral, Needle Core Biopsy Prostate Biopsy Diagnosis --- PROSTATIC PARENCHYMA WITH NO DIAGNOSTIC ALTERATIONS. --- NO CARCINOMA IDENTIFIED. Prostate Gross Right [place] Lateral Labeled right apex lateral, are four cores of tissue from less than 0.1 to 0.5 cm. Totally submitted in one cassette. Surgical Source Specimen J- Prostate, Right Base Medial, Needle Core Biopsy Prostate Biopsy Diagnosis --- PROSTATIC PARENCHYMA WITH NO DIAGNOSTIC ALTERATIONS. --- NO CARCINOMA IDENTIFIED. Prostate Gross Right Base Medial Labeled right base medial, is a 1.3 cm core of tissue. It is bisected. Totally submitted in one cassette. Surgical Source Specimen K- Prostate, Right Mid Medial, Needle Core Biopsy Prostate Biopsy Diagnosis --- HIGH GRADE PROSTATIC INTRAEPITHELIAL NEOPLASIA (HG-PIN). --- NO INVASIVE CARCINOMA IDENTIFIED. Prostate Gross Right Mid Medial Labeled right mid medial, are two cores of tissue 0.3 and 0.5 cm. Totally submitted in one cassette. Surgical Source Specimen L- Prostate, Right [place] Medial, Needle Core Biopsy Prostate Biopsy Diagnosis --- PROSTATIC PARENCHYMA WITH NO DIAGNOSTIC ALTERATIONS. --- NO CARCINOMA IDENTIFIED. (RLF:sln) Prostate Gross Right [place] Medial Labeled right apex medial, are two cores of tissue 0.7 and 1.1 cm. The specimen are both bisected. Totally submitted in one cassette. (SCB:kmt) Electronically Signed Fariha Burns MD, FCAP Electronically Signed 01/23/2021 15:10
--- NOTE | 2021-01-23 15:45 | Surgical Pathology Report ---
Histology Microscopic Diagnosis Specimen A- COLON AND SMALL BOWEL MESENTERY, LEFT, HEMICOLECTOMY: --- INVASIVE MODERATELY TO POORLY DIFFERENTIATED ADENOCARCINOMA, WITH THE FOLLOWING FEATURES: (SEE COMMENT) -- TUMOR SIZE: 10 x 6 x 5 cm. -- TUMOR EXTENT: DIRECTLY INVADES/ADHERES TO SMALL BOWEL MESENTERY. -- MACROSCOPIC TUMOR PERFORATION: PRESENT. -- LYMPHOVASCULAR INVASION: PRESENT. -- PERINEURAL INVASION: NOT IDENTIFIED. -- SURGICAL MARGINS: FREE OF TUMOR; INVASIVE CARCINOMA IS 1 cm FROM THE RADIAL (CLOSEST) MARGIN. -- LYMPH NODES: NO METASTATIC CARCINOMA IDENTIFIED TWENTY NINE LYMPH NODES (0/29). -- TUMOR DEPOSITS: PRESENT, TWO IDENTIFIED. -- PATHOLOGIC STAGE CLASSIFICATION: pT4b N0. --- BACKGROUND COLONIC MUCOSA WITH TUBULAR ADENOMA. Comments The left hemicolectomy (specimen A) demonstrates a large, bulky tumor with perforation. Per surgeon, the tumor is adherent to small bowel mesentery, which is included in the resection specimen. Please see Summary Cancer Data for complete details. SUMMARY CANCER DATA Procedure: Left hemicolectomy. Tumor Site: Descending colon. Histologic Type: Adenocarcinoma. Histologic Grade: Grade 2-3 (moderately to poorly differentiated). Tumor Size: 10 x 6 x 5 cm. Tumor Extent: Directly invades/adheres to small bowel mesentery. Macroscopic Tumor Perforation: Present. Lymphovascular Invasion: Present, small vessel. Perineural Invasion: Not identified. Margins: Margin status for invasive carcinoma: All margins negative for invasive carcinoma. Closest margin to invasive carcinoma: Radial (circumferential) margin, 1 cm away. Carcinoma is 7 and 8 cm from the proximal and distal margins. Regional Lymph Nodes: Regional lymph node status: All regional lymph nodes negative for tumor. Number of lymph nodes examined: 29. Tumor Deposits: Present, two. Pathologic Stage Classification: pT4b N0. Procedural Impression Perforated left-sided colon cancer with involvement of the small bowel mesentery. Gross Description Received in formalin labeled left colon, is an unoriented segment of colon closed at both ends with staple lines. The specimen measures 21 cm in length by 2.2-3 cm in diameter in the proximal and distal portions of colon. Centrally there is a firm thickened bulky region with adherent fatty tissue and an area of perforation that measures up to 11 cm in greatest dimension including the adherent fat. The region of perforation has hemorrhage and exudate and measures 3 x 3 cm. It is 8 and 9 cm from the surgical margins. On the posterior aspect of the mass region, there is an apparent incisal surgical cut up to 5 cm in width. The anterior puckered serosal surface and the posterior radial fat margin are inked black; the surgical cut is in the region of the posterior radial margin. Upon opening, there is a large firm chang fungating mass eroding through the colonic wall in association with the firm bulky serosal region. The mass measures 10 x 6 x 5 cm and is 8 and 7 cm from the proximal and distal margins. Sectioning through shows that the mass is grossly 1 cm from the radial fat margin and measures up to 1.8 cm in depth. The farther presumed distal staple line margin is inked black and the closer presumed proximal staple line margin is inked blue. Three cm from the mass in the presumed distal direction is a 0.8 cm chang polypoid mucosal lesion. The remainder of the mucosal surface is chang with normal mucosal folds and is 0.4 cm in average thickness. Chief [facility] sections: A1 - section of mass eroding through colonic wall; A2-A3 - sections of mass adjacent to the perforation; A4 - mass to posterior radial fat margin; A5 - mass to peripheral possible fat margin; A6-A7 - additional sections of mass invading through the wall into the fat; A8 - distal polyp and proximal normal mucosa; A9 - proximal and distal margins; A10 - seven candidate nodes; A11 - five candidate nodes, one inked blue and bisected; A12 - three bisected candidate nodes, one inked blue, one inked black and one un inked; A13 - four candidate nodes, two bisected and differentially inked black and blue; A14 - three bisected candidate nodes, one inked blue and one inked black; A15 - five candidate nodes, two bisected and differentially inked black and blue. Microscopic Diagnosis Specimen B- COLON, MASS, BIOPSY: --- INVASIVE MODERATELY TO POORLY DIFFERENTIATED ADENOCARCINOMA, MORPHOLOGICALLY SIMILAR TO SPECIMEN A. (RLF:sln) Gross Description Received in formalin labeled colon mass, is a white-chang firm nodular tissue fragment measuring 2.5 x 2 x 1.3 cm. The external surface is inked black. The specimen is serially sectioned. Totally submitted in B1-B2. (RLF:mele) Electronically Signed Fariha Burns MD, FCAP Electronically Signed 01/23/2021 15:43
[2021-01-24] MEDS: 0.9 % SODIUM CHLORIDE 10 ML SYRINGE IV SCH ×2 (04:31→14:51)
[2021-01-24 06:51] LABS: Basophils # (Auto) 0.02 K/mcL (0.00-0.30); Basophils % (Auto) 0.2 % (0.0-2.0); Eosinophils % (Auto) 1.1 % (0.0-7.0); Hematocrit 24.3 % (40.1-51.0); Hemoglobin 7.4 g/dL (13.7-17.5); Lymphocytes # (Auto) 1.65 K/mcL (1.50-4.80); Lymphocytes % (Auto) 18.9 % (15.5-49.0); Mean Cell Volume 76.2 fL (80.0-100.0); Mean Corpuscular HGB Conc 30.5 g/dL (31.0-36.0); Mean Platelet Volume 8.7 fL (7.4-10.4); Monocytes # (Auto) 0.45 K/mcL (0.10-0.90); Monocytes % (Auto) 5.2 % (1.0-12.0); Neutrophils % (Auto) 74.6 % (38.0-78.0); Platelet Count 240 K/mcL (140-440); RBC 3.19 M/mcL (4.63-6.08); Red Cell Distribution Width 17.9 % (11.5-14.5); WBC 8.7 K/mcL (4.5-11.0)
--- NOTE | 2021-01-24 07:19 | Discharge Summary ---
Discharge Provider Provider Patient information: Note initiated : 01/24/21 at 7:16 am Service Date, if different from initiated Date: [] Patient: Angel Garrett 85 y/o M admitted on 01/20/21 for Left Hemicolectomy. Chief Complaint: [] Date of admission: 01/20/21 06:36 Discharge date: 01/24/21 Primary care physician: Sola Christian Attending physician on admission: Noble Bautista Attending physician on discharge: Noble Bautista COURSE Hospital Course Hospital course: This is a pleasant 85-year-old gentleman who was identified having adenocarcinoma on a screening colonoscopy. This colonoscopy was done secondary to a mass found on MRI for work-up of prostate. Patient underwent an exploratory laparotomy, left hemicolectomy. Postoperatively he progressed without difficulty, required minimal pain medication. He has advanced his diet to regular and is having regular bowel movements. Discharge diagnosis: Status post left hemicolectomy. Adenocarcinoma. Secondary discharge diagnosis: Prostate cancer Procedures: Left hemicolectomy Time Spent with Patient Time attestation: Total time spent providing and/or coordinating discharge services: Time spent: Greater than 30 minutes Physical Examination Vital Signs Vital signs: Temp Pulse Resp BP Pulse Ox 96.8 F L 90 18 157/87 96 01/24/21 07:09 01/24/21 07:09 01/24/21 07:09 01/24/21 07:09 01/24/21 07:09 Discharge Plan Patient/Caregiver Discharge Instructions Activity: increase activity as tolerated Diet: Regular Diet Activity Restrictions/Additional Instructions: Resume normal activity as tolerated. May resume bathing is normal. Follow-up with me in 1 to 2 weeks. Gauze dressing to midline only as needed. Prescriptions: New ibuprofen 800 mg tablet 800 mg PO TID PRN (Reason: pain) Qty: 60 0RF acetaminophen [Tylenol 8 Hour] 650 mg tablet extended release 650 mg PO Q8H PRN (Reason: pain) Qty: 60 0RF Continued carvedilol 25 mg tablet 25 mg PO BIDCC 0RF digoxin 125 mcg tablet 0.125 mg PO MOWEFR 0RF levothyroxine 75 mcg tablet 75 mcg PO QAMAC 0RF acetaminophen 500 MG tablet 1,000 mg PO Q4HP PRN (Reason: Pain) 0RF furosemide 20 mg tablet 20 mg PO MOTH@0900 0RF Rx Instructions: Takes twice weekly on Tuesday and atorvastatin 40 mg Tablet 40 mg PO QDAY 0RF cyanocobalamin (vitamin B-12) 1,000 mcg Tablet 1,000 mcg PO QDAY 0RF ferrous sulfate 325 mg (65 mg iron) Tablet 325 mg PO BIDCC 0RF omeprazole 20 mg Capsule,Delayed Release(Dr/Ec) 20 mg PO BID 0RF ascorbic acid (vitamin C) 25 mg Tablet 40 mg PO QDAY 0RF Follow Up Plan Follow up with: Noble Bautista MD [Physician] - 02/05/21 9:00 am Robert Ronquillo MD [Physician] - 02/06/21 8:30 am Patient Disposition: Home, Self-Care Discharge Orders: Discharge Order (Routine); Ordered 01/24/21 Ordered By: Noble Bautista Pending Pending Pending: Resuscitation Status Resuscitate (Full Code) Diet Regular Diet Start TueJan 24 904 Carvedilol (Carvedilol 12.5 Mg Tablet) 25 mg PO BIDCC ON LICENSE OF [facility] Last Admin: 01/23/21 16:58 Dose: 25 mg Documented by: Admin: 01/23/21 09:56 Dose: 25 mg Documented by: Admin: 01/22/21 17:46 Dose: 25 mg Documented by: Admin: 01/22/21 10:08 Dose: 25 mg Documented by: PITA Digoxin (Digoxin 125 Mcg Tablet) 125 mcg PO MoWeFr@1400 ON LICENSE OF [facility] Last Admin: 01/23/21 14:11 Dose: 125 mcg Documented by: Admin: 01/21/21 22:15 Dose: 125 mcg Documented by: JANUSZ Enoxaparin Sodium (Enoxaparin 30 Mg/0.3 Ml Syringe) 30 mg SQ DAILY ON LICENSE OF [facility] Last Admin: 01/23/21 09:58 Dose: 30 mg Documented by: Admin: 01/22/21 10:09 Dose: 30 mg Documented by: Admin: 01/21/21 09:22 Dose: 30 mg Documented by: MIKE Levothyroxine Sodium (Levothyroxine 75 Mcg Tablet) 75 mcg PO QAMAC ON LICENSE OF [facility] Last Admin: 01/23/21 07:14 Dose: 75 mcg Documented by: Admin: 01/22/21 07:07 Dose: 75 mcg Documented by: [email or web address] Sodium Chloride (0.9 % Sodium Chloride 10 Ml Syringe) 10 ml IV Q8 KAYLEE Last Admin: 01/24/21 04:31 Dose: 10 ml Documented by: Admin: 01/23/21 20:07 Dose: 10 ml Documented by: Admin: 01/23/21 14:11 Dose: 10 ml Documented by: Admin: 01/23/21 05:52 Dose: Not Given Documented by: Admin: 01/22/21 22:01 Dose: Not Given Documented by: [email or web address] Admin: 01/22/21 14:13 Dose: Not Given Documented by: [email or web address] Admin: 01/22/21 04:16 Dose: Not Given Documented by: Admin: 01/21/21 21:45 Dose: Not Given Documented by: Admin: 01/21/21 13:10 Dose: Not Given Documented by: Admin: 01/21/21 04:38 Dose: Not Given Documented by: Admin: 01/20/21 22:09 Dose: Not Given Documented by: Admin: 01/20/21 13:35 Dose: Not Given Documented by: [email or web address] Shift Summary 01/24/21 05:08 Shift Summary by Sri Funes Primary Diagnosis: Colon CA Registration Status: Inpatient Day of Hospitalization: admit 01/20 Date of Surgery (if applicable): 01/20 Left hemicolectomy & prostate biopsy Pertinent Medical Hx: Colon CA, BPH Vital Signs : VSS on RA Neuro: A&OX4 Ambulation status: Able to ambulate to BR but with frequent loose stools, pt is stand-pivoting independently to BSC (transfers stable w/o device). FWW & SBA w/ gait belt for ambulation. Diet: Diet advanced to regular PRN meds: None this shift Lines/Tubes: IV - SL Lab/Rad results: WBC trending down Void / BM: Mckeon due to retention, 1 liquid BM Skin / Wound: Abd midline incision open to air, priscilla intact w/ scant dried shadow drng. Recommendations/questions for MD (hx type 2 DM and no order for accu-cheks, DC Mckeon? DC CM? PICC needed?): Expected date of discharge: TBD Discharge Plan (needs, disposition, etc): TBD Additional info: A&Ox4, calm and pleasant. Pt denies pain or N/V this shift. Pt is [place] (wears hearing aids). Initialized on 01/24/21 05:08 - END OF NOTE
[2021-01-24 07:20] LABS: Blood Urea Nitrogen 10 mg/dL (8-23); Calcium 7.9 mg/dL (8.6-10.4); Carbon Dioxide 22 mmol/L (22-30); Chloride 104 mmol/L (96-108); Glomerular Filtration Rate 77; Glucose 79 mg/dL (70-105)
[2021-01-24] MEDS: LEVOTHYROXINE 75 MCG TABLET PO SCH (07:43)
[2021-01-24] MEDS: ENOXAPARIN 30 MG/0.3 ML SYRINGE SQ SCH (09:25)
[2021-01-24] MEDS: CARVEDILOL 12.5 MG TABLET PO SCH (09:25)
== END 2021-01-24 15:00 | disposition home or self-care (01) | DRG 330 ==
LOC: MEDSUR 06:36
PROVIDERS: ADMIT Surgery; ATTEND Surgery